=== PATIENT | female | born 1945 | race Caucasian/White ===

== ENCOUNTER 2016-08-14 19:23 | Inpatient (IN) | payer OTHER, MEDICAID ==
[2016-08-14 19:55] LABS: % IMMATURE GRANULYOCYTES 0.2 % (0.0-1.1); ABSOLUTE IMMATURE GRANULOCYTES 0.01 10^3/uL (0.00-0.10); ADD DIFF? NO; ADD MORPH? NO; ADD SCAN? NO; ATYPICAL LYMPHOCYTE FLAG 0 (0-99); FRAGMENT RBC FLAG 20 (0-99); HEMATOCRIT 27.8 % (38.0-47.0); HEMOGLOBIN 8.6 g/dL (12.6-16.3); LEFT SHIFT FLG 0 (0-99); LIPEMIA HEMOLYSIS FLAG 80 (0-99); MEAN CELL HEMOGLOBIN CONCENTR. 30.9 g/dL (32.4-36.7); MEAN PLATELET VOLUME 9.2 fL (8.7-11.7); PLATELET CLUMPS FLAG 10 (0-99); PLATELET COUNT 136 10^3/uL (150-400); RED BLOOD CELL COUNT 3.31 10^6/uL (4.18-5.33); RED CELL DISTRIBUTION WIDTH 15.6 % (11.5-15.2)
--- NOTE | 2016-08-14 20:03 | CPEKG ---
Heart Rate: 75 RR Interval: 800 P-R Interval: 188 QRSD Interval: 84 QT Interval: 444 QTC Interval: 496 QRS [place]: 43 T Wave [place]: 68 EKG Severity - ABNORMAL ECG - EKG Impression: ATRIAL-PACED RHYTHM EKG Impression: BORDERLINE PROLONGED QT INTERVAL Electronically Signed By: Cl Fagan 14-Aug-2016 20:41:46
[2016-08-14 20:25] LABS: ANION GAP 13 mEq/L (8-16); CARBON DIOXIDE 20 mEq/l (22-31); CHLORIDE 105 mEq/L (97-110); CREATININE 1.9 mg/dL (0.6-1.0); GLOMERULAR FILTRATION RATE 26; GLUCOSE 92 mg/dL (70-100); POTASSIUM 4.5 mEq/L (3.5-5.2); SODIUM 138 mEq/L (134-144)
--- NOTE | 2016-08-14 20:34 | EDPHY ---
H & P Stated Complaint: dyspnea, swollen foot; since yesterday Time Seen by Provider: 08/14/16 20:11 HPI/ROS: CHIEF COMPLAINT: Increasing dyspnea x2 days, right calf pain and swelling HISTORY OF PRESENT ILLNESS: The patient presents the ED with increasing dyspnea for the past 2 days. The patient denies fever or productive cough. The patient is also noted some swelling in her right calf. The patient has had a 1 month history of an intermittent pruritic rash. The patient also has a history of a liver transplant 20 years ago. She is currently maintained on Prograf. Patient denies any abdominal pain, nausea, vomiting or diarrhea. The patient has been using her 's oxygen at home today secondary to her dyspnea. The patient reports that she is having difficulty walking across the room which is atypical for the patient's respiratory baseline. The patient does have a history of chronic renal insufficiency. The patient reports she has had no issues with acute or chronic liver rejection. The patient typically receives her [facility]. The patient does have a history of COPD. The patient was last hospitalized in March of 2016. During that hospitalization she was admitted to the hospital and apparently intentionally overdosed on medications shortly after her admission to the hospital. REVIEW OF SYSTEMS: A comprehensive 10 point review of systems is otherwise negative aside from elements mentioned in the history of present illness. Source: Patient Exam Limitations: No limitations - Personal History Current Tetanus/Diphtheria Vaccine: Yes Tetanus Vaccine Date: 2006 - Medical/Surgical History Hx Asthma: No Hx Chronic Respiratory Disease: Yes Hx Diabetes: No Hx Cardiac Disease: Yes Hx Renal Disease: Yes Hx Cirrhosis: No Hx Alcoholism: No Hx HIV/AIDS: No Hx Splenectomy or Spleen Trauma: No Other PMH: PMH- Hep B&C,Pacer 09/21 syncope, HTN, CKD, UTIS, hypothyroid, depression, COPD, leukocytosis, anemia, thrombocytopenia, seizures, arthritis, bipolar, erosive esophagitis, diastolic heart failure, renal aretery stenosis, LIVER TRANSPLANT , PANCREATITIS. PSH- ankle R replacement, liver xplant 1996, knee and wrist, meche - Social History Smoking Status: Former smoker - Physical Exam Exam: General Appearance: Elderly female, mild tachypnea, no acute distress Eyes: Pupils equal and round no pallor or injection ENT, Mouth: Mucous membranes moist Respiratory: Lungs are clear to auscultation bilaterally Cardiovascular: Regular rate and rhythm Gastrointestinal: Abdomen is soft and nontender, no masses, bowel sounds normal Neurological: A&O, normal motor function, normal sensory exam, normal cranial nerves Skin: Chronic excoriated lesions noted to right leg and back Musculoskeletal: Neck is supple nontender Extremities: Slight asymmetric calf swelling noted in the right leg Constitutional: Initial Vital Signs Temperature (C) 36.7 C 08/14/16 19:25 Heart Rate 77 08/14/16 19:25 Respiratory Rate 17 08/14/16 19:25 Blood Pressure 156/95 H 08/14/16 19:25 O2 Sat (%) 96 08/14/16 19:25 O2 Delivery Mode Nasal Cannula O2 (L/minute) 2 Allergies/Adverse Reactions: dextroamphetamine [Dextroamphetamine] Allergy (Unknown, Verified 03/10/16 17:35) JITTERY gabapentin [Gabapentin] Allergy (Unknown, Verified 03/10/16 17:35) JITTERY temazepam [Temazepam] Allergy (Unknown, Verified 03/10/16 17:35) AMNESIA sumatriptan [From Imitrex] Allergy (Verified 03/10/16 17:35) sumatriptan succinate [From Imitrex] Allergy (Verified 03/10/16 17:35) Home Medications: Medication Instructions Recorded QUEtiapine FUMARATE [Seroquel 100 100 mg PO HS 03/08/13 mg (*)] Calcitriol [Calcitriol (*)] 0.25 mcg PO MWF 12/25/15 Tacrolimus Anhydrous [Prograf 0.5 1 mg PO BID 12/25/15 MG (*)] Tiotropium Inhaler [Spiriva 18 mcg IH DAILY 12/25/15 Handihaler] Acetaminophen/ASA/Caffeine 1 each PO PRN PRN #0 tab 02/12/16 [Excedrin Tablet (*)] Carvedilol [Coreg (*)] 25 mg PO BIDMEAL 08/14/16 FLUoxetine [Prozac 20 MG (*)] 20 mg PO DAILY 08/14/16 LORazepam [Ativan (*)] 1 mg PO BID 08/14/16 Pantoprazole Sodium [Protonix 40mg 40 mg PO BID 08/14/16 (*)] amLODIPine BESYLATE [Norvasc 10 mg 10 mg PO DAILY 08/14/16 (*)] hydrALAZINE [Apresoline 50 mg (*)] 25 mg PO TID 08/14/16 Medical Decision Making - Diagnostics EKG Interpretation: EKG: Complete interpretation has been separately recorded in the [employer] archive. Summary impression: Av paced rhythm Imaging: Chest x-ray AP: Negative for CHF or pneumonia. Study reviewed by myself and radiologist Dr. Bauer. Bilateral LE US: Right sided Cuellar's cyst, otherwise normal without evidence of DVT. ED Course/Re-evaluation: The patient presents to the ED with complaints of dyspnea. The patient was noted to have an oxygen saturation of 96% on room air. She currently is paced at a rate of 75. The patient reports that she is not anticoagulated. She has evidence of a possible DVT involving her right lower extremity. The patient is noted to have a creatinine of 1.9. The patient does not appear to be fluid overloaded. Bilateral lower extremity ultrasound have been ordered. The patient's EKG demonstrates no evidence of obvious ischemia in her paced rhythm. The patient is currently undergoing bilateral lower extremity ultrasounds. The patient will receive a DuoNeb. I believe she is likely having dyspnea secondary to COPD exacerbation. Chest x- ray currently pending. The patient is quite symptomatic and unsteady on her feet. The patient lives alone and cannot safely be discharged home this evening. Consultation is made with Dr. Armenta from the hospitalist service who will admit the patient. Differential Diagnosis: Differential diagnosis considered includes congestive heart failure, arrhythmia , pulmonary embolism, myocardial infarction, metabolic abnormality, hyperkalemia - Data Points Laboratory Results: Laboratory Results 08/14/16 19:45 08/14/16 19:45 08/14/16 08/14/16 08/14/16 20:40 20:37 19:45 WBC 5.24 10^3/uL (3.80-9.50) RBC 3.31 L 10^6/uL (4.18-5.33) Hgb 8.6 L g/dL (12.6-16.3) Hct 27.8 L % (38.0-47.0) MCV 84.0 fL (81.5-99.8) MCH 26.0 L pg (27.9-34.1) MCHC 30.9 L g/dL (32.4-36.7) RDW 15.6 H % (11.5-15.2) Plt Count 136 L 10^3/uL (150-400) MPV 9.2 fL (8.7-11.7) Neut % (Auto) 51.5 % (39.3-74.2) Lymph % (Auto) 31.1 % (15.0-45.0) [place] % (Auto) 5.5 % (4.5-13.0) Eos % (Auto) 11.5 H % (0.6-7.6) Baso % (Auto) 0.2 L % (0.3-1.7) Nucleat RBC Rel Count 0.0 % (0.0-0.2) Absolute Neuts (auto) 2.70 10^3/uL (1.70-6.50) Absolute Lymphs (auto) 1.63 10^3/uL (1.00-3.00) Absolute Monos (auto) 0.29 L 10^3/uL (0.30-0.80) Absolute Eos (auto) 0.60 H 10^3/uL (0.03-0.40) Absolute Basos (auto) 0.01 L 10^3/uL (0.02-0.10) Absolute Nucleated RBC 0.00 10^3/uL (0-0.01) Immature Gran % 0.2 % (0.0-1.1) Immature Gran # 0.01 10^3/uL (0.00-0.10) APTT 22.9 L SEC (23.0-38.0) D-Dimer 0.83 H ug/mLFEU (0.00-0.50) Sodium 138 mEq/L (134-144) Potassium 4.5 mEq/L (3.5-5.2) Chloride 105 mEq/L (97-110) Carbon Dioxide 20 L mEq/l (22-31) Anion Gap 13 mEq/L (8-16) BUN 33 H mg/dL (7-23) Creatinine 1.9 H mg/dL (0.6-1.0) Estimated GFR 26 Glucose 92 mg/dL (70-100) Calcium 9.0 mg/dL (8.5-10.4) Troponin I < 0.012 ng/mL (0-0.034) NT-Pro-B Natriuret Pep 1700 H pg/mL (0-125) Medications Given: Discontinued Medications Albuterol/Ipratropium (Duoneb) 3 ml IH EDNOW ONE Stop: 08/14/16 20:40 Last Admin: 08/14/16 20:40 Dose: 3 ml Methylprednisolone Sodium Succinate (Solu-Medrol) 125 mg IVP ONCE ONE Stop: 08/14/16 20:58 Last Admin: 08/14/16 21:13 Dose: 125 mg Departure - Departure Disposition: [facility] Acute Clinical Impression: Chronic obstructive pulmonary disease with acute exacerbation, Dehydration Condition: Fair
[2016-08-14] MEDS ORDERED: IPRATROPIUM/ALBUTEROL 3 ML DEYVIAL IH ONE (20:39)
[2016-08-14 20:44] LABS: APTT 22.9 SEC (23.0-38.0)
[2016-08-14] MEDS ORDERED: methylPREDNISolone SOD SUCC 125 MG/2 ML VIAL IVP ONE (20:57)
--- NOTE | 2016-08-14 21:16 | US ---
Ultrasound and Venous Duplex Doppler Study of Both the Right and Left Lower Extremities History: Shortness of breath, right foot swelling, possible DVT Comparison: February 09, 2016 Technique: High frequency transducer was used for imaging and Doppler study of the veins of the righ t and left lower extremities. Pulsed Doppler and color Doppler were utilized, along with various ma neuvers to assess flow in the veins. Findings: Right: A right Cuellar cyst is slightly larger currently measuring 6.2 x 2.3 x 1 cm compared to prior 5 .1 x 2.1 x 1.1 cm. The deep veins of the right lower extremity are normally compressible between the groin and the upper calf. They have normal Doppler waveforms within them. No venous thrombosis is id entified. Left: The deep veins of the left lower extremity are normally compressible between the groin and the upper calf. They have normal Doppler wave forms within them. No venous thrombus is identified. Impression: 1. No evidence of deep vein thrombosis in the right or left lower extremity. 2. Slight increase in size of a right Cuellar's cyst. Results called and discussed with Sarah Vu MD at 08/14/2016 9:14 pm
[2016-08-14 21:31] LABS: TROPONIN I < 0.012 ng/mL (0-0.034)
--- NOTE | 2016-08-14 21:38 | DX ---
Chest, AP and Lateral History: Dyspnea Comparison: March 12, 2016, February 08, 2016 Findings: Lung volumes are mildly prominent. Lungs are clear, without infiltrate or consolidation. He art size is normal. There is no adenopathy or mass lesion. There is no pleural effusion or pneumothor ax. Bones are unremarkable for age. A left chest wall pacer device and associated bipolar pacer leads remain in place. Impression: Normal. No pneumonia or congestive failure identified.
[2016-08-14] MEDS ORDERED: ALBUTEROL 3 ML DEYVIAL IH PRN (23:23)
[2016-08-14] MEDS ORDERED: ONDANSETRON DISINTEGRATING 4 MG TAB PO PRN (23:23)
[2016-08-14] MEDS ORDERED: ONDANSETRON 4 MG/2 ML VIAL IVP PRN (23:23)
[2016-08-14] MEDS ORDERED: ACETAMINOPHEN/ASA/CAFFEINE 1 EACH TAB PO PRN (23:27)
[2016-08-14] MEDS ORDERED: TACROLIMUS ANHYDROUS 0.5 MG CAP PO SCH (23:30)
[2016-08-14] MEDS ORDERED: ASPIRIN 325 MG TAB PO ONE (23:41)
--- NOTE | 2016-08-14 23:47 | PDGENHP ---
History and Physical - Chief Complaint SOB - History of Present Illness 71 yo female with h/o liver transplant, CKD and h/o heart block with pacemaker presents to ED with SOB. Symptoms present over past 2-3 days. She reports mild cough, minimal sputum. She is mostly having dyspnea on exertion. Denies chest pain. No associated nausea or diaphoresis. In 10/2015, she had a nuclear stress test with some reversible ischemia and it was noted that if she develops worse symptoms, she may need an angiogram. She uses Spiriva, but feels this hasn't helped her symptoms much. She does not have a steroid inhaler or albuterol. In the ED, she had a mildly elevated d dimer, LE duplex was negative for DVT. She is unable to have CTPA due to elevated creatinine. She is admitted for presumed COPD exacerbation. History Information - Allergies/Home Medication List Allergies/Adverse Reactions: dextroamphetamine [Dextroamphetamine] Allergy (Unknown, Verified 03/10/16 17:35) JITTERY gabapentin [Gabapentin] Allergy (Unknown, Verified 03/10/16 17:35) JITTERY temazepam [Temazepam] Allergy (Unknown, Verified 03/10/16 17:35) AMNESIA sumatriptan [From Imitrex] Allergy (Verified 03/10/16 17:35) sumatriptan succinate [From Imitrex] Allergy (Verified 03/10/16 17:35) Home Medications: QUEtiapine FUMARATE [Seroquel 100 mg (*)] 100 mg PO HS 03/08/13 [Last Taken 11/22] Calcitriol [Calcitriol (*)] 0.25 mcg PO MWF 12/25/15 [Last Taken 08/14/16] Tacrolimus Anhydrous [Prograf 0.5 MG (*)] 1 mg PO BID 12/25/15 [Last Taken 08/14 09:00] Tiotropium Inhaler [Spiriva Handihaler] 18 mcg IH DAILY 12/25/15 [Last Taken 12/23] Carvedilol [Coreg (*)] 25 mg PO BIDMEAL 08/14/16 [Last Taken 08/14/16 09:00] FLUoxetine [Prozac 20 MG (*)] 20 mg PO DAILY 08/14/16 [Last Taken 08/14/16] LORazepam [Ativan (*)] 1 mg PO BID 08/14/16 [Last Taken 08/14/16 09:00] Pantoprazole Sodium [Protonix 40mg (*)] 40 mg PO BID 08/14/16 [Last Taken 09:00] amLODIPine BESYLATE [Norvasc 10 mg (*)] 10 mg PO DAILY 08/14/16 [Last Taken 12/23] hydrALAZINE [Apresoline 50 mg (*)] 25 mg PO TID 08/14/16 [Last Taken 08/14/16 12 :00] I have personally reviewed and updated: family history, medical history, social history, surgical history - Past Medical History COPD, GERD, hypertension, migraines, psychiatric history Additional medical history: CKD, h/o liver transplant 1996, h/o heart block with pacemaker, chronic immunosuppression, depression/anxiety, 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 Her recently . Review of Systems ROS: 10pt was reviewed & negative except for what was stated in HPI & below Physical Exam Temp Pulse Resp BP Pulse Ox 36.7 C 74 18 182/100 H 92 08/14/16 19:25 08/14/16 21:13 08/14/16 21:13 08/14/16 21:13 08/14/16 21:13 Constitutional: no apparent distress Eyes: PERRL Ears, Nose, Mouth, Throat: moist mucous membranes Cardiovascular: regular rate and rhythym, no murmur, rub, or gallop Respiratory: no respiratory distress, clear to auscultation Gastrointestinal: normoactive bowel sounds, soft, non-tender abdomen Skin: warm Musculoskeletal: full muscle strength Neurologic: AAOx3 Psychiatric: interacting appropriately Lab Data & Imaging Review 08/14/16 19:45 08/14/16 19:45 WBC 5.24 10^3/uL (3.80-9.50) 08/14/16 19:45 RBC 3.31 10^6/uL (4.18-5.33) L 08/14/16 19:45 Hgb 8.6 g/dL (12.6-16.3) L 08/14/16 19:45 Hct 27.8 % (38.0-47.0) L 08/14/16 19:45 MCV 84.0 fL (81.5-99.8) 08/14/16 19:45 MCH 26.0 pg (27.9-34.1) L 08/14/16 19:45 MCHC 30.9 g/dL (32.4-36.7) L 08/14/16 19:45 RDW 15.6 % (11.5-15.2) H 08/14/16 19:45 Plt Count 136 10^3/uL (150-400) L 08/14/16 19:45 MPV 9.2 fL (8.7-11.7) 08/14/16 19:45 Neut % (Auto) 51.5 % (39.3-74.2) 08/14/16 19:45 Lymph % (Auto) 31.1 % (15.0-45.0) 08/14/16 19:45 [place] % (Auto) 5.5 % (4.5-13.0) 08/14/16 19:45 Eos % (Auto) 11.5 % (0.6-7.6) H 08/14/16 19:45 Baso % (Auto) 0.2 % (0.3-1.7) L 08/14/16 19:45 Nucleat RBC Rel Count 0.0 % (0.0-0.2) 08/14/16 19:45 Absolute Neuts (auto) 2.70 10^3/uL (1.70-6.50) 08/14/16 19:45 Absolute Lymphs (auto) 1.63 10^3/uL (1.00-3.00) 08/14/16 19:45 Absolute Monos (auto) 0.29 10^3/uL (0.30-0.80) L 08/14/16 19:45 Absolute Eos (auto) 0.60 10^3/uL (0.03-0.40) H 08/14/16 19:45 Absolute Basos (auto) 0.01 10^3/uL (0.02-0.10) L 08/14/16 19:45 Absolute Nucleated RBC 0.00 10^3/uL (0-0.01) 08/14/16 19:45 Immature Gran % 0.2 % (0.0-1.1) 08/14/16 19:45 Immature Gran # 0.01 10^3/uL (0.00-0.10) 08/14/16 19:45 APTT 22.9 SEC (23.0-38.0) L 08/14/16 20:37 D-Dimer 0.83 ug/mLFEU (0.00-0.50) H 08/14/16 20:37 Sodium 138 mEq/L (134-144) 08/14/16 19:45 Potassium 4.5 mEq/L (3.5-5.2) 08/14/16 19:45 Chloride 105 mEq/L (97-110) 08/14/16 19:45 Carbon Dioxide 20 mEq/l (22-31) L 08/14/16 19:45 Anion Gap 13 mEq/L (8-16) 08/14/16 19:45 BUN 33 mg/dL (7-23) H 08/14/16 19:45 Creatinine 1.9 mg/dL (0.6-1.0) H 08/14/16 19:45 Estimated GFR 26 08/14/16 19:45 Glucose 92 mg/dL (70-100) 08/14/16 19:45 Calcium 9.0 mg/dL (8.5-10.4) 08/14/16 19:45 Troponin I < 0.012 ng/mL (0-0.034) 08/14/16 20:40 NT-Pro-B Natriuret Pep 1700 pg/mL (0-125) H 08/14/16 20:40 Assessment & Plan Assessment: Dyspnea / Acute hypoxemic respiratory failure - symptoms worse with exertion. COPD possible factor, also considered cardiac ischemia though pt is CP free. She had an abnormal stress test in 10/2015 and may warrant an angiogram, though Cr 1.9. Initial troponin negative. EKG non-ischemic. Considered PE, D dimer mildly elevated, LE duplex neg for DVT, no tachycardia or CP. -Nebs, O2, oral prednisone for COPD component -full dose ASA now, cont beta alma -check lipid status (statin previously d/c'd due to elevated LFTs) -trend troponin -repeat EKG in am -Consider cards consult in am to determine if pt is a candidate for angiogram vs echo vs repeat stress test -Consider V/Q scan if hypoxemia worsens Hypertension - BP quite elevated now, but hasn't had evening meds. -Cont Coreg, Hydralazine, Norvasc H/O Liver transplant - cont prograf, check level. CKD - H/O nephrotic range proteinuria 2/2 FSGS. Cr near baseline. Anemia - chronic, not far from baseline. H/O GI bleed. No e/o active bleeding at this time. -hemoccult stool GERD / erosive esophagitis - cont PPI Full code Dispo - obs
[2016-08-15] MEDS: PANTOPRAZOLE SODIUM 40 MG TAB PO SCH ×3 (00:04→20:26)
[2016-08-15] MEDS: LORazepam 1 MG TAB PO SCH ×3 (00:05→20:26)
[2016-08-15] MEDS: CARVEDILOL 25 MG TAB PO SCH ×3 (00:05→16:31)
[2016-08-15] MEDS: TACROLIMUS 1 MG CAP PO SCH ×3 (00:06→20:26)
[2016-08-15] MEDS: QUEtiapine FUMARATE 100 MG TAB PO SCH ×2 (00:06→20:26)
[2016-08-15] MEDS: IPRATROPIUM/ALBUTEROL 3 ML DEYVIAL IH SCH ×6 (01:45→21:09)
[2016-08-15 03:17] LABS: ALBUMIN 3.1 g/dL (3.5-5.0); ANION GAP 15 mEq/L (8-16); CALCIUM 8.5 mg/dL (8.5-10.4); CARBON DIOXIDE 17 mEq/l (22-31); CHLORIDE 107 mEq/L (97-110); CHOLESTEROL 186 mg/dL (140-220); CHOLESTEROL/HDL RATIO 4.77 RATIO (1.00-4.44); CREATININE 1.8 mg/dL (0.6-1.0); GLOMERULAR FILTRATION RATE 28; GLUCOSE 178 mg/dL (70-100); HIGH DENSITY LIPOPROTEIN 39 mg/dL (40-85); LDL/HDL RATIO 3.18 RATIO (1.00-3.22); LOW DENSITY LIPOPROTEIN 124 mg/dL (80-100); POTASSIUM 4.3 mEq/L (3.5-5.2); SODIUM 139 mEq/L (134-144); TRIGLYCERIDE 118 mg/dL (35-135); VERY LOW DENSITY LIPOPROTEINS 23 mg/dL (8-25)
[2016-08-15 03:18] LABS: NON-HIGH DENSITY LIPOPROTEIN 147 mg/dL (90-129)
[2016-08-15 03:37] LABS: HEMATOCRIT 24.8 % (38.0-47.0); HEMOGLOBIN 7.5 g/dL (12.6-16.3); MEAN CELL HEMOGLOBIN 25.7 pg (27.9-34.1); MEAN CELL HEMOGLOBIN CONCENTR. 30.2 g/dL (32.4-36.7); MEAN CELL VOLUME 84.9 fL (81.5-99.8); RED BLOOD CELL COUNT 2.92 10^6/uL (4.18-5.33); RED CELL DISTRIBUTION WIDTH 15.5 % (11.5-15.2)
[2016-08-15] MEDS: ACETAMINOPHEN 325 MG TAB PO PRN ×3 (04:44→15:35)
--- NOTE | 2016-08-15 09:29 | CPEKG ---
Heart Rate: 77 RR Interval: 779 P-R Interval: 192 QRSD Interval: 80 QT Interval: 424 QTC Interval: 480 QRS [place]: 31 T Wave [place]: 39 EKG Severity - ABNORMAL ECG - EKG Impression: ATRIAL-PACED RHYTHM Electronically Signed By: Jason House 15-Aug-2016 13:14:20
[2016-08-15] MEDS: FLUoxetine 20 MG CAP PO SCH (09:45)
--- NOTE | 2016-08-15 10:35 | HOSPPROG ---
Hospitalist Progress Note Assessment/Plan: DIAGNOSIS: # ACUTE DYSPNEA WITH PLEURITIC CHEST PAIN, OF UNCERTAIN ETIOLOGY -high d-dimer and extreme inactivity, along with no other defined cause of her symptoms, leave her at fairly high risk for pe # HISTORY OF ABNORMAL MYOCARDIAL PERFUSION IMAGING WITH STRESS, SO MAY HAVE MYOCARDIUM AT RISK # CHRONIC KIDNEY DISEASE AT HER BEST RECENT CREATININE AT 1.8, SO STABLE WITH HISTORY OF FOCAL SEGMENTAL GLOMERULAR SCLEROSIS # ELEVATED D-DIMER, NEGATIVE DOPPLER ULTRASOUND OF LEGS # HYPERTENSION CURRENTLY UNCONTROLLED # PANCYTOPENIA, THIS MAY BE PARTLY RELATED TO HER IMMUNE SUPPRESSION MEDICATIONS BUT IS OF UNCERTAIN CAUSE. IT IS CHRONIC BUT WORSE NOW THAN IN THE PAST # SEVERE DECONDITIONING FROM CHRONIC IN ACTIVITY # CHRONIC LIVER TRANSPLANT ON IMMUNE SUPPRESSION # HISTORY OF PACEMAKER FOR HEART BLOCK At this time she has normal troponins, no heart failure, no arrhythmia, overall no likely cardiac explanation for her dyspnea. There is a mildly abnormal nuclear stress test in the past; if we have no other findings it may be worth repeating that stress test to see if myocardial profusion has worsened. However at this time fairly suspicious for possible PE. I do not think a V/Q scan would help given her likely COPD; she does have chronic renal disease but her kidneys are at her baseline actually better than recent baseline at 1.8. I think would actually be safe to do CT angio as long as we keep her hydrated. In terms of COPD she probably has this but lung exam is with good air movement and no wheezing at all and her chest x-ray does not show hyperexpansion of lungs. This would not explain her pleuritic pain or her high D-dimer. Ultrasound of the legs is negative but DVT is present only about 1/3 of patients with PE. Another possible cause of dyspnea for her could be her anemia which is worse than it has been in the past. If we have no other findings to explain her dyspnea on the above away stuart she may actually need transfusion for treatment of symptomatic anemia. PLANS: -continue bronchodilators -IV hydration -CT angio of the chest to rule out PE -if there is no PE would do spirometry to see what her lung function really is -If symptoms persist and there is no PE would consider repeating myocardial perfusion imaging with stress -review her pancytopenia with Hematology and see if there is further workup that needs to be done for this SUBJECTIVE: Some partial relief of her dyspnea with bronchodilators. However at this time she still has more dyspnea than usual and it is also admitting to me that she does have some anterior pleuritic chest pain. There is no pain in her legs. She has nothing that sounds like angina, no palpitations. OBJECTIVE Vitals reviewed: Some uncontrolled systolic hypertension otherwise normal Exam: alert oriented skin warm dry color ok No jugular venous distention at the neck resps not labored lungs clear BSs, there is good air movement in both lungs with no wheeze heart regular abd soft nondistended nontender, bowel sounds present limbs warm, no edema iv site ok Objective: Vital Signs Temp Pulse Resp BP Pulse Ox 36.6 C 76 18 166/96 H 97 08/15/16 08:44 08/15/16 08:44 08/15/16 08:32 08/15/16 09:44 08/15/16 08:44 Laboratory Results 08/15/16 02:45 08/15/16 02:45 08/14/16 08/15/16 08/16/16 06:59 06:59 06:59 Intake Total 150 Output Total 400 Balance -250 ICD10 Worksheet Patient Problems: Problems Problem Status Diagnosed Acute bronchitis with chronic obstructive pulmonary disease (COPD) Acute Acute on chronic renal insufficiency Acute Bronchitis Acute Chest pain Acute Chronic Disease Mgmt/Transitional Care Acute Chronic obstructive pulmonary disease with acute exacerbation Acute Chronic renal insufficiency Acute Dehydration Acute Hyponatremia Acute Knee effusion Acute Migraine Acute Pneumonia Acute Right knee pain Acute Adjustment disorder with depressed mood Active Chest pain in adult Acute Colitis Acute Cough Acute Elevated d-dimer Acute Leg cramping Acute Multiple falls Acute Renal failure (ARF), acute on chronic Acute Sedated Acute Shortness of breath Acute Urinary tract infection Acute Vomiting Acute Weakness Acute
[2016-08-15] MEDS: ASPIRIN PO PRN ×4 (12:25→20:24)
[2016-08-15] MEDS: [UNRECOGNIZED DRUG - OTHER] PO PRN ×4 (12:25→20:24)
[2016-08-15] MEDS: BUTALBITAL PO PRN ×4 (12:25→20:24)
[2016-08-15] MEDS: CAFFEINE PO PRN ×4 (12:25→20:24)
[2016-08-15] MEDS: predniSONE 20 MG TAB PO SCH (12:42)
[2016-08-15] MEDS ORDERED: IOPAMIDOL (ISOVUE 370) 100 ML BTL IV ONE ×2 (13:47→17:54)
[2016-08-15] MEDS ORDERED: ALTEPLASE 2 MG VIAL IVP PRN (15:17)
--- NOTE | 2016-08-15 17:44 | IR ---
Imaging-Guided Peripherally Inserted Central Catheter History: Central line access for acute respiratory failure.. Prophylactic Antibiotic: Cefazolin was not ordered and administered for antimicrobial prophylaxis be cause it was not medically necessary for this procedure. VTE Prophylaxis: There is not an order for VTE prophylaxis to be given within 24 hours after procedu re end time because it was not medically necessary for this procedure. Crosscutting Measure: Patient's current list of medications including all known prescriptions, over- the-counters, herbals, and vitamin/mineral/dietary supplements are reviewed. Medications' name, dosa ge, frequency, and route of administration are confirmed. Technique: Following informed consent, the right arm was prepped and draped in sterile fashion. 1% Xy locaine was used for local anesthetic. All elements of maximal sterile barrier technique including cap, mask, sterile gown, sterile gloves, large sterile sheet, hand hygiene, and 2% chlorhexidine for cutaneous antisepsis, followed. Ultrasound evaluation of potential access site was performed. After successfully identifying a patent vessel, ultrasound guidance was used to puncture the vein. A permanent recording was created for the patient's record. Ultrasound transducer was placed in sterile sleeve and used for real-time imaging guidance over steri le gel to enter the basilic vein. 0.018 measuring wire was passed centrally under fluoroscopic contro l. A skin angelina with scalpel blade was followed by removing the access needle. A 4 Yemeni peel-away sh eath was followed by a 4 [place]i single-lumen central catheter, trimmed to cm length. . The tip of the catheter was positioned centrally and the guidewire removed. A single fluoroscopic spot image was obtained in inspiration. The hub of the catheter was fixed to the skin using a sterile StatLock adhe sive device, and a sterile dressing was applied. The catheter was irrigated. Findings: The tip of the central catheter terminates at the junction of the superior vena cava and th e right atrium. Fluoroscopy: 1.5 minutes, 1 images Impression: 4 Yemeni single lumen peripherally inserted central catheter is ready to use.
[2016-08-15] MEDS ORDERED: IOPAMIDOL (ISOVUE-300) 100 ML BTL IV ONE (17:52)
--- NOTE | 2016-08-15 18:53 | CT ---
CT Chest Angiogram 18:12 p.m. Indication: Pleuritic chest pain and dyspnea. Technique: Thinly collimated multidetector helical CT imaging was performed through the chest while 90 mL of Isovue-370 were injected intravenously without complication. The images were then transferr ed to an independent workstation where multiplanar reconstructions were performed. Dose reduction bert hniques were utilized. Comparison: Two-view chest dated August 14, [address] chest without contrast dated July 02 15 Findings: CT Chest Angiogram: The pulmonary arterial system is well opacified. No intraluminal filling defect s to suggest acute or chronic thrombopulmonary embolic disease. The aneurysmal ascending aorta, measu ring 4.1 cm AP, is unchanged in caliber since June 2015. The descending thoracic aorta is normal caliber with mild calcified plaque. CT Chest: Trace simple right pleural effusion measures less than 1 cm in thickness. Lungs are clear e xcept for minimal linear dependent atelectasis in the right lower lobe. No edema or airspace consolid ation. No suspicious pulmonary nodule or mass has developed. The central airway is clear. The heart size is normal. A right PICC is present with the tip in the superior vena cava and a left a nterior chest wall dual-lead pacemaker has leads in the right atrium and right ventricle. No pericard ial effusion or left-sided pleural effusion. No enlarged lymph node or mass throughout the axilla, mediastinum, pulmonary brittney, or imaged portion of the upper abdomen. No compression fracture or bone lesion. Impression: 1. No evidence of thrombopulmonary embolic disease. 2. Aneurysmal ascending aorta, measuring 4.1 cm, is unchanged since 2014. Recommend continued surveil adolfo. 3. Simple trace right pleural effusion and minimal right basilar atelectasis.
[2016-08-15] MEDS: NS 1,000 ML IV SCH (20:23)
[2016-08-16] MEDS: IPRATROPIUM/ALBUTEROL 3 ML DEYVIAL IH SCH ×6 (00:10→20:34)
[2016-08-16 06:52] LABS: % IMMATURE GRANULYOCYTES 0.8 % (0.0-1.1); ABSOLUTE IMMATURE GRANULOCYTES 0.02 10^3/uL (0.00-0.10); ADD DIFF? NO; ADD MORPH? YES; ADD SCAN? NO; ATYPICAL LYMPHOCYTE FLAG 20 (0-99); FRAGMENT RBC FLAG 20 (0-99); HEMATOCRIT 22.4 % (38.0-47.0); LEFT SHIFT FLG 0 (0-99); LIPEMIA HEMOLYSIS FLAG 80 (0-99); MEAN CELL HEMOGLOBIN 25.9 pg (27.9-34.1); MEAN CELL HEMOGLOBIN CONCENTR. 30.8 g/dL (32.4-36.7); MEAN CELL VOLUME 84.2 fL (81.5-99.8); MEAN PLATELET VOLUME 8.9 fL (8.7-11.7); PLATELET CLUMPS FLAG 0 (0-99); PLATELET COUNT 84 10^3/uL (150-400); RED BLOOD CELL COUNT 2.66 10^6/uL (4.18-5.33); RED CELL DISTRIBUTION WIDTH 15.6 % (11.5-15.2)
[2016-08-16 07:01] LABS: HEMOGLOBIN 6.9 g/dL (12.6-16.3)
[2016-08-16 07:33] LABS: ANION GAP 7 mEq/L (8-16); CALCIUM 8.1 mg/dL (8.5-10.4); CARBON DIOXIDE 22 mEq/l (22-31); CHLORIDE 108 mEq/L (97-110); CREATININE 1.7 mg/dL (0.6-1.0); GLOMERULAR FILTRATION RATE 30; GLUCOSE 93 mg/dL (70-100); SODIUM 137 mEq/L (134-144)
[2016-08-16 07:37] LABS: HYPOCHROMIA 1+; PLATELET ESTIMATE DECREASED (ADEQ); POLYCHROMASIA 1+; SCHISTOCYTES 1+; TOXIC GRANULATION PRESENT
[2016-08-16] MEDS: NS 1,000 ML IV SCH (07:49)
[2016-08-16] MEDS ORDERED: CALCITRIOL 0.25 MCG CAP PO SCH (08:00)
[2016-08-16] MEDS: [UNRECOGNIZED DRUG - OTHER] PO PRN ×3 (08:08→18:17)
[2016-08-16] MEDS: ASPIRIN PO PRN ×3 (08:08→18:17)
[2016-08-16] MEDS: BUTALBITAL PO PRN ×3 (08:08→18:17)
[2016-08-16] MEDS: CAFFEINE PO PRN ×3 (08:08→18:17)
[2016-08-16] MEDS: predniSONE 20 MG TAB PO SCH (08:22)
[2016-08-16] MEDS: PANTOPRAZOLE SODIUM 40 MG TAB PO SCH ×2 (08:22→19:46)
[2016-08-16] MEDS: CARVEDILOL 25 MG TAB PO SCH ×2 (08:23→18:17)
[2016-08-16] MEDS: LORazepam 1 MG TAB PO SCH ×2 (08:23→19:47)
[2016-08-16] MEDS: FLUoxetine 20 MG CAP PO SCH (08:23)
[2016-08-16] MEDS: TACROLIMUS 1 MG CAP PO SCH ×2 (08:23→19:47)
[2016-08-16] MEDS ORDERED: IPRATROPIUM/ALBUTEROL 3 ML DEYVIAL IH PRN (10:26)
--- NOTE | 2016-08-16 11:24 | HOSPPROG ---
Hospitalist Progress Note Assessment/Plan: Dyspnea / Acute hypoxemic respiratory failure - worse with exertion, unchanged since admission. Query COPD / Bronchitis vs cardiac ischemia vs pulmonary htn vs symptomatic anemia. CTPA neg for PE. Requiring 2 LPM O2. Prior abnormal stress test 10/2015 with small area of reversible ischemia. Reviewed prior echo 08/2015, which showed moderate pulmonary hypertension, elevated RVSP, EF 65-70%. -Transfuse 2 units prbc's today and assess response -Discussed with cards re: repeat nuc stress test vs heart cath -Consider repeat echo to re-evaluate degree of pulmonary hypertension, may benefit from pulm consult -Cont COPD therapies, will need outpatient PFT's -may need home O2 Hypertension - BP's quite elevated. -Cont Coreg, Norvasc -Increase Hydralazine CKD with nephrotic range proteinuria - Cr at baseline Pancytopenia - chronic though worse than usual. -2 units prbc's today for hgb 6.9 H/O liver transplant on chronic immunosuppressive therapy - cont Prograf Erosive esophagitis - cont PPI DVT PPLX - Lovenox Full code Dispo - cont inpt for ongoing workup of MERLOS and hypoxemia Subjective: Pt doing ok. SOB persists, not worse, but not much better. Worse with exertion. No fevers/chills. Still some coughing. No fevers/chills. No wheezing. Objective: Vital Signs Temp Pulse Resp BP Pulse Ox 36.7 C 69 20 166/84 H 94 08/16/16 07:58 08/16/16 09:46 08/16/16 07:58 08/16/16 09:07 08/16/16 09:46 Laboratory Results 08/16/16 06:30 08/16/16 06:30 08/15/16 08/16/16 08/17/16 05:59 05:59 05:59 Intake Total 450 Output Total 1000 Balance -550 - Physical Exam Constitutional: no apparent distress Eyes: PERRL Ears, Nose, Mouth, Throat: moist mucous membranes Cardiovascular: regular rate and rhythym Respiratory: no respiratory distress, clear to auscultation Gastrointestinal: normoactive bowel sounds, soft, non-tender abdomen Skin: warm Neurologic: AAOx3 Psychiatric: interacting appropriately ICD10 Worksheet Patient Problems: Problems Problem Status Diagnosed Acute bronchitis with chronic obstructive pulmonary disease (COPD) Acute Acute on chronic renal insufficiency Acute Bronchitis Acute Chest pain Acute Chronic Disease Mgmt/Transitional Care Acute Chronic obstructive pulmonary disease with acute exacerbation Acute Chronic renal insufficiency Acute Dehydration Acute Hyponatremia Acute Knee effusion Acute Migraine Acute Pneumonia Acute Right knee pain Acute Adjustment disorder with depressed mood Active Chest pain in adult Acute Colitis Acute Cough Acute Elevated d-dimer Acute Leg cramping Acute Multiple falls Acute Renal failure (ARF), acute on chronic Acute Sedated Acute Shortness of breath Acute Urinary tract infection Acute Vomiting Acute Weakness Acute
[2016-08-16] MEDS: ENOXAPARIN 30 MG/0.3 ML SYR SC SCH (13:17)
[2016-08-16] MEDS: ACETAMINOPHEN 325 MG TAB PO PRN (19:36)
[2016-08-16] MEDS ORDERED: oxyCODONE IR 5 MG TAB PO ONE (19:40)
[2016-08-16] MEDS: QUEtiapine FUMARATE 100 MG TAB PO SCH (19:47)
--- NOTE | 2016-08-16 22:37 | GCON ---
[f rep st] CONSULTATION CONSULT NOTE DATE OF CONSULTATION: 08/16/2016 REASON FOR CONSULT: Evaluation of worsening shortness of breath, as it may relate to cardiac etiology. HISTORY OF ILLNESS: The patient is a 71-year-old female with a history of heart block, pacemaker insertion, pulmonary hypertension, hypertension, COPD, chronic renal insufficiency, migraines, and liver transplant in 1996. She was admitted on 08/14 with worsening shortness of breath, especially with exertion and acute respiratory failure. She has a history of chronic anemia. We were asked to evaluate for possible cardiac etiology of the shortness of breath. Additionally, she has hypertension, which has been elevated periodically during this hospitalization. She did have a CT of her chest that did rule out a pulmonary emboli. Her hematocrit was found to be 22.4. A PICC line was placed , and she is preparing to get 2 units of packed red blood cells. She uses oxygen continuously and is in no distress at the time of this visit. She has been seen at [facility] by most recently Dr. Carlos Milner. At that visit , she was complaining of worsening shortness of breath and dyspnea on exertion. She was to have had an echo and lab and follow up. She had not followed up since that visit. She is up in a chair resting comfortably in no distress. ALLERGIES: She has allergies to gabapentin, temazepam, sumatriptan, sumatriptan succinate. CURRENT MEDICATIONS: Albuterol inhaler every 2 hours as needed, amlodipine 10 mg twice daily, calcitriol 0.25 mcg Sunday, Sunday, Sunday, carvedilol 25 mg twice daily, Lovenox 30 mg SQ daily, Prozac 20 mg daily, prazoline 50 mg t.i.d. , Ativan 1 mg b.i.d., Protonix 40 mg b.i.d., Prednisone 40 mg daily, Seroquel 100 mg at bedtime. PAST MEDICAL HISTORY: COPD, hypertension, migraines, depression, chronic anemia , history of colitis, history of heart block with pacemaker placement. PAST SURGICAL HISTORY: Liver transplant in 1996, pacemaker placement. SOCIAL HISTORY: She has 3 children, 2 daughters and 1 son. One daughter lives nearby in [place]. She lives in her own apartment. Her recently . She is a former smoker. Does not use alcohol. REVIEW OF SYSTEM: A 10-point review was negative except stated in HPI. PHYSICAL EXAM: VITAL SIGNS: Blood pressure 166/84, pulse 69, respirations 20, oxygen saturation 94%. She is using oxygen at 2 L per nasal prongs. HEART: Rate regular. No murmurs, rubs, gallops. LUNGS: Sounds are distant. No wheezes, rales, or rhonchi noted. ABDOMEN: Soft, and nontender. EXTREMITIES: No edema of upper extremity noted. Peripheral pulses lower extremity bilateral 2+. Mild lower extremity edema. LABORATORY DATA: Testing done this hospitalization on August 14, 2016, chest x -ray showed no pneumonia or congestive heart failure. August 14, 2016, extremity venous study showed no DVT. She does have a right Cuellar cyst. August 15, 2016, EKG atrial paced rhythm, rate 77. August 15, 2016, chest CTA showed no PE. She does have an aneurysmal ascending aorta measuring 4.1 cm. This is unchanged from 2016. ASSESSMENT AND PLAN: 1. She did have an echocardiogram done in August 2015, which showed moderate pulmonary hypertension, an elevated RVSP, and an ejection fraction of 65% to 70% . In October 2015, she had a nuclear stress test, which showed a mild area of reversible ischemia. This was not felt to be significant. She was found to be anemic with a hemoglobin of 6.9, hematocrit 22.4. She is receiving 2 units of packed red blood cells. Her history of chronic anemia and finding of significant anemia during this hospitalization may be the etiology of her dyspnea. We will further evaluate for possible cardiac cause. Plan, she will have an echocardiogram to evaluate her pulmonary hypertension, and the cardiac valves and structure. 2. Hypertension is adequately managed at this time. She does have episodes where it does elevate. Recommendation to increase her Norvasc to 10 mg b.i.d. should her blood pressure continue to elevate. 3. We will not order a cardiac stress test at this time. We will review the echocardiogram results and re-evaluate her status after having 2 units of packed blood cells to make final determination. We will continue to follow along with you. Thank you very much for asking us to be a part of this patient's care. /[id number]/MODL MTDD
[2016-08-17] MEDS: ASPIRIN PO PRN (02:17)
[2016-08-17] MEDS: [UNRECOGNIZED DRUG - OTHER] PO PRN (02:17)
[2016-08-17] MEDS: CAFFEINE PO PRN (02:17)
[2016-08-17] MEDS: BUTALBITAL PO PRN (02:17)
[2016-08-17] MEDS: NS 1,000 ML IV SCH (04:27)
[2016-08-17] MEDS ORDERED: oxyCODONE IR 5 MG TAB PO ONE (04:36)
[2016-08-17 04:52] LABS: % IMMATURE GRANULYOCYTES 0.9 % (0.0-1.1); ABSOLUTE IMMATURE GRANULOCYTES 0.03 10^3/uL (0.00-0.10); ADD DIFF? NO; ADD MORPH? NO; ADD SCAN? NO; ATYPICAL LYMPHOCYTE FLAG 0 (0-99); FRAGMENT RBC FLAG 0 (0-99); HEMATOCRIT 31.6 % (38.0-47.0); HEMOGLOBIN 10.3 g/dL (12.6-16.3); LEFT SHIFT FLG 0 (0-99); LIPEMIA HEMOLYSIS FLAG 80 (0-99); MEAN CELL HEMOGLOBIN 27.5 pg (27.9-34.1); MEAN CELL HEMOGLOBIN CONCENTR. 32.6 g/dL (32.4-36.7); MEAN CELL VOLUME 84.3 fL (81.5-99.8); MEAN PLATELET VOLUME 9.9 fL (8.7-11.7); PLATELET CLUMPS FLAG 10 (0-99); PLATELET COUNT 96 10^3/uL (150-400); RED BLOOD CELL COUNT 3.75 10^6/uL (4.18-5.33); RED CELL DISTRIBUTION WIDTH 15.3 % (11.5-15.2)
[2016-08-17 04:59] LABS: ANION GAP 7 mEq/L (8-16); CALCIUM 7.6 mg/dL (8.5-10.4); CARBON DIOXIDE 21 mEq/l (22-31); CHLORIDE 107 mEq/L (97-110); CREATININE 1.6 mg/dL (0.6-1.0); GLOMERULAR FILTRATION RATE 32; GLUCOSE 97 mg/dL (70-100); POTASSIUM 4.7 mEq/L (3.5-5.2); SODIUM 135 mEq/L (134-144)
[2016-08-17] MEDS: IPRATROPIUM/ALBUTEROL 3 ML DEYVIAL IH SCH ×3 (06:00→16:51)
[2016-08-17] MEDS: BUTAL/ASP/CAFFEINE-FIORINAL 1 EACH CAP PO PRN ×2 (09:08→14:00)
[2016-08-17] MEDS: ENOXAPARIN 30 MG/0.3 ML SYR SC SCH (09:18)
[2016-08-17] MEDS: PANTOPRAZOLE SODIUM 40 MG TAB PO SCH (09:18)
[2016-08-17] MEDS ORDERED: FUROSEMIDE 20 MG/2 ML VIAL IVP ONE (09:20)
[2016-08-17] MEDS: CARVEDILOL 25 MG TAB PO SCH ×2 (09:24→18:17)
[2016-08-17] MEDS: LORazepam 1 MG TAB PO SCH (09:24)
[2016-08-17] MEDS: predniSONE 20 MG TAB PO SCH (09:25)
[2016-08-17] MEDS: TACROLIMUS 1 MG CAP PO SCH (09:25)
[2016-08-17] MEDS: FLUoxetine 20 MG CAP PO SCH (09:25)
--- NOTE | 2016-08-17 10:15 | PDCARPN ---
Cardiology Progress Note Assessment/Plan: Assessment: SOB improved since prbc's. Hg now 10. She feels much better. Denies SOB at rest this morning. PHT ECHO done today. ECHO overall improved with continued good EF. Anemia. Chronic. Feeling much better with bld count up. Has a cough, and mild LE edema. May be mildly fluid overloaded from PRBC infusion. Discussed with Dr Armenta, Hospitalist.. She plans to give her low dose of Lasix prior to discharge. HTN Improved with increase of Hydralazine to 50 TID, and Norvasc to 10 BID due to elevated BP last tram. Discussed with Nay Armenta MD, Hospitalist. She will decrease Norvasc to 10 QD prior to DC. Plan: Will sign off. To see Dr Milner next week. She assures me she will keep her appointment. 08/17/16 12:08 Objective: Vital Signs (8 Hrs) Temp Pulse Resp BP Pulse Ox 08/17/16 09:52 157/82 H 08/17/16 09:24 73 174/93 H 08/17/16 09:23 174/93 H 08/17/16 09:20 36.8 C 74 20 174/93 H 95 08/17/16 08:00 36.6 C 81 20 169/80 H 95 08/17/16 04:27 36.8 C 77 16 164/78 H 95 Intake/Output (24 Hrs) 08/16/16 08/17/16 08/18/16 05:59 05:59 05:59 Intake Total 450 4116 Output Total 1000 2550 800 Balance -550 1566 -800 Intake: Oral (ml) 450 1950 IV Intake (ml) 400 IV Infused (ml) 766 Ns 1,000 ml @ 75 mls/hr 766 IV CONT CHRIS Rx#: [id number] Packed Red Blood Cells ( 1000 ml) Output: Urine (ml) 1000 2550 800 Toilet 1000 950 800 Bedside Commode 1600 Other: Weight 73.6 kg Intake Quantity Yes Sufficient Number of Voids Toilet 2 2 Bedside Commode 1 Result Diagrams: 08/17/16 04:35 08/17/16 04:35 - Physical Exam Cardiovascular: regular rate and rhythm, no murmurs (Mitral Murmur), no rubs, no gallops Respiratory: clear to auscultate bilat (right lower lobe diminished.), no crackles, no wheezes, other (cough) Gastrointestinal: no tenderness Skin: no edema (mild LE) Neurologic: AAOx3 ICD10 Worksheet Patient Problems: Problems Problem Status Diagnosed Acute bronchitis with chronic obstructive pulmonary disease (COPD) Acute Acute on chronic renal insufficiency Acute Bronchitis Acute Chest pain Acute Chronic Disease Mgmt/Transitional Care Acute Chronic obstructive pulmonary disease with acute exacerbation Acute Chronic renal insufficiency Acute Dehydration Acute Hyponatremia Acute Knee effusion Acute Migraine Acute Pneumonia Acute Right knee pain Acute Adjustment disorder with depressed mood Active Chest pain in adult Acute Colitis Acute Cough Acute Elevated d-dimer Acute Leg cramping Acute Multiple falls Acute Renal failure (ARF), acute on chronic Acute Sedated Acute Shortness of breath Acute Urinary tract infection Acute Vomiting Acute Weakness Acute
--- NOTE | 2016-08-17 10:56 | ECHO ---
[id number] + + [address] : : [place] [address] : : [phone] + + Adult Echocardiographic Report + -----+ :Name: MISTY ENGEL CStudy Date: 08/17/2016 07:50 AM : : Hospital Admission Number: [id number] Location : 146: :: 1945 Gender: Female Height: 66 in : :Age: 71 yrs Race: WH Weight: 162 lb : :Reason For Study: SOB/Hx PHT/anemia : : BSA: 1.8 meters2 : :History: Liver transplant : + -----+ MMode/2D Measurements & Calculations IVSd: 0.72 cm LVIDd: 5.7 cm FS: 29.0 % LA dimension: LVPWd: 1.0 cm LVIDs: 4.1 cm EDV(Teich): 4.1 cm 162.0 ml ESV(Teich): 72.9 ml EF(Teich): 55.0 % LVOT diam: 2.1 cmLVLd ap4: 7.8 cm SV(MOD-sp4): LVOT area: EDV(MOD-sp4): 41.0 ml 3.5 cm2 62.0 ml LVLs ap4: 6.9 cm ESV(MOD-sp4): 21.0 ml EF(MOD-sp4): 66.1 % Normal Measurement Values: + + :LVIDd (3.5-5.7cm) IVSd (0.6-1.1cm) LVPWd (0.6-1.1cm) Aortic Root (2.0-3.7cm)Left Atrium (1.5-4.0cm): :LV Vol(d) (76-115ml) LV Vol(s) (29-48ml) Ejec Fraction (50-65%)PV Avelino (0.6- 1.2m/s) TV Avelino (0.4-1.0m/s) : :MV E Avelino (0.8-1.0m/s)MV A Avelino (0.3-1.0m/s)LVOT Avelino (0.7-1.2m/s) Asc Ao Avelino ( 0.9-1.8m/s) : + + Doppler Measurements & Calculations MV E max avelino: Ao V2 max: AI max avelino: LV V1 max: 117.0 cm/sec 226.5 cm/sec 450.5 cm/sec 142.0 cm/sec MV A max avelino: Ao max PG: AI max P.2 mmHgLV V1 max P.0 cm/sec 20.6 mmHg AI dec slope: 8.1 mmHg MV E/A: 0.81 Ao mean P.0 cm/sec2 LV V1 mean P.0 mmHg AI P1/2t: 471.2 msec5.0 mmHg Ao V2 mean: LV V1 mean: 167.0 cm/sec 100.0 cm/sec Ao V2 VTI: 59.2 cm LV V1 VTI: 37.0 cm ASHLIE(I,D): 2.2 cm2 ASHLIE(V,D): 2.2 cm2 MR max avelino: SV(LVOT): 128.2 ml TR max avelino: 554.0 cm/sec 223.0 cm/sec MR max PG: TR max P.9 mmHg 122.8 mmHg RAP systole: 5.0 mmHg RVSP(TR): 24.9 mmHg Left Ventricle The left ventricle is normal in size. There is normal left ventricular wall thickness. Left ventricular systolic function is normal. Ejection Fraction = 65-70%. There is Doppler evidence for diastolic dysfunction. No regional wall motion abnormalities noted. Right Ventricle The right ventricle is normal in size and function. Atria The left atrium is mildly dilated. Right atrial size is normal. The interatrial septum is intact with no evidence for an atrial septal defect. Mitral Valve The mitral valve is normal in structure and function. There is no evidence of mitral valve prolapse. There is no mitral valve stenosis. There is mild to moderate mitral regurgitation. Tricuspid Valve Normal tricuspid valve. Right ventricular systolic pressure is normal. There is mild tricuspid regurgitation. Aortic Valve The aortic valve opens well. Mid aortic calcification. AV max PG is 22mmHG. AV mean PG 13mmHG. Calcified aortic leaflets Mild. Mild to moderate aortic regurgitation. Pulmonic Valve The pulmonic valve is normal in structure and function. There is no pulmonic valvular regurgitation. Great Vessels The aortic root is normal size. Pericardium/Pleural There is no pericardial effusion. There is a fat pad seen. Conclusion A complete two-dimensional transthoracic echocardiogram was performed (2D, M-mode, Doppler and color flow Doppler). (Patient recently - maiden name was Misty Valencia on previous echos). Left ventricular systolic function is normal. Ejection Fraction = 65-70%. There is Doppler evidence for diastolic dysfunction. There are no wall motion abnormalities. A pacemaker is noted in the right heart. There is mild to moderate mitral regurgitation. There is mild tricuspid regurgitation. Right ventricular systolic pressure is normal. Mid aortic calcification. AV max PG is 22mmHG. AV mean PG 13mmHG. Mild to moderate aortic regurgitation. The left atrium is mildly dilated. Final Reading Physician: Demi Bautista signed on 08/17/2016 10:54 AM Ordering Physician: Brandy Sue Performed By: Leslie Velazquez RDCS
[2016-08-17 12:43] VITALS: PULSE 75; RESP 18; TEMP 98.1
--- NOTE | 2016-08-17 13:42 | PDIAF ---
- Diagnosis Diagnosis: hypoxemic respiratory failure Code Status: Full Code - Medication Management Discharge Medications: Medications to Continue on Transfer QUEtiapine FUMARATE [Seroquel 100 mg (*)] 100 mg PO HS 03/08/13 [Last Taken 11/22] Calcitriol [Calcitriol (*)] 0.25 mcg PO MWF 12/25/15 [Last Taken 08/14/16] Tacrolimus Anhydrous [Prograf 0.5 MG (*)] 1 mg PO BID 12/25/15 [Last Taken 08/14 09:00] Tiotropium Inhaler [Spiriva Handihaler] 18 mcg IH DAILY 12/25/15 [Last Taken 12/23] Acetaminophen/ASA/Caffeine [Excedrin Tablet (*)] 1 each PO PRN PRN #0 tab [Last Taken Unknown] Carvedilol [Coreg (*)] 25 mg PO BIDMEAL 08/14/16 [Last Taken 08/14/16 09:00] FLUoxetine [Prozac 20 MG (*)] 20 mg PO DAILY 08/14/16 [Last Taken 08/14/16] LORazepam [Ativan (*)] 1 mg PO BID 08/14/16 [Last Taken 08/14/16 09:00] Pantoprazole Sodium [Protonix 40mg (*)] 40 mg PO BID 08/14/16 [Last Taken 09:00] amLODIPine BESYLATE [Norvasc 10 mg (*)] 10 mg PO DAILY 08/14/16 [Last Taken 12/23] Butal/Asp/Caffeine-Fiorinal [Fiorinal 50-325-40 mg Cap] 1 each PO Q4HRS PRN 01/22 [Last Taken Unknown] Aspirin EC [Aspirin EC 81 mg (*)] 81 mg PO DAILY #30 tab 08/17/16 [Last Taken Unknown] hydrALAZINE [Apresoline 50 mg (*)] 50 mg PO TID #90 tab 08/17/16 [Last Taken Unknown] Discharge Medications: Refer to the Discharge Home Medication list for PRN reason. - Orders Services needed: Home Care, Registered Nurse, Physical Therapy, Occupational Therapy Home Care Face to Face: I certify that this patient was under my care and that I had the required [id number] encounter meeting the encounter requirements on the discharge day. My findings support the fact that the patient is homebound as defined in CMS Chapter 7 Medicare Benefits Manual 30.1.1, The condition of the patient is such that there exists a normal inability to leave home and consequently, leaving home would require a considerable and taxing effort. Diet Recommendation: cardiac -low fat low salt - Follow Up Care Current Providers and Referrals: Zachery Milner MD [Medical Doctor] - Marilee Hansen MD [Primary Care Provider] - As per Instructions
[2016-08-17 16:23] VITALS: O2SAT 89
[2016-08-17 17:05] VITALS: BP 154/77
[2016-08-17] MEDS ORDERED: FLU VACC TS 2016-17(65YR+)/PF 0.5 ML SYR (FLUZONE HIGH DOSE) IM ONE (17:18)
--- NOTE | 2016-08-17 21:12 | GDS ---
[f rep st] DISCHARGE SUMMARY DISCHARGE DIAGNOSES: 1. Acute hypoxemic respiratory failure, resolved. 2. Dyspnea on exertion. 3. Chronic obstructive pulmonary disease. 4. Symptomatic anemia, improved. 5. Hypertension. 6. Chronic kidney disease. 7. Pancytopenia, stable. 8. History of liver transplant. 9. Chronic immunosuppressive therapy. 10. History of erosive esophagitis. 11. History of GI bleed. CONSULTANTS: Brandy Sue, cardiology nurse practitioner. HISTORY: For details please see dictated history and physical dated August 14, 2016 by myself. In brief, the patient is a 71-year-old female with a complex medical history including a liver transplan t, chronic kidney disease, and a history of heart block with the presence of a pacemaker who presents to the emergency department with shortness of breath and dyspnea on exertion. [facility] HOSPITAL COURSE: The patient was admitted to the medical-surgical unit. She was requiring 2 L of ox ygen. In the emergency department, her D-dimer was elevated, although her creatinine was also elevat ed at 2.0. A lower extremity duplex was performed and was negative for DVT. The following day, her creatinine improved down to 1.8. She was deemed safe for CT pulmonary angiogram which was performed. It was negative for pulmonary embolism. Some consideration was given to COPD versus bronchitis as a contributory factor to her shortness of breath. I was also suspicious that her worsening anemia wa s playing a role as her hemoglobin trended down to 6.9. She was transfused 2 units packed red blood cells. Her symptoms did improve. She was also treated for COPD bronchitis symptoms with nebulizers and 4 days prednisone burst therapy. Her hemoglobin diego to 10 and her symptoms improved. She was a ble to wean off oxygen. Some consideration was given to a possible cardiac ischemia given that she has had a prior abnormal s tress test, October 2015. Therefore, a cardiology consult was requested. They ultimately did not justin mmend repeat stress testing. However, will add enteric-coated aspirin to her regimen for medical man agement. 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 This will need to be monito red closely to ensure her hemoglobin does not trend down or have any evidence of GI bleeding. DISCHARGE DISPOSITION: Patient was discharged home in stable condition with home health services. FOLLOWUP: 1. Dr. Marilee Hansen, primary care. 2. Dr. Zachery Milner, cardiology, for heart clinic. DISCHARGE MEDICATIONS: Please see [facility] for completed updated outpatient medication list. New me dications on discharge include: aspirin 81 mg p.o. daily #30, no refills. Changed medications inclu de: Hydralazine dose is increased to 50 mg p.o. t.i.d. for better blood pressure control. /[id number]/MODL
== END 2016-08-17 18:00 | disposition home health service (06) | DRG 189 ==
LOC: INTOOBSV 20:45 → F1N 22:19 → OBSVTOIN 08-15 17:31
PROVIDERS: ADMIT Hospitalist; ATTEND Hospitalist
PROC: 02HV33Z Insertion of Infusion Device into Superior Vena Cava, Percutaneous Approach (ICD-10-PCS; principal; 2016-08-15)
PROC: 30233N1 Transfusion of Nonautologous Red Blood Cells into Peripheral Vein, Percutaneous Approach (ICD-10-PCS; 2016-08-15)
DX: J96.01 Acute respiratory failure with hypoxia (principal); D53.9 Nutritional anemia, unspecified; J44.1 Chronic obstructive pulmonary disease with (acute) exacerbation; I12.9 Hypertensive chronic kidney disease with stage 1 through stage 4 chronic kidney disease, or unspecified chronic kidney disease; N18.9 Chronic kidney disease, unspecified; E03.9 Hypothyroidism, unspecified; Z94.4 Liver transplant status; Z87.440 Personal history of urinary (tract) infections; Z87.891 Personal history of nicotine dependence; Z96.661 Presence of right artificial ankle joint; Z95.0 Presence of cardiac pacemaker
CPT/HCPCS: 80197-90; 96374; 97116-GP; 97162-GP; 97166-GO; C1751; G0008; G0378; G8978-GP-CK; G8979-GP-CI; G8987-GO-CJ; G8988-GO-CI; J1650; J2405; J7507; P9016; Q9967

== ENCOUNTER 2016-08-24 08:24 | Emergency (ER) | payer OTHER, MEDICAID ==
[2016-08-24] MEDS ORDERED: predniSONE 20 MG TAB PO ONE (08:46)
[2016-08-24] MEDS ORDERED: IPRATROPIUM/ALBUTEROL 3 ML DEYVIAL IH ONE (08:46)
--- NOTE | 2016-08-24 08:52 | CPEKG ---
Heart Rate: 77 RR Interval: 779 P-R Interval: 440 QRSD Interval: 140 QT Interval: 496 QTC Interval: 562 P [place]: 0 QRS [place]: -78 T Wave [place]: 91 EKG Severity - ABNORMAL ECG - EKG Impression: VENTRICULAR-PACED RHYTHM EKG Impression: similar to March 2016 Electronically Signed By: Maximo Leahy 24-Aug-2016 08:58:26
--- NOTE | 2016-08-24 08:53 | EDPHY ---
H & P Stated Complaint: +SOB just dc'd 4 days ago Time Seen by Provider: 08/24/16 08:34 HPI/ROS: CHIEF COMPLAINT: Shortness of breath with exertion HISTORY OF PRESENT ILLNESS: The patient is a 71-year-old female with a history of liver transplant, renal insufficiency, heart block with pacemaker, COPD and symptomatic anemia who was admitted last week for dyspnea on exertion. At that time she was treated for bronchitis with oxygen and albuterol and a 4 day burst of prednisone. She had a negative duplex of her legs as well as negative CT angiogram. She was also transfused blood for anemia and seem to improve with this. Cardiology was consulted but did not recommend any further testing. She was discharged home 2 days ago. Today when walking out to the cab she felt short of breath and a cable splicer helper decided to bring her here instead of to the store. She has been afebrile. She denies chest pain. She denies any GI bleeding. Patient states that she was offered oxygen to wear at home but declined it. She wished she would have taken it now. REVIEW OF SYSTEMS: Constitutional: denies: chills, fever, recent illness, recent injury EENTM: denies: blurred vision, double vision, nose congestion Respiratory: See HPI Cardiac: denies: chest pain, irregular heart rate, lightheadedness, palpitations Gastrointestinal/Abdominal: denies: abdominal pain, diarrhea, nausea, vomiting, blood streaked stools Genitourinary: denies: dysuria, frequency, hematuria, pain Musculoskeletal: denies: joint pain, muscle pain Skin: denies: lesions, rash, jaundice, bruising Neurological: denies: headache, numbness, paresthesia, tingling, dizziness, weakness Hematologic/Lymphatic: denies: blood clots, easy bleeding, easy bruising Immunologic/allergic: denies: HIV/AIDS, transplant EXAM: GENERAL: Well-appearing, well-nourished and in no acute distress. HEAD: Atraumatic, normocephalic. EYES: Pupils equal round and reactive to light, extraocular movements intact, sclera anicteric, conjunctiva are normal. ENT: TMs normal, nares patent, oropharynx clear without exudates. Moist mucous membranes. NECK: Normal range of motion, supple without lymphadenopathy or JVD. LUNGS: Bilateral mild wheezes HEART: Regular rate and rhythm without murmurs, rubs or gallops. ABDOMEN: Soft, nontender, normoactive bowel sounds. No guarding, no rebound. No masses appreciated. BACK: No CVA tenderness, no spinal tenderness, step-offs or deformities EXTREMITIES: Normal range of motion, no pitting or edema. No clubbing or cyanosis. NEUROLOGICAL: Cranial nerves II through XII grossly intact. Normal speech, normal gait. 5/5 strength, normal movement in all extremities, normal sensation PSYCH: Normal mood, normal affect. SKIN: Warm, dry, normal turgor, no visible rashes or lesions. Source: Patient Exam Limitations: No limitations - Personal History Current Tetanus/Diphtheria Vaccine: Unsure Current Tetanus Diphtheria and Acellular Pertussis (TDAP): Unsure Tetanus Vaccine Date: 2006 - Medical/Surgical History Hx Asthma: No Hx Chronic Respiratory Disease: Yes Hx Diabetes: No Hx Cardiac Disease: Yes Hx Renal Disease: Yes Hx Cirrhosis: No Hx Alcoholism: No Hx HIV/AIDS: No Hx Splenectomy or Spleen Trauma: No Other PMH: PMH- Hep B&C,Pacer 09/21 syncope, HTN, CKD, UTIS, hypothyroid, depression, COPD, leukocytosis, anemia, thrombocytopenia, seizures, arthritis, bipolar, erosive esophagitis, diastolic heart failure, renal aretery stenosis, LIVER TRANSPLANT , PANCREATITIS. PSH- ankle R replacement, liver xplant 1996, knee and wrist, meche - Family History Significant Family History: No pertinent family hx - Social History Smoking Status: Former smoker Alcohol Use: Sober Drug Use: None Constitutional: Initial Vital Signs Temperature (C) 36.7 C 08/24/16 08:26 Heart Rate 80 08/24/16 08:26 Respiratory Rate 16 08/24/16 08:26 Blood Pressure 124/78 H 08/24/16 08:26 O2 Sat (%) 97 08/24/16 08:26 O2 Delivery Mode Room Air Allergies/Adverse Reactions: dextroamphetamine [Dextroamphetamine] Allergy (Unknown, Verified 03/10/16 17:35) JITTERY gabapentin [Gabapentin] Allergy (Unknown, Verified 03/10/16 17:35) JITTERY temazepam [Temazepam] Allergy (Unknown, Verified 03/10/16 17:35) AMNESIA sumatriptan [From Imitrex] Allergy (Verified 03/10/16 17:35) sumatriptan succinate [From Imitrex] Allergy (Verified 03/10/16 17:35) Home Medications: Medication Instructions Recorded QUEtiapine FUMARATE [Seroquel 100 100 mg PO HS 03/08/13 mg (*)] Calcitriol [Calcitriol (*)] 0.25 mcg PO MWF 12/25/15 Tacrolimus Anhydrous [Prograf 0.5 1 mg PO BID 12/25/15 MG (*)] Tiotropium Inhaler [Spiriva 18 mcg IH DAILY 12/25/15 Handihaler] Acetaminophen/ASA/Caffeine 1 each PO PRN PRN #0 tab 02/12/16 [Excedrin Tablet (*)] Carvedilol [Coreg (*)] 25 mg PO BIDMEAL 08/14/16 FLUoxetine [Prozac 20 MG (*)] 20 mg PO DAILY 08/14/16 LORazepam [Ativan (*)] 1 mg PO BID 08/14/16 Pantoprazole Sodium [Protonix 40mg 40 mg PO BID 08/14/16 (*)] amLODIPine BESYLATE [Norvasc 10 mg 10 mg PO DAILY 08/14/16 (*)] Butal/Asp/Caffeine-Fiorinal 1 each PO Q4HRS PRN 08/15/16 [Fiorinal 50-325-40 mg Cap] Aspirin EC [Aspirin EC 81 mg (*)] 81 mg PO DAILY #30 tab 08/17/16 hydrALAZINE [Apresoline 50 mg (*)] 50 mg PO TID #90 tab 08/17/16 methylPREDNISolone [Medrol Dose 1 each PO AD #1 ea 08/24/16 Rai] Medical Decision Making - Diagnostics EKG Interpretation: An EKG obtained and was read and documented in trace view. Please see trace view for full reading and report. Ventricular paced rhythm, similar to 2015 ED Course/Re-evaluation: 9:40 a.m. the patient is saturating 93% on room air. She is comfortable in no longer short of breath. Her CBC is improved compared to previous. 10:10 a.m. the patient is saturating 95% on room air. She states that she feels completely well. I will road test her to see for oxygen drops of she becomes tachypneic. She is eager to go home If she can. 10:20 a.m. the patient's saturations never dropped below 94% while ambulating although she did have some wheezing and dyspnea. I will treat her with another neb. I will restart her steroid burst. She is eager to go home and is happy with this plan. She is also asking for some narcotics for her headache. Differential Diagnosis: Partial list of the Differential diagnosis considered include but were not limited to; anemia, COPD, bronchitis, pneumonia and although unlikely based on the history and physical exam, I also considered acute coronary disease, arrhythmia, anxiety, sepsis, aortic stenosis. I discussed these differential diagnoses and the plan with the patient as well as the usual and expected course. The patient understands that the diagnosis is provisional and that in medicine we are not always correct and that further workup is often warranted. Usual and customary warnings were given. All of the patient's questions were answered. The patient was instructed to return to the emergency department should the symptoms at all worsen or return, otherwise to followup with the physician as we discussed. - Data Points Laboratory Results: Laboratory Results 08/24/16 09:20 08/24/16 09:29 08/24/16 08/24/16 09:29 09:20 WBC 2.94 10^3/uL L 10^3/uL (3.80-9.50) RBC 4.05 10^6/uL L 10^6/uL (4.18-5.33) Hgb 11.3 g/dL L g/dL (12.6-16.3) Hct 34.7 % L % (38.0-47.0) MCV 85.7 fL fL (81.5-99.8) MCH 27.9 pg pg (27.9-34.1) MCHC 32.6 g/dL g/dL (32.4-36.7) RDW 16.6 % H % (11.5-15.2) Plt Count 90 10^3/uL L 10^3/uL (150-400) MPV 10.8 fL fL (8.7-11.7) Neut % (Auto) 58.2 % % (39.3-74.2) Lymph % (Auto) 24.5 % % (15.0-45.0) Campbell % (Auto) 7.5 % % (4.5-13.0) Eos % (Auto) 9.2 % H % (0.6-7.6) Baso % (Auto) 0.3 % % (0.3-1.7) Nucleat RBC Rel Count 0.0 % % (0.0-0.2) Absolute Neuts (auto) 1.71 10^3/uL 10^3/uL (1.70-6.50) Absolute Lymphs (auto) 0.72 10^3/uL L 10^3/uL (1.00-3.00) Absolute Monos (auto) 0.22 10^3/uL L 10^3/uL (0.30-0.80) Absolute Eos (auto) 0.27 10^3/uL 10^3/uL (0.03-0.40) Absolute Basos (auto) 0.01 10^3/uL L 10^3/uL (0.02-0.10) Absolute Nucleated RBC 0.00 10^3/uL 10^3/uL (0-0.01) Immature Gran % 0.3 % % (0.0-1.1) Immature Gran # 0.01 10^3/uL 10^3/uL (0.00-0.10) Sodium 134 mEq/L mEq/L (134-144) Potassium 4.8 mEq/L mEq/L (3.5-5.2) Chloride 105 mEq/L mEq/L (97-110) Carbon Dioxide 22 mEq/l mEq/l (22-31) Anion Gap 7 mEq/L L mEq/L (8-16) BUN 34 mg/dL H mg/dL (7-23) Creatinine 1.5 mg/dL H mg/dL (0.6-1.0) Estimated GFR 34 Glucose 94 mg/dL mg/dL (70-100) Calcium 8.4 mg/dL L mg/dL (8.5-10.4) Medications Given: Discontinued Medications Albuterol (Proventil Neb) 3 ml IH EDNOW ONE Stop: 08/24/16 10:19 Last Admin: 08/24/16 10:36 Dose: 3 ml Albuterol Sulfate (Proventil Inh Prepack) 1 mdi TAKEHOME EDNOW ONE Stop: 08/24/16 10:23 Last Admin: 08/24/16 10:36 Dose: 1 mdi Albuterol/Ipratropium (Duoneb) 3 ml IH EDNOW ONE Stop: 08/24/16 08:47 Last Admin: 08/24/16 09:45 Dose: 3 ml Hydromorphone HCl (Dilaudid) 0.5 mg IVP EDNOW ONE Stop: 08/24/16 10:20 Last Admin: 08/24/16 10:36 Dose: 0.5 mg Prednisone (Prednisone) 60 mg PO EDNOW ONE Stop: 08/24/16 08:47 Last Admin: 08/24/16 09:40 Dose: 60 mg Departure - Departure Disposition: Home, Routine, Self-Care Clinical Impression: Dyspnea on exertion, Bronchitis Condition: Fair Instructions: Acute Bronchitis (ED), Dyspnea (ED) Referrals: Marilee Hansen MD [Primary Care Provider] - As per Instructions Prescriptions: methylPREDNISolone [Medrol Dose Rai] 1 each PO AD #1 ea
[2016-08-24 09:31] LABS: % IMMATURE GRANULYOCYTES 0.3 % (0.0-1.1); ABSOLUTE IMMATURE GRANULOCYTES 0.01 10^3/uL (0.00-0.10); ADD DIFF? NO; ADD MORPH? NO; ADD SCAN? NO; ATYPICAL LYMPHOCYTE FLAG 30 (0-99); FRAGMENT RBC FLAG 0 (0-99); HEMATOCRIT 34.7 % (38.0-47.0); HEMOGLOBIN 11.3 g/dL (12.6-16.3); LEFT SHIFT FLG 0 (0-99); LIPEMIA HEMOLYSIS FLAG 80 (0-99); MEAN CELL HEMOGLOBIN 27.9 pg (27.9-34.1); MEAN CELL HEMOGLOBIN CONCENTR. 32.6 g/dL (32.4-36.7); MEAN CELL VOLUME 85.7 fL (81.5-99.8); MEAN PLATELET VOLUME 10.8 fL (8.7-11.7); PLATELET CLUMPS FLAG 0 (0-99); PLATELET COUNT 90 10^3/uL (150-400); RED BLOOD CELL COUNT 4.05 10^6/uL (4.18-5.33); RED CELL DISTRIBUTION WIDTH 16.6 % (11.5-15.2)
[2016-08-24 09:57] LABS: ANION GAP 7 mEq/L (8-16); CALCIUM 8.4 mg/dL (8.5-10.4); CARBON DIOXIDE 22 mEq/l (22-31); CHLORIDE 105 mEq/L (97-110); CREATININE 1.5 mg/dL (0.6-1.0); GLOMERULAR FILTRATION RATE 34; GLUCOSE 94 mg/dL (70-100); POTASSIUM 4.8 mEq/L (3.5-5.2); SODIUM 134 mEq/L (134-144)
[2016-08-24] MEDS ORDERED: ALBUTEROL 3 ML DEYVIAL IH ONE (10:18)
[2016-08-24] MEDS ORDERED: HYDROmorphONE/DILAUDID 1 MG/ML SYR IVP ONE (10:19)
[2016-08-24] MEDS ORDERED: ALBUTEROL INH PREPACK MDI TAKEHOME ONE (10:22)
[2016-08-24 11:24] VITALS: BP 173/75; PULSE 72; RESP 14; TEMP 98.4; O2SAT 94
== END 2016-08-24 11:23 | disposition home or self-care (01) ==
DX: J40 Bronchitis, not specified as acute or chronic (principal); I10 Essential (primary) hypertension; J44.9 Chronic obstructive pulmonary disease, unspecified; Z79.82 Long term (current) use of aspirin; Z87.891 Personal history of nicotine dependence
CPT/HCPCS: 71020; 93005; 96374; 99285; J1170

== ENCOUNTER 2016-09-11 13:05 | Emergency (ER) | payer OTHER, MEDICAID ==
[2016-09-11 13:12] VITALS: BP 114/69; PULSE 85; RESP 18; TEMP 97.7; O2SAT 96
--- NOTE | 2016-09-11 13:25 | EDPHY ---
H & P Stated Complaint: Pt has chronic dyspnea w/extensive work up;still has concern of SOB;has h/a Time Seen by Provider: 09/11/16 13:24 HPI/ROS: CHIEF COMPLAINT: Acute on chronic dyspnea HISTORY OF PRESENT ILLNESS: The patient presents to the ED with complaints of acute on chronic dyspnea. The patient reportedly was seen her longwall machine operator helper today and referred to the outpatient lab for routine laboratory studies. While having her blood drawn, she developed acutely worsening dyspnea. The patient was recently admitted to the hospital in August with dyspnea which was felt to be secondary to COPD and anemia. She was transfusion apparently symptomatic we improved. During that hospitalization she was evaluated for thromboembolic disease. She was also seen by Cardiology who recommended ongoing medical management. The patient does have a history of liver transplant and chronic kidney disease. She has a history of heart block status post pacemaker placement. The patient also complains of a migraine headache. She denies fall or trauma. She denies additional complaints. REVIEW OF SYSTEMS: A comprehensive 10 point review of systems is otherwise negative aside from elements mentioned in the history of present illness. Source: Patient - Personal History Current Tetanus Diphtheria and Acellular Pertussis (TDAP): Yes Tetanus Vaccine Date: 2006 - Medical/Surgical History Hx Asthma: No Hx Chronic Respiratory Disease: Yes Hx Diabetes: No Hx Cardiac Disease: Yes Hx Renal Disease: Yes Hx Cirrhosis: No Hx Alcoholism: No Hx HIV/AIDS: No Hx Splenectomy or Spleen Trauma: No Other PMH: PMH- Hep B&C,Pacer 09/21 syncope, HTN, CKD, UTIS, hypothyroid, depression, COPD, leukocytosis, anemia, thrombocytopenia, seizures, arthritis, bipolar, erosive esophagitis, diastolic heart failure, renal aretery stenosis, LIVER TRANSPLANT , PANCREATITIS, migraines since age 16. PSH- ankle R replacement, liver xplant 1996, knee and wrist, meche - Social History Smoking Status: Former smoker - Physical Exam Exam: General Appearance: Alert, anxious, no acute distress Eyes: Pupils equal and round no pallor or injection ENT, Mouth: Mucous membranes moist Respiratory: There are no retractions, lungs are clear to auscultation Cardiovascular: Regular rate and rhythm, 2/6 systolic ejection murmur Gastrointestinal: Abdomen is soft and nontender, no masses, bowel sounds normal Neurological: A&O, normal motor function, normal sensory exam, normal cranial nerves Skin: Warm and dry, no rashes Musculoskeletal: Neck is supple nontender Extremities: symmetrical, full range of motion Constitutional: Initial Vital Signs Temperature (C) 36.5 C 09/11/16 13:08 Heart Rate 85 09/11/16 13:08 Respiratory Rate 18 09/11/16 13:08 Blood Pressure 114/69 09/11/16 13:08 O2 Sat (%) 96 09/11/16 13:08 O2 Delivery Mode Room Air Allergies/Adverse Reactions: sumatriptan [From Imitrex] Allergy (Intermediate, Verified 09/11/16 13:12) palpitations dextroamphetamine [Dextroamphetamine] Allergy (Unknown, Verified 09/11/16 13:07) JITTERY gabapentin [Gabapentin] Allergy (Unknown, Verified 09/11/16 13:07) JITTERY temazepam [Temazepam] Allergy (Unknown, Verified 09/11/16 13:07) AMNESIA sumatriptan succinate [From Imitrex] Allergy (Verified 09/11/16 13:07) Home Medications: Medication Instructions Recorded QUEtiapine FUMARATE [Seroquel 100 100 mg PO HS 03/08/13 mg (*)] Calcitriol [Calcitriol (*)] 0.25 mcg PO MWF 12/25/15 Tacrolimus Anhydrous [Prograf 0.5 1 mg PO BID 12/25/15 MG (*)] Tiotropium Inhaler [Spiriva 18 mcg IH DAILY 12/25/15 Handihaler] Acetaminophen/ASA/Caffeine 1 each PO PRN PRN #0 tab 02/12/16 [Excedrin Tablet (*)] Carvedilol [Coreg (*)] 25 mg PO BIDMEAL 08/14/16 FLUoxetine [Prozac 20 MG (*)] 20 mg PO DAILY 08/14/16 LORazepam [Ativan (*)] 1 mg PO BID 08/14/16 Pantoprazole Sodium [Protonix 40mg 40 mg PO BID 08/14/16 (*)] amLODIPine BESYLATE [Norvasc 10 mg 10 mg PO DAILY 08/14/16 (*)] Butal/Asp/Caffeine-Fiorinal 1 each PO Q4HRS PRN 08/15/16 [Fiorinal 50-325-40 mg Cap] Aspirin EC [Aspirin EC 81 mg (*)] 81 mg PO DAILY #30 tab 08/17/16 hydrALAZINE [Apresoline 50 mg (*)] 50 mg PO TID #90 tab 08/17/16 Acet/Caffeine/Buta Fioricet 1 each PO Q6 PRN #10 tab 09/11/16 [Fioricet (*)] Albuterol [Ventolin Hfa Inhaler] 2 puffs IH QID PRN #1 mdi 09/11/16 Medical Decision Making - Diagnostics EKG Interpretation: EKG: Complete interpretation has been separately recorded in the [facility] archive. Summary impression: Sinus rhythm Imaging: Chest, PA and Lateral History: Dyspnea x6 weeks, R06.2 Comparison: August 24, 2016, chest CT August 15, 2016 Findings: The patient is taken in a better inspiratory phase exam. Lungs are clear, without infiltrate or consolidation. A triangular density in the lateral right upper lung is consistent with intrafissural fat extension as seen on recent chest CT August 15. The right hemidiaphragm remains elevated compared to the left. Haziness of the posterior right costophrenic angle is stable and consistent with a tiny effusion remnant (seen on recent CT). Heart size and pulmonary vascularity are normal. A left chest wall pacer device and associated bipolar pacer leads remain in place. There is stable atherosclerotic calcification in the aortic arch. There is no adenopathy or mass lesion. There is no pneumothorax. Bones are unremarkable for age. Impression: No evidence for pneumonia or CHF. ED Course/Re-evaluation: I reviewed the patient's outpatient laboratory studies. Her BMP level appears to be at his baseline. She has no evidence of a critical anemia. She has chronic renal insufficiency. She has no evidence of significant leukocytosis or other acute finding. The patient has no evidence of hypoxemia. I find no clinical evidence of fluid overload. I reviewed her extensive past medical records including her multiple hospitalizations and ED visits. At this point time I do feel the patient can be discharged home. She has no evidence of ST segment elevation myocardial infarction or ACS based upon her troponin testing. Clinically she does not have heart failure. She recently has had a negative evaluation for pulmonary embolism. I have encouraged the patient to follow up with her regular primary care provider. She has been given a prescription for Fioricet for management of her migraines. Differential Diagnosis: Differential diagnosis considered includes heart failure, myocardial infarction , pneumonia, arrhythmia, critical anemia, worsening renal failure Departure - Departure Disposition: Home, Routine, Self-Care Clinical Impression: Acute dyspnea, Chronic renal insufficiency Condition: Good Instructions: Dyspnea (ED) Additional Instructions: 1. Please use albuterol as needed for shortness of breath. 2. Fioricet as needed for migraine. 3. Please follow up with your primary care provider and longwall machine operator helper as scheduled. Referrals: Marilee Hansen MD [Primary Care Provider] - As per Instructions
--- NOTE | 2016-09-11 13:50 | CPEKG ---
Heart Rate: 77 RR Interval: 779 P-R Interval: 168 QRSD Interval: 80 QT Interval: 436 QTC Interval: 494 P Hudson: 51 QRS Hudson: 39 T Wave Hudson: 72 EKG Severity - BORDERLINE ECG - EKG Impression: SINUS RHYTHM Electronically Signed By: Cl Fagan 11-Sep-2016 14:02:18
== END 2016-09-11 15:04 | disposition home or self-care (01) ==
DX: R06.00 Dyspnea, unspecified (principal); N18.9 Chronic kidney disease, unspecified; I12.9 Hypertensive chronic kidney disease with stage 1 through stage 4 chronic kidney disease, or unspecified chronic kidney disease; J44.9 Chronic obstructive pulmonary disease, unspecified; Z87.891 Personal history of nicotine dependence; Z79.82 Long term (current) use of aspirin

== ENCOUNTER → 2016-09-11 | Outpatient (CLI) | payer OTHER, MEDICAID | LOC: FIMAGING 11:49 | PROVIDERS: ATTEND Internal Medicine Cardiovascular Disease | DX: R06.02 Shortness of breath (principal) ==

== ENCOUNTER 2016-09-14 01:37 | Emergency (ER) | payer OTHER, MEDICAID ==
[2016-09-14] MEDS ORDERED: NS 500 ML IV ONE (01:44)
[2016-09-14] MEDS ORDERED: IPRATROPIUM/ALBUTEROL 3 ML DEYVIAL IH ONE (01:46)
--- NOTE | 2016-09-14 01:46 | EDPHY ---
H & P HPI/ROS: HPI CHIEF COMPLAINT: Shortness of breath, cough HISTORY OF PRESENT ILLNESS: The patient very pleasant 71-year-old female significant past medical history for hypoxic respiratory failure, COPD, hypertension, chronic kidney disease, neutropenia, liver transplant, GI bleed presents emergency room by EMS after she had worsening shortness of breath today. Patient tells me that the past 2 days she has had cough. Patient tells me that the cough got progressively worse around 2:00 p.m. in the afternoon with worsening shortness of breath. Denies chest pain or fever. Denies nausea , vomiting, diarrhea. She states she thinks she was seen by her primary care doctor recently. EMS reports to me that her oxygen saturation room air 88% on arrival. Past Medical History: COPD, does not wear oxygen,hypertension, chronic kidney disease, neutropenia, liver transplant hypoxic respiratory failure Past Surgical History: Liver transplant, pacemakerEKG interpretation by me on record in [employer] system. Social History: Denies tobacco drugs or alcohol Family History: Noncontributory ROS REVIEW OF SYSTEMS: A comprehensive 10 point review of systems is otherwise negative aside from elements mentioned in the history of present illness. Exam Constitutional nontoxic appearing, triage nursing summary reviewed, vital signs reviewed, awake/alert. Eyes normal conjunctivae and sclera, EOMI, PERRLA. HENT normal inspection, atraumatic, moist mucus membranes, no epistaxis, neck supple/ no meningismus, no raccoon eyes. Respiratory clear to auscultation bilaterally, normal breath sounds, no respiratory distress, no wheezing. Cardiovascular rate normal, regular rhythm, no murmur, no edema, distal pulses normal. Gastrointestinal soft, non-tender, no rebound, no guarding, normal bowel sounds, no distension, no pulsatile mass. Genitourinary no CVA tenderness. Musculoskeletal no midline vertebral tenderness, full range of motion, no calf swelling, no tenderness of extremities, no meningismus, good pulses, neurovascularly intact. Skin pink, warm, & dry, no rash, skin atraumatic. Neurologic awake, alert and oriented x 3, AAOx3, moves all 4 extremities equally, motor intact, sensory intact, CN II-XII intact, normal cerebellar, normal vision, normal speech. Psychiatric normal mood/affect. Heme/Lymph/Immune no lymphadenopathy. 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 Re-evaluation: EKG interpretation by me on record in [email or web address] system. Impression time of EKG 1:52 a.m., this is a ventricularly paced rhythm rate of 80. Otherwise unremarkable EKG. ED x-ray chest one view: Cardiomegaly present. Pacemaker present. There is pulmonary edema bilaterally however no evidence of acute overt failure. 0326: Re-evaluation this time this patient is resting comfortably [place] [address]. This may be causing her shortness of breath pulmonary edema volume overload. I have ordered her IV Lasix. I have admitted this patient to the hospitalist service Dr. King. At this time this patient is hemodynamically stable no acute distress. Heart rate 79, pulse ox 97% , blood pressure 128/72. No chest pain. Source: Patient, EMS - Personal History Tetanus Vaccine Date: 2006 - Medical/Surgical History Hx Asthma: No Hx Chronic Respiratory Disease: Yes Hx Diabetes: No Hx Cardiac Disease: Yes Hx Renal Disease: Yes Hx Cirrhosis: No Hx Alcoholism: No Hx HIV/AIDS: No Hx Splenectomy or Spleen Trauma: No Other PMH: PMH- Hep B&C,Pacer 09/21 syncope, HTN, CKD, UTIS, hypothyroid, depression, COPD, leukocytosis, anemia, thrombocytopenia, seizures, arthritis, bipolar, erosive esophagitis, diastolic heart failure, renal aretery stenosis, LIVER TRANSPLANT , PANCREATITIS, migraines since age 16. PSH- ankle R replacement, liver xplant 1996, knee and wrist, meche - Social History Smoking Status: Former smoker Constitutional: Initial Vital Signs O2 Sat (%) 94 09/14/16 01:44 O2 Delivery Mode Room Air O2 (L/minute) 3 Allergies/Adverse Reactions: sumatriptan [From Imitrex] Allergy (Intermediate, Verified 09/11/16 13:12) palpitations dextroamphetamine [Dextroamphetamine] Allergy (Unknown, Verified 09/11/16 13:07) JITTERY gabapentin [Gabapentin] Allergy (Unknown, Verified 09/11/16 13:07) JITTERY temazepam [Temazepam] Allergy (Unknown, Verified 09/11/16 13:07) AMNESIA sumatriptan succinate [From Imitrex] Allergy (Verified 09/11/16 13:07) Home Medications: Medication Instructions Recorded QUEtiapine FUMARATE [Seroquel 100 100 mg PO HS 03/08/13 mg (*)] Calcitriol [Calcitriol (*)] 0.25 mcg PO MWF 12/25/15 Tacrolimus Anhydrous [Prograf 0.5 1 mg PO BID 12/25/15 MG (*)] Tiotropium Inhaler [Spiriva 18 mcg IH DAILY 12/25/15 Handihaler] Acetaminophen/ASA/Caffeine 1 each PO PRN PRN #0 tab 02/12/16 [Excedrin Tablet (*)] Carvedilol [Coreg (*)] 25 mg PO BIDMEAL 08/14/16 FLUoxetine [Prozac 20 MG (*)] 20 mg PO DAILY 08/14/16 LORazepam [Ativan (*)] 1 mg PO BID 08/14/16 Pantoprazole Sodium [Protonix 40mg 40 mg PO BID 08/14/16 (*)] amLODIPine BESYLATE [Norvasc 10 mg 10 mg PO DAILY 08/14/16 (*)] Butal/Asp/Caffeine-Fiorinal 1 each PO Q4HRS PRN 08/15/16 [Fiorinal 50-325-40 mg Cap] Aspirin EC [Aspirin EC 81 mg (*)] 81 mg PO DAILY #30 tab 08/17/16 hydrALAZINE [Apresoline 50 mg (*)] 50 mg PO TID #90 tab 08/17/16 Acet/Caffeine/Buta Fioricet 1 each PO Q6 PRN #10 tab 09/11/16 [Fioricet (*)] Albuterol [Ventolin Hfa Inhaler] 2 puffs IH QID PRN #1 mdi 09/11/16 Medical Decision Making - Data Points Laboratory Results: Laboratory Results 09/14/16 02:00 09/14/16 02:00 09/14/16 09/14/16 09/14/16 02:00 02:00 02:00 WBC 5.52 10^3/uL 10^3/uL (3.80-9.50) RBC 3.60 10^6/uL L 10^6/uL (4.18-5.33) Hgb 10.4 g/dL L g/dL (12.6-16.3) Hct 31.9 % L % (38.0-47.0) MCV 88.6 fL fL (81.5-99.8) MCH 28.9 pg pg (27.9-34.1) MCHC 32.6 g/dL g/dL (32.4-36.7) RDW 19.1 % H % (11.5-15.2) Plt Count 54 10^3/uL L 10^3/uL (150-400) MPV 9.0 fL fL (8.7-11.7) Neut % (Auto) 62.1 % % (39.3-74.2) Lymph % (Auto) 27.0 % % (15.0-45.0) Granite % (Auto) 5.3 % % (4.5-13.0) Eos % (Auto) 4.7 % % (0.6-7.6) Baso % (Auto) 0.2 % L % (0.3-1.7) Nucleat RBC Rel Count 0.0 % % (0.0-0.2) Absolute Neuts (auto) 3.43 10^3/uL 10^3/uL (1.70-6.50) Absolute Lymphs (auto) 1.49 10^3/uL 10^3/uL (1.00-3.00) Absolute Monos (auto) 0.29 10^3/uL L 10^3/uL (0.30-0.80) Absolute Eos (auto) 0.26 10^3/uL 10^3/uL (0.03-0.40) Absolute Basos (auto) 0.01 10^3/uL L 10^3/uL (0.02-0.10) Absolute Nucleated RBC 0.00 10^3/uL 10^3/uL (0-0.01) Immature Gran % 0.7 % % (0.0-1.1) Immature Gran # 0.04 10^3/uL 10^3/uL (0.00-0.10) PT 15.4 SEC H SEC (12.0-15.0) INR 1.22 H (0.83-1.16) APTT 34.2 SEC SEC (23.0-38.0) Sodium 131 mEq/L L mEq/L (134-144) Potassium 4.7 mEq/L mEq/L (3.5-5.2) Chloride 104 mEq/L mEq/L (97-110) Carbon Dioxide 19 mEq/l L mEq/l (22-31) Anion Gap 8 mEq/L mEq/L (8-16) BUN 42 mg/dL H mg/dL (7-23) Creatinine 2.1 mg/dL H mg/dL (0.6-1.0) Estimated GFR 23 Glucose 123 mg/dL H mg/dL (70-100) Calcium 8.5 mg/dL mg/dL (8.5-10.4) Magnesium 1.2 mg/dL L mg/dL (1.6-2.3) Total Bilirubin 0.8 mg/dL mg/dL (0.1-1.4) Conjugated Bilirubin 0.5 mg/dL mg/dL (0.0-0.5) Unconjugated Bilirubin 0.3 mg/dL mg/dL (0.0-1.1) AST 58 IU/L H IU/L (14-46) ALT 46 IU/L IU/L (9-52) Alkaline Phosphatase 287 IU/L H IU/L (38-126) Creatine Kinase 31 IU/L IU/L (0-156) CK-MB (CK-2) Fraction 0.54 ng/mL ng/mL (0-3.19) Troponin I < 0.012 ng/mL ng/mL (0-0.034) NT-Pro-B Natriuret Pep 85487 pg/mL H pg/mL (0-125) Total Protein 6.3 g/dL g/dL (6.3-8.2) Albumin 3.3 g/dL L g/dL (3.5-5.0) Lipase 223.0 IU/L IU/L (23-300) Medications Given: Discontinued Medications Albuterol/Ipratropium (Duoneb) 3 ml IH EDNOW ONE Stop: 09/14/16 01:47 Last Admin: 09/14/16 01:55 Dose: 3 ml Sodium Chloride (Ns) 500 mls @ 0 mls/hr IV ONCE ONE PRN Reason: As Directed Stop: 09/14/16 01:45 Last Admin: 09/14/16 02:10 Dose: 500 mls Departure - Departure Disposition: [facility] Inpatient Acute Clinical Impression: Dyspnea Qualifiers: Dyspnea type: unspecified Qualified Code(s): R06.00 - Dyspnea, unspecified Condition: Fair Referrals: Patient,NotPresent [Unknown] - As per Instructions
--- NOTE | 2016-09-14 01:53 | CPEKG ---
Heart Rate: 80 RR Interval: 750 P-R Interval: 171 QRSD Interval: 140 QT Interval: 480 QTC Interval: 554 P Troy: 0 QRS [place]: -77 T Wave [place]: 86 EKG Severity - ABNORMAL ECG - EKG Impression: VENTRICULAR-PACED RHYTHM Electronically Signed By: Deny Morales 14-Sep-2016 07:29:26
[2016-09-14 02:11] LABS: % IMMATURE GRANULYOCYTES 0.7 % (0.0-1.1); ABSOLUTE IMMATURE GRANULOCYTES 0.04 10^3/uL (0.00-0.10); ADD DIFF? NO; ADD MORPH? NO; ADD SCAN? NO; ATYPICAL LYMPHOCYTE FLAG 0 (0-99); FRAGMENT RBC FLAG 0 (0-99); HEMATOCRIT 31.9 % (38.0-47.0); HEMOGLOBIN 10.4 g/dL (12.6-16.3); LEFT SHIFT FLG 0 (0-99); LIPEMIA HEMOLYSIS FLAG 80 (0-99); MEAN CELL HEMOGLOBIN 28.9 pg (27.9-34.1); MEAN CELL HEMOGLOBIN CONCENTR. 32.6 g/dL (32.4-36.7); MEAN CELL VOLUME 88.6 fL (81.5-99.8); PLATELET CLUMPS FLAG 10 (0-99); PLATELET COUNT 54 10^3/uL (150-400); RED CELL DISTRIBUTION WIDTH 19.1 % (11.5-15.2)
[2016-09-14 02:22] LABS: ALANINE AMINOTRANSFERASE 46 IU/L (9-52); ALBUMIN 3.3 g/dL (3.5-5.0); ALKALINE PHOSPHATASE 287 IU/L (38-126); ANION GAP 8 mEq/L (8-16); ASPARTATE AMINOTRANSFERASE 58 IU/L (14-46); BILIRUBIN,TOTAL 0.8 mg/dL (0.1-1.4); BILIRUBIN-CONJUGATED 0.5 mg/dL (0.0-0.5); BILIRUBIN-UNCONJUGATED 0.3 mg/dL (0.0-1.1); CALCIUM 8.5 mg/dL (8.5-10.4); CARBON DIOXIDE 19 mEq/l (22-31); CHLORIDE 104 mEq/L (97-110); CREATININE 2.1 mg/dL (0.6-1.0); GLOMERULAR FILTRATION RATE 23; GLUCOSE 123 mg/dL (70-100); MAGNESIUM 1.2 mg/dL (1.6-2.3); POTASSIUM 4.7 mEq/L (3.5-5.2); SODIUM 131 mEq/L (134-144); TOTAL PROTEIN 6.3 g/dL (6.3-8.2)
[2016-09-14 02:26] LABS: INR 1.22 (0.83-1.16); PROTIME(PATIENT) 15.4 SEC (12.0-15.0)
[2016-09-14 02:27] LABS: APTT 34.2 SEC (23.0-38.0)
[2016-09-14 02:33] LABS: CREATINE KINASE-MB FRACTION 0.54 ng/mL (0-3.19); TROPONIN I < 0.012 ng/mL (0-0.034)
[2016-09-14] MEDS ORDERED: FUROSEMIDE 40 MG/4 ML VIAL IVP ONE (03:17)
[2016-09-14] MEDS ORDERED: ALBUTEROL 3 ML DEYVIAL IH PRN (04:55)
[2016-09-14] MEDS ORDERED: ONDANSETRON 4 MG/2 ML VIAL IVP PRN (04:55)
[2016-09-14] MEDS ORDERED: HYDROmorphONE/DILAUDID 1 MG/ML SYR IVP PRN (04:55)
[2016-09-14] MEDS ORDERED: ONDANSETRON DISINTEGRATING 4 MG TAB PO PRN (04:55)
[2016-09-14] MEDS ORDERED: PROMETHAZINE HCL 25 MG/ML INJ IVP PRN (04:55)
[2016-09-14] MEDS ORDERED: ACETAMINOPHEN 325 MG TAB PO PRN (04:55)
[2016-09-14] MEDS ORDERED: IPRATROPIUM/ALBUTEROL 3 ML DEYVIAL IH SCH (06:00)
[2016-09-14] MEDS: oxyCODONE IR 5 MG TAB PO PRN ×2 (06:15→09:21)
[2016-09-14] MEDS ORDERED: oxyCODONE IR 5 MG TAB ONE ×2 (06:19→09:19)
[2016-09-14] MEDS ORDERED: IPRATROPIUM/ALBUTEROL 3 ML DEYVIAL ONE (06:19)
[2016-09-14 06:50] VITALS: O2SAT 93
--- NOTE | 2016-09-14 08:54 | PDGENHP ---
History and Physical - Chief Complaint shortness of breath - History of Present Illness 71 yo F with MMI including hx of liver tx 2/s hep c cirrhosis and chronic immune suppression as well as ckd, copd and diastolic heart failure presenting with shortness of breath that has been worsening over the past several days. Of note, patient is a very poor historian and this history is therefore limited by that. She is able to tell me that she does not usually wear oxygen at home. She has had cough and sob without subjective fevers or chills. Her cough has been intermittently productive of yellow sputum She has not had chest pain or palpitations. She denies swelling or pain in her legs. She has been living independently and has not been around anyone sick recently. She denies other complaints including n/v/urinary complaints. History Information - Allergies/Home Medication List Allergies/Adverse Reactions: sumatriptan [From Imitrex] Allergy (Intermediate, Verified 09/11/16 13:12) palpitations dextroamphetamine [Dextroamphetamine] Allergy (Unknown, Verified 09/11/16 13:07) JITTERY gabapentin [Gabapentin] Allergy (Unknown, Verified 09/11/16 13:07) JITTERY temazepam [Temazepam] Allergy (Unknown, Verified 09/11/16 13:07) AMNESIA sumatriptan succinate [From Imitrex] Allergy (Verified 09/11/16 13:07) Home Medications: QUEtiapine FUMARATE [Seroquel 100 mg (*)] 100 mg PO HS 03/08/13 [Last Taken 11/22] Calcitriol [Calcitriol (*)] 0.25 mcg PO MWF 12/25/15 [Last Taken 08/14/16] Tacrolimus Anhydrous [Prograf 0.5 MG (*)] 1 mg PO BID 12/25/15 [Last Taken 08/14 09:00] Tiotropium Inhaler [Spiriva Handihaler] 18 mcg IH DAILY 12/25/15 [Last Taken 12/23] Carvedilol [Coreg (*)] 25 mg PO BIDMEAL 08/14/16 [Last Taken 08/14/16 09:00] FLUoxetine [Prozac 20 MG (*)] 20 mg PO DAILY 08/14/16 [Last Taken 08/14/16] LORazepam [Ativan (*)] 1 mg PO BID 08/14/16 [Last Taken 08/14/16 09:00] Pantoprazole Sodium [Protonix 40mg (*)] 40 mg PO BID 08/14/16 [Last Taken 09:00] amLODIPine BESYLATE [Norvasc 10 mg (*)] 10 mg PO DAILY 08/14/16 [Last Taken 12/23] Butal/Asp/Caffeine-Fiorinal [Fiorinal 50-325-40 mg Cap] 1 each PO Q4HRS PRN 01/22 [Last Taken Unknown] I have personally reviewed and updated: family history, medical history, social history, surgical history - Past Medical History CHF (diastolic heart failure), COPD, GERD, hypertension, liver disease (hep c s/ p liver tx), migraines, psychiatric history Additional medical history: CKD, h/o liver transplant 1996, h/o heart block with pacemaker, chronic immunosuppression, depression/anxiety, 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 Her recently . Review of Systems ROS: 10pt was reviewed & negative except for what was stated in HPI & below Physical Exam Temp Pulse Resp BP Pulse Ox 36.4 C 84 18 132/67 H 93 09/14/16 08:41 09/14/16 08:41 09/14/16 08:41 09/14/16 08:41 09/14/16 08:41 Constitutional: not in pain, chronically ill appearing, unkempt Eyes: PERRL, anicteric sclera Ears, Nose, Mouth, Throat: moist mucous membranes, hearing normal, poor dentition Cardiovascular: regular rate and rhythym, no murmur, rub, or gallop, edema Respiratory: no respiratory distress, reduced air movement, bronchial breath sounds Gastrointestinal: normoactive bowel sounds, soft, non-tender abdomen Genitourinary: no bladder tenderness Skin: warm, normal color Musculoskeletal: no muscle tenderness, generalized weakness, No asymmetric calves Neurologic: AAOx3 Psychiatric: not anxious, encephalopathic, No thought process linear Lab Data & Imaging Review 09/14/16 02:00 09/14/16 02:00 WBC 5.52 10^3/uL (3.80-9.50) 09/14/16 02:00 RBC 3.60 10^6/uL (4.18-5.33) L 09/14/16 02:00 Hgb 10.4 g/dL (12.6-16.3) L 09/14/16 02:00 Hct 31.9 % (38.0-47.0) L 09/14/16 02:00 MCV 88.6 fL (81.5-99.8) 09/14/16 02:00 MCH 28.9 pg (27.9-34.1) 09/14/16 02:00 MCHC 32.6 g/dL (32.4-36.7) 09/14/16 02:00 RDW 19.1 % (11.5-15.2) H 09/14/16 02:00 Plt Count 54 10^3/uL (150-400) L 09/14/16 02:00 MPV 9.0 fL (8.7-11.7) 09/14/16 02:00 Neut % (Auto) 62.1 % (39.3-74.2) 09/14/16 02:00 Lymph % (Auto) 27.0 % (15.0-45.0) 09/14/16 02:00 [place] % (Auto) 5.3 % (4.5-13.0) 09/14/16 02:00 Eos % (Auto) 4.7 % (0.6-7.6) 09/14/16 02:00 Baso % (Auto) 0.2 % (0.3-1.7) L 09/14/16 02:00 Nucleat RBC Rel Count 0.0 % (0.0-0.2) 09/14/16 02:00 Absolute Neuts (auto) 3.43 10^3/uL (1.70-6.50) 09/14/16 02:00 Absolute Lymphs (auto) 1.49 10^3/uL (1.00-3.00) 09/14/16 02:00 Absolute Monos (auto) 0.29 10^3/uL (0.30-0.80) L 09/14/16 02:00 Absolute Eos (auto) 0.26 10^3/uL (0.03-0.40) 09/14/16 02:00 Absolute Basos (auto) 0.01 10^3/uL (0.02-0.10) L 09/14/16 02:00 Absolute Nucleated RBC 0.00 10^3/uL (0-0.01) 09/14/16 02:00 Immature Gran % 0.7 % (0.0-1.1) 09/14/16 02:00 Immature Gran # 0.04 10^3/uL (0.00-0.10) 09/14/16 02:00 PT 15.4 SEC (12.0-15.0) H 09/14/16 02:00 INR 1.22 (0.83-1.16) H 09/14/16 02:00 APTT 34.2 SEC (23.0-38.0) 09/14/16 02:00 Sodium 131 mEq/L (134-144) L 09/14/16 02:00 Potassium 4.7 mEq/L (3.5-5.2) 09/14/16 02:00 Chloride 104 mEq/L (97-110) 09/14/16 02:00 Carbon Dioxide 19 mEq/l (22-31) L 09/14/16 02:00 Anion Gap 8 mEq/L (8-16) 09/14/16 02:00 BUN 42 mg/dL (7-23) H 09/14/16 02:00 Creatinine 2.1 mg/dL (0.6-1.0) H 09/14/16 02:00 Estimated GFR 23 09/14/16 02:00 Glucose 123 mg/dL (70-100) H 09/14/16 02:00 Calcium 8.5 mg/dL (8.5-10.4) 09/14/16 02:00 Magnesium 1.2 mg/dL (1.6-2.3) L 09/14/16 02:00 Total Bilirubin 0.8 mg/dL (0.1-1.4) 09/14/16 02:00 Conjugated Bilirubin 0.5 mg/dL (0.0-0.5) 09/14/16 02:00 Unconjugated Bilirubin 0.3 mg/dL (0.0-1.1) 09/14/16 02:00 AST 58 IU/L (14-46) H 09/14/16 02:00 ALT 46 IU/L (9-52) 09/14/16 02:00 Alkaline Phosphatase 287 IU/L (38-126) H 09/14/16 02:00 Creatine Kinase 31 IU/L (0-156) 09/14/16 02:00 CK-MB (CK-2) Fraction 0.54 ng/mL (0-3.19) 09/14/16 02:00 Troponin I < 0.012 ng/mL (0-0.034) 09/14/16 02:00 NT-Pro-B Natriuret Pep 86399 pg/mL (0-125) H 09/14/16 02:00 Total Protein 6.3 g/dL (6.3-8.2) 09/14/16 02:00 Albumin 3.3 g/dL (3.5-5.0) L 09/14/16 02:00 Lipase 223.0 IU/L (23-300) 09/14/16 02:00 Visualized and Interpreted Chest x-ray results: Yes Chest X-Ray results: infiltrate (? of left basilar infiltrate, pacer in place) Visualized and Interpreted EKG results: Yes EKG Interpretation: Positive for: other (V paced rhythm) Assessment & Plan Assessment: Dyspnea (Acute) 71 yo F with MMI including chronic immune suppression s/p liver tx, ckd, copd, d CHF presenting with sob # sob: without true hypoxia and sats in mid 90s on RA. She is a poor historian and had to be prompted to even relate that she has had some shortness of breath which is why she came in. CXR with ? LLL infiltrate, no clear volume overload on cxr. # LLL PNA: evidence of early infiltrate on CXR possibly leading to her sxs as above. Started on levofloxacin. No e/o sepsis or HD instability. # chronic diastolic heart failure: does have elevated bnp compared to usual level but no real e/o CHF exacerbation on exam, echo performed 1 month ago # chronic immune suppression: s/p liver transplant, will continue her immune suppressants once meds are confirmed # ckd: appears to be at baseline essentially, creat ranging from 1.7-2.1 generally, monitoring while in house # chronic anemia: at last hospitalization required transfusion, currently appears to be stable # hyponatremia: mild and has been present in the past and possibly medication related, monitoring # hx of heart block: with PPM in place, V paced rhythm # observation status, appears to be stable and may be able to go home later today Patient new to my care. Old records reviewed and summarized as above. Care plan reviewed with ER doctor including plans for monitoring resp status.
[2016-09-14] MEDS ORDERED: MAGNESIUM SULF 1 GM/DEXTROSE 100 ML IV ONE (08:55)
[2016-09-14] MEDS ORDERED: ENOXAPARIN 40 MG/0.4 ML SYR SC SCH (09:00)
[2016-09-14 09:52] VITALS: BP 140/67; PULSE 81; RESP 16; TEMP 98.2
== END 2016-09-14 09:50 | disposition home or self-care (01) ==
LOC: EDUNIT# → UNDOADMIN 03:28
DX: R06.00 Dyspnea, unspecified (principal); I50.9 Heart failure, unspecified
CPT/HCPCS: 96374

== ENCOUNTER 2016-10-28 15:12 | Inpatient (IN) | payer OTHER, MEDICAID ==
--- NOTE | 2016-10-28 15:33 | EDPHY ---
H & P HPI/ROS: CHIEF COMPLAINT: Overdose HISTORY OF PRESENT ILLNESS: Patient is a 69-year-old female with a complex medical history including liver transplant, chronic kidney disease and heart block who presents to the emergency department after an overdose of Ativan. Per report, the patient's recently . She has been depressed. She took 30 tablets of Ativan in front of her brother approximately 1 hour prior to arrival. EMS found the patient somnolent. They state that her mental status decreased in route. They report that she had decrease palpable pulses. All the patient is slightly somnolent she is able to answer questions. On arrival to the emergency department the patient states she took her Ativan. She denies using alcohol. She denies other ingestion. She states "I want to ." REVIEW OF SYSTEMS: My complete review of systems is negative except as mentioned in the HPI. Past Medical/Surgical History: Includes hypoxic respiratory failure, chronic obstructive pulmonary disease, anemia, hypertension, kidney disease, pancytopenia, liver disease, immunosuppressant therapy, erosive esophagitis, GI bleed, heart block Past surgical history: Includes liver transplant, pacer placement Social History: Patient lives at home. She denies alcohol use. Her recently . Smoking Status: Former smoker Physical Exam: Vitals noted. GENERAL: mildly somnolent. Arouses to voice. Answers questions. HEENT: Eyes normal to inspection, normal pharynx, no signs of dehydration. NECK: No thyromegaly, no lymphadenopathy, supple. Right EJ in place. This appears infiltrated. IV fluid was discontinued. RESPIRATORY: Clear to auscultation bilaterally, no rales, rhonchi or wheezing. CVS: Regular rate and rhythm, no rubs, murmurs, or gallops. ABDOMEN: Soft, nontender, nondistended, no organomegaly. Large abdominal surgical scar. BACK: Normal to inspection, no CVA tenderness. SKIN: Normal color, no rash, warm, dry. No pallor. EXTREMITIES: Mild bilateral pedal edema, no calf tenderness, no Homans sign or cords, no joint swelling. NEURO/PSYCH: Alert and oriented to name and place, somnolent. Moves all extremities with purpose. Constitutional: Initial Vital Signs Temperature (C) 36.1 C 10/28/16 15:12 Heart Rate 69 10/28/16 15:12 Respiratory Rate 16 10/28/16 15:12 Blood Pressure 165/73 H 10/28/16 15:12 O2 Sat (%) 99 10/28/16 15:12 O2 Delivery Mode Nasal Cannula O2 (L/minute) 5 Allergies/Adverse Reactions: sumatriptan [From Imitrex] Allergy (Intermediate, Verified 09/11/16 13:12) palpitations dextroamphetamine [Dextroamphetamine] Allergy (Unknown, Verified 09/11/16 13:07) JITTERY gabapentin [Gabapentin] Allergy (Unknown, Verified 09/11/16 13:07) JITTERY temazepam [Temazepam] Allergy (Unknown, Verified 09/11/16 13:07) AMNESIA sumatriptan succinate [From Imitrex] Allergy (Verified 09/11/16 13:07) Home Medications: Medication Instructions Recorded QUEtiapine FUMARATE [Seroquel 100 100 mg PO HS 03/08/13 mg (*)] Calcitriol [Calcitriol (*)] 0.25 mcg PO MWF 12/25/15 Tacrolimus Anhydrous [Prograf 0.5 1 mg PO BID 12/25/15 MG (*)] Carvedilol [Coreg (*)] 25 mg PO BIDMEAL 08/14/16 FLUoxetine [Prozac 20 MG (*)] 20 mg PO DAILY 08/14/16 LORazepam [Ativan (*)] 1 mg PO HS 08/14/16 Pantoprazole Sodium [Protonix 40mg 40 mg PO HS 08/14/16 (*)] amLODIPine BESYLATE [Norvasc 10 mg 10 mg PO DAILY 08/14/16 (*)] Butal/Asp/Caffeine-Fiorinal 1 each PO Q4HRS PRN 08/15/16 [Fiorinal 50-325-40 mg Cap] Aspirin EC [Aspirin EC 81 mg (*)] 81 mg PO DAILY #30 tab 08/17/16 hydrALAZINE [Apresoline 50 mg (*)] 50 mg PO TID #90 tab 08/17/16 Albuterol [Ventolin Hfa Inhaler] 2 puffs IH QID PRN #1 mdi 09/11/16 Acetaminophen/ASA/Caffeine 1 each PO Q4H PRN 09/14/16 [Excedrin Tablet (*)] Torsemide [Demadex] 20 mg PO DAILY #30 tab 09/14/16 Medical Decision Making - Diagnostics EKG Interpretation: EKG shows normal sinus rhythm, normal rate, normal axis, borderline prolonged QT interval. There are no ST or T-wave abnormalities. ED Course/Re-evaluation: I met EMS on arrival. I took report from the television station manager. PD was also present placed the patient on a hold. Patient was mildly hypertensive on arrival. A new IV was placed. Patient had laboratory studies and EKG ordered. Her initial I-STAT showed a sodium 138, potassium 3.8, chloride 104, glucose 96, BUN 45, creatinine 3.0 hematocrit 31. It is noted the patient has an elevated creatinine and a low hematocrit. I considered the need for charcoal. Patient had a recent ingestion and I considered gastric emptying. However, at this time I do not feel the patient needs intubation. She will be watched closely. I feel be unsafe to give her charcoal gastric tube. Spent considerable time at the patient's bedside. This was to evaluate her mental status. EMS had reported that her mental status was decreasing. At this time I do not feel the patient needs to be intubated but she will be re- evaluated frequently. 16 20: The patient is stable. She is maintaining her airway. Her O2 saturation is normal. Her end-tidal CO2 is consistent. I do not feel she needs inpatient at this time. Differential Diagnosis: My differential includes but is not limited to benzodiazepine overdose, multi day drug ingestion, alcohol intoxication, CVA, ACS, acute AK, dehydration, electrolyte abnormality, sugar abnormality, anemia, renal failure, encephalopathy Critical Care Time: Patient required 35 minutes of critical care time. This was exclusive of any on unbundled procedure. This was due to the patient's altered mental status, somnolence, extensive time spent at the patient's bedside, frequent rechecks and need for admission to the ICU. - Data Points Laboratory Results: Laboratory Results 10/28/16 15:35 10/28/16 15:35 10/28/16 10/28/16 15:35 15:35 WBC 3.21 10^3/uL L 10^3/uL (3.80-9.50) RBC 3.33 10^6/uL L 10^6/uL (4.18-5.33) Hgb 10.1 g/dL L g/dL (12.6-16.3) Hct 31.1 % L % (38.0-47.0) MCV 93.4 fL fL (81.5-99.8) MCH 30.3 pg pg (27.9-34.1) MCHC 32.5 g/dL g/dL (32.4-36.7) RDW 17.8 % H % (11.5-15.2) Plt Count 86 10^3/uL L 10^3/uL (150-400) MPV 10.0 fL fL (8.7-11.7) Neut % (Auto) 44.2 % % (39.3-74.2) Lymph % (Auto) 39.3 % % (15.0-45.0) [place] % (Auto) 7.2 % % (4.5-13.0) Eos % (Auto) 8.7 % H % (0.6-7.6) Baso % (Auto) 0.3 % % (0.3-1.7) Nucleat RBC Rel Count 0.0 % % (0.0-0.2) Absolute Neuts (auto) 1.42 10^3/uL L 10^3/uL (1.70-6.50) Absolute Lymphs (auto) 1.26 10^3/uL 10^3/uL (1.00-3.00) Absolute Monos (auto) 0.23 10^3/uL L 10^3/uL (0.30-0.80) Absolute Eos (auto) 0.28 10^3/uL 10^3/uL (0.03-0.40) Absolute Basos (auto) 0.01 10^3/uL L 10^3/uL (0.02-0.10) Absolute Nucleated RBC 0.00 10^3/uL 10^3/uL (0-0.01) Immature Gran % 0.3 % % (0.0-1.1) Immature Gran # 0.01 10^3/uL 10^3/uL (0.00-0.10) Sodium 133 mEq/L L mEq/L (134-144) Potassium 3.9 mEq/L mEq/L (3.5-5.2) Chloride 102 mEq/L mEq/L (97-110) Carbon Dioxide 20 mEq/l L mEq/l (22-31) Anion Gap 11 mEq/L mEq/L (8-16) BUN 54 mg/dL H mg/dL (7-23) Creatinine 2.5 mg/dL H mg/dL (0.6-1.0) Estimated GFR 19 Glucose 89 mg/dL mg/dL (70-100) Calcium 8.4 mg/dL L mg/dL (8.5-10.4) Salicylates 6.5 mg/dL mg/dL (2.0-20.0) Acetaminophen < 10 mcg/mL L mcg/mL (10.0-30.0) Ethyl Alcohol < 10 mg/dL mg/dL (0-10) Departure - Departure Referrals: Patient,NotPresent [Primary Care Provider] - As per Instructions
[2016-10-28 15:41] LABS: % IMMATURE GRANULYOCYTES 0.3 % (0.0-1.1); ABSOLUTE IMMATURE GRANULOCYTES 0.01 10^3/uL (0.00-0.10); ADD DIFF? NO; ADD MORPH? NO; ADD SCAN? NO; ATYPICAL LYMPHOCYTE FLAG 0 (0-99); FRAGMENT RBC FLAG 0 (0-99); HEMATOCRIT 31.1 % (38.0-47.0); HEMOGLOBIN 10.1 g/dL (12.6-16.3); LEFT SHIFT FLG 0 (0-99); LIPEMIA HEMOLYSIS FLAG 80 (0-99); MEAN CELL HEMOGLOBIN 30.3 pg (27.9-34.1); MEAN CELL HEMOGLOBIN CONCENTR. 32.5 g/dL (32.4-36.7); MEAN CELL VOLUME 93.4 fL (81.5-99.8); PLATELET CLUMPS FLAG 0 (0-99); PLATELET COUNT 86 10^3/uL (150-400); RED BLOOD CELL COUNT 3.33 10^6/uL (4.18-5.33); RED CELL DISTRIBUTION WIDTH 17.8 % (11.5-15.2)
--- NOTE | 2016-10-28 15:44 | CPEKG ---
Heart Rate: 66 RR Interval: 909 P-R Interval: 184 QRSD Interval: 86 QT Interval: 468 QTC Interval: 491 QRS Farber: 22 T Wave Farber: 60 EKG Severity - ABNORMAL ECG - EKG Impression: ATRIAL-PACED RHYTHM EKG Impression: BORDERLINE INFERIOR Q WAVES EKG Impression: BORDERLINE PROLONGED QT INTERVAL Electronically Signed By: Cyndi Strickland 28-Oct-2016 20:05:46
[2016-10-28 15:59] LABS: ANION GAP 11 mEq/L (8-16); CALCIUM 8.4 mg/dL (8.5-10.4); CARBON DIOXIDE 20 mEq/l (22-31); CHLORIDE 102 mEq/L (97-110); CREATININE 2.5 mg/dL (0.6-1.0); ETHANOL SERUM < 10 mg/dL (0-10); GLOMERULAR FILTRATION RATE 19; GLUCOSE 89 mg/dL (70-100); POTASSIUM 3.9 mEq/L (3.5-5.2); SALICYLATE 6.5 mg/dL (2.0-20.0); SODIUM 133 mEq/L (134-144)
[2016-10-28] MEDS ORDERED: ONDANSETRON 4 MG/2 ML VIAL IVP PRN (16:42)
--- NOTE | 2016-10-28 18:23 | GHP ---
[f rep st] HISTORY AND PHYSICAL DATE OF ADMISSION: 10/28/2016 HISTORY OF PRESENT ILLNESS: The patient is a 71-year-old female with a history of liver transplant secondary to hepatitis C, as well as chronic kidney disease and coronary artery disease, who present s to the hospital with a witnessed ingestion of approximately 30 tablets of Ativan that was filled a bout a week ago that had 60 tablets and there are now none in it. I spoke with the ER doctor, Dr. Hilario Strickland, who notes that she was lethargic but alert. When I see her, she is similar. She is moaning and groaning. I have taken care of the patient on number of times, and she does acknowledg e previously having met. However, she does continue to be confused and lethargic, not her normal se lf. She denies pain. She denies shortness of breath. She does not visibly look short of breath. Further history is precluded by her mental status. It sounds like the patient's has recently , and she took the tablets and stated t hat she "wanted to ." In my previous experiences with the patient, she has not expressed suicida l ideation or been suicidal, but she does carry a diagnosis of depression. In the emergency department, there was some discussion over intubating her, but she is currently pro tecting her airway and doing well on supplemental oxygen, so elective intubation was deferred. She denies alcohol use at this point in time. REVIEW OF SYSTEMS: Complete 10-point review of systems conducted, negative except as noted in the H PI with the caveat that it is only so effective. PAST MEDICAL HISTORY: 1. Chronic kidney disease. 2. 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 3. History of heart block with a pacer. 4. CAD. 5. COPD. 6. GERD. 7. Hypertension. 8. Migraines. 9. Depression and anxiety. 10. Focal segmental glomerulosclerosis. 11. Anemia. 12. History of ischemic colitis. 13. History of hyperkalemia. 14. History upper GI bleed. ALLERGIES: Sumatriptan, dextroamphetamine, gabapentin, temazepam. HOME MEDICATIONS: Hydralazine, amlodipine, torsemide, tacrolimus, quetiapine, pantoprazole, fluoxet ine, lorazepam, carvedilol, calcitriol, Fiorinal, aspirin. SOCIAL HISTORY: No alcohol. recently . No tobacco. FAMILY HISTORY: Parents are . PHYSICAL EXAMINATION: VITAL SIGNS: Presenting vitals, temp 36.1, blood pressure 165/70, pulse 69, breathing 16 times a minute, 98% on 5 L. GENERAL: Intoxicated but no acute distress. HEENT: Scle kinza anicteric. Pupils reactive. Oropharynx is clear. Mucous membranes are dry. NECK: Supple wit hout lymphadenopathy or JVD. LUNGS: Clear to auscultation bilaterally. HEART: S1, S2. ABDOMEN: Soft, nontender, nondistended. LOWER EXTREMITIES: Without edema. Calves are nontender. SKIN: W ithout rash. NEUROLOGIC: Notable for encephalopathy. LABORATORY DATA: White count 3.2. She does have other values that are low. Hematocrit 31.1, plate lets are 86. Thrombocytopenia is not new. Sodium 133, potassium 3.9, chloride 102, bicarb 20, BUN 54, creatinine 2.5. Values greater than her baseline but not significantly. Her baseline appears t o be about 1.8. Tox screen is non-negative for barbiturates and benzodiazepines. She has a negativ e Tylenol and aspirin level. Negative alcohol level. EKG, interpreted by me, shows a paced rhythm at 66 with normal axis, normal QRS, no ST or T-wave changes. I have discussed the case Dr. Cyndi Strickland. ASSESSMENT AND PLAN: This is a 71-year-old female with liver transplant, suicide attempt. 1. Suicide attempt. Patient took a large dose of Ativan with intent for suicide. She is currently on an M1 hold. 2. Ativan overdose. Typically this is supportive care. Will follow on telemetry, although her QRS is normal at this time. Patient may require intubation, although I support the ER's decision to at tempt to avoid this. She is not a candidate for flumazenil at this point in time. 3. Liver transplant. Will continue her medications when she is able to take p.o. For now she will be n.p.o., including no pills. She is high risk for aspiration. 4. Chronic kidney disease. Creatinine at baseline suggests she is mildly prerenal. I will start s ome IV fluids on her. 5. Prophylaxis. Provide SCDs. Given her thrombocytopenia, will hold off on pharmacologic prophyla xis. 6. Anemia. Will repeat a hematocrit in the morning. I do not suspect bleeding. 7. Liver disease. Will follow her INR for the first couple of days. 8. Psychiatric illness. The patient warrants evaluation from the psychiatry MD when she is more al ert, and she could be medically cleared. She is a candidate for inpatient hospitalization. DISPOSITION: ICU inpatient. Risk high. /[id number]/MODL
[2016-10-28] MEDS: NS 1,000 ML IV SCH (18:30)
[2016-10-28] MEDS ORDERED: ACYCLOVIR 400 MG TAB PO SCH (23:30)
[2016-10-29] MEDS: LIDOCAINE 4% 15 GM CREAM TP PRN ×3 (01:19→20:25)
[2016-10-29] MEDS: NS 1,000 ML IV SCH ×2 (01:23→08:36)
[2016-10-29 05:20] LABS: ADD DIFF? NO; ADD MORPH? NO; ADD SCAN? NO; ATYPICAL LYMPHOCYTE FLAG 0 (0-99); FRAGMENT RBC FLAG 0 (0-99); HEMATOCRIT 30.2 % (38.0-47.0); HEMOGLOBIN 9.9 g/dL (12.6-16.3); LEFT SHIFT FLG 0 (0-99); LIPEMIA HEMOLYSIS FLAG 80 (0-99); MEAN CELL HEMOGLOBIN 29.9 pg (27.9-34.1); MEAN CELL HEMOGLOBIN CONCENTR. 32.8 g/dL (32.4-36.7); MEAN CELL VOLUME 91.2 fL (81.5-99.8); MEAN PLATELET VOLUME 8.9 fL (8.7-11.7); PLATELET CLUMPS FLAG 10 (0-99); PLATELET COUNT 76 10^3/uL (150-400); RED BLOOD CELL COUNT 3.31 10^6/uL (4.18-5.33); RED CELL DISTRIBUTION WIDTH 17.4 % (11.5-15.2)
[2016-10-29 05:30] LABS: INR 1.13 (0.83-1.16); PROTIME(PATIENT) 14.4 SEC (12.0-15.0)
[2016-10-29] MEDS ORDERED: ACETAMINOPHEN 650 MG SUPP PR PRN (05:49)
[2016-10-29 05:51] LABS: ANION GAP 9 mEq/L (8-16); CALCIUM 8.4 mg/dL (8.5-10.4); CARBON DIOXIDE 21 mEq/l (22-31); CHLORIDE 108 mEq/L (97-110); CREATININE 2.2 mg/dL (0.6-1.0); GLOMERULAR FILTRATION RATE 22; GLUCOSE 85 mg/dL (70-100); POTASSIUM 3.7 mEq/L (3.5-5.2); SODIUM 138 mEq/L (134-144)
[2016-10-29 07:28] LABS: ALBUMIN 3.4 g/dL (3.5-5.0); BILIRUBIN,TOTAL 0.5 mg/dL (0.1-1.4); BILIRUBIN-CONJUGATED 0.5 mg/dL (0.0-0.5); TOTAL PROTEIN 6.1 g/dL (6.3-8.2)
--- NOTE | 2016-10-29 09:19 | HOSPPROG ---
Hospitalist Progress Note Assessment/Plan: 71 yo F w liver transplant, ckd admitted to ICU on m1 hold following intentional 30mg ativan ingestion suicide attempt: m1 hold medically cleared for TLC eval needs inpatient psych stay genital herpes: will start dose adjusted valacyclovir given ckd liver transplant: continue tacrolimus lft's at baseline no ascites or edema hold lasix ckd: cr at baseline lasix on hold proph: start sc heparin ativan ingestion: still a bit confused and lethargic but more clear than yesterdya and improving medically cleared dispo: ICU, M1 hold Subjective: tele: no events (interp by me). case d/w dr russo and TLC provider Objective: Vital Signs Temp Pulse Resp BP Pulse Ox 36.8 C 80 18 152/75 H 97 10/29/16 08:00 10/29/16 08:00 10/29/16 08:00 10/29/16 08:00 10/29/16 08:00 Laboratory Results 10/29/16 05:15 10/29/16 05:15 10/28/16 10/29/16 10/30/16 05:59 05:59 05:59 Intake Total 1473 Output Total 0 Balance -577 PT 14.4 SEC (12.0-15.0) 10/29/16 05:15 INR 1.13 (0.83-1.16) 10/29/16 05:15 - Physical Exam Constitutional: other (alert, ), No no apparent distress Eyes: PERRL, anicteric sclera Ears, Nose, Mouth, Throat: moist mucous membranes, hearing normal Cardiovascular: regular rate and rhythym, no murmur, rub, or gallop Respiratory: no respiratory distress, no rales or rhonchi Gastrointestinal: normoactive bowel sounds, soft, non-tender abdomen Genitourinary: other (per nursing, genital herpes outbreak), No buchanan in urethra Skin: warm, normal color Musculoskeletal: full muscle strength Neurologic: AAOx3, other (alert, some lethargy) ICD10 Worksheet Patient Problems: Problems Problem Status Onset Adjustment disorder with depressed mood Active Acute bronchitis with chronic obstructive pulmonary disease (COPD) Acute Acute on chronic renal insufficiency Acute Bronchitis Acute Chest pain Acute Chest pain in adult Acute Chronic Disease Mgmt/Transitional Care Acute Chronic obstructive pulmonary disease with acute exacerbation Acute Chronic renal insufficiency Acute Colitis Acute Cough Acute Dehydration Acute Elevated d-dimer Acute Hyponatremia Acute Knee effusion Acute Leg cramping Acute Migraine Acute Multiple falls Acute Pneumonia Acute Renal failure (ARF), acute on chronic Acute Right knee pain Acute Sedated Acute Shortness of breath Acute Urinary tract infection Acute Vomiting Acute Weakness Acute
[2016-10-29] MEDS: LEVOTHYROXINE 50 MCG TAB PO SCH (09:56)
[2016-10-29] MEDS: TACROLIMUS ANHYDROUS 0.5 MG CAP PO SCH ×2 (09:57→20:24)
[2016-10-29] MEDS: BUTAL/ASP/CAFFEINE-FIORINAL 1 EACH CAP PO PRN ×2 (10:11→16:18)
[2016-10-29] MEDS: valACYclovir 500 MG TAB PO SCH (10:19)
[2016-10-29] MEDS: CARVEDILOL 25 MG TAB PO SCH (17:11)
--- NOTE | 2016-10-29 17:29 | CPEKG ---
Heart Rate: 74 RR Interval: 811 P-R Interval: 172 QRSD Interval: 84 QT Interval: 440 QTC Interval: 489 P Conconully: 70 QRS Conconully: 62 T Wave Conconully: 73 EKG Severity - BORDERLINE ECG - EKG Impression: SINUS RHYTHM EKG Impression: BORDERLINE T ABNORMALITIES, ANT-LAT LEADS Electronically Signed By: Zachery Milner 30-Oct-2016 08:41:09
[2016-10-29] MEDS: TOPIRAMATE 25 MG PO SCH (20:24)
[2016-10-29] MEDS ORDERED: PANTOPRAZOLE SODIUM 40 MG TAB PO SCH (21:00)
[2016-10-29] MEDS ORDERED: QUEtiapine FUMARATE 100 MG TAB PO SCH (21:00)
[2016-10-30 04:02] VITALS: TEMP 98.2
[2016-10-30] MEDS: LEVOTHYROXINE 50 MCG TAB PO SCH (04:07)
[2016-10-30] MEDS: BUTAL/ASP/CAFFEINE-FIORINAL 1 EACH CAP PO PRN ×2 (04:07→10:10)
[2016-10-30] MEDS: valACYclovir 500 MG TAB PO SCH (08:00)
[2016-10-30] MEDS ORDERED: CALCITRIOL 0.25 MCG CAP PO SCH (08:00)
[2016-10-30] MEDS: TOPIRAMATE 25 MG PO SCH (08:01)
[2016-10-30] MEDS: TACROLIMUS ANHYDROUS 0.5 MG CAP PO SCH (08:01)
[2016-10-30] MEDS: CARVEDILOL 25 MG TAB PO SCH (08:01)
[2016-10-30 08:03] VITALS: PULSE 73
[2016-10-30 08:24] VITALS: RESP 16; O2SAT 95
[2016-10-30] MEDS: LIDOCAINE 4% 15 GM CREAM TP PRN (08:47)
[2016-10-30] MEDS ORDERED: FLUoxetine 20 MG CAP PO SCH (09:00)
[2016-10-30] MEDS ORDERED: ASPIRIN EC 81 MG TAB PO SCH (09:00)
--- NOTE | 2016-10-30 10:02 | HOSPPROG ---
Hospitalist Progress Note Assessment/Plan: 71 yo F w liver transplant, ckd admitted to ICU on m1 hold following intentional 30mg ativan ingestion suicide attempt: m1 hold medically cleared for TLC eval needs inpatient psych stay genital herpes: will start dose adjusted valacyclovir given ckd 5 days of therapy liver transplant: continue tacrolimus lft's at baseline no ascites or edema hold lasix ckd: cr at baseline lasix on hold proph: start sc heparin ativan ingestion: still a bit confused and lethargic but more clear than yesterdya and improving medically cleared dispo: to [facility] > 30 minutes on dc Subjective: more alert. [facility] Objective: Vital Signs Temp Pulse Resp BP Pulse Ox 36.8 C 73 16 174/79 H 95 10/30/16 07:20 10/30/16 08:01 10/30/16 07:20 10/30/16 07:20 10/30/16 07:20 Laboratory Results 10/29/16 05:15 10/29/16 05:15 10/29/16 10/30/16 10/31/16 05:59 05:59 05:59 Intake Total 1473 1690 Output Total 2050 600 Balance -577 1090 PT 14.4 SEC (12.0-15.0) 10/29/16 05:15 INR 1.13 (0.83-1.16) 10/29/16 05:15 - Physical Exam Constitutional: no apparent distress, appears nourished Eyes: PERRL, anicteric sclera Ears, Nose, Mouth, Throat: moist mucous membranes, hearing normal Cardiovascular: regular rate and rhythym, no murmur, rub, or gallop Respiratory: no respiratory distress, no rales or rhonchi Gastrointestinal: normoactive bowel sounds, soft, non-tender abdomen, No ascites Genitourinary: no bladder fullness, No buchanan in urethra Skin: warm, normal color Musculoskeletal: full muscle strength Neurologic: AAOx3 ICD10 Worksheet Patient Problems: Problems Problem Status Onset Adjustment disorder with depressed mood Active Acute bronchitis with chronic obstructive pulmonary disease (COPD) Acute Acute on chronic renal insufficiency Acute Bronchitis Acute Chest pain Acute Chest pain in adult Acute Chronic Disease Mgmt/Transitional Care Acute Chronic obstructive pulmonary disease with acute exacerbation Acute Chronic renal insufficiency Acute Colitis Acute Cough Acute Dehydration Acute Elevated d-dimer Acute Hyponatremia Acute Knee effusion Acute Leg cramping Acute Migraine Acute Multiple falls Acute Pneumonia Acute Renal failure (ARF), acute on chronic Acute Right knee pain Acute Sedated Acute Shortness of breath Acute Urinary tract infection Acute Vomiting Acute Weakness Acute
--- NOTE | 2016-10-30 10:16 | PDIAF ---
- Diagnosis Diagnosis: ativan overdose Code Status: Full Code - Medication Management Discharge Medications: Medications to Continue on Transfer QUEtiapine FUMARATE [Seroquel 100 mg (*)] 100 mg PO HS 03/08/13 [Last Taken 02/22] Calcitriol [Calcitriol (*)] 0.25 mcg PO MWF 12/25/15 [Last Taken 09/13/16] Tacrolimus Anhydrous [Prograf 0.5 MG (*)] 1 mg PO BID 12/25/15 [Last Taken 09/13] Carvedilol [Coreg (*)] 25 mg PO BIDMEAL 08/14/16 [Last Taken 09/13/16] FLUoxetine [Prozac 20 MG (*)] 20 mg PO DAILY 08/14/16 [Last Taken 09/13/16] LORazepam [Ativan (*)] 1 mg PO BID PRN 08/14/16 [Last Taken 09/13/16] Pantoprazole Sodium [Protonix 40mg (*)] 40 mg PO HS 08/14/16 [Last Taken ] amLODIPine BESYLATE [Norvasc 10 mg (*)] 10 mg PO DAILY 08/14/16 [Last Taken ] Butal/Asp/Caffeine-Fiorinal [Fiorinal 50-325-40 mg Cap] 1 each PO Q6 PRN [Last Taken 09/13/16] Aspirin EC [Aspirin EC 81 mg (*)] 81 mg PO DAILY #30 tab 08/17/16 [Last Taken ] Furosemide [Lasix 20 MG (*)] 20 mg PO DAILY 10/29/16 [Last Taken Unknown] Levothyroxine [Synthroid 50 mcg (*)] 25 mcg PO DAILY06 10/29/16 [Last Taken Unknown] Topiramate [Topamax 25MG Sprinkles (*)] 25 mg PO BID 10/29/16 [Last Taken Unknown] hydrALAZINE [Apresoline 50 mg (*)] 50 mg PO TIDMEAL 10/29/16 [Last Taken Unknown ] valACYclovir [Valtrex (*)] 1,000 mg PO DAILY #0 tab 10/30/16 [Last Taken Unknown ] Discharge Medications: Refer to the Discharge Home Medication list for PRN reason. - Orders Services needed: Registered Nurse, Physical Therapy, Occupational Therapy Diet Texture: Regular Texture Diet, Thin Liquids, Meds Whole w/Liquids - Follow Up Care Current Providers and Referrals: Patient,NotPresent [Unknown] - As per Instructions
--- NOTE | 2016-10-30 10:33 | GDS ---
[f rep st] DISCHARGE SUMMARY DISCHARGE DIAGNOSES: 1. Intentional lorazepam overdose and suicide attempt. 2. History of hepatitis C cirrhosis status post liver transplant. 3. Chronic kidney disease with baseline creatinine of about 1.7. 4. Acute kidney injury, now resolved. 5. Encephalopathy, now resolved. 6. History of heart block with pacemaker. 7. Coronary artery disease. 8. Chronic obstructive pulmonary disease. 9. Gastroesophageal reflux disease. 10. History of focal segmental glomerulosclerosis. Please see admission history and physical by Dr. Randolph Olivas. The patient presented with a witne ssed intentional Ativan overdose. She was encephalopathic and confused but never required pressors or intubation. She was fully cleared over time. She was placed on an M1 hold. Today, she is alert . She has a bed at [facility], and she is discharged. /[id number]/MODL
[2016-10-30 10:49] VITALS: BP 134/85
== END 2016-10-30 11:33 | DRG 917 ==
LOC: EDUNIT# → F2N 16:49
PROVIDERS: ADMIT Internal Medicine; ATTEND Internal Medicine
DX: T42.4X2A Poisoning by benzodiazepines, intentional self-harm, initial encounter (principal); G93.40 Encephalopathy, unspecified; N17.9 Acute kidney failure, unspecified; Z94.4 Liver transplant status; I12.9 Hypertensive chronic kidney disease with stage 1 through stage 4 chronic kidney disease, or unspecified chronic kidney disease; N18.9 Chronic kidney disease, unspecified; I25.10 Atherosclerotic heart disease of native coronary artery without angina pectoris; J44.9 Chronic obstructive pulmonary disease, unspecified; K21.9 Gastro-esophageal reflux disease without esophagitis; Z95.0 Presence of cardiac pacemaker; F41.8 Other specified anxiety disorders; D64.9 Anemia, unspecified; A60.09 Herpesviral infection of other urogenital tract
CPT/HCPCS: 80305; 82947-QW; 92523-GN; 92610-GN; 97165-GO; G0480; G8987-GO-CI; G8988-GO-CI; G8989-GO-CI; G8996-GN-CI; G8997-GN-CI; G9165-GN-CJ; G9166-GN-CJ; G9167-GN-CJ; J2405

== ENCOUNTER 2016-12-25 02:01 | Observation (INO) | payer OTHER, MEDICAID ==
[2016-12-25] MEDS ORDERED: NITROGLYCERIN 0.4 MG BTL SL PRN (02:07)
[2016-12-25] MEDS ORDERED: NS 1,000 ML IV ONE (02:07)
--- NOTE | 2016-12-25 02:12 | EDPHY ---
H & P Source: Patient, EMS - Personal History Tetanus Vaccine Date: 2006 - Medical/Surgical History Hx Asthma: No Hx Chronic Respiratory Disease: Yes Hx Diabetes: No Hx Cardiac Disease: Yes Hx Renal Disease: Yes Hx Cirrhosis: No Hx Alcoholism: No Hx HIV/AIDS: No Hx Splenectomy or Spleen Trauma: No Other PMH: PMH- Hep B&C,Pacer 09/21 syncope, HTN, CKD, UTIS, hypothyroid, depression, COPD, leukocytosis, anemia, thrombocytopenia, seizures, arthritis, bipolar, erosive esophagitis, diastolic heart failure, renal aretery stenosis, LIVER TRANSPLANT , PANCREATITIS, migraines since age 16. PSH- ankle R replacement, liver xplant 1996, knee and wrist, meche - Social History Smoking Status: Former smoker HPI/ROS: HPI CHIEF COMPLAINT: Chest pain HISTORY OF PRESENT ILLNESS: This patient very pleasant 71-year-old female, she presents emergency room by EMS for chest pain. Patient states approximately an hour and half ago she developed substernal chest pain she describes a dull ache it radiates to her jaw bilaterally. She does tell me he feels somewhat GERD. She was given Tums by her nursing facility with no improvement. Due to the chest pain and jaw pain they decided to call 911 EMS evaluated her and brought her here. They did give her full-dose aspirin prior to arrival. She tells me that her chest pain is a dull ache center of her chest radiates to her jaw all his current present but improved since starting an hour and a half ago. She did have an episode of vomiting. She tells me she felt short of breath all day. Also has associated dizziness. No headache. No focal weakness, no numbness or tingling. Current she tells me her pain is 3/10 Past Medical History: Ativan overdose, hep C, liver transplant, chronic kidney disease with creatinine 1.7, COPD, FSGS, pacemaker due to heart block Past Surgical History: Liver transplant, left-sided chest pacemaker Social History: Denies daily use of drugs alcohol tobacco products lives at [facility]. Family History: Noncontributory ROS REVIEW OF SYSTEMS: A comprehensive 10 point review of systems is otherwise negative aside from elements mentioned in the history of present illness. Exam Constitutional appears well nontoxic no triage nursing summary reviewed, vital signs reviewed, awake/alert. Eyes normal conjunctivae and sclera, EOMI, PERRLA. HENT normal inspection, atraumatic, moist mucus membranes, no epistaxis, neck supple/ no meningismus, no raccoon eyes. Respiratory clear to auscultation bilaterally, normal breath sounds, no respiratory distress, no wheezing. Cardiovascular rate normal, regular rhythm, no murmur, no edema, distal pulses normal. Gastrointestinal soft, non-tender, no rebound, no guarding, normal bowel sounds, no distension, no pulsatile mass. Genitourinary no CVA tenderness. Musculoskeletal no midline vertebral tenderness, full range of motion, no calf swelling, no tenderness of extremities, no meningismus, good pulses, neurovascularly intact. Skin pink, warm, & dry, no rash, skin atraumatic. Neurologic awake, alert and oriented x 3, AAOx3, moves all 4 extremities equally, motor intact, sensory intact, CN II-XII intact, normal cerebellar, normal vision, normal speech. Psychiatric normal mood/affect. Heme/Lymph/Immune no lymphadenopathy. Differential diagnosis includes but is not limited to: ACS, atypical chest pain , pneumothorax, pneumonia, pulmonary embolism, aortic dissection, congestive heart failure, tumor, musculoskeletal pain, esophageal pain, GERD, peptic ulcer disease, pancreatitis Medical Decision Making: Plan for this patient IV establishment, full blood work, chest x-ray, EKG, check troponin, given dose of nitroglycerin to see if this improves her chest discomfort. Re-evaluation: EKG interpretation by me on record in [employer] system. Impression time of EKG 2:12 a.m., this is sinus rhythm rate of 71 does appear to be atrially paced rhythm. I do not appreciate acute ischemia specifically no ST elevation, ST depression. ED x-ray chest one view: Lung watkins are clear. Cardio him silhouette normal size. Pacemaker in place. [id number]: Re-evaluation at this time. Patient resting comfortably she is chest pain-free. This is after aspirin and nitroglycerin. It is noted that her BNP is elevated. Troponin negative. EKG atrially paced rhythm. I do not appreciate acute ischemic changes. Due the patient's description of chest pain relieved by nitroglycerin radiating to her jaw she will need to be admitted office sooner enzyme serial EKGs make sure this is not a cardiac event. Will speak with the hospitalist service for admission. (MacDade,Deny) Constitutional: Initial Vital Signs Temperature (C) 36.1 C 12/25/16 02:05 Heart Rate 74 12/25/16 02:05 Respiratory Rate 18 12/25/16 02:05 Blood Pressure 170/72 H 12/25/16 02:05 O2 Sat (%) 93 12/25/16 02:05 O2 Delivery Mode Room Air Allergies/Adverse Reactions: sumatriptan [From Imitrex] Allergy (Intermediate, Verified 09/11/16 13:12) palpitations dextroamphetamine [Dextroamphetamine] Allergy (Unknown, Verified 09/11/16 13:07) JITTERY gabapentin [Gabapentin] Allergy (Unknown, Verified 09/11/16 13:07) JITTERY temazepam [Temazepam] Allergy (Unknown, Verified 09/11/16 13:07) AMNESIA sumatriptan succinate [From Imitrex] Allergy (Verified 09/11/16 13:07) Home Medications: Medication Instructions Recorded QUEtiapine FUMARATE [Seroquel 100 150 mg PO HS 03/08/13 mg (*)] Tacrolimus Anhydrous [Prograf 0.5 0.5 mg PO BID@08,16 12/25/15 MG (*)] Carvedilol [Coreg (*)] 12.5 mg PO BIDMEAL 08/14/16 FLUoxetine [Prozac 20 MG (*)] 20 mg PO DAILY 08/14/16 Acetaminophen/ASA/Caffeine 2 each PO Q6HRS PRN 12/25/16 [Excedrin Tablet (*)] Albuterol [Proventil Neb] 3 ml IH QID 12/25/16 Cholecalciferol Vit D3 [Vitamin D3 2,000 units PO DAILY 12/25/16 2000 units tab (OTC)] Folic Acid [Folic Acid 1 MG (*)] 1 mg PO DAILY 12/25/16 Gabapentin [Neurontin 100 MG (*)] 100 mg PO TID 12/25/16 Hydroxyzine Pamoate [Vistaril] 50 mg PO Q8HRS PRN 12/25/16 Levothyroxine [Synthroid 75 mcg 75 mcg PO DAILY06 12/25/16 (*)] Multivitamins [Multivitamin (*)] 1 each PO DAILY 12/25/16 Ondansetron Odt [Zofran Odt 4 mg 4 mg PO Q6HRS PRN 12/25/16 (*)] Sennosides/Docusate Sodium 1 each PO BID 12/25/16 [Senna-S Tablet] Thiamine HCl 100 mg PO DAILY 12/25/16 Tiotropium Inhaler [Spiriva 18 mcg IH DAILY 12/25/16 Handihaler] amLODIPine BESYLATE [Norvasc 5 mg 5 mg PO DAILY 12/25/16 (*)] hydrALAZINE [Apresoline 25 mg (RX)] 25 mg PO TID 12/25/16 traZODone [traZODONE 50MG (*)] 50 mg PO HS PRN 12/25/16 Medical Decision Making ED Course/Re-evaluation: 4pm: I received a phone call from Dr. Bauer about this patient's chest x- ray. Chest x-ray reveals a new right lower lobe difficulty. The patient was admitted. I contacted the hospitalist service, Dr. Neri Cheema, to inform him of the RLL density and need for follow-up. I was not otherwise involved in the care of this patient. (Sarah Vu) - Data Points Laboratory Results: Laboratory Results 12/25/16 02:50 12/25/16 02:50 Medications Given: Discontinued Medications Sodium Chloride (Ns) 1,000 mls @ 0 mls/hr IV ONCE ONE; Wide Open PRN Reason: Protocol Stop: 12/25/16 02:08 Last Admin: 12/25/16 03:11 Dose: 1,000 mls Promethazine HCl (Phenergan) 6.25 mg IVP ONCE ONE Stop: 12/25/16 03:12 Last Admin: 12/25/16 03:11 Dose: 6.25 mg Departure - Departure Disposition: [facility] Inpatient Acute Clinical Impression: Chest pain Qualifiers: Chest pain type: unspecified Qualified Code(s): R07.9 - Chest pain, unspecified Condition: Good
--- NOTE | 2016-12-25 02:16 | CPEKG ---
Heart Rate: 71 RR Interval: 845 P-R Interval: 180 QRSD Interval: 94 QT Interval: 464 QTC Interval: 505 QRS Renault: 40 T Wave Renault: 29 EKG Severity - ABNORMAL ECG - EKG Impression: ATRIAL-PACED RHYTHM EKG Impression: BORDERLINE T ABNORMALITIES, ANTERIOR LEADS EKG Impression: BORDERLINE PROLONGED QT INTERVAL Electronically Signed By: Deny Morales 25-Dec-2016 05:48:58
[2016-12-25 02:59] LABS: % IMMATURE GRANULYOCYTES 0.7 % (0.0-1.1); ABSOLUTE IMMATURE GRANULOCYTES 0.02 10^3/uL (0.00-0.10); ADD DIFF? NO; ADD MORPH? NO; ADD SCAN? NO; ATYPICAL LYMPHOCYTE FLAG 60 (0-99); FRAGMENT RBC FLAG 0 (0-99); HEMATOCRIT 28.5 % (38.0-47.0); HEMOGLOBIN 9.4 g/dL (12.6-16.3); LEFT SHIFT FLG 0 (0-99); LIPEMIA HEMOLYSIS FLAG 80 (0-99); MEAN CELL HEMOGLOBIN 30.9 pg (27.9-34.1); MEAN CELL VOLUME 93.8 fL (81.5-99.8); MEAN PLATELET VOLUME 9.9 fL (8.7-11.7); PLATELET CLUMPS FLAG 10 (0-99); PLATELET COUNT 116 10^3/uL (150-400); RED BLOOD CELL COUNT 3.04 10^6/uL (4.18-5.33); RED CELL DISTRIBUTION WIDTH 14.6 % (11.5-15.2)
[2016-12-25] MEDS ORDERED: PROMETHAZINE HCL 25 MG/ML INJ ONE (03:03)
[2016-12-25 03:10] LABS: INR 1.1 (0.83-1.16); PROTIME(PATIENT) 14.1 SEC (12.0-15.0)
[2016-12-25] MEDS ORDERED: PROMETHAZINE HCL 25 MG/ML INJ IVP ONE (03:11)
[2016-12-25 03:16] LABS: ALANINE AMINOTRANSFERASE 38 IU/L (9-52); ALBUMIN 3.1 g/dL (3.5-5.0); ALKALINE PHOSPHATASE 292 IU/L (38-126); ANION GAP 9 mEq/L (8-16); ASPARTATE AMINOTRANSFERASE 43 IU/L (14-46); BILIRUBIN,TOTAL 0.5 mg/dL (0.1-1.4); BILIRUBIN-CONJUGATED 0.5 mg/dL (0.0-0.5); CALCIUM 9.2 mg/dL (8.5-10.4); CARBON DIOXIDE 26 mEq/l (22-31); CHLORIDE 95 mEq/L (97-110); CREATININE 2.2 mg/dL (0.6-1.0); GLOMERULAR FILTRATION RATE 22; GLUCOSE 91 mg/dL (70-100); MAGNESIUM 1.7 mg/dL (1.6-2.3); SODIUM 130 mEq/L (134-144); TOTAL PROTEIN 5.9 g/dL (6.3-8.2)
[2016-12-25 03:28] LABS: TROPONIN I < 0.012 ng/mL (0-0.034)
[2016-12-25 03:32] LABS: CREATINE KINASE-MB FRACTION < 0.22 ng/mL (0-3.19)
[2016-12-25] MEDS ORDERED: ONDANSETRON 4 MG/2 ML VIAL IVP PRN (04:34)
[2016-12-25] MEDS ORDERED: ACETAMINOPHEN 325 MG TAB PO PRN (04:34)
[2016-12-25] MEDS ORDERED: ONDANSETRON DISINTEGRATING 4 MG TAB PO PRN ×2 (04:34→10:22)
--- NOTE | 2016-12-25 04:43 | PDGENHP ---
History and Physical - Chief Complaint chest pain - History of Present Illness Patient is a 71 year old female with an extensive pmh, including COPD, CAD, dHF , liver transplant on chronic immunosuppression, chronic HCV and depression/ anxiety with multiple previous suicide attempts (most recent 10/2016, benzo OD) who presents to the ED from [facility] with complaint of epigastric/chest pain. Patient states symptoms began in the AM of 12/24, with intermittent sensation of epigastric burning. This became significantly worse this evening when she was lying flat in bed. She describes the pain as burning/tightness in her lower left chest/epigastrum that radiated into her back, was associated with nausea, diaphoresis and dizziness. She was given Tums at with little relief in symptoms, so she was brought to the ED for further evaluation. On arrival to the ED, patient was afebrile and hemodynamically stable. Labs revealed CBC at her previous baseline, negative initial troponin; EKG was nonischemic and CXR was unremarkable. She was give SL nitro with improvement of symptoms. She was then admitted for further evaluation. History Information - Allergies/Home Medication List Allergies/Adverse Reactions: sumatriptan [From Imitrex] Allergy (Intermediate, Verified 09/11/16 13:12) palpitations dextroamphetamine [Dextroamphetamine] Allergy (Unknown, Verified 09/11/16 13:07) JITTERY gabapentin [Gabapentin] Allergy (Unknown, Verified 09/11/16 13:07) JITTERY temazepam [Temazepam] Allergy (Unknown, Verified 09/11/16 13:07) AMNESIA sumatriptan succinate [From Imitrex] Allergy (Verified 09/11/16 13:07) Home Medications: QUEtiapine FUMARATE [Seroquel 100 mg (*)] 100 mg PO HS 03/08/13 [Last Taken 02/22] Calcitriol [Calcitriol (*)] 0.25 mcg PO MWF 12/25/15 [Last Taken 09/13/16] Tacrolimus Anhydrous [Prograf 0.5 MG (*)] 1 mg PO BID 12/25/15 [Last Taken 09/13] Carvedilol [Coreg (*)] 25 mg PO BIDMEAL 08/14/16 [Last Taken 09/13/16] FLUoxetine [Prozac 20 MG (*)] 20 mg PO DAILY 08/14/16 [Last Taken 09/13/16] LORazepam [Ativan (*)] 1 mg PO BID PRN 08/14/16 [Last Taken 09/13/16] Pantoprazole Sodium [Protonix 40mg (*)] 40 mg PO HS 08/14/16 [Last Taken ] amLODIPine BESYLATE [Norvasc 10 mg (*)] 10 mg PO DAILY 08/14/16 [Last Taken ] Butal/Asp/Caffeine-Fiorinal [Fiorinal 50-325-40 mg Cap] 1 each PO Q6 PRN [Last Taken 09/13/16] Furosemide [Lasix 20 MG (*)] 20 mg PO DAILY 10/29/16 [Last Taken Unknown] Levothyroxine [Synthroid 50 mcg (*)] 25 mcg PO DAILY06 10/29/16 [Last Taken Unknown] Topiramate [Topamax 25MG Sprinkles (*)] 25 mg PO BID 10/29/16 [Last Taken Unknown] hydrALAZINE [Apresoline 50 mg (*)] 50 mg PO TIDMEAL 10/29/16 [Last Taken Unknown ] I have personally reviewed and updated: family history, medical history, social history, surgical history - Past Medical History CHF (diastolic heart failure), COPD, GERD, hypertension, liver disease (hep c s/ p liver tx), migraines, psychiatric history Additional medical history: CKD, h/o liver transplant 1996, h/o heart block with pacemaker, chronic immunosuppression, depression/anxiety, 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, anemia, chronic migraine headaches, h/o ischemic colitis, h/o UGIB - Surgical History Reports: cholecystectomy, pacemaker/AICD, transplant surgery (liver) Additional surgical history: pacemaker - Family History Positive for: non-pertinent - Social History Smoking Status: Former smoker (quit 22 years ago) Alcohol Use: None Drug Use: None Additional social history: Patient currently resides at [facility] Review of Systems ROS: 10pt was reviewed & negative except for what was stated in HPI & below Physical Exam Temp Pulse Resp BP Pulse Ox 36.1 C 64 16 139/68 H 96 12/25/16 02:05 12/25/16 03:26 12/25/16 03:26 12/25/16 03:26 12/25/16 03:26 Constitutional: no apparent distress, appears nourished, not in pain Eyes: PERRL, anicteric sclera, EOMI Ears, Nose, Mouth, Throat: hearing normal, ears appear normal, no oral mucosal ulcers, dry mucous membranes Cardiovascular: regular rate and rhythym, systolic murmur, pulses symmetric bilaterally, No JVD, No edema Peripheral Pulses: 2+: dorsalis-pedis (R), dorsalis-pedis (L) Respiratory: no respiratory distress, no rales or rhonchi, clear to auscultation Gastrointestinal: normoactive bowel sounds, soft, non-tender abdomen, no palpable masses, No tenderness, No guarding, No rebound Genitourinary: no bladder fullness, no bladder tenderness Skin: warm, normal color, no rashes or abrasions, no fluctuance, no induration, No mottled Musculoskeletal: full muscle strength, no muscle tenderness, normal joint ROM, no joint effusions Neurologic: AAOx3, sensation intact bilaterally, CN II-XII Intact, No weakness, No numbness Psychiatric: interacting appropriately, not anxious, not encephalopathic, thought process linear Lab Data & Imaging Review 12/25/16 02:50 12/25/16 02:50 WBC 3.03 10^3/uL (3.80-9.50) L 12/25/16 02:50 RBC 3.04 10^6/uL (4.18-5.33) L 12/25/16 02:50 Hgb 9.4 g/dL (12.6-16.3) L 12/25/16 02:50 Hct 28.5 % (38.0-47.0) L 12/25/16 02:50 MCV 93.8 fL (81.5-99.8) 12/25/16 02:50 MCH 30.9 pg (27.9-34.1) 12/25/16 02:50 MCHC 33.0 g/dL (32.4-36.7) 12/25/16 02:50 RDW 14.6 % (11.5-15.2) 12/25/16 02:50 Plt Count 116 10^3/uL (150-400) L 12/25/16 02:50 MPV 9.9 fL (8.7-11.7) 12/25/16 02:50 Neut % (Auto) 54.1 % (39.3-74.2) 12/25/16 02:50 Lymph % (Auto) 26.4 % (15.0-45.0) 12/25/16 02:50 Morrison % (Auto) 5.6 % (4.5-13.0) 12/25/16 02:50 Eos % (Auto) 13.2 % (0.6-7.6) H 12/25/16 02:50 Baso % (Auto) 0.0 % (0.3-1.7) L 12/25/16 02:50 Nucleat RBC Rel Count 0.0 % (0.0-0.2) 12/25/16 02:50 Absolute Neuts (auto) 1.64 10^3/uL (1.70-6.50) L 12/25/16 02:50 Absolute Lymphs (auto) 0.80 10^3/uL (1.00-3.00) L 12/25/16 02:50 Absolute Monos (auto) 0.17 10^3/uL (0.30-0.80) L 12/25/16 02:50 Absolute Eos (auto) 0.40 10^3/uL (0.03-0.40) 12/25/16 02:50 Absolute Basos (auto) 0.00 10^3/uL (0.02-0.10) L 12/25/16 02:50 Absolute Nucleated RBC 0.00 10^3/uL (0-0.01) 12/25/16 02:50 Immature Gran % 0.7 % (0.0-1.1) 12/25/16 02:50 Immature Gran # 0.02 10^3/uL (0.00-0.10) 12/25/16 02:50 PT 14.1 SEC (12.0-15.0) 12/25/16 02:50 INR 1.10 (0.83-1.16) 12/25/16 02:50 APTT 28.0 SEC (23.0-38.0) 12/25/16 02:50 Sodium 130 mEq/L (134-144) L 12/25/16 02:50 Potassium 4.0 mEq/L (3.5-5.2) 12/25/16 02:50 Chloride 95 mEq/L (97-110) L 12/25/16 02:50 Carbon Dioxide 26 mEq/l (22-31) 12/25/16 02:50 Anion Gap 9 mEq/L (8-16) 12/25/16 02:50 BUN 40 mg/dL (7-23) H 12/25/16 02:50 Creatinine 2.2 mg/dL (0.6-1.0) H 12/25/16 02:50 Estimated GFR 22 12/25/16 02:50 Glucose 91 mg/dL (70-100) 12/25/16 02:50 Calcium 9.2 mg/dL (8.5-10.4) 12/25/16 02:50 Magnesium 1.7 mg/dL (1.6-2.3) 12/25/16 02:50 Total Bilirubin 0.5 mg/dL (0.1-1.4) 12/25/16 02:50 Conjugated Bilirubin 0.5 mg/dL (0.0-0.5) 12/25/16 02:50 Unconjugated Bilirubin 0.0 mg/dL (0.0-1.1) 12/25/16 02:50 AST 43 IU/L (14-46) 12/25/16 02:50 ALT 38 IU/L (9-52) 12/25/16 02:50 Alkaline Phosphatase 292 IU/L (38-126) H 12/25/16 02:50 Creatine Kinase < 20 IU/L (0-156) 12/25/16 02:50 CK-MB (CK-2) Fraction < 0.22 ng/mL (0-3.19) 12/25/16 02:50 Troponin I < 0.012 ng/mL (0-0.034) 12/25/16 02:50 NT-Pro-B Natriuret Pep 2000 pg/mL (0-125) H 12/25/16 02:50 Total Protein 5.9 g/dL (6.3-8.2) L 12/25/16 02:50 Albumin 3.1 g/dL (3.5-5.0) L 12/25/16 02:50 Lipase 106.0 IU/L (23-300) 12/25/16 02:50 Visualized and Interpreted Chest x-ray results: Yes Chest X-Ray results: no infiltrate, normal Visualized and Interpreted EKG results: Yes EKG additional interpertation: a-paced rhythm, no obvious st/t wave abnormalities Assessment & Plan Assessment: Patient is a 71 year old female with COPD, dCHF, liver transplant on chronic immunosuppression, chronic HCV and depression/anxiety who presents to the ED with complaint of epigastric and chest pain. Initial ED evaluation is unrevealing for acute cardiac ischemia, patient admitted for further evaluation. Plan: # chest pain Atypical description, appears more consistent with GI etiology. Initial EKG and troponin also nonischemic. However, will rule out ACS with serial troponin and EKG check. Last TTE was 4 months ago, no indication for repeat today. Can consider further risk stratification with stress test (none documented in [email or web address] recently). Aspirin and Nitro given in ED with resolution of symptoms. WIll also give trial of PPI and maalox to treat for GI etiology. # CKD BUN/Cr appear to be at/near previous baseline levels. She does appear dry on exam, will give gentle IV hydration and then reassess BMP. # pancytopenia Patient with chronic leukopenia, thrombocytopenia, mild anemia; all appear to be at baseline levels on presentation today. Will continue to monitor. # COPD Resp status stable, no wheezing. Cont O2 prn, nebs prn. # chronic depression/anxiety Patient currently denies any SI/HI, states mood is stable. Will resume home med regimen. # hepatitis c, liver transplant Currently no active issues. Resume home prograf. # dispo: admit to observation # gen: NPO for possible stress test DVtppx: lovenox Full code
[2016-12-25] MEDS: HYDROCODONE/APAP 5/325 TAB PO PRN ×4 (05:49→20:22)
[2016-12-25] MEDS: NS 1,000 ML IV SCH ×2 (05:54→20:22)
[2016-12-25] MEDS: MAG HYDROX/AL HYDROX/SIMETH 30 ML UDCUP PO PRN ×2 (07:32→15:51)
[2016-12-25 08:05] LABS: % IMMATURE GRANULYOCYTES 0.7 % (0.0-1.1); ABSOLUTE IMMATURE GRANULOCYTES 0.02 10^3/uL (0.00-0.10); ADD DIFF? NO; ADD MORPH? NO; ADD SCAN? NO; ATYPICAL LYMPHOCYTE FLAG 30 (0-99); FRAGMENT RBC FLAG 0 (0-99); HEMATOCRIT 26.3 % (38.0-47.0); HEMOGLOBIN 8.6 g/dL (12.6-16.3); LEFT SHIFT FLG 0 (0-99); LIPEMIA HEMOLYSIS FLAG 80 (0-99); MEAN CELL HEMOGLOBIN 30.8 pg (27.9-34.1); MEAN CELL HEMOGLOBIN CONCENTR. 32.7 g/dL (32.4-36.7); MEAN CELL VOLUME 94.3 fL (81.5-99.8); MEAN PLATELET VOLUME 10.1 fL (8.7-11.7); PLATELET CLUMPS FLAG 0 (0-99); PLATELET COUNT 105 10^3/uL (150-400); RED BLOOD CELL COUNT 2.79 10^6/uL (4.18-5.33); RED CELL DISTRIBUTION WIDTH 14.6 % (11.5-15.2)
[2016-12-25 08:20] LABS: ANION GAP 9 mEq/L (8-16); CALCIUM 8.5 mg/dL (8.5-10.4); CARBON DIOXIDE 23 mEq/l (22-31); CHLORIDE 99 mEq/L (97-110); GLOMERULAR FILTRATION RATE 24; GLUCOSE 84 mg/dL (70-100); MAGNESIUM 1.6 mg/dL (1.6-2.3); POTASSIUM 4.1 mEq/L (3.5-5.2); SODIUM 131 mEq/L (134-144)
[2016-12-25 08:31] LABS: CREATINE KINASE-MB FRACTION 0.24 ng/mL (0-3.19); TROPONIN I < 0.012 ng/mL (0-0.034)
--- NOTE | 2016-12-25 08:50 | CPEKG ---
Heart Rate: 67 RR Interval: 896 P-R Interval: 216 QRSD Interval: 82 QT Interval: 448 QTC Interval: 473 QRS [place]: 42 T Wave [place]: 41 EKG Severity - ABNORMAL ECG - EKG Impression: ATRIAL-PACED RHYTHM EKG Impression: BORDERLINE T ABNORMALITIES, ANTERIOR LEADS Electronically Signed By: Rusty Forrest 25-Dec-2016 09:07:23
[2016-12-25] MEDS ORDERED: NON-FORMULARY NEW DRUG (Hydroxyzine Pamoate [Vistaril] 50 MG) PO PRN (10:22)
[2016-12-25] MEDS ORDERED: traZODone 50 MG TAB PO PRN (10:22)
[2016-12-25] MEDS ORDERED: ACETAMINOPHEN/ASA/CAFFEINE 1 EACH TAB PO PRN (10:22)
--- NOTE | 2016-12-25 10:45 | HOSPPROG ---
Hospitalist Progress Note Assessment/Plan: non ischemic ekg trop neg has been off ppi 1. restart home meds 2. lexiscan given exertional lightheadedness 3. restart ppi 4. chec cdiff if ongoing diarrhea Objective: Vital Signs Temp Pulse Resp BP Pulse Ox 36.5 C 79 8 L 132/79 H 97 12/25/16 07:10 12/25/16 07:10 12/25/16 07:10 12/25/16 07:10 12/25/16 07:10 Laboratory Results 12/25/16 07:50 12/25/16 07:50 12/24/16 12/25/16 12/26/16 05:59 05:59 05:59 Intake Total 1000 Balance 1000 PT 14.1 SEC (12.0-15.0) 12/25/16 02:50 INR 1.10 (0.83-1.16) 12/25/16 02:50 ICD10 Worksheet Patient Problems: Problems Problem Status Onset Chest pain Acute Adjustment disorder with depressed mood Active Acute bronchitis with chronic obstructive pulmonary disease (COPD) Acute Acute on chronic renal insufficiency Acute Bronchitis Acute Chest pain Acute Chest pain in adult Acute Chronic Disease Mgmt/Transitional Care Acute Chronic obstructive pulmonary disease with acute exacerbation Acute Chronic renal insufficiency Acute Colitis Acute Cough Acute Dehydration Acute Elevated d-dimer Acute Hyponatremia Acute Knee effusion Acute Leg cramping Acute Migraine Acute Multiple falls Acute Pneumonia Acute Renal failure (ARF), acute on chronic Acute Right knee pain Acute Sedated Acute Shortness of breath Acute Urinary tract infection Acute Vomiting Acute Weakness Acute
[2016-12-25] MEDS ORDERED: hydrOXYzine HCL 50 MG TAB PO PRN (10:46)
[2016-12-25] MEDS: PANTOPRAZOLE SODIUM 40 MG TAB PO SCH ×2 (11:06→20:10)
[2016-12-25] MEDS: TACROLIMUS ANHYDROUS 0.5 MG CAP PO SCH ×2 (11:07→18:39)
[2016-12-25] MEDS: ALBUTEROL 3 ML DEYVIAL IH SCH ×3 (13:43→20:49)
[2016-12-25] MEDS ORDERED: REGADENOSON 0.4 MG/5 ML SYR IVP ONE (14:21)
[2016-12-25] MEDS: hydrALAZINE 25 MG TAB PO SCH ×2 (15:52→22:04)
[2016-12-25] MEDS: GABAPENTIN 100 MG CAP PO SCH ×2 (15:52→22:04)
[2016-12-25] MEDS ORDERED: TACROLIMUS ANHYDROUS 0.5 MG CAP PO SCH (16:00)
[2016-12-25] MEDS: CARVEDILOL 25 MG TAB PO SCH (18:40)
[2016-12-25] MEDS: SENNOSIDES/DOCUSATE SODIUM TAB PO SCH (20:25)
[2016-12-25] MEDS ORDERED: QUEtiapine FUMARATE 100 MG TAB PO SCH (21:00)
--- NOTE | 2016-12-26 01:15 | CPR ---
[f rep st] NONINVASIVE CARDIAC PROCEDURE REPORT DATE OF PROCEDURE: 12/25/2016 PROCEDURE: Nuclear Lexiscan stress test. REASON FOR TEST: Chest pain. DESCRIPTION OF PROCEDURE: Resting EKG showed a paced rhythm, atrial paced at a rate of 69. Resting blood pressure 156/80, resting heart rate 70, oxygen saturation 98% on 2.5 L of oxygen. There are no ischemic changes on this EKG. LEXISCAN PORTION: Lexiscan was injected rapidly followed by saline flush. Cardiolite was then inje cted followed by saline flush per protocol. Lexiscan was injected at14:14:50. She did experience a n increase in her headache and felt short of breath with the injection. There were no EKG changes. Her blood pressure peaked at 144/80. Peak heart rate 70. Oxygen saturation 98%. There were no EK G changes. Her symptoms started subsiding before the conclusion of the stress portion. RECOVERY: She spontaneously recovered with mild headache that she reports she had prior to the test . She was no longer short of breath. Recovery blood pressure 152/76, heart rate 70, oxygen saturat ion 98%. There were no EKG changes. At this time, she currently is stable to proceed with imaging. /[id number]/MODL
[2016-12-26] MEDS: HYDROCODONE/APAP 5/325 TAB PO PRN ×2 (05:41→13:54)
[2016-12-26] MEDS: ALBUTEROL 3 ML DEYVIAL IH SCH ×3 (05:48→15:02)
[2016-12-26] MEDS ORDERED: LEVOTHYROXINE 75 MCG TAB PO SCH (06:00)
[2016-12-26] MEDS: hydrALAZINE 25 MG TAB PO SCH ×2 (08:51→14:57)
[2016-12-26] MEDS: TACROLIMUS ANHYDROUS 0.5 MG CAP PO SCH ×2 (08:51→14:57)
[2016-12-26] MEDS: CARVEDILOL 25 MG TAB PO SCH (08:51)
[2016-12-26] MEDS: GABAPENTIN 100 MG CAP PO SCH ×2 (08:52→14:57)
[2016-12-26] MEDS: PANTOPRAZOLE SODIUM 40 MG TAB PO SCH (08:52)
[2016-12-26] MEDS ORDERED: amLODIPine BESYLATE 5 MG TAB PO SCH (09:00)
[2016-12-26] MEDS ORDERED: FLUoxetine 20 MG CAP PO SCH (09:00)
[2016-12-26] MEDS ORDERED: FOLIC ACID 1 MG TAB PO SCH (09:00)
[2016-12-26] MEDS ORDERED: TIOTROPIUM INHALER 18 MCG/DOSE 5 DOSE/MDI IH SCH (09:00)
[2016-12-26] MEDS ORDERED: CHOLECALCIFEROL VIT D3 2,000 UNITS TAB/CAP PO SCH (09:00)
[2016-12-26] MEDS ORDERED: MULTIVITAMINS 1 EACH TAB PO SCH (09:00)
[2016-12-26] MEDS ORDERED: THIAMINE HCL 100 MG TAB PO SCH (09:00)
[2016-12-26] MEDS: SENNOSIDES/DOCUSATE SODIUM TAB PO SCH (09:25)
[2016-12-26 11:19] VITALS: RESP 15
[2016-12-26] MEDS: NS 1,000 ML IV SCH (11:26)
--- NOTE | 2016-12-26 14:19 | HOSPPROG ---
Hospitalist Progress Note Assessment/Plan: 71 yo F w liver transplant here w non specific sx neg workup labs at baseline home today (SNF) > 30 minutes see dc summary Subjective: neg stress. chest CT w no infiltrate Objective: Vital Signs Temp Pulse Resp BP Pulse Ox 36.6 C 71 15 150/82 H 97 12/26/16 11:15 12/26/16 11:15 12/26/16 11:15 12/26/16 11:15 12/26/16 11:15 Laboratory Results 12/25/16 07:50 12/25/16 07:50 12/25/16 12/26/16 12/27/16 05:59 05:59 05:59 Intake Total 1000 2140 Output Total 950 300 Balance 1000 1190 -300 PT 14.1 SEC (12.0-15.0) 12/25/16 02:50 INR 1.10 (0.83-1.16) 12/25/16 02:50 - Physical Exam Constitutional: no apparent distress, appears nourished Eyes: PERRL, anicteric sclera Ears, Nose, Mouth, Throat: moist mucous membranes, hearing normal Cardiovascular: regular rate and rhythym, no murmur, rub, or gallop Respiratory: no respiratory distress, no rales or rhonchi Gastrointestinal: normoactive bowel sounds, soft, non-tender abdomen Genitourinary: No buchanan in urethra Skin: warm, normal color Musculoskeletal: full muscle strength, no muscle tenderness Neurologic: AAOx3 Psychiatric: interacting appropriately Lymph, Heme, Immunologic: no cervical LAD ICD10 Worksheet Patient Problems: Problems Problem Status Onset Chest pain Acute Adjustment disorder with depressed mood Active Acute bronchitis with chronic obstructive pulmonary disease (COPD) Acute Acute on chronic renal insufficiency Acute Bronchitis Acute Chest pain Acute Chest pain in adult Acute Chronic Disease Mgmt/Transitional Care Acute Chronic obstructive pulmonary disease with acute exacerbation Acute Chronic renal insufficiency Acute Colitis Acute Cough Acute Dehydration Acute Elevated d-dimer Acute Hyponatremia Acute Knee effusion Acute Leg cramping Acute Migraine Acute Multiple falls Acute Pneumonia Acute Renal failure (ARF), acute on chronic Acute Right knee pain Acute Sedated Acute Shortness of breath Acute Urinary tract infection Acute Vomiting Acute Weakness Acute
--- NOTE | 2016-12-26 14:20 | PDIAF ---
- Diagnosis Diagnosis: chest pain; negative workup Code Status: Full Code - Medication Management Discharge Medications: Medications to Continue on Transfer QUEtiapine FUMARATE [Seroquel 100 mg (*)] 150 mg PO HS 03/08/13 [Last Taken ] Tacrolimus Anhydrous [Prograf 0.5 MG (*)] 0.5 mg PO BID@08,16 12/25/15 [Last Taken 12/24/16 16:00] Carvedilol [Coreg (*)] 12.5 mg PO BIDMEAL 08/14/16 [Last Taken 12/24/16 16:00] FLUoxetine [Prozac 20 MG (*)] 20 mg PO DAILY 08/14/16 [Last Taken 12/24/16] Acetaminophen/ASA/Caffeine [Excedrin Tablet (*)] 2 each PO Q6HRS PRN 12/25/16 [ Last Taken 12/24/16 14:50] Albuterol [Proventil Neb] 3 ml IH QID 12/25/16 [Last Taken 12/24/16 20:00] Cholecalciferol Vit D3 [Vitamin D3 2000 units tab (OTC)] 2,000 units PO DAILY [Last Taken 12/24/16] Folic Acid [Folic Acid 1 MG (*)] 1 mg PO DAILY 12/25/16 [Last Taken 12/24/16] Gabapentin [Neurontin 100 MG (*)] 100 mg PO TID 12/25/16 [Last Taken 12/24/16 20 :00] Hydroxyzine Pamoate [Vistaril] 50 mg PO Q8HRS PRN 12/25/16 [Last Taken 12/24/16 16:34] Levothyroxine [Synthroid 75 mcg (*)] 75 mcg PO DAILY06 12/25/16 [Last Taken ] Multivitamins [Multivitamin (*)] 1 each PO DAILY 12/25/16 [Last Taken 12/24/16] Ondansetron Odt [Zofran Odt 4 mg (*)] 4 mg PO Q6HRS PRN 12/25/16 [Last Taken 14:51] Sennosides/Docusate Sodium [Senna-S Tablet] 1 each PO BID 12/25/16 [Last Taken 12/24/16 20:00] Thiamine HCl 100 mg PO DAILY 12/25/16 [Last Taken 12/24/16] Tiotropium Inhaler [Spiriva Handihaler] 18 mcg IH DAILY 12/25/16 [Last Taken ] amLODIPine BESYLATE [Norvasc 5 mg (*)] 5 mg PO DAILY 12/25/16 [Last Taken ] hydrALAZINE [Apresoline] 25 mg PO TID 12/25/16 [Last Taken 12/24/16 20:00] traZODone [traZODONE 50MG (*)] 50 mg PO HS PRN 12/25/16 [Last Taken 12/23/16] Pantoprazole Sodium [Protonix 40mg (*)] 40 mg PO BID tab 12/26/16 [Last Taken Unknown] Discharge Medications: Refer to the Discharge Home Medication list for PRN reason. - Orders Services needed: Registered Nurse, Physical Therapy, Occupational Therapy - Follow Up Care Current Providers and Referrals: Marilee Hansen MD [Primary Care Provider] - As per Instructions
[2016-12-26 14:57] VITALS: BP 144/106; TEMP 98.4
[2016-12-26 15:09] VITALS: PULSE 77; O2SAT 100
--- NOTE | 2016-12-26 21:12 | GHP ---
[f rep st] HISTORY AND PHYSICAL DATE OF ADMISSION: 12/25/2016 DISCHARGE DIAGNOSES: 1. Chest pain with negative workup. 2. History of chronic hepatitis C with liver transplant in 1996. 3. Recent suicide attempts; now living in [facility]. 4. Epigastric pain. 5. Diarrhea, now resolved. 6. Diastolic heart failure. 7. Chronic obstructive pulmonary disease. HOSPITAL COURSE: Please see admission history and physical by Dr. Yudith Kevin. The patient p resented with some epigastric pain. Notably, the patient had her PPI stopped at [facility]. She had been there for a few weeks or a month. She had serial negative troponins, nonischemic EKG, and negative Lexiscan. She also had a chest CT performed as there was some question of pneumonia on he r chest x-ray. She had no infiltrate on chest CT. She had no fever and no leukocytosis. Her liver tests were essentially at baseline, a little bit more anemic than usual, with a hemoglobin of 8.6, for which was also given volume. It was 9.4 on presentation. She has a chronically elevat ed creatinine at about 2, and this is at its baseline. Given the negative workup, the patient is discharged back to [facility] for ongoing care. Discha rge medicines are unchanged other than the addition of a PPI. /[id number]/MODL
== END 2016-12-26 16:34 ==
LOC: EDUNIT# → F2W 05:30
PROVIDERS: ADMIT Internal Medicine; ATTEND Internal Medicine
DX: R07.9 Chest pain, unspecified (principal); R10.13 Epigastric pain; I13.0 Hypertensive heart and chronic kidney disease with heart failure and stage 1 through stage 4 chronic kidney disease, or unspecified chronic kidney disease; I50.30 Unspecified diastolic (congestive) heart failure; J44.9 Chronic obstructive pulmonary disease, unspecified; Z95.0 Presence of cardiac pacemaker; Z94.4 Liver transplant status
CPT/HCPCS: 71010; 71250; 78452; 93005; 93017; 96361; 96374; 97165; 99285; A9500; G0378; G8987; G8988; J2405; J2550; J2785

== ENCOUNTER 2017-02-13 07:29 | Inpatient (IN) | payer OTHER, MEDICAID ==
[~2017-02-13 07:29] MED LIST: POVIDONE-IODINE 20 ML in SODIUM CL IRRIG SOLUTION 500 ML IRR ONE; ROPIVACAINE 0.2% 80 MG, EPINEPHrine 0.2 MG, KETOROLAC TROMETHAMINE 30 MG in BAG 0 ML IU ONE; TRANEXAMIC ACID 650 MG in NS 100 ML IV ONE; VANCOMYCIN 1 GM VIAL ONE; ceFAZolin 1 GM/5 ML SYR ONE
[2017-02-13] MEDS ORDERED: ACETAMINOPHEN 325 MG TAB PO ONE (08:28)
[2017-02-13] MEDS ORDERED: ceFAZolin 2 GM/DEXTROSE 100 ML IV ONE (08:28)
[2017-02-13] MEDS ORDERED: FAMOTIDINE 20 MG TAB PO ONE (08:28)
[2017-02-13] MEDS ORDERED: DEXAMETHASONE 4 MG/ML VIAL IVP ONE (08:28)
--- NOTE | 2017-02-13 08:42 | PDHPUP ---
History & Physical Update H&P update statement: This history and physical update is based on an assessment of the patient which was completed after admission or registration (within 24 hours), but prior to the surgery/procedure. H&P update: H&P reviewed & patient examined, no change in patient's condition since H&P completed
[2017-02-13 08:50] LABS: % IMMATURE GRANULYOCYTES 0.5 % (0.0-1.1); ABSOLUTE IMMATURE GRANULOCYTES 0.01 10^3/uL (0.00-0.10); ADD DIFF? NO; ADD MORPH? NO; ADD SCAN? NO; ATYPICAL LYMPHOCYTE FLAG 40 (0-99); FRAGMENT RBC FLAG 0 (0-99); HEMATOCRIT 33.4 % (38.0-47.0); HEMOGLOBIN 10.8 g/dL (12.6-16.3); LEFT SHIFT FLG 0 (0-99); LIPEMIA HEMOLYSIS FLAG 80 (0-99); MEAN CELL HEMOGLOBIN 30.3 pg (27.9-34.1); MEAN CELL HEMOGLOBIN CONCENTR. 32.3 g/dL (32.4-36.7); MEAN CELL VOLUME 93.6 fL (81.5-99.8); MEAN PLATELET VOLUME 9.6 fL (8.7-11.7); PLATELET CLUMPS FLAG 30 (0-99); PLATELET COUNT 70 10^3/uL (150-400); RED BLOOD CELL COUNT 3.57 10^6/uL (4.18-5.33); RED CELL DISTRIBUTION WIDTH 15.4 % (11.5-15.2)
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
[2017-02-13] MEDS ORDERED: HYDROmorphONE/DILAUDID 2 MG/ML INJ ONE (09:22)
[2017-02-13] MEDS ORDERED: PROPOFOL 200 MG/20 ML VIAL ONE (09:22)
[2017-02-13] MEDS ORDERED: LR 1,000 ML IV ONE (09:22)
[2017-02-13] MEDS ORDERED: fentaNYL 100 MCG/2 ML INJ ONE ×3 (09:22→11:57)
[2017-02-13] MEDS ORDERED: ROCURONIUM 50 MG/5 ML VIAL ONE (09:22)
[2017-02-13 09:30] LABS: INR 1.08 (0.83-1.16); PROTIME(PATIENT) 13.9 SEC (12.0-15.0)
[2017-02-13] MEDS ORDERED: BUPIVACAINE 0.5% 30 ML SDV ONE (09:46)
[2017-02-13] MEDS ORDERED: NALOXONE HCL 0.4 MG/ML INJ IVP PRN (10:23)
[2017-02-13] MEDS ORDERED: ALBUTEROL 3 ML DEYVIAL IH PRN (10:23)
[2017-02-13] MEDS ORDERED: PROMETHAZINE HCL 25 MG/ML INJ IVP PRN ×2 (10:23→11:39)
[2017-02-13] MEDS ORDERED: HYDROmorphONE/DILAUDID 1 MG/ML SYR IVP PRN (10:23)
[2017-02-13] MEDS ORDERED: ONDANSETRON 4 MG/2 ML VIAL ONE (10:25)
[2017-02-13] MEDS ORDERED: ROPIVACAINE HCL 150 MG/30 ML INJ ONE (10:25)
[2017-02-13] MEDS ORDERED: PHENYLEPHRINE HCL 100 MCG/ML SYR ONE (10:25)
[2017-02-13] MEDS ORDERED: DEXAMETHASONE 4 MG/ML VIAL ONE (10:25)
--- NOTE | 2017-02-13 11:15 | POSTOPPROG ---
Post Op Note Date of Operation: 02/13/17 Surgeon: Mario Portillo Primary Counselor: Lj Mcdonough/Rocael Mata Anesthesiologist: Juan Luis Bro Anesthesia: GET(General Endotracheal) Post-op Diagnosis: Right knee severe degenerative arthritis. Procedure: Right total knee arthroplasty. Inf/Abcess present in the surg proc area at time of surgery?: No EBL: 50-100 (Adductor canal block)
[2017-02-13] MEDS ORDERED: NON-FORMULARY NEW DRUG (Hydroxyzine Pamoate [Vistaril] 50 MG) PO PRN (11:35)
[2017-02-13] MEDS ORDERED: traZODone 50 MG TAB PO PRN (11:35)
[2017-02-13] MEDS ORDERED: CALCIUM CARBONATE 500 MG CHEWABLE TAB PO PRN (11:35)
[2017-02-13] MEDS ORDERED: BISACODYL 10 MG SUPP PR PRN (11:39)
[2017-02-13] MEDS ORDERED: ONDANSETRON DISINTEGRATING 4 MG TAB PO PRN (11:39)
[2017-02-13] MEDS ORDERED: POLYETHYLENE GLYCOL 3350 17 GM PKT PO PRN (11:39)
[2017-02-13] MEDS ORDERED: traMADol 50 MG TAB PO PRN (11:39)
[2017-02-13] MEDS ORDERED: DIPHENOXYLATE/ATROPINE LOMOTIL 1 TAB PO PRN (11:39)
[2017-02-13] MEDS ORDERED: NS 500 ML IV PRN (11:39)
[2017-02-13] MEDS ORDERED: MAGNESIUM HYDROXIDE 30 ML UDCUP PO PRN (11:39)
[2017-02-13] MEDS ORDERED: PROMETHAZINE HCL 25 MG SUPPR PR PRN (11:39)
[2017-02-13] MEDS ORDERED: diphenhydrAMINE 25 MG CAP PO PRN (11:39)
[2017-02-13] MEDS ORDERED: ONDANSETRON 4 MG/2 ML VIAL IVP PRN (11:39)
[2017-02-13] MEDS ORDERED: LACTULOSE 20 GM/30 ML UDCUP PO PRN (11:39)
[2017-02-13] MEDS ORDERED: PHARMACY PAIN CONSULT 1 EA MISC PRN (11:39)
[2017-02-13] MEDS ORDERED: hydrOXYzine HCL 25 MG TAB PO PRN (11:45)
[2017-02-13] MEDS ORDERED: LR 1,000 ML IV SCH (12:00)
[2017-02-13] MEDS: fentaNYL 100 MCG/2 ML INJ IVP PRN ×2 (12:05→12:51)
--- NOTE | 2017-02-13 12:25 | GOP ---
[f rep st] OPERATIVE REPORT DATE OF OPERATION: 02/13/2017 SURGEON: Mario Portillo MD COMPANY MARKER: Lj Mcdonough and Rocael Mata. ANESTHESIA: General. ANESTHESIOLOGIST: Dr. Juan Luis Bro. PREOPERATIVE DIAGNOSIS: Right knee severe degenerative arthritis status post proximal tibial fractu re with malunion. POSTOPERATIVE DIAGNOSIS: Right knee severe degenerative arthritis status post proximal tibial fract ure with malunion. PROCEDURE PERFORMED: Right total knee arthroplasty, cemented, Kamara and Nephew Journey II, posterio r stabilized. FINDINGS: ESTIMATED BLOOD LOSS: Following inflation of the tourniquet was about 150 mL. The sponge and needle count were correct on 2 occasions. She was awakened from anesthesia, transferred to her hospital [facility] and taken to the PACU in satisf actory condition. There were no recognized intraoperative complications. In the PACU, for additional postoperative pain control, Dr. Bro performed an adductor canal block . Lj Mcdonough and Rocael Mata acted as surgical assistants. Their assistance was a medical neces sity for safe completion of the procedure. DESCRIPTION OF PROCEDURE: The patient was given 2 g of preoperative IV Ancef within 60 minutes of s urgery. She also received IV tranexamic acid at a dose of 10 mg/kg. [facility] table and given general anesthesia by Dr. Bro. She had a low platelet count and Dr. Shaila teixeira did not want to give her spinal anesthesia. A Jacobs catheter was not used. She wore a ELIS stocki ng and SCD on the nonoperative leg. Her right lower extremity was prepped with ChloraPrep from the upper thigh tourniquet to the tips of the toes. It was draped free using sterile sheets, stockinett e, and Ioban plastic adhesive drapes. The lower leg was wrapped with compressive Coban. The leg wa s exsanguinated with elevation and a 6-inch compressive wrap, and the pneumatic tourniquet was infla elis to 250 mmHg. The World Health Organization time-out was performed to verify the correct patient identity and the correct surgical side. The [place] time-out was also performed. The [employer] Coo leg h olding device was sterilely attached to the operating room table and used throughout the procedure t o help position the knee. A straight midline incision was made centered on the patella. Subcutaneous tissues were sharply div ided, and hemostasis was obtained using electrocautery. A medial subcutaneous flap was developed an d the capsule and synovium were opened in a medial parapatellar fashion. She had some wounds on the medial aspect of her leg from her previous trauma. I was careful to keep the skin incision and the surgical dissection away from those scarred areas. Very extensive degenerative changes were presen t in her lateral compartment and in the patellofemoral joint. The medial capsule and periosteum were elevated off the rim and medial tibial plateau all the way ar ound to the posteromedial corner. Her medial collateral ligament was lightly released on the medial side. In order to improve exposure, her patella was prepared first. The original thickness of the patella was measured. Peripheral osteophytes were removed. I cut a flat surface on the back of th e patella. She was sized for a 38 mm resurfacing component. I removed enough bone from the patella such that the remaining bone plus the thickness of the patellar component recreated the original th ickness of the patella. The composite thickness was 23 mm. The intramedullary alignment guide system was used to set up the distal femoral cut. The distal fem ur was cut in 5 degrees of valgus. Because of a small preoperative flexion contracture, I made a +2 mm cut on the distal femur. A sizing jig was used to determine proper femoral sizing. I shifted t he cutting block anteriorly 1 mm in order to accommodate a size 5 femoral component without notching the anterior cortex. The 5 in 1 cutting block was applied, and the anterior and posterior condylar cuts and chamfer cuts were made. The final jig was used to remove the central portion of the dista l femur to accommodate the posterior stabilized femoral component. I was careful to determine prope r rotation by referencing off Whitesides line. Each cut was checked for accuracy before and after i t was made. The femur was sized for a size 5 posterior stabilized component. The trial component w as tapped securely into place and was a good fit. Significant osteoporosis was present in all 3 com partments of her knee. Next, the tibia was prepared. The proximal tibial cut was made using the extramedullary alignment g uide. She had residual varus deformity of the proximal tibia from her previous fracture. I had to make a slightly asymmetrical cut in order to recreate correct alignment on the tibial component. Th e cut was made in a few degrees of posterior slope. I was careful to achieve proper varus and valgu s alignment and proper rotation. The posterior compartment was cleared of meniscal remnants. Osteo phytes were removed from the back of the femoral condyles. I checked the flexion extension gaps, an d they were equal, balanced and rectangular. The tibia was sized for a size 4 component. Because of some sclerotic bone from her healed fracture in the proximal tibia, I was a mildly limited in how I could position the tibial component. With t he trial components in place, I selected a 10 mm polyethylene posterior stabilized tibial insert. T he knee came to full extension and flexed to 125 degrees. There was no overstuffing in flexion. Th e collateral ligaments were stable and balanced in 90 degrees of flexion and full extension. The tr ial patellar button was applied, and patellar tracking was checked. It was excellent without any di gital pressure. 40 mL of a joint anesthetic cocktail was injected into the posterior capsule, the periarticular stru ctures, the quadriceps muscle and tendon areas, and the subcutaneous tissues along the skin edges. A second dose of IV tranexamic acid was given at a dose of 10 mg/kg. The surfaces were prepared for cementing. They were carefully cleaned with the pulsating lavage irr igation and thoroughly dried. The CarboJet device was used to blow dry the cancellous surfaces. A double batch of methylmethacrylate cement with 2 g of powdered vancomycin added was mixed. While it was still in a semi liquid state, all 3 components were cemented in place. Excess cement was remov ed before it hardened. Because of the extensive osteoporosis in her proximal tibia, I also cemented the stem of the tibial component. The 10 mm trial tibial insert was retried and was the proper thickness. The actual component was in serted and locked into place. The knee was thoroughly irrigated one final time with a dilute Betadi ne solution. The tourniquet was deflated and the total tourniquet time was 51 minutes. The vastus medialis portion of the extensor mechanism was repaired with several interrupted figure-o [id number] #2 FiberWire sutures. The capsule and synovium were closed first with multiple [id number] ght 0 PDS sutures, followed by a running #2 barbed Ethicon Stratafix PDO suture. The subcutaneous t issues were closed with a running 0 barbed Ethicon Stratafix Monoderm suture. The skin was closed w ith a running 3-0 barbed Ethicon Stratafix Monoderm subcuticular suture. The skin was sealed with h rebeca-inch Steri-Strips. The wound was covered with Xeroform gauze and flat 4x4s. The knee was wrapp ed with Kerlix and a 6-inch compressive wrap. A long-leg ELIS stocking and SCD were applied followed by the cooling device. She wore a stocking and SCD on the opposite leg during the procedure. I used a size 5 cemented Kamara and Nephew Oxinium posterior stabilized femoral component, size 4 david ented tibial base plate, a 10 mm posterior stabilized insert and a 38 mm cemented round all-polyethy true resurfacing patellar component. /[id number]/MODL
[2017-02-13] MEDS ORDERED: HYDROmorphONE/DILAUDID 1 MG/ML SYR ONE (12:34)
--- NOTE | 2017-02-13 12:53 | POSTANESTH ---
Post Anesthetic Evaluation Cardiovascular Status: Normal, Stable Respiratory Status: Normal, Stable Level of Consciousness/Mental Status: Can Participate in Eval Pain Control: Adequate, Prn Tx Ordered Nausea/Vomiting Control: Adequate, Prn Tx Ordered Complications Possibly Related to Anesthesia: None Noted
[2017-02-13] MEDS: CYCLOBENZAPRINE 10 MG TAB PO PRN (13:31)
[2017-02-13] MEDS: oxyCODONE IR 5 MG TAB PO PRN ×3 (13:31→21:55)
[2017-02-13] MEDS: ALBUTEROL 3 ML DEYVIAL IH SCH ×3 (13:38→21:01)
[2017-02-13] MEDS: ceFAZolin 2 GM/DEXTROSE 100 ML IV SCH ×2 (15:43→21:52)
[2017-02-13] MEDS: TACROLIMUS ANHYDROUS 0.5 MG CAP PO SCH (15:44)
[2017-02-13] MEDS: GABAPENTIN 100 MG CAP PO SCH ×2 (15:44→21:52)
[2017-02-13] MEDS: hydrALAZINE 25 MG TAB PO SCH ×2 (16:43→21:52)
[2017-02-13] MEDS: ACETAMINOPHEN 325 MG TAB PO SCH ×3 (18:43→23:19)
[2017-02-13] MEDS: LORazepam 0.5 MG TAB PO PRN (18:44)
[2017-02-13] MEDS: CARVEDILOL 25 MG TAB PO SCH (18:46)
[2017-02-13] MEDS ORDERED: QUEtiapine FUMARATE 100 MG TAB PO SCH (21:00)
[2017-02-13] MEDS: SENNOSIDES/DOCUSATE SODIUM TAB PO SCH (21:54)
[2017-02-13] MEDS: FAMOTIDINE 20 MG TAB PO SCH (22:06)
[2017-02-13] MEDS: ASPIRIN 325 MG TAB PO SCH (22:17)
[2017-02-14] MEDS: ALBUTEROL 3 ML DEYVIAL IH SCH ×2 (05:07→11:34)
[2017-02-14] MEDS ORDERED: LEVOTHYROXINE 75 MCG TAB PO SCH (06:00)
[2017-02-14 06:01] LABS: % IMMATURE GRANULYOCYTES 0.5 % (0.0-1.1); ABSOLUTE IMMATURE GRANULOCYTES 0.02 10^3/uL (0.00-0.10); ADD DIFF? NO; ADD MORPH? NO; ADD SCAN? NO; ATYPICAL LYMPHOCYTE FLAG 30 (0-99); FRAGMENT RBC FLAG 0 (0-99); HEMATOCRIT 26.8 % (38.0-47.0); HEMOGLOBIN 8.4 g/dL (12.6-16.3); LEFT SHIFT FLG 0 (0-99); LIPEMIA HEMOLYSIS FLAG 80 (0-99); MEAN CELL HEMOGLOBIN 30.2 pg (27.9-34.1); MEAN CELL HEMOGLOBIN CONCENTR. 31.3 g/dL (32.4-36.7); MEAN CELL VOLUME 96.4 fL (81.5-99.8); MEAN PLATELET VOLUME 9.7 fL (8.7-11.7); PLATELET CLUMPS FLAG 10 (0-99); PLATELET COUNT 70 10^3/uL (150-400); RED BLOOD CELL COUNT 2.78 10^6/uL (4.18-5.33); RED CELL DISTRIBUTION WIDTH 15.4 % (11.5-15.2)
[2017-02-14] MEDS: ACETAMINOPHEN 325 MG TAB PO SCH ×2 (06:25→13:18)
[2017-02-14] MEDS: oxyCODONE IR 5 MG TAB PO PRN ×2 (06:25→09:22)
[2017-02-14 06:26] LABS: GLOMERULAR FILTRATION RATE 24
[2017-02-14] MEDS: CYCLOBENZAPRINE 10 MG TAB PO PRN (06:29)
[2017-02-14 07:58] VITALS: BP 119/70; TEMP 97.6
[2017-02-14] MEDS ORDERED: PANTOPRAZOLE SODIUM 40 MG TAB PO SCH (09:00)
[2017-02-14] MEDS ORDERED: NON-FORMULARY NEW DRUG (Omeprazole [Prilosec 20 Mg] 20 MG) PO SCH (09:00)
[2017-02-14] MEDS ORDERED: TOPIRAMATE 25 MG TAB PO SCH (09:00)
[2017-02-14] MEDS ORDERED: THIAMINE HCL 100 MG TAB PO SCH (09:00)
[2017-02-14] MEDS ORDERED: TIOTROPIUM INHALER 18 MCG/DOSE 5 DOSE/MDI IH SCH (09:00)
[2017-02-14] MEDS ORDERED: FERROUS SULFATE 140 MG TAB.ER PO SCH (09:00)
[2017-02-14] MEDS ORDERED: FLUoxetine 20 MG CAP PO SCH (09:00)
[2017-02-14] MEDS: GABAPENTIN 100 MG CAP PO SCH (09:05)
[2017-02-14] MEDS: SENNOSIDES/DOCUSATE SODIUM TAB PO SCH (09:06)
[2017-02-14] MEDS: TACROLIMUS ANHYDROUS 0.5 MG CAP PO SCH (09:06)
[2017-02-14] MEDS: FAMOTIDINE 20 MG TAB PO SCH (09:07)
[2017-02-14] MEDS: ASPIRIN 325 MG TAB PO SCH (09:07)
[2017-02-14] MEDS: CARVEDILOL 25 MG TAB PO SCH (09:07)
[2017-02-14] MEDS: hydrALAZINE 25 MG TAB PO SCH (09:09)
[2017-02-14 09:10] VITALS: PULSE 78
--- NOTE | 2017-02-14 10:51 | SOAPPROG ---
SOAP Progress Note Assessment/Plan: Assessment: Awake and alert. She has quite a bit of pain today. She was up and walking in the doll yesterday. Her dressing is dry. Her labs are acceptable. They are about the same as they were preoperatively. Her hemoglobin and hematocrit are low. They were low preoperatively. I do not think she needs transfusion. Postop films look good. Plan: Continue physical therapy today. Transfer back to [facility] this afternoon. 02/14/17 10:49 Objective: Vital Signs Temp Pulse Resp BP Pulse Ox 36.4 C 78 14 119/70 96 02/14/17 07:56 02/14/17 09:07 02/14/17 07:56 02/14/17 09:09 02/14/17 07:56 Laboratory Results 02/14/17 05:50 02/14/17 05:50 02/13/17 02/14/17 02/15/17 05:59 05:59 05:59 Intake Total 1930 1659 Output Total 550 Balance 1380 1659 PT 13.9 SEC (12.0-15.0) 02/13/17 08:40 INR 1.08 (0.83-1.16) 02/13/17 08:40 ICD10 Worksheet Patient Problems: Problems Problem Status Onset Osteoarthritis of right knee Acute Adjustment disorder with depressed mood Active Acute bronchitis with chronic obstructive pulmonary disease (COPD) Acute Acute on chronic renal insufficiency Acute Bronchitis Acute Chest pain Acute Chest pain Acute Chest pain in adult Acute Chronic Disease Mgmt/Transitional Care Acute Chronic obstructive pulmonary disease with acute exacerbation Acute Chronic renal insufficiency Acute Colitis Acute Cough Acute Dehydration Acute Elevated d-dimer Acute Hyponatremia Acute Knee effusion Acute Leg cramping Acute Migraine Acute Multiple falls Acute Pneumonia Acute Renal failure (ARF), acute on chronic Acute Right knee pain Acute Sedated Acute Shortness of breath Acute Urinary tract infection Acute Vomiting Acute Weakness Acute
--- NOTE | 2017-02-14 11:01 | PDIAF ---
- Diagnosis Diagnosis: right knee OA Code Status: Full Code - Medication Management Discharge Medications: Medications to Continue on Transfer QUEtiapine FUMARATE [Seroquel 100 mg (*)] 150 mg PO HS 03/08/13 [Last Taken 01/22 21:00] Tacrolimus Anhydrous [Prograf 0.5 MG (*)] 0.5 mg PO BID@08,16 12/25/15 [Last Taken 02/12/17 08:00] Carvedilol [Coreg (*)] 12.5 mg PO BIDMEAL 08/14/16 [Last Taken 12/24/16 16:00] FLUoxetine [Prozac 20 MG (*)] 20 mg PO DAILY 08/14/16 [Last Taken 12/24/16] Acetaminophen/ASA/Caffeine [Excedrin Tablet (*)] 2 each PO Q6HRS PRN 12/25/16 [ Last Taken 02/11/17] Albuterol [Proventil Neb] 3 ml IH QID 12/25/16 [Last Taken 12/24/16 20:00] Cholecalciferol Vit D3 [Vitamin D3 2000 units tab (OTC)] 2,000 units PO DAILY [Last Taken 02/12/17] Folic Acid [Folic Acid 1 MG (*)] 1 mg PO DAILY 12/25/16 [Last Taken 12/24/16] Gabapentin [Neurontin 100 MG (*)] 100 mg PO TID 12/25/16 [Last Taken 12/24/16 20 :00] Hydroxyzine Pamoate [Vistaril] 50 mg PO Q8HRS PRN 12/25/16 [Last Taken 02/12/17] Levothyroxine [Synthroid 75 mcg (*)] 75 mcg PO DAILY06 12/25/16 [Last Taken ] Ondansetron Odt [Zofran Odt 4 mg (*)] 4 mg PO Q6HRS PRN 12/25/16 [Last Taken 07/25] Sennosides/Docusate Sodium [Senna-S Tablet] 1 each PO BID PRN 12/25/16 [Last Taken 02/08/17] Thiamine HCl 100 mg PO DAILY 12/25/16 [Last Taken 02/12/17] Tiotropium Inhaler [Spiriva Handihaler] 18 mcg IH DAILY 12/25/16 [Last Taken 01/22] hydrALAZINE [Apresoline] 25 mg PO TID 12/25/16 [Last Taken 02/12/17 09:00] traZODone [traZODONE 50MG (*)] 50 mg PO HS PRN 12/25/16 [Last Taken 02/12/17 21: 00] Calcium Carbonate [Tums 500MG (*)] 1,000 mg PO BID PRN 02/06/17 [Last Taken ] Multivitamin with Minerals [Multiple Vitamin] 1 each PO DAILY 02/06/17 [Last Taken 02/12/17 09:00] Omeprazole [Prilosec 20 mg] 20 mg PO DAILY 02/06/17 [Last Taken 02/12/17] Topiramate [Topamax 25MG (*)] 50 mg PO DAILY 02/06/17 [Last Taken 02/12/17 21:00 ] amLODIPine BESYLATE [Norvasc 10 mg (*)] 10 mg PO DAILY 02/06/17 [Last Taken Unknown] Acetaminophen [Tylenol 325mg (*)] 650 mg PO Q6HRS #0 tab 02/14/17 [Last Taken Unknown] Aspirin [Aspirin 325 mg (*)] 325 mg PO DAILY #21 tab 02/14/17 [Last Taken Unknown] Ferrous Sulfate [Slow Fe 140 MG (*)] 140 mg PO DAILY #30 tab.er 02/14/17 [Last Taken Unknown] oxyCODONE IR [Oxycodone Ir (*)] 5 - 10 mg PO Q3HRS PRN #0 tab 02/14/17 [Last Taken Unknown] traMADol [Ultram 50 mg (*)] 50 mg PO Q6HRS PRN #0 tab 02/14/17 [Last Taken Unknown] Discharge Medications: Refer to the Discharge Home Medication list for PRN reason. PICC Care - Routine: N/A - Orders Services needed: Physical Therapy Diet Recommendation: no restrictions on diet Diet Texture: Regular Texture Diet Jacobs: Not applicable Lee Stockings Discontinue Date: 1 week Wound Care Instructions: keep clean and dry. You may shower. Activity/Weight Bearing Restrictions: as tolerated - Follow Up Care Current Providers and Referrals: Marilee Hansen MD [Primary Care Provider] - Mario Portillo MD [Medical Doctor] - follow up in 2 weeks
[2017-02-14] MEDS: LORazepam 0.5 MG TAB PO PRN (11:02)
[2017-02-14 11:43] VITALS: RESP 18; O2SAT 94
--- NOTE | 2017-02-14 11:50 | GDS ---
[f rep st] DISCHARGE SUMMARY ADMISSION DIAGNOSIS: Right knee severe degenerative arthritis. DISCHARGE DIAGNOSIS: Right knee severe degenerative arthritis. OPERATION PERFORMED: 02/13/2017: Right total knee arthroplasty. POSTOPERATIVE COMPLICATIONS: None. CONDITION ON DISCHARGE: Improved. DESCRIPTION OF HOSPITAL COURSE: The patient was admitted to the hospital on the morning of surgery. Her admission white blood cell count was 1850. Hemoglobin and hematocrit were 10.8 and 33.4, plat elet count 70,000. BUN 37, creatinine 2.0. The same day, under general anesthesia, she underwent a right total knee arthroplasty. Postoperatively, she was treated with multimodal DVT prophylaxis in cluding aspirin and early mobilization. On the first postoperative day, her hemoglobin and hematocr it were 8.4 and 26.8. Her BUN and creatinine were 35 and 2.0. She was seen by Physical Therapy and made satisfactory progress with ambulation and knee range of motion exercises. By the time of disc harge, she was independent, walking with a walker. DISPOSITION: The patient is discharged back to [facility], where she had been prior to surgery. She may progress to full weightbearing on the left as tolerated. Continue aspirin 325 mg p.o. goldie y for 21 days. She has prescriptions for oxycodone and tramadol for pain control. I will see her b eddiek in the office in 10 days. If there are any problems, she is to call me at the office. /[id number]/MODL
== END 2017-02-14 13:43 | DRG 470 ==
LOC: F3N 07:29
PROVIDERS: ADMIT Orthopaedic Surgery; ATTEND Orthopaedic Surgery
PROC: 0SRC0J9 Replacement of Right Knee Joint with Synthetic Substitute, Cemented, Open Approach (ICD-10-PCS; principal; 2017-02-13 15:00)
DX: M17.11 Unilateral primary osteoarthritis, right knee (principal); Z94.4 Liver transplant status; Z95.0 Presence of cardiac pacemaker; E03.9 Hypothyroidism, unspecified; M81.0 Age-related osteoporosis without current pathological fracture
CPT/HCPCS: 97110-GP; 97116-GP; 97161-GP; 97166-GO; C1713; G8978-GP-CJ; G8979-GP-CI; G8987-GO-CL; G8988-GO-CL; G8989-GO-CL; J0171; J0690; J1100; J1170; J1885; J2370; J2405; J2704; J2795; J3010; J3370

== ENCOUNTER 2017-08-02 20:23 | Inpatient (IN) | payer OTHER, MEDICAID ==
--- NOTE | 2017-08-02 20:30 | EDPHY ---
H & P Time Seen by Provider: 08/02/17 20:30 HPI/ROS: CHIEF COMPLAINT: Vomiting coffee-grounds HISTORY OF PRESENT ILLNESS: Patient started feeling sick yesterday with some nausea and lightheadedness. Today had multiple episodes of vomiting of what she terms as black like coffee-grounds well as 2 dark stools. She has some abdominal discomfort and still has severe nausea in the emergency department. Not associated with red blood in the vomit or red blood per rectum. No headache or fever. Does not take aspirin or nonsteroidals. Worse with any oral intake. REVIEW OF SYSTEMS: Eye: no change in vision ENT: no sore throat Cardiac: no chest pain or syncope Pulmonary: no cough or SOB Abdomen: HPI Musculoskeletal: no back pain Skin: no rash Neuro: no headache Constitutional: no fever : no urinary symptoms A comprehensive 10 point review of systems is otherwise negative aside from elements mentioned in the history of present illness. PAST MEDICAL HISTORY: Includes CHF, COPD, hypertension, schizoaffective, liver transplant. Social history: Lives in [facility] General Appearance: Alert and conversant, cooperative. Eyes: No scleral icterus. ENT, Mouth: Slightly dry mucous membranes Respiratory: Normal respiratory effort, breath sounds equal, lungs are clear to auscultation. Cardiovascular: Regular rate and rhythm. Gastrointestinal: Abdomen is soft and non tender. Rectal exam shows brown stool sent for Hemoccult. Neurological: Alert, face symmetric, normal motor and sensory in extremities. Skin: Warm and dry, no rashes. Musculoskeletal: No peripheral edema. Psychiatric: Not agitated. Emergency Department course/MDM: Medications reviewed she is not currently on steroids. Does not need stress dose hydrocortisone. IV to include CBC and chemistry panel, fecal occult blood. Phenergan 12.5 mg IV and normal saline hydration. 2225: Re-examined says she still has severe nausea. At this point doubt GI bleed with stable hematocrit and negative fecal occult blood. Phenergan repeated. 2300: Still has severe nausea, will admit for IV fluids and supportive care. Constitutional: Initial Vital Signs Temperature (C) 37.0 C 08/02/17 20:29 Heart Rate 76 08/02/17 20:29 Respiratory Rate 18 08/02/17 20:29 Blood Pressure 118/74 08/02/17 20:29 O2 Sat (%) 98 08/02/17 20:29 O2 Delivery Mode Room Air Allergies/Adverse Reactions: sumatriptan [From Imitrex] Allergy (Intermediate, Verified 02/09/17 12:31) palpitations dextroamphetamine [Dextroamphetamine] Allergy (Unknown, Verified 02/09/17 12:31) JITTERY gabapentin [Gabapentin] Allergy (Unknown, Verified 02/09/17 12:31) JITTERY temazepam [Temazepam] Allergy (Unknown, Verified 02/09/17 12:31) AMNESIA sumatriptan succinate [From Imitrex] Allergy (Verified 02/09/17 12:31) Home Medications: Medication Instructions Recorded QUEtiapine FUMARATE [Seroquel 100 150 mg PO HS 03/08/13 mg (*)] Tacrolimus Anhydrous [Prograf 0.5 0.5 mg PO BID@,16 12/25/15 MG (*)] Carvedilol [Coreg (*)] 12.5 mg PO BIDMEAL 08/14/16 FLUoxetine [Prozac 20 MG (*)] 20 mg PO DAILY 08/14/16 Acetaminophen/ASA/Caffeine 2 each PO Q6HRS PRN 12/25/16 [Excedrin Tablet (*)] Albuterol [Proventil Neb] 3 ml IH QID 12/25/16 Cholecalciferol Vit D3 [Vitamin D3 2,000 units PO DAILY 12/25/16 2000 units tab (OTC)] Folic Acid [Folic Acid 1 MG (*)] 1 mg PO DAILY 12/25/16 Gabapentin [Neurontin 100 MG (*)] 100 mg PO TID 12/25/16 Hydroxyzine Pamoate [Vistaril] 50 mg PO Q8HRS PRN 12/25/16 Levothyroxine [Synthroid 75 mcg 75 mcg PO DAILY06 12/25/16 (*)] Ondansetron Odt [Zofran Odt 4 mg 4 mg PO Q6HRS PRN 12/25/16 (*)] Sennosides/Docusate Sodium 1 each PO BID PRN 12/25/16 [Senna-S Tablet] Thiamine HCl 100 mg PO DAILY 12/25/16 Tiotropium Inhaler [Spiriva 18 mcg IH DAILY 12/25/16 Handihaler] hydrALAZINE [Apresoline] 25 mg PO TID 12/25/16 traZODone [traZODONE 50MG (*)] 50 mg PO HS PRN 12/25/16 Calcium Carbonate [Tums 500MG (*)] 1,000 mg PO BID PRN 02/06/17 Multivitamin with Minerals 1 each PO DAILY 02/06/17 [Multiple Vitamin] Omeprazole [Prilosec 20 mg] 20 mg PO DAILY 02/06/17 Topiramate [Topamax 25MG (*)] 50 mg PO DAILY 02/06/17 amLODIPine BESYLATE [Norvasc 10 mg 10 mg PO DAILY 02/06/17 (*)] Acetaminophen [Tylenol 325mg (*)] 650 mg PO Q6HRS #0 tab 02/14/17 Aspirin [Aspirin 325 mg (*)] 325 mg PO DAILY #21 tab 02/14/17 Ferrous Sulfate [Slow Fe 140 MG 140 mg PO DAILY #30 tab.er 02/14/17 (*)] oxyCODONE IR [Oxycodone Ir (*)] 5 - 10 mg PO Q3HRS PRN #0 tab 02/14/17 traMADol [Ultram 50 mg (*)] 50 mg PO Q6HRS PRN #0 tab 02/14/17 Medical Decision Making - Diagnostics EKG Interpretation: 12-lead EKG interpreted by me; official reading is in trace master. My interpretation is ventricular paced at 78. Differential Diagnosis: Differential diagnosis considered for nausea and vomiting including but not limited to gastroenteritis, gastritis, appendicitis, and medication side effect. Consult/Admit Bed Type: [place] [id number] - Data Points Laboratory Results: Laboratory Results 08/02/17 20:48 08/02/17 20:48 08/02/17 08/02/17 08/02/17 20:48 20:48 20:48 WBC 5.63 10^3/uL 10^3/uL (3.80-9.50) RBC 2.82 10^6/uL L 10^6/uL (4.18-5.33) Hgb 9.3 g/dL L g/dL (12.6-16.3) Hct 26.3 % L % (38.0-47.0) MCV 93.3 fL fL (81.5-99.8) MCH 33.0 pg pg (27.9-34.1) MCHC 35.4 g/dL g/dL (32.4-36.7) RDW 13.0 % % (11.5-15.2) Plt Count 98 10^3/uL L 10^3/uL (150-400) MPV 9.3 fL fL (8.7-11.7) Neut % (Auto) 73.5 % % (39.3-74.2) Lymph % (Auto) 18.1 % % (15.0-45.0) [place] % (Auto) 3.6 % L % (4.5-13.0) Eos % (Auto) 3.9 % % (0.6-7.6) Baso % (Auto) 0.2 % L % (0.3-1.7) Nucleat RBC Rel Count 0.0 % % (0.0-0.2) Absolute Neuts (auto) 4.14 10^3/uL 10^3/uL (1.70-6.50) Absolute Lymphs (auto) 1.02 10^3/uL 10^3/uL (1.00-3.00) Absolute Monos (auto) 0.20 10^3/uL L 10^3/uL (0.30-0.80) Absolute Eos (auto) 0.22 10^3/uL 10^3/uL (0.03-0.40) Absolute Basos (auto) 0.01 10^3/uL L 10^3/uL (0.02-0.10) Absolute Nucleated RBC 0.00 10^3/uL 10^3/uL (0-0.01) Immature Gran % 0.7 % % (0.0-1.1) Immature Gran # 0.04 10^3/uL 10^3/uL (0.00-0.10) PT 14.9 SEC SEC (12.0-15.0) INR 1.15 (0.83-1.16) Sodium 126 mEq/L L mEq/L (135-145) Potassium 4.8 mEq/L mEq/L (3.5-5.2) Chloride 97 mEq/L mEq/L (97-110) Carbon Dioxide 18 mEq/l L mEq/l (22-31) Anion Gap 11 mEq/L mEq/L (8-16) BUN 56 mg/dL H mg/dL (7-23) Creatinine 1.6 mg/dL H mg/dL (0.6-1.0) Estimated GFR 32 Glucose 95 mg/dL mg/dL (70-100) Calcium 8.6 mg/dL mg/dL (8.5-10.4) Total Bilirubin 0.3 mg/dL mg/dL (0.1-1.4) Conjugated Bilirubin 0.3 mg/dL mg/dL (0.0-0.5) Unconjugated Bilirubin 0.0 mg/dL mg/dL (0.0-1.1) AST 60 IU/L H IU/L (14-46) ALT 57 IU/L H IU/L (9-52) Alkaline Phosphatase 308 IU/L H IU/L (38-126) Total Protein 6.2 g/dL L g/dL (6.3-8.2) Albumin 3.3 g/dL L g/dL (3.5-5.0) Stool Occult Bld Scrn 08/02/17 20:30 WBC RBC Hgb Hct MCV MCH MCHC RDW Plt Count MPV Neut % (Auto) Lymph % (Auto) [place] % (Auto) Eos % (Auto) Baso % (Auto) Nucleat RBC Rel Count Absolute Neuts (auto) Absolute Lymphs (auto) Absolute Monos (auto) Absolute Eos (auto) Absolute Basos (auto) Absolute Nucleated RBC Immature Gran % Immature Gran # PT INR Sodium Potassium Chloride Carbon Dioxide Anion Gap BUN Creatinine Estimated GFR Glucose Calcium Total Bilirubin Conjugated Bilirubin Unconjugated Bilirubin AST ALT Alkaline Phosphatase Total Protein Albumin Stool Occult Bld Scrn NEGATIVE (NEGATIVE) Medications Given: Discontinued Medications Sodium Chloride (Ns) 1,000 mls @ 0 mls/hr IV EDNOW ONE; Wide Open PRN Reason: Protocol Stop: 08/02/17 20:40 Last Admin: 08/02/17 20:52 Dose: 1,000 mls Promethazine HCl (Phenergan) 12.5 mg IVP EDNOW ONE Stop: 08/02/17 20:40 Last Admin: 08/02/17 20:52 Dose: 12.5 mg Promethazine HCl (Phenergan) 12.5 mg IVP EDNOW ONE Stop: 08/02/17 22:28 Last Admin: 08/02/17 22:36 Dose: 12.5 mg Departure - Departure Disposition: [facility] Acute Clinical Impression: Nausea & vomiting Qualifiers: Vomiting type: unspecified Vomiting Intractability: intractable Qualified Code( s): R11.2 - Nausea with vomiting, unspecified Condition: Good
[2017-08-02] MEDS ORDERED: PROMETHAZINE HCL 25 MG/ML INJ IVP ONE ×2 (20:39→22:27)
[2017-08-02] MEDS ORDERED: NS 1,000 ML IV ONE (20:39)
--- NOTE | 2017-08-02 21:00 | CPEKG ---
Heart Rate: 78 RR Interval: 769 P-R Interval: 204 QRSD Interval: 152 QT Interval: 492 QTC Interval: 561 P Mon[place]: 0 QRS Monona: -80 T Wave [place]: 92 EKG Severity - ABNORMAL ECG - EKG Impression: VENTRICULAR-PACED COMPLEXES Electronically Signed By: Joni Pedro 02-Aug-2017 21:06:52
[2017-08-02 21:11] LABS: PLATELET COUNT 98 10^3/uL (150-400)
[2017-08-02 21:20] LABS: INR 1.15 (0.83-1.16); PROTIME(PATIENT) 14.9 SEC (12.0-15.0)
[2017-08-02] MEDS ORDERED: ACETAMINOPHEN 325 MG TAB PO PRN (23:53)
[2017-08-02] MEDS ORDERED: diphenhydrAMINE 25 MG CAP PO PRN (23:53)
[2017-08-02] MEDS ORDERED: oxyCODONE IR 5 MG TAB PO PRN (23:53)
[2017-08-03] MEDS: ONDANSETRON 4 MG/2 ML VIAL IVP PRN ×2 (01:50→14:43)
[2017-08-03] MEDS ORDERED: PANTOPRAZOLE SODIUM 40 MG VIAL IVP ONE (01:54)
[2017-08-03] MEDS ORDERED: NS 1,000 ML IV SCH (02:00)
--- NOTE | 2017-08-03 05:53 | GHP ---
[f rep st] HISTORY AND PHYSICAL DATE OF ADMISSION: 08/03/2017 SOURCE: Patient provides history, appears reliable. Her EMR was reviewed, and case discussed with ED provider. CHIEF COMPLAINT: Nausea, vomiting, epigastric pain. 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 Patient also reports 3-4 days of dark stools. She has also been experiencing sharp epigastric abdominal pain that is constant in nature, worse with movement or palpation. The patient does report a little bit of abdominal distention. She is also reporting history of chronic constipation with last BM the day prior to arrival, she reports that stools have been dark in color, but no keena blood. The patient denies any fevers or chills. She does have a history of esophageal varices prior to her liver transplant. She is unsure if she has had any followup EGDs since that time. REVIEW OF SYSTEMS: GENERAL: No fevers, chills. SKIN: Patient with complaints of rashes to her right foot and left flank. ENT: Patient does report some intermittent nasal congestion. No sore throat. CV: Patient denies any chest pain or palpitations. RESPIRATORY: Patient without any shortness of breath, but has been having a nonproductive cough. GI: As per HPI. : No dysuria or hematuria. MUSCULOSKELETAL: The patient only currently with complaints of abdominal pain. No myalgias. NEURO: Patient without any focal complaints. Positive history of migraine headaches. HEME: Patient does report easy bruising. No active bleeding with exception of reports of coffee-grounds emesis. Remainder of review of systems negative except as above. ALLERGIES: Sumatriptan, amphetamine, gabapentin, temazepam. HOME MEDICATIONS: Trazodone 50 p.o. q.h.s. p.r.n., tramadol 50 mg p.o. q.6 hours p.r.n., Oxy IR 50-100 p.o. q.3 hours p.r.n., hydralazine 25 mg p.o. t.i.d. , amlodipine 10 mg p.o. daily, Topamax 50 mg p.o. daily, Spiriva 18 mcg inhaled daily, thiamine 100 mg p.o. daily, tacrolimus 0.5 mg p.o. b.i.d., Seroquel 150 mg p.o. q.h.s., Zofran ODT 4 mg p.o. q.6 hours p.r.n., omeprazole 20 mg p.o. daily, multivitamin p.o. daily, levothyroxine 75 mcg p.o. daily, hydroxyzine 50 mg p.o. q.8 hours p.r.n., gabapentin 100 mg p.o. t.i.d., folic acid 1 mg p.o. daily, ferrous sulfate 140 mg p.o. daily, fluoxetine 20 mg p.o. daily, vitamin D3 2,000 units p.o. daily, Coreg 12.5 mg p.o. b.i.d. with meals, Tums 1000 mg p.o. b.i.d. p.r.n., aspirin 325 mg p.o. daily, albuterol 3 mL inhaled 4 times a day, Excedrin migraine 2 tabs p.o. q.6 hours p.r.n., and Tylenol 650 mg p.o. q.6 hours p.r.n. PAST MEDICAL HISTORY: Significant for diastolic CHF, history of heart block status post pacer, COPD, hypertension, schizoaffective, anxiety, depression, hypothyroidism, anemia, liver transplant with chronic immunosuppression on Prograf, chronic hepatitis C, migraine headache, hypothyroidism, GERD, CKD, due to history of focal segmental glomerulosclerosis, history of esophageal varices with history of GI bleeding prior to her transplant approximately 20 years ago, history of ischemic colitis. PAST SURGICAL HISTORY: Significant for liver transplant, right total knee arthroplasty, cholecystectomy, pacer and ICD, right ankle and wrist surgery, nasal surgery x3. FAMILY HISTORY: Daughter is healthy. Mother with history of liver problems. Sister with melanoma, at 84. Father with history of IA at age 72. SOCIAL HISTORY: Patient resides at [facility] currently. She quit smoking 22 years ago. She does not use any illicit drugs or alcohol. CODE STATUS: Full. PHYSICAL EXAMINATION: VITAL SIGNS: Upon arrival to the emergency department, blood pressure 118/74, heart rate 76, respiratory rate 18, O2 saturation 98% on room air with a temperature of 37.0. Vitals at time of interview, blood pressure is 133/95, heart rate 76, respiratory rate 18, O2 saturation 98% on room air. GENERAL: No acute distress, pleasant, elderly, frail-appearing female, is sitting in [facility]. She does appear acutely ill, but nontoxic, and fatigued with slight pallor. HEAD: Normocephalic, atraumatic. EYES: Extraocular muscles intact. Pupils equal, round, react to light bilaterally and symmetric. No scleral icterus or conjunctival injection. ENT: Mucous membranes appear dry. No oropharyngeal erythema or exudates. NECK: Supple. Trachea midline. CV: Regular rate and rhythm. 3/6 systolic murmur. RESPIRATORY: Lungs are clear to auscultation bilaterally. No wheezes, rales, or rhonchi. ABDOMEN: Positive bowel sounds. Soft. Patient with tenderness to palpation in the epigastrium without any rebound or guarding. MUSCULOSKELETAL: Generalized weakness, but moves all extremities. Sits up independently. NEURO: Grossly nonfocal. Moves all extremities. No focal deficits. PSYCH: Patient does appear a little bit anxious, but she is very pleasant, cooperative, and in fairly good spirits. LABORATORY STUDIES: WBC 5.65, H and H 9.3 and 26.3, MCV 93.3, platelet count is 98. No neutrophilia. No bandemia. PT is 14.9, INR is 1.15. Sodium 126, potassium 4.8, chloride 97, CO2 is 18, BUN 56, creatinine is 1.6, GFR of 32, glucose 95, calcium 8.6. Total bilirubin 0.3, ALT 57, AST 60, alkaline phosphatase is 38, albumin 3.3, total protein 6.2, lipase is 208, stool occult blood negative x1. EKG reviewed myself shows V paced rhythm in the 70s. KUB: Nonspecific bowel gas pattern. Mild dilation of small bowel. ASSESSMENT AND PLAN: A very pleasant 71-year-old female with history of chronic hepatitis C status post liver transplant on chronic immunosuppressive therapy, who presents to the emergency department today with complaints of intractable nausea, vomiting for 2 days and abdominal epigastric pain. 1. Hematemesis. The patient reports 2 episodes of coffee-grounds emesis with 3 -4 day history of dark stools. Her initial occult blood is negative. She has not had any further episodes of emesis or bowel movement. If patient has any further episodes of emesis, we will plan to check for Gastroccult. She does have a history of esophageal varices remotedly, but has not had any issues since her transplantation multiple years ago. The patient will be given a dose of Protonix as no evidence of active bleeding currently so will hold off on octreotide. We will further discuss with GI in the a.m. I have given her history and current coagulopathy concerning for cirrhosis related to her hepatitis C. 2. Intractable nausea and vomiting. Patient without any further episodes in the emergency department. We will plan to continue Phenergan and Zofran p.r.n. for nausea and vomiting. 3. Epigastric pain. Lipase is within normal limits. She has tenderness to palpation in the abdomen. There are no complaints of chest pain, dyspnea, or diaphoresis. EKG shows a paced rhythm p.r.n. pain medications. The patient will be made n.p.o. pending further discussion with GI in the morning. kub with nonspecific bowel gas pattern and constipation. 4. History of esophageal varices. Patient without any evidence of active bleeding at this time. We will hold off on initiation of octreotide. Continue Protonix as noted above. 5. Hepatitis C cirrhosis, status post transplantation. 6. Coagulopathy related to patient's chronic hepatitis C, and possible cirrhosis of transplanted liver. Monitor platelet count. Hold off on anticoagulation in setting of reported gastrointestinal bleeding and thrombocytopenia. 7. Hyponatremia likely related to hypovolemia in setting of intractable nausea and vomiting for the last 2 days. Continue with some intravenous fluid hydration. Patient does not appear to be fluid overloaded. 8. Rash to right foot and left torso. Benadryl will be given p.r.n. Patient denies any use of new medications or detergents. 9. Diastolic congestive heart failure. Patient appeared dry without evidence of fluid overload. We will continue with intravenous fluids and monitor closely. 10. Hypothyroidism. Resume patient's replacement. 11. Anemia of likely chronic disease in setting of hepatitis C with underlying cirrhosis, chronic kidney disease versus acute with reported history of hematemesis and dark stools. 12. Gastroesophageal reflux disease. Continue PPI alma pending further GI evaluation. 13. Chronic kidney disease, stage 3. Continue with intravenous fluids and monitor. 14. Chronic obstructive pulmonary disease. Patient without any evidence of exacerbation. Continue with DuoNeb p.r.n. 15. Benign essential hypertension. Blood pressures with steady incline during her hospital stay likely related to pain. We will plan to continue to monitor. No need to treat at this time. Resume home medications in the a.m after diet advanced. 16. History of heart block status post pacer. Continue to monitor on tele. 17. Migraine headaches. Currently without symptoms. Continue to monitor. 18. Fluid, electrolyte, nutrition. Continue with intravenous fluids. Electrolyte replacement p.r.n. Diet as tolerated. 19. Prophylaxis. Sequential compression devices. Holding anticoagulation in setting of thrombocytopenia and report of hematemesis. 20. Cor status is full. 21. Disposition. Patient will be admitted to observation pending further evaluation by GI. /[id number]/MODL FAYE
[2017-08-03 06:08] LABS: PLATELET COUNT 69 10^3/uL (150-400)
[2017-08-03] MEDS: PROMETHAZINE HCL 25 MG/ML INJ IVP PRN ×3 (08:57→18:24)
[2017-08-03] MEDS ORDERED: PANTOPRAZOLE SODIUM 40 MG VIAL IVP SCH ×2 (09:00)
[2017-08-03] MEDS ORDERED: ALBUTEROL 3 ML DEYVIAL IH PRN ×2 (09:30→13:25)
[2017-08-03] MEDS ORDERED: ACETAMINOPHEN/ASA/CAFFEINE 1 EACH TAB PO PRN (09:30)
[2017-08-03] MEDS ORDERED: SENNOSIDES/DOCUSATE SODIUM TAB PO PRN (09:30)
[2017-08-03] MEDS ORDERED: BISACODYL 10 MG SUPP PR PRN (09:30)
[2017-08-03] MEDS ORDERED: HYDROXYZINE PAMOATE 50 MG PO PRN (09:30)
[2017-08-03] MEDS: TACROLIMUS ANHYDROUS 0.5 MG CAP PO SCH ×2 (10:07→17:22)
[2017-08-03] MEDS: FLUoxetine 20 MG CAP PO SCH (10:08)
[2017-08-03] MEDS ORDERED: LR 1,000 ML IV ONE (12:11)
[2017-08-03] MEDS ORDERED: NS 1,000 ML IV ONE (12:51)
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
[2017-08-03] MEDS ORDERED: PROPOFOL 200 MG/20 ML VIAL ONE ×2 (12:55)
[2017-08-03] MEDS ORDERED: fentaNYL 100 MCG/2 ML INJ IVP PRN (13:25)
[2017-08-03] MEDS ORDERED: OXYCODONE/APAP 5/325 TAB PO PRN (13:25)
[2017-08-03] MEDS ORDERED: NALOXONE HCL 0.4 MG/ML INJ IVP PRN (13:25)
[2017-08-03] MEDS ORDERED: NS 500 ML IV PRN (13:25)
[2017-08-03] MEDS ORDERED: ONDANSETRON 4 MG/2 ML VIAL IVP PRN (13:25)
[2017-08-03] MEDS ORDERED: ACETAMINOPHEN 500 MG TAB PO PRN (13:25)
[2017-08-03] MEDS ORDERED: HYDROCODONE/APAP 5/325 TAB PO PRN (13:25)
[2017-08-03] MEDS ORDERED: PROMETHAZINE HCL 25 MG/ML INJ IVP PRN (13:25)
--- NOTE | 2017-08-03 13:26 | GIREPORT ---
[facility] - Endoscopy Department Patient Name: Misty Saldana Procedure Date: 08/03/2017 12:44 PM Patient Type: Inpatient Attending MD/ ER Physician: Chinmay Kee MD Procedure: Upper GI endoscopy Indications: Epigastric abdominal pain, Functional Dyspepsia, Coffee-ground emesis Providers: Chinmay Kee MD Medicines: Sedation Administered by an Anesthesia Professional Complications: No immediate complications. Description of Procedure: After obtaining informed consent, the endoscope was passed under direct vision. Throughout the procedure, the patient's blood pressure, pulse, and oxygen saturations were monitored continuously. The Endoscope was intro duced through the mouth, and advanced to the third part of duodenum. The uppe r GI endoscopy was accomplished without difficulty. The patient tolerated th e procedure well. Findings: The examined esophagus was normal. Mild portal hypertensive gastropathy was found in the gastric body. Bio psies were taken with a cold forceps for histology. The examined duodenum was normal. Estimated Blood Loss: Estimated blood loss: none. Post Op Diagnosis: - Normal esophagus. - Portal hypertensive gastropathy. Biopsied. - Normal examined duodenum. Recommendation: - Return patient to hospital [facility] for ongoing care. - Advance diet as tolerated. - Observe patient's clinical course. - Await pathology results. - No source of acute blood loss noted. - Suspect coffee grounds from gastritis/emesis. - Fall in H/H may have been dilutional. Attending Participation: I personally performed the entire procedure. Chinmay Kee MD Chinmay Kee MD 08/03/2017 1:26:09 PM This report has been signed electronicallyDaus Vidhya MD Number of Addenda: 0 Note Initiated On: 08/03/2017 12:44 PM [email or web address]
[2017-08-03] MEDS: FERROUS SULFATE 325 MG TAB PO SCH ×2 (17:21→17:22)
[2017-08-03] MEDS: CARVEDILOL 25 MG TAB PO SCH (17:23)
[2017-08-03] MEDS: hydrALAZINE 25 MG TAB PO SCH ×2 (17:24→21:16)
--- NOTE | 2017-08-03 17:33 | HOSPPROG ---
Hospitalist Progress Note Assessment/Plan: # mild gastritis - biopsies pending; - protonix 40 PO bid # coffee ground emesis - suspect d/t above # hx liver transplant - cont prograf # hypoNa - improved; recheck tomorrow # heart block s/p ppm # schizoaffective d/o - controlled; cont seroquel, topamax # chronic dCHF - euvolemic # COPD - stable, cont inhalers # CKD - stable # htn - home norvasc, hydralazine, coreg # hypothyroid - synthroid # Subjective: still nauseaus Objective: Vital Signs Temp Pulse Resp BP Pulse Ox 36.7 C 67 18 121/68 H 94 08/03/17 16:00 08/03/17 16:00 08/03/17 16:00 08/03/17 16:00 08/03/17 16:00 Laboratory Results 08/03/17 06:01 08/03/17 06:01 08/02/17 08/03/17 08/04/17 05:59 05:59 05:59 Intake Total 150 Output Total 0 Balance 150 PT 14.9 SEC (12.0-15.0) 08/02/17 20:48 INR 1.15 (0.83-1.16) 08/02/17 20:48 35 minutes of direct face to face patient care time on multiple visits throughout the day - Physical Exam Constitutional: no apparent distress, not in pain Gastrointestinal: soft, non-tender abdomen ICD10 Worksheet Patient Problems: Problems Problem Status Onset Nausea & vomiting Acute Osteoarthritis of right knee Acute Adjustment disorder with depressed mood Active Chronic Disease Mgmt/Transitional Care Acute Pneumonia Acute Knee effusion Acute Acute on chronic renal insufficiency Acute Acute bronchitis with chronic obstructive pulmonary disease (COPD) Acute Chest pain Acute Dehydration Acute Bronchitis Acute Cough Acute Leg cramping Acute Weakness Acute Vomiting Acute Sedated Acute Multiple falls Acute Hyponatremia Acute Chronic renal insufficiency Acute Colitis Acute Urinary tract infection Acute Renal failure (ARF), acute on chronic Acute Shortness of breath Acute Chest pain in adult Acute Elevated d-dimer Acute Right knee pain Acute Migraine Acute Chronic obstructive pulmonary disease with acute exacerbation Acute Chest pain Acute
--- NOTE | 2017-08-03 18:17 | PDMN ---
Medical Necessity Medical necessity: C/M review: Patient meets INPT criteria under MCG M-370 Vomiting: Acute and persistent nausea/vomiting, poor oral intake, coffee ground emesis,. hyponatremia Hgb 9.3, 9.0, Hct 26.3, 22.1, Na 126, 131, AST 60 , 55, ALT 57, 57, Alk phos 308, 271,. requiring 08/03/2017 EGD with biopsies which showed mild gastritis, ongoing IV Phenergan, IV Zofran, comorbid history of liver transplant, chronic Prograf, heart block S/P permanent pacemaker placement, schizoaffective disorder, chronic diastolic CHF, COPD, chronic kidney disease, hypertension, hypothyroidism. MD anticipates > 2 MN LOS for ongoing med nec for eval and TX of above. Patient is Medicare Advantage which follows guidelines [facility] puts forth.
--- NOTE | 2017-08-03 18:57 | GCON ---
[f rep st] CONSULTATION INPATIENT CONSULTATION REFERRING PHYSICIAN: Juan Ramírez MD REASON FOR CONSULTATION: Nausea, vomiting, and hematemesis. CHIEF COMPLAINT: Nausea and vomiting. HISTORY: Ms. Saldana is a pleasant 71-year-old female with a complicated past medical history, includ ing history of cirrhotic liver disease from hepatitis C for which she underwent liver transplantation greater than 20 years ago. She has been followed at the [facility]. She reports that they interpret her laboratory tests and help her manage her immunosuppressive t herapies. She has had longstanding abnormal liver function tests. She believes this is from ongoing active hepatitis C. She does not believe that her original hepatitis C was ever treated successfull y. She reports she was in her usual state of health until 1-2 days ago. She began having nausea and vom iting associated with coffee-ground emesis. She reports some dark stools, although no keena melena. She denies diarrhea. She reports no hematemesis. With her ongoing symptoms of difficulty eating, s he presented to the emergency room for evaluation. She has had previous similar complaints. Her las t endoscopy was approximately 2 years ago. At that time, she is noted to have some gas. Prior to he r liver transplant, she reports she was sick with variceal bleeding. Her posttransplant course has b een uneventful. She denies jaundice, encephalopathy, or other features of portal hypertension. She has been consistent with her immunosuppressive therapies. She takes tacrolimus. ALLERGIES: Sumatriptan, amphetamine, gabapentin, and temazepam. Her home medicines are trazodone, t ramadol, Oxy IR, hydralazine, amlodipine, Topamax, Spiriva, thiamin, tacrolimus, Seroquel, Zofran, om eprazole, multivitamins, thyroid replacement, hydroxyzine, gabapentin, folic acid, iron, fluoxetine, vitamin D, Coreg, Tums, aspirin, albuterol, Excedrin Migraine, and Tylenol. PAST MEDICAL HISTORY: Includes diastolic heart failure status post pacer, COPD, hypertension, schizo affective disorder, anxiety, depression, hypothyroidism, anemia, liver transplantation, chronic immun osuppression, chronic hepatitis C, migraine headache, hypothyroidism, heartburn, chronic kidney disea se, history of esophageal varices prior to transplant, and history of ischemic colitis. PAST SURGICAL HISTORY: Includes liver transplant, knee arthroscopy, cholecystectomy, pacer and ICD. FAMILY HISTORY: She reports her mother had liver disease. She reports no prior family history of st omach cancer, stomach ulcer, or colon cancer or colon disease. SOCIAL HISTORY: She resides at [facility]. She was once a smoker. She does not use any alcohol or drugs. PHYSICAL EXAM: GENERAL: This is an elderly female, in no apparent distress. HEENT: Her pupils are equal, round, and reactive to light and accommodation. Her sclerae are nonicteric. Oropharynx is c lear. NECK: Supple without lymphadenopathy. HEART: Regular. ABDOMEN: Soft and nontender, with normoact kayy bowel sounds. EXTREMITIES: Free of cyanosis, clubbing, and edema. NEURO: Grossly nonfocal. P SYCH: Reveals normal mood and affect. TEST DATA: Laboratory testing reveals white count of 4.2, hemoglobin of 8.0, hematocrit of 22.1. Of note, her baseline hematocrit and hemoglobin seem to be between 8 and 10 for hemoglobin, and 22-35 f or hematocrit. INR is 1.15. Sodium of 131, potassium 4.5, bicarb 17, BUN 65, creatinine of 1.6, AST of 55, ALT of 57, and albumin of 2.8. Bilirubin and alkaline phosphatase were normal. Of note, Hem occult testing of her stool was negative this admission. IMPRESSION AND RECOMMENDATIONS: Ms. Saldana has had a 3-day illness of nausea and vomiting. She myke eves there is some associated coffee-grounds emesis. She may or may not have had some dark stool (al though she takes iron). Given her persistent symptoms, the concern for hematemesis, and her underlyi ng liver disease, I recommend she undergo upper endoscopy to evaluate for sources of upper gastrointe stinal bleeding. It is also possible that she is having a self-limited gastro virus complicated by g astritis and emesis. Luckily, she is hemodynamically stable. She should remain n.p.o., on an IV pro ton pump inhibitor, until such time as we have done her endoscopy. /[id number]/MODL
[2017-08-03] MEDS ORDERED: GABAPENTIN 300 MG CAP PO SCH (21:00)
[2017-08-03] MEDS ORDERED: traZODone 50 MG TAB PO SCH (21:00)
[2017-08-03] MEDS ORDERED: QUEtiapine FUMARATE 50 MG TAB PO SCH (21:00)
[2017-08-03] MEDS: TOPIRAMATE 25 MG TAB PO SCH (21:16)
[2017-08-03] MEDS: PANTOPRAZOLE SODIUM 40 MG TAB PO SCH (21:16)
[2017-08-04 04:42] LABS: PLATELET COUNT 61 10^3/uL (150-400)
[2017-08-04] MEDS ORDERED: LEVOTHYROXINE 75 MCG TAB PO SCH (06:00)
[2017-08-04 08:17] VITALS: TEMP 97.7
[2017-08-04] MEDS ORDERED: PANTOPRAZOLE SODIUM 40 MG TAB PO SCH (09:00)
[2017-08-04] MEDS ORDERED: ASCORBIC ACID 500 MG TAB PO SCH (09:00)
[2017-08-04] MEDS ORDERED: TIOTROPIUM INHALER 18 MCG/DOSE 5 DOSE/MDI IH SCH (09:00)
[2017-08-04] MEDS ORDERED: THIAMINE HCL 100 MG TAB PO SCH (09:00)
[2017-08-04 09:02] VITALS: RESP 18
[2017-08-04] MEDS: hydrALAZINE 25 MG TAB PO SCH (09:24)
[2017-08-04] MEDS: FLUoxetine 20 MG CAP PO SCH (09:24)
[2017-08-04] MEDS: TOPIRAMATE 25 MG TAB PO SCH (09:25)
[2017-08-04] MEDS: CARVEDILOL 25 MG TAB PO SCH (09:28)
[2017-08-04] MEDS: PANTOPRAZOLE SODIUM 40 MG TAB PO SCH (09:28)
[2017-08-04] MEDS: FERROUS SULFATE 325 MG TAB PO SCH ×2 (09:29→13:28)
[2017-08-04] MEDS: TACROLIMUS ANHYDROUS 0.5 MG CAP PO SCH (09:29)
[2017-08-04] MEDS: PROMETHAZINE HCL 25 MG/ML INJ IVP PRN (10:15)
[2017-08-04] MEDS ORDERED: PROMETHAZINE HCL 25 MG TAB PO PRN (10:51)
[2017-08-04 12:16] VITALS: BP 129/63; PULSE 66; O2SAT 94
--- NOTE | 2017-08-04 13:01 | PDIAF ---
- Diagnosis Diagnosis: gastritis Code Status: Full Code - Medication Management Discharge Medications: Medications to Continue on Transfer Tacrolimus Anhydrous [Prograf 0.5 MG (*)] 0.5 mg PO BID@,16 12/25/15 [Last Taken 02/12/17 08:00] Carvedilol [Coreg (*)] 12.5 mg PO BIDMEAL 08/14/16 [Last Taken 12/24/16 16:00] FLUoxetine [Prozac 20 MG (*)] 20 mg PO DAILY 08/14/16 [Last Taken 12/24/16] Acetaminophen/ASA/Caffeine [Excedrin Tablet (*)] 2 each PO Q6HRS PRN 12/25/16 [ Last Taken 02/11/17] Albuterol [Proventil Neb] 3 ml IH Q4HRS PRN 12/25/16 [Last Taken 12/24/16 20:00] Cholecalciferol Vit D3 [Vitamin D3 2000 units tab (OTC)] 2,000 units PO DAILY [Last Taken 02/12/17] Folic Acid [Folic Acid 1 MG (*)] 0.5 mg PO DAILY 12/25/16 [Last Taken 12/24/16] Hydroxyzine Pamoate [Vistaril] 50 mg PO Q8HRS PRN 12/25/16 [Last Taken 02/12/17] Levothyroxine [Synthroid 75 mcg (*)] 75 mcg PO DAILY06 12/25/16 [Last Taken ] Ondansetron Odt [Zofran Odt 4 mg (*)] 4 mg PO Q6HRS PRN 12/25/16 [Last Taken 07/25] Sennosides/Docusate Sodium [Senna-S Tablet] 1 each PO BID PRN 12/25/16 [Last Taken 02/08/17] Thiamine HCl 100 mg PO DAILY 12/25/16 [Last Taken 02/12/17] Tiotropium Inhaler [Spiriva Handihaler] 18 mcg IH DAILY 12/25/16 [Last Taken 01/22] hydrALAZINE [Apresoline] 25 mg PO TID 12/25/16 [Last Taken 02/12/17 09:00] traZODone [traZODONE 50MG (*)] 50 mg PO HS 12/25/16 [Last Taken 02/12/17 21:00] Calcium Carbonate [Tums 500MG (*)] 1,000 mg PO BID PRN 02/06/17 [Last Taken ] Multivitamin with Minerals [Multiple Vitamin] 1 each PO DAILY 02/06/17 [Last Taken 02/12/17 09:00] Topiramate [Topamax 25MG (*)] 50 mg PO BID 02/06/17 [Last Taken 02/12/17 21:00] amLODIPine BESYLATE [Norvasc 10 mg (*)] 10 mg PO DAILY 02/06/17 [Last Taken Unknown] Ascorbic Acid [Vitamin C 500 mg (*)] 500 mg PO DAILY 08/03/17 [Last Taken Unknown] Bisacodyl [Dulcolax] 10 mg RC DAILY PRN 08/03/17 [Last Taken Unknown] Cyanocobalamin [Vitamin B12 (*)] 500 mcg PO DAILY 08/03/17 [Last Taken Unknown] Ferrous Sulfate [Ferrous Sulf 325 MG (*)] 325 mg PO TIDMEAL 08/03/17 [Last Taken Unknown] Gabapentin [Neurontin 300 MG (*)] 300 mg PO HS 08/03/17 [Last Taken Unknown] Magnesium Citrate [Magnesium Citrate 300 ml (*)] 300 ml PO DAILY PRN 08/03/17 [ Last Taken Unknown] QUEtiapine FUMARATE [Seroquel 50 mg (*)] 50 mg PO HS 08/03/17 [Last Taken Unknown] Omeprazole 20 mg PO BID #60 capsule. 08/04/17 [Last Taken Unknown] Promethazine HCl [Phenergan 25mg (*)] 25 mg PO Q6HRS PRN #30 tab 08/04/17 [Last Taken Unknown] Discharge Medications: Refer to the Discharge Home Medication list for PRN reason. - Orders Services needed: Registered Nurse, Certified Diabetologist, Master Top Ironer , Physical Therapy, Occupational Therapy Isolation Type: None Diet Recommendation: no restrictions on diet Additional: restart aspirin 81mg PO daily in 1 week - Follow Up Care Current Providers and Referrals: Chinmay Kee MD [Medical Doctor] - Patient,NotPresent [Unknown] - As per Instructions
--- NOTE | 2017-08-04 13:20 | GDS ---
[f rep st] DISCHARGE SUMMARY ALL DIAGNOSES: 1. Gastritis with mild upper gastrointestinal bleed. 2. Nausea, vomiting. 3. History of a liver transplant. 4. Hyponatremia. 5. Chronic kidney disease. 6. Schizoaffective disorder. 7. Heart block, status post pacemaker. 8. Chronic diastolic congestive heart failure. 9. Chronic obstructive pulmonary disease. 10. Hypertension. 11. Hypothyroid. PROCEDURES: Upper endoscopy performed on 08/03/[address] Kee showing portal hypertensive gastro juan, normal esophagus and duodenum. This was biopsied. There is question of gastritis as well. HOSPITAL COURSE: A 71-year-old female with a liver transplant admitted with nausea, vomiting, and co ffee-grounds emesis. She underwent upper endoscopy as above. Hemoglobin dropped from 9.3 to 8, but it was stable on subsequent rechecks. In reviewing her history, hemoglobin of 8 is slightly lower th an previous, although she has had some hemoglobins close to that. Her omeprazole will be increased f rom once daily to twice daily. Recommend she follow up with Dr. Kee in 1 month for the results of the biopsy, if he does not call her before. She has a history of a liver transplant. No varices were seen on upper endoscopy. Continue her Prog nayla. Followup per her outpatient providers. PENDING RESULTS: At time of discharge: Pathology from stomach biopsy FOLLOWUP: Dr. Kee 1 month to follow up on her mild gastritis, gastropexy, and biopsy. BILLING: I spent more than 30 minutes on the day of discharge coordinating care. /[id number]/MODL
--- NOTE | 2017-08-04 14:20 | ASMTCMCOM ---
CM Note CM Note Notes: Pt admitted from [facility] yesterday and will DC there today. Faxed final orders to [facility] because not all [facility] mgrs can access [employer]. [phone]. set up transport. Date Signed: 08/04/2017 02:20 PM Electronically Signed By:Sol Ken LCSW
--- NOTE | 2017-08-04 15:16 | ASDISCHSUM ---
Discharge Information Plan Status:SNF Medically Cleared to Leave: Discharge Date:08/04/2017 03:10 PM CM D/C Disposition:[facility] Facility ADT D/C Disposition:[facility] Facility Projected Discharge Date:08/04/2017 11:00 AM Transportation at D/C: Discharge Delay Reason: Follow-Up Date:08/04/2017 11:00 AM Discharge Slot: Final Diagnosis: Placement Information Referral Type:*Skilled Nursing/SNF Referral ID:[id number] Provider Name:Ruth Fung/[facility] Address 1:[address] Phone Number: Address 2: Fax Number: [facility]:Ruth Selection Factors: State:[place] Patient Contact Information Contact Name:GUTIERREZ Relationship:Daughter Address: Work Phone: City: [facility] Phone: [facility] Code: Email: Financial Information Financial Class:Medicare Advantage Plans Primary Plan Desc:[facility] Primary Plan Number:[id number] Secondary Plan Desc:[employer] [place] Secondary Plan Number:[id number] Assessment Information [facility] CM Progress Note CM Note CM Note Notes: Pt admitted from [facility] yesterday and will DC there today. Faxed final orders to [facility] because not all [facility] mgrs can access [employer]. [phone]. set up transport. Date Signed: 08/04/2017 02:20 PM Electronically Signed By:Sol Ken LCSW Intervention Information Intervention Type:*FLORES-Signed Date of Service:08/03/2017 10:06 AM Patient Type:Observation Staff Member:Caterina Uribe Hours: Discipline: Severity: Comment:
== END 2017-08-04 15:10 | DRG 378 ==
LOC: EDUNIT# → F2W 08-03 08:33 → OBSVTOIN 08-03 18:00
PROVIDERS: ADMIT Family Medicine; ATTEND Student in an Organized Health Care Education/Training Program
PROC: 0DBA8ZX Excision of Jejunum, Via Natural or Artificial Opening Endoscopic, Diagnostic (ICD-10-PCS; principal; 2017-08-03 12:30)
PROC: 0DB68ZX Excision of Stomach, Via Natural or Artificial Opening Endoscopic, Diagnostic (ICD-10-PCS; principal; 2017-08-03 12:30)
DX: K29.71 Gastritis, unspecified, with bleeding (principal); K31.89 Other diseases of stomach and duodenum; D63.8 Anemia in other chronic diseases classified elsewhere; I50.32 Chronic diastolic (congestive) heart failure; I12.9 Hypertensive chronic kidney disease with stage 1 through stage 4 chronic kidney disease, or unspecified chronic kidney disease; N18.3 Chronic kidney disease, stage 3 (moderate); B19.20 Unspecified viral hepatitis C without hepatic coma; K21.9 Gastro-esophageal reflux disease without esophagitis; E03.9 Hypothyroidism, unspecified; E87.1 Hypo-osmolality and hyponatremia; J44.9 Chronic obstructive pulmonary disease, unspecified; Z94.4 Liver transplant status; Z95.810 Presence of automatic (implantable) cardiac defibrillator
CPT/HCPCS: 96374; 97116-GP; 97161-GP; 97165-GO; G8978-GP-CI; G8979-GP-CI; G8980-GP-CI; G8987-GO-CI; G8988-GO-CI; G8989-GO-CI; J1200; J2405; J2550; J2704

== ENCOUNTER 2017-11-05 13:56 | Emergency (ER) | payer OTHER, MEDICAID ==
--- NOTE | 2017-11-05 14:04 | EDPHY ---
H & P Time Seen by Provider: 11/05/17 14:03 HPI/ROS: CHIEF COMPLAINT: Multiple complaints including chest pain, nausea and dizziness HISTORY OF PRESENT ILLNESS: The patient presents to the ED with EMS with multiple complaints including chest pain for the past day, nausea, dizziness and dyspnea. The patient has a history of heart failure and a permanent pacemaker. She denies history of coronary artery disease. She denies any anticoagulation. The patient denies any fever, abdominal pain or dysuria. The patient reports she did developed a cough today. The patient denies any headache, numbness, weakness or other acute complaints. She denies asymmetric calf pain or swelling. She denies history of exertional chest pain or shortness of breath. Her chest pain is not pleuritic in nature. REVIEW OF SYSTEMS: A comprehensive 10 point review of systems is otherwise negative aside from elements mentioned in the history of present illness. Source: Patient - Personal History Tetanus Vaccine Date: 2006 - Medical/Surgical History Hx Asthma: No Hx Chronic Respiratory Disease: Yes Hx Diabetes: No Hx Cardiac Disease: Yes Hx Renal Disease: Yes Hx Cirrhosis: No Hx Alcoholism: No Hx HIV/AIDS: No Hx Splenectomy or Spleen Trauma: No Other PMH: Hep C, Liver transplant 20 years ago, CHF, acute kidney failure, HTN , schizoaffctive bipolar, hypothyroid, L kidney biopsy/infarction - Social History Smoking Status: Former smoker - Physical Exam Exam: General Appearance: Alert, no distress Eyes: Pupils equal and round no pallor or injection ENT, Mouth: Mucous membranes moist Respiratory: There are no retractions, lungs are clear to auscultation Cardiovascular: Regular rate and rhythm Gastrointestinal: Abdomen is soft and nontender, no masses, bowel sounds normal Neurological: 5/5 strength all 4 extremities Skin: Warm and dry, no rashes Musculoskeletal: Neck is supple nontender Extremities: symmetrical, full range of motion Constitutional: Initial Vital Signs Temperature (C) 36.7 C 11/05/17 13:56 Heart Rate 74 11/05/17 13:56 Respiratory Rate 16 11/05/17 13:56 Blood Pressure 117/79 11/05/17 13:56 O2 Sat (%) 100 11/05/17 13:56 O2 Delivery Mode Room Air Allergies/Adverse Reactions: sumatriptan [From Imitrex] Allergy (Intermediate, Verified 02/09/17 12:31) palpitations dextroamphetamine [Dextroamphetamine] Allergy (Unknown, Verified 02/09/17 12:31) JITTERY gabapentin [Gabapentin] Allergy (Unknown, Verified 02/09/17 12:31) JITTERY temazepam [Temazepam] Allergy (Unknown, Verified 02/09/17 12:31) AMNESIA sumatriptan succinate [From Imitrex] Allergy (Verified 02/09/17 12:31) Home Medications: Medication Instructions Recorded Tacrolimus Anhydrous [Prograf 0.5 0.5 mg PO BID@08,16 12/25/15 MG (*)] Carvedilol [Coreg (*)] 12.5 mg PO BIDMEAL 08/14/16 FLUoxetine [Prozac 20 MG (*)] 20 mg PO DAILY 08/14/16 Acetaminophen/ASA/Caffeine 2 each PO Q6HRS PRN 12/25/16 [Excedrin Tablet (*)] Albuterol [Proventil Neb] 3 ml IH Q4HRS PRN 12/25/16 Cholecalciferol Vit D3 [Vitamin D3 2,000 units PO DAILY 12/25/16 2000 units tab (OTC)] Folic Acid [Folic Acid 1 MG (*)] 0.5 mg PO DAILY 12/25/16 Hydroxyzine Pamoate [Vistaril] 50 mg PO Q8HRS PRN 12/25/16 Levothyroxine [Synthroid 75 mcg 75 mcg PO DAILY06 12/25/16 (*)] Ondansetron Odt [Zofran Odt 4 mg 4 mg PO Q6HRS PRN 12/25/16 (*)] Sennosides/Docusate Sodium 1 each PO BID PRN 12/25/16 [Senna-S Tablet] Thiamine HCl 100 mg PO DAILY 12/25/16 Tiotropium Inhaler [Spiriva 18 mcg IH DAILY 12/25/16 Handihaler] traZODone [traZODONE 50MG (*)] 50 mg PO HS 12/25/16 Calcium Carbonate [Tums 500MG (*)] 1,000 mg PO BID PRN 02/06/17 Multivitamin with Minerals 1 each PO DAILY 02/06/17 [Multiple Vitamin] Topiramate [Topamax 25MG (*)] 50 mg PO BID 02/06/17 amLODIPine BESYLATE [Norvasc 10 mg 10 mg PO DAILY 02/06/17 (*)] Ascorbic Acid [Vitamin C 500 mg 500 mg PO DAILY 08/03/17 (*)] Bisacodyl [Dulcolax] 10 mg RC DAILY PRN 08/03/17 Cyanocobalamin [Vitamin B12 (*)] 500 mcg PO DAILY 08/03/17 Ferrous Sulfate [Ferrous Sulf 325 325 mg PO TIDMEAL 08/03/17 MG (*)] Gabapentin [Neurontin 300 MG (*)] 300 mg PO HS 08/03/17 Magnesium Citrate [Magnesium 300 ml PO DAILY PRN 08/03/17 Citrate 300 ml (*)] Omeprazole 20 mg PO BID #60 capsule. 08/04/17 Promethazine HCl [Phenergan 25mg 25 mg PO Q6HRS PRN #30 tab 08/04/17 (*)] Clonidine 11/05/17 Magnesium Citrate 11/05/17 Medical Decision Making - Diagnostics EKG Interpretation: EKG: Complete interpretation has been separately recorded in the [facility] archive. Summary impression: A paced, rate 70 Imaging Results: Imaging Impressions Chest X-Ray 11/05/17 14:22 Impression: Nothing acute identified. Extremity Venous Study 11/05/17 16:02 Impression: No deep venous thrombosis bilateral legs. Findings and recommendations discussed with Emergency Department physician, Cl Fagan at 16:42 hour, 11/05/2017. Final report concurs with initial preliminary interpretation. ED Course/Re-evaluation: The patient presents the ED with multiple complaints. She has had several days nausea and remote vomiting. She has had chest pain. The patient's EKG demonstrates no evidence of ischemic changes. The patient's troponin is normal. She has a slightly elevated D-dimer however has no complaints of pleuritic chest pain. She has no evidence of a DVT noted bilaterally. The patient's chest x-ray demonstrates no evidence of acute disease. The patient does have a history of a liver transplant. She has no abdominal tenderness. Her liver function test are within normal limits. Patient was re-evaluated at 5:15 p.m.. She is hemodynamically stable. Blood pressure is 150/75. Heart rate is 72. Patient is chest pain-free in asymptomatic at this point time. She is having no nausea or vomiting. The patient has no known history of coronary artery disease. At this point time I do feel the patient can safely be discharged back to her senior living. She should return to the ED should she developed recurrent chest pain, difficulty breathing, vomiting or other concerns. Patient does have a history of leukopenia. She has had this condition intermittently for some time. She currently is being evaluated by oncology and is scheduled to get an outpatient bone marrow transplant. The patient is comfortable being discharged home. She will return to the ED for any recurrent or worsening symptoms. Differential Diagnosis: Differential diagnosis considered includes arrhythmia, heart failure, cardiac ischemia, dehydration, metabolic abnormality, pulmonary embolism, DVT - Data Points Laboratory Results: Laboratory Results 11/05/17 14:15 11/05/17 14:15 11/05/17 11/05/17 11/05/17 15:15 14:15 14:15 WBC RBC Hgb Hct MCV MCH MCHC RDW Plt Count MPV Neut % (Auto) Lymph % (Auto) [place] % (Auto) Eos % (Auto) Baso % (Auto) Nucleat RBC Rel Count Absolute Neuts (auto) Absolute Lymphs (auto) Absolute Monos (auto) Absolute Eos (auto) Absolute Basos (auto) Absolute Nucleated RBC Immature Gran % Immature Gran # D-Dimer 0.75 ug/mLFEU H ug/mLFEU (0.00-0.50) Sodium 132 mEq/L L mEq/L (135-145) Potassium 4.4 mEq/L mEq/L (3.5-5.2) Chloride 103 mEq/L mEq/L (97-110) Carbon Dioxide 18 mEq/l L mEq/l (22-31) Anion Gap 11 mEq/L mEq/L (8-16) BUN 33 mg/dL H mg/dL (7-23) Creatinine 1.9 mg/dL H mg/dL (0.6-1.0) Estimated GFR 26 Glucose 92 mg/dL mg/dL (70-100) Calcium 8.9 mg/dL mg/dL (8.5-10.4) Total Bilirubin 0.5 mg/dL mg/dL (0.1-1.4) Conjugated Bilirubin 0.5 mg/dL mg/dL (0.0-0.5) Unconjugated Bilirubin 0.0 mg/dL mg/dL (0.0-1.1) AST 46 IU/L IU/L (14-46) ALT 50 IU/L IU/L (9-52) Alkaline Phosphatase 249 IU/L H IU/L (38-126) Troponin I < 0.012 ng/mL ng/mL (0.000-0.034) NT-Pro-B Natriuret Pep 890 pg/mL H pg/mL (0-125) Total Protein 7.1 g/dL g/dL (6.3-8.2) Albumin 3.7 g/dL g/dL (3.5-5.0) 11/05/17 14:15 WBC 1.73 10^3/uL L 10^3/uL (3.80-9.50) RBC 3.81 10^6/uL L 10^6/uL (4.18-5.33) Hgb 11.7 g/dL L g/dL (12.6-16.3) Hct 34.2 % L % (38.0-47.0) MCV 89.8 fL fL (81.5-99.8) MCH 30.7 pg pg (27.9-34.1) MCHC 34.2 g/dL g/dL (32.4-36.7) RDW 13.5 % % (11.5-15.2) Plt Count 66 10^3/uL L 10^3/uL (150-400) MPV 10.5 fL fL (8.7-11.7) Neut % (Auto) 52.7 % % (39.3-74.2) Lymph % (Auto) 38.7 % % (15.0-45.0) [place] % (Auto) 4.6 % % (4.5-13.0) Eos % (Auto) 4.0 % % (0.6-7.6) Baso % (Auto) 0.0 % L % (0.3-1.7) Nucleat RBC Rel Count 0.0 % % (0.0-0.2) Absolute Neuts (auto) 0.91 10^3/uL L 10^3/uL (1.70-6.50) Absolute Lymphs (auto) 0.67 10^3/uL L 10^3/uL (1.00-3.00) Absolute Monos (auto) 0.08 10^3/uL L 10^3/uL (0.30-0.80) Absolute Eos (auto) 0.07 10^3/uL 10^3/uL (0.03-0.40) Absolute Basos (auto) 0.00 10^3/uL L 10^3/uL (0.02-0.10) Absolute Nucleated RBC 0.00 10^3/uL 10^3/uL (0-0.01) Immature Gran % 0.0 % % (0.0-1.1) Immature Gran # 0.00 10^3/uL 10^3/uL (0.00-0.10) D-Dimer Sodium Potassium Chloride Carbon Dioxide Anion Gap BUN Creatinine Estimated GFR Glucose Calcium Total Bilirubin Conjugated Bilirubin Unconjugated Bilirubin AST ALT Alkaline Phosphatase Troponin I NT-Pro-B Natriuret Pep Total Protein Albumin Departure - Departure Disposition: Home, Routine, Self-Care Clinical Impression: Chest pain, Vomiting, Weakness, Elevated d-dimer Condition: Good Instructions: Chest Pain (ED) Additional Instructions: 1. The testing in the emergency department today is within normal limits. 2. Please return to the ED for recurrent chest pain, difficulty breathing, uncontrolled vomiting or other concerns. 3. Please follow up with your primary care provider as scheduled. Referrals: BETI MORAN [Other] - As per Instructions
--- NOTE | 2017-11-05 14:13 | CPEKG ---
Heart Rate: 70 RR Interval: 857 P-R Interval: 234 QRSD Interval: 82 QT Interval: 444 QTC Interval: 480 P [place]: 0 QRS [place]: 47 T Wave [place]: 70 EKG Severity - ABNORMAL ECG - EKG Impression: ATRIAL-PACED COMPLEXES Electronically Signed By: Cl Fagan 05-Nov-2017 14:27:38
[2017-11-05 14:35] LABS: PLATELET COUNT 66 10^3/uL (150-400)
[2017-11-05 16:51] VITALS: BP 139/78
[2017-11-05] MEDS ORDERED: ACETAMINOPHEN 325 MG TAB ONE (17:27)
[2017-11-05] MEDS: ACETAMINOPHEN 500 MG TAB PO ONE ×2 (17:29→17:33)
--- NOTE | 2017-11-05 18:05 | ASDISCHSUM ---
Discharge Information Plan Status:SNF Medically Cleared to Leave: Discharge Date: D/C Disposition:Fdc Facility ADT D/C Disposition:Home, Routine, Self-Care Projected Discharge Date: Transportation at D/C:Wheelchair Van Discharge Delay Reason: Follow-Up Date: Discharge Slot: Final Diagnosis: Placement Information Patient Contact Information Contact Name:GUTIERREZ Relationship:Daughter Address: Work Phone: City: [facility] Phone: State/Zip Code: Email: Financial Information Financial Class:Medicare Advantage Plans Primary Plan Desc:[place] Primary Plan Number:[id number] Secondary Plan Desc:[employer] [place] Secondary Plan Number:[id number] Assessment Information Intervention Information Intervention Type:Transportation Date of Service:11/05/2017 06:02 PM Patient Type:Emergency Room Staff Member:[place] Aponte, Katelyn Hours:0.25 Discipline:Platen Press Operator Severity: Comment:This CM attempted to reach RN at [facility] several times but unsuccessful. Spoke w/ Beryl at and she said it was oka y to arrange WC transport via [facility]; spoke w/Yovani ha/FIONA and he will arrive ~1810.
== END 2017-11-05 18:22 | disposition home or self-care (01) ==
LOC: EDUNIT#
DX: R79.1 Abnormal coagulation profile (principal); R53.1 Weakness; R11.10 Vomiting, unspecified; I11.0 Hypertensive heart disease with heart failure; I50.9 Heart failure, unspecified; Z87.891 Personal history of nicotine dependence

== ENCOUNTER 2017-12-08 14:31 | Inpatient (IN) | payer OTHER, MEDICAID ==
--- NOTE | 2017-12-08 14:40 | EDPHY ---
H & P Time Seen by Provider: 12/08/17 14:39 HPI/ROS: HPI: This is a 72-year-old female who presents with Chief Complaint: Right kidney pain Location: Right kidney Quality: Pain Duration: 1 week Signs and Symptoms: no fever, no nausea, no vomiting, no hematemesis, no blood in stool, no abdominal bloating, no diarrhea, + back pain, no urinary symptoms , no vaginal bleeding/discharge, no indigestion, no chest pain, no shortness of breath Timing: Acute, worsening Severity: Moderate Context: Patient arrives via EMS from [facility] with complaints of right kidney pain that has been gradually worsening over the last week. Patient denies any blood or in her urine or burning with urination. In fact she reports that, "I know what a urinary tract infection feels like and it does not feel like this." Patient denies any fever/nausea/vomiting/blood in her urine. She does have a history of kidney stones along with acute respiratory failure with hypoxia, chronic diastolic failure, generalized muscle weakness, chronic hepatitis, schizoaffective disorder, generalized anxiety disorder. Patient reports that she has been eating and drinking normally. Patient is being followed by [facility] for a low white count, hemoglobin, platelet count. Last night by oncology suggested that these were separate events. White count has been low for months. Patient has no history of infections. She is however, liver transplant patient. Modifying Factors: Comment: ROS: see HPI Constitutional: No fever, no chills, no weight loss Eyes: No blurred vision Respiratory: No shortness of breath, no cough Cardiovascular: No chest pain, no palpitations Gastrointestinal: No nausea, no vomiting, no diarrhea, no hematemesis, no blood in stool Genitourinary: No dysuria, no blood in urine Extremities: No myalgias, no edema Neurologic: No weakness, no numbness Skin: No rashes, no petechiae Hematologic: No bruising, no bleeding MEDICAL/SURGICAL/SOCIAL HISTORY: Medical history: Hep C, Liver transplant 20 years ago, CHF, acute kidney failure, HTN, schizoaffective bipolar, hypothyroid, L kidney biopsy/infarction Surgical history: Liver transplant, cardiac pacer Social history: Had been homeless until last year when she was discharged to a long-term assisted living facility after hospitalization. Her last suicide attempt was in October 2016 after getting kicked out of her brother's house because of drug use. Her family is in [place] and she does have a daughter in [place]. Her of cancer in July of 2016. Family history noncontributory. CONSTITUTIONAL: Chronically ill-appearing anxious elderly white female, awake and alert, nontoxic in appearance HEENT: Atraumatic and normocephalic, PERRL, EOMI. Wears glasses. Nares patent ; no rhinorrhea; no nasal mucosal edema. Tympanic membranes clear. Oropharynx clear, no exudate and moist pink mucosa. Airway patent. No lymphadenopathy. No meningismus. Cardiovascular: Normal S1/S2, regular rate, regular rhythm, without murmur rub or gallop. PULMONARY/CHEST: Symmetrical and nontender. Clear to auscultation bilaterally. Good air movement. No accessory muscle usage. ABDOMEN: Soft, nondistended, nontender, no rebound, no guarding, no peritoneal signs, no masses or organomegaly. + right flank reproducible midthoracic tenderness. EXTREMITIES: 2/2 pulses, strength 5/5, no deformities, no clubbing, no cyanosis or edema. NEUROLOGICAL: no focal neuro deficits. GCS 15. SKIN: Warm and dry, pallor, no erythema. no rash. Good capillary refill. Source: Patient, RN/MD, Old records Exam Limitations: No limitations - Personal History Tetanus Vaccine Date: 2006 - Medical/Surgical History Hx Asthma: No Hx Chronic Respiratory Disease: Yes Hx Diabetes: No Hx Cardiac Disease: Yes Hx Renal Disease: Yes Hx Cirrhosis: No Hx Alcoholism: No Hx HIV/AIDS: No Hx Splenectomy or Spleen Trauma: No Other PMH: Hep C, Liver transplant 20 years ago, CHF, acute kidney failure, HTN , schizoaffctive bipolar, hypothyroid, L kidney biopsy/infarction - Social History Smoking Status: Former smoker Constitutional: Initial Vital Signs Temperature (C) 37 C 12/08/17 14:35 Heart Rate 69 12/08/17 14:35 Respiratory Rate 18 12/08/17 14:35 Blood Pressure 156/78 H 12/08/17 14:35 O2 Sat (%) 94 12/08/17 14:35 O2 Delivery Mode Room Air Allergies/Adverse Reactions: sumatriptan [From Imitrex] Allergy (Intermediate, Verified 02/09/17 12:31) palpitations dextroamphetamine [Dextroamphetamine] Allergy (Unknown, Verified 02/09/17 12:31) JITTERY gabapentin [Gabapentin] Allergy (Unknown, Verified 02/09/17 12:31) JITTERY temazepam [Temazepam] Allergy (Unknown, Verified 02/09/17 12:31) AMNESIA sumatriptan succinate [From Imitrex] Allergy (Verified 02/09/17 12:31) Home Medications: Medication Instructions Recorded Tacrolimus Anhydrous [Prograf 0.5 0.5 mg PO BID@08,16 061816 MG (*)] Carvedilol [Coreg (*)] 12.5 mg PO BIDMEAL 08/14/16 FLUoxetine [Prozac 20 MG (*)] 20 mg PO DAILY 08/14/16 Acetaminophen/ASA/Caffeine 2 each PO Q6HRS PRN 12/25/16 [Excedrin Tablet (*)] Albuterol [Proventil Neb] 3 ml IH Q4HRS PRN 12/25/16 Cholecalciferol Vit D3 [Vitamin D3 2,000 units PO DAILY 12/25/16 2000 units tab (OTC)] Folic Acid [Folic Acid 1 MG (*)] 0.5 mg PO DAILY 12/25/16 Hydroxyzine Pamoate [Vistaril] 50 mg PO Q8HRS PRN 12/25/16 Levothyroxine [Synthroid 75 mcg 75 mcg PO DAILY06 12/25/16 (*)] Ondansetron Odt [Zofran Odt 4 mg 4 mg PO Q6HRS PRN 12/25/16 (*)] Sennosides/Docusate Sodium 1 each PO BID PRN 12/25/16 [Senna-S Tablet] Thiamine HCl 100 mg PO DAILY 12/25/16 Tiotropium Inhaler [Spiriva 18 mcg IH DAILY 12/25/16 Handihaler] traZODone [traZODONE 50MG (*)] 50 mg PO HS 12/25/16 Calcium Carbonate [Tums 500MG (*)] 1,000 mg PO BID PRN 02/06/17 Multivitamin with Minerals 1 each PO DAILY 02/06/17 [Multiple Vitamin] Topiramate [Topamax 25MG (*)] 50 mg PO BID 02/06/17 amLODIPine BESYLATE [Norvasc 10 mg 10 mg PO DAILY 02/06/17 (*)] Ascorbic Acid [Vitamin C 500 mg 500 mg PO DAILY 08/03/17 (*)] Bisacodyl [Dulcolax] 10 mg RC DAILY PRN 08/03/17 Cyanocobalamin [Vitamin B12 (*)] 500 mcg PO DAILY 08/03/17 Ferrous Sulfate [Ferrous Sulf 325 325 mg PO TIDMEAL 08/03/17 MG (*)] Gabapentin [Neurontin 300 MG (*)] 300 mg PO HS 08/03/17 Magnesium Citrate [Magnesium 300 ml PO DAILY PRN 08/03/17 Citrate 300 ml (*)] Omeprazole 20 mg PO BID #60 capsule. 08/04/17 Promethazine HCl [Phenergan 25mg 25 mg PO Q6HRS PRN #30 tab 08/04/17 (*)] Clonidine 11/05/17 Magnesium Citrate 11/05/17 Medical Decision Making - Diagnostics Imaging Results: Imaging Impressions Abdomen/Pelvis CT 12/08/17 14:54 Impression: 1. Free abdominal fluid of undetermined etiology. 2. Suspect abnormal dimas hepatis region. Splenomegaly. Ultrasound to evaluate for portal vein thrombosis of the patient could not receive IV contrast for contrasted CT. 3. Large right pleural effusion of undetermined etiology. Results called and discussed with Kristin Mcpherson, at 12/08/2017 16:08 Attention: This CT examination is specifically designed to evaluate patients who are clinically suspected of having acute obstructive uropathy. This examination does not use radiographic contrast, and as such, provides only a limited evaluation of the abdomen, pelvis and retroperitoneum. If there is further clinical suspicion for pathological conditions other than obstructive uropathy, a complete CT evaluation of the abdomen and pelvis utilizing intravenous, oral, and rectal contrast should be considered. General information for patients regarding this examination can be found at [email or web address]. If you have questions or comments about this report, please contact me at (hospital) or [phone] (cell). ED Course/Re-evaluation: Labs, IM morphine, CT abdomen and pelvis scan without contrast, urinalysis ordered Vital signs reviewed and stable upon arrival. Given IM morphine 4 mg as notified by nurse that patient is very difficult peripheral IV access. Urinalysis shows keena infection; sent for urine culture; given IV Rocephin 1 g Labs reviewed and show leukopenia, anemia, thrombocytopenia, sodium [address] abdomen and pelvis scan show new right-sided pleural effusion, splenomegaly. No signs of nephrolithiasis, no obstruction. Radiology report abnormal dimas hepatis region. Recommends Ultrasound to evaluate for portal vein thrombosis of the patient could not receive IV contrast for contrasted CT. O2 sats 90-94% on room air at rest. History of diastolic heart failure. ED decision to consult for admission for urinary tract infection, hyponatremia, right pleural effusion and need for strict I and O Patient is a very difficult peripheral IV access and PICC line team consulted. 1620: Spoke with Dr. Beltran who kindly agrees to admit patient to provide further care This patient was seen under the supervision of my secondary supervising physician. I evaluated care for this patient independently. Discussed this patient with Dr. Leahy who did not see the patient. Differential Diagnosis: Flank pain including but not limited to musculoskeletal causes, kidney stone, pyelonephritis, shingles, and intra-abdominal causes such as diverticulitis and appendicitis. - Data Points Laboratory Results: Laboratory Results 12/08/17 15:00 12/08/17 15:00 12/08/17 12/08/17 12/08/17 15:45 15:00 15:00 WBC 2.20 10^3/uL L 10^3/uL (3.80-9.50) RBC 3.56 10^6/uL L 10^6/uL (4.18-5.33) Hgb 11.1 g/dL L g/dL (12.6-16.3) Hct 32.4 % L % (38.0-47.0) MCV 91.0 fL fL (81.5-99.8) MCH 31.2 pg pg (27.9-34.1) MCHC 34.3 g/dL g/dL (32.4-36.7) RDW 14.3 % % (11.5-15.2) Plt Count 71 10^3/uL L 10^3/uL (150-400) MPV 9.0 fL fL (8.7-11.7) Neut % (Auto) 55.8 % % (39.3-74.2) Lymph % (Auto) 31.8 % % (15.0-45.0) [place] % (Auto) 6.4 % % (4.5-13.0) Eos % (Auto) 5.5 % % (0.6-7.6) Baso % (Auto) 0.0 % L % (0.3-1.7) Nucleat RBC Rel Count 0.0 % % (0.0-0.2) Absolute Neuts (auto) 1.23 10^3/uL L 10^3/uL (1.70-6.50) Absolute Lymphs (auto) 0.70 10^3/uL L 10^3/uL (1.00-3.00) Absolute Monos (auto) 0.14 10^3/uL L 10^3/uL (0.30-0.80) Absolute Eos (auto) 0.12 10^3/uL 10^3/uL (0.03-0.40) Absolute Basos (auto) 0.00 10^3/uL L 10^3/uL (0.02-0.10) Absolute Nucleated RBC 0.00 10^3/uL 10^3/uL (0-0.01) Immature Gran % 0.5 % % (0.0-1.1) Immature Gran # 0.01 10^3/uL 10^3/uL (0.00-0.10) Sodium 128 mEq/L L mEq/L (135-145) Potassium 5.1 mEq/L H mEq/L (3.3-5.0) Chloride 99 mEq/L mEq/L (97-110) Carbon Dioxide 18 mEq/l L mEq/l (22-31) Anion Gap 11 mEq/L mEq/L (8-16) BUN 28 mg/dL H mg/dL (7-23) Creatinine 1.6 mg/dL H mg/dL (0.6-1.0) Estimated GFR 32 Glucose 88 mg/dL mg/dL (70-100) Calcium 8.8 mg/dL mg/dL (8.5-10.4) Total Bilirubin 0.6 mg/dL mg/dL (0.1-1.4) AST 54 IU/L H IU/L (14-46) ALT 49 IU/L IU/L (9-52) Alkaline Phosphatase 240 IU/L H IU/L (38-126) Total Protein 6.7 g/dL g/dL (6.3-8.2) Albumin 3.6 g/dL g/dL (3.5-5.0) Urine Color YELLOW Urine Appearance MODERATELY TURBID Urine pH 7.0 (5.0-7.5) Ur Specific [place] 1.008 (1.002-1.030) Urine Protein 1+ H (NEGATIVE) Urine Ketones NEGATIVE (NEGATIVE) Urine Blood NEGATIVE (NEGATIVE) Urine Nitrate NEGATIVE (NEGATIVE) Urine Bilirubin NEGATIVE (NEGATIVE) Urine Urobilinogen NEGATIVE EU EU (0.2-1.0) Ur Leukocyte Esterase 3+ H (NEGATIVE) Urine RBC 25-50 /hpf H /hpf (0-3) Urine WBC 50-182 /hpf H /hpf (0-3) Ur Epithelial Cells TRACE /lpf /lpf (NONE-1+) Urine Bacteria 4+ /hpf H /hpf (NONE SEEN) Urine Glucose NEGATIVE (NEGATIVE) Medications Given: Discontinued Medications Morphine Sulfate (Morphine) 4 mg IVP EDNOW ONE Stop: 12/08/17 14:56 Last Admin: 12/08/17 15:06 Dose: 4 mg Departure - Departure Disposition: [facility] Inpatient Acute Clinical Impression: Hyponatremia, Pleural effusion, right Urinary tract infection Qualifiers: Urinary tract infection type: acute cystitis Hematuria presence: without hematuria Qualified Code(s): N30.00 - Acute cystitis without hematuria Leukopenia Qualifiers: Leukopenia type: unspecified Qualified Code(s): D72.819 - Decreased white blood cell count, unspecified Condition: Fair
[2017-12-08 15:16] LABS: PLATELET COUNT 71 10^3/uL (150-400)
[2017-12-08] MEDS ORDERED: ACETAMINOPHEN 325 MG TAB PO PRN (16:35)
[2017-12-08] MEDS ORDERED: PROMETHAZINE HCL 25 MG/ML INJ IVP PRN (16:35)
[2017-12-08] MEDS ORDERED: ALBUTEROL 3 ML DEYVIAL IH PRN (16:35)
[2017-12-08] MEDS ORDERED: ONDANSETRON 4 MG/2 ML VIAL IVP PRN (16:35)
[2017-12-08] MEDS ORDERED: ONDANSETRON DISINTEGRATING 4 MG TAB PO PRN (16:35)
[2017-12-08] MEDS ORDERED: ALTEPLASE 2 MG VIAL IVP PRN (17:06)
--- NOTE | 2017-12-08 18:20 | PDRADPN ---
Radiology Procedure Note Date of Procedure: 12/08/17 Radiologist: Asa Bellamy Anesthesia: Local (Specify) Pre-op Diagnosis: infection Post-op Diagnosis: same Indication: unable to obtain iv access Procedure: RUE picc Finding(s): 37cm picc at cavoatrial junction. ok to use. Inf/Abcess present in the surg proc area at time of surgery?: No EBL: Minimal Complications: none
--- NOTE | 2017-12-08 19:54 | GHP ---
[f rep st] HISTORY AND PHYSICAL DATE OF ADMISSION: 12/08/2017 CHIEF COMPLAINT: "Kidney pain." HISTORY: This is a 72-year-old female with a past medical history that includes liver transplant sec ondary to hep C-related cirrhosis as well as chronic kidney disease and multiple other medical issues , who presents with a complaint of kidney pain. The patient states she has had this pain for at leas t the last week and that it comes in waves and feels like contractions. She notes it is predominantl y on the right side, but is bilateral. She has not had associated fevers or chills. She denies any urinary symptoms per se. She notes she also 2 weeks ago thought she was having an UT and came to the ER for evaluation. States the reason she thought she was having an UT was because she had significa nt upper abdominal and chest pain associated with shortness of breath. She notes that this has impro bob, but still is present intermittently. She does also note an occasional cough that is nonproducti ve and hacking. PAST MEDICAL HISTORY: 1. Liver transplant. 2. Hepatitis-C/cirrhosis. 3. 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 4. Diastolic heart failure with preserved ejection fraction. 5. Heart block status post permanent pacemaker. 6. COPD. 7. Hypertension. 8. Psychiatric issues including anxiety, depression, reported schizoaffective disorder, and prior villalobos icide attempts. 9. Chronic immune suppression. 10. Hypothyroidism. 11. Migraines. 12. GERD. 13. GI bleed. 14. History of esophageal varices prior to her liver transplant. 15. Ischemic colitis. 16. Coronary artery disease. PAST SURGICAL HISTORY: 1. Liver transplant. 2. Permanent pacemaker placement. 3. Right TKA. 4. Cholecystectomy. 5. Right ankle surgery. 6. Wrist surgery. 7. Nasal surgery x3. FAMILY HISTORY: Mother with liver disease of some sort. Father with an UT. SOCIAL HISTORY: The patient currently residing at [facility]. She has a remote tobacco use histo ry. She does not drink or use illicit drugs. REVIEW OF SYSTEMS: 10-point review of systems obtained, negative except as per HPI. MEDICATIONS: 1. Trazodone. 2. Amlodipine. 3. Topamax. 4. Spiriva. 5. Tacrolimus. 6. Senna. 7. Phenergan. 8. Zofran. 9. Omeprazole. 10. Multivitamin. 11. Mag citrate. 12. Levothyroxine. 13. Vistaril. 14. Gabapentin. 15. Folic acid. 16. Ferrous sulfate. 17. Fluoxetine. 18. Cyanocobalamin. 19. Cholecalciferol. 20. Coreg. 21. Tums. 22. Bisacodyl. 23. Vitamin C. 24. Albuterol. 25. Excedrin. ALLERGIES: Multiple. Please see EHR. PHYSICAL EXAM: VITAL SIGNS: BP 164/78, heart rate 71, respiratory rate 16, O2 sats 98% on room air. Temperature is 36.4. GENERAL APPEARANCE: This is a chronically ill-appearing female. She is awak e and alert. She is in no acute distress. EYES: Anicteric. HEENT: Oropharynx clear. Moist mucou s membranes. CARDIOVASCULAR: Regular rate and rhythm, no MRG. PULMONARY: CTA bilaterally to anter ior exam. ABDOMEN: Obese, soft, nontender. EXTREMITIES: No clubbing, cyanosis, or edema. SKIN: Warm, dry, well perfused. NEURO/PSYCH: Oriented and appropriate. CLINICAL DATA: Labs reviewed and notable for a white blood cell count of 2.2, hematocrit of 32.4, pl atelets of 71. Chemistry is notable for a sodium of 128, potassium of 5.1, creatinine of 1.6. Liver function tests are relatively unremarkable other than an alkaline phosphatase of 240. Urinalysis is notable for 3+ leukocyte esterase, 50-180 white blood cells, 25-50 red blood cells, and 4+ bacteria. Abdomen and pelvis CT personally reviewed and interpreted, shows a large right pleural effusion as we ll as free abdominal fluid, splenomegaly. ASSESSMENT/PLAN: 72-year-old female status post liver transplant with chronic immune suppression, ch ronic kidney disease, presenting with flank pain, found to be secondary to urinary tract infection an d large pleural effusion of uncertain etiology. 1. Urinary tract infection. Urine does appear consistent with acute infection. She does not have s pecific urinary complaints, though she does note flank pain which has been her marker of urinary trac t infection in the past. She is afebrile, nonseptic appearing. She had been started on ceftriaxone pending culture data, which will be continued. 2. Pleural effusion. The patient with a large right-sided pleural effusion of uncertain etiology. She is relatively asymptomatic from this. She does not have significant ascites, though given her hi story, I would have some concern for hepatic hydrothorax. At this point, will ask for a diagnostic a nd therapeutic thoracentesis to be performed in the morning. Will also obtain an echocardiogram in t he morning, though this is a 1-sided effusion, however. 3. Hyponatremia. This is chronic, but somewhat lower than her usual baseline. She does feel as if she perhaps would be dehydrated though her creatinine would not be consistent with that. Will trend overnight. 4. Chronic kidney disease. Patient's creatinine currently slightly better than her usual baseline, which runs around 2.0. 5. Pancytopenia. This has been stable for quite some time. Will continue to trend. 6. History of liver transplant with chronic immune suppression. Will continue her usual outpatient regimen. 7. Chronic obstructive pulmonary disease without evidence of acute exacerbation. Will continue her outpatient medications. 8. Psychiatric issues. She currently appears euthymic and no evidence of decompensation. DISPOSITION: Observation status. Suspect patient will require less than 48 hour stay for evaluation and management of above. Patient is new to my care. Old records reviewed, summarized as per HPI and past medical history. Ca re plan reviewed with the ER doctor including plans for admission overnight. /[id number]/MODL
[2017-12-09] MEDS: oxyCODONE IR 5 MG TAB PO PRN ×4 (01:15→21:19)
[2017-12-09 05:09] LABS: PLATELET COUNT 65 10^3/uL (150-400)
[2017-12-09] MEDS ORDERED: CALCIUM CARBONATE 500 MG CHEWABLE TAB PO PRN (08:14)
[2017-12-09] MEDS ORDERED: BISACODYL 10 MG SUPP PR PRN (08:14)
[2017-12-09] MEDS ORDERED: MAGNESIUM CITRATE 300 ML BOTTLE PO PRN (08:14)
[2017-12-09] MEDS ORDERED: SENNOSIDES/DOCUSATE SODIUM TAB PO PRN (08:14)
[2017-12-09] MEDS ORDERED: SIMETHICONE 80 MG TAB CHEW PO PRN (08:14)
[2017-12-09] MEDS ORDERED: NON-FORMULARY NEW DRUG (Hydroxyzine Pamoate [Vistaril] 50 MG) PO PRN (08:14)
[2017-12-09] MEDS ORDERED: PROMETHAZINE HCL 25 MG TAB PO PRN (08:14)
[2017-12-09] MEDS ORDERED: ONDANSETRON DISINTEGRATING 4 MG TAB PO PRN (08:14)
[2017-12-09] MEDS ORDERED: HYDROXYZINE PAMOATE 50 MG PO PRN ×2 (08:47→12:30)
[2017-12-09] MEDS ORDERED: NON-FORMULARY NEW DRUG (Multivitamin With Minerals [Multiple Vitamin] 1 EACH) PO SCH (09:00)
[2017-12-09] MEDS ORDERED: NON-FORMULARY NEW DRUG (Folic Acid [Folic Acid] 0.8 MG) PO SCH (09:00)
[2017-12-09] MEDS ORDERED: NON-FORMULARY NEW DRUG (Omeprazole [Omeprazole] 20 MG) PO SCH (09:00)
[2017-12-09 10:06] LABS: INR 1.14 (0.83-1.16); PROTIME(PATIENT) 14.8 SEC (12.0-15.0)
--- NOTE | 2017-12-09 10:33 | ECHO ---
[email or web address] [address] [address] Main: [phone] Fax: Transthoracic Echocardiogram Name: LIYA ENGEL MR#: [id number] Study Date: 12/09/2017 Study Time: 09:07 AM Date of : 1945 Age: 72 year(s) Height: 165.1 cm (65 in.) Weight: 56.25 kg (124 lb.) BSA: 1.61 m2 Gender: Female Examination: Echo Indication: Pleural Effusion Image Quality: Adequate Contrast: Requested by: Vivienne Beltran BP: 132 mmHg/80 mmHg Heart Rate: Rhythm: Indication: Pleural Effusion Procedure Staff Overlay Plastician: Janeen Sanchez [facility] Reading Physician: Sarahy Amaya MD Requesting Provider: Conclusions: Normal size left ventricle. No LV hypertrophy. Normal global systolic LV function. EF is 69 %. No regional wall motion abnormality. Normal size right ventricle. Normal RV function. There is a pacemaker lead noted in the right ventricle. Moderate aortic valve regurgitation is present. Pulmonary artery pressure is not obtained due to inadequate TR jet. Trivial anterior pericardial effusion. There is a pleural effusion present. Compared with 08/17/2016 pleural effusion now present Measurements: Chambers Valvular Assessment AV/MV Valvular Assessment TV/PV Normal Normal Normal Name Value Range Name Value Range Name Value Range Ao Rosi (MM): 3.2 cm (2.2 cm-3.7 AV Vmax: 1.40 m/s (1 m/s-1.7 PV Vmax: 1.09 m/s (0.6 m/s-0.9 cm) m/s) m/s) IVSd (2D): 0.8 cm (0.6 cm-1.1 AV maxP mmHg ( - ) PV PGmax: 5 mmHg ( - ) cm) LVOT Vmax: 1.26 m/s (0.7 m/s-1.1 LVDd (2D): 4.3 cm (3.9 cm-5.3 m/s) cm) AR (PHT): 501 ms ( - ) LVDs (2D): 3.0 cm (2.1 cm-4 cm) LVPWd (2D): 0.9 cm ( - ) LVEF (BP): 69 % (>=55 %) RVDd(2D): 2.1 cm (1.9 cm-3.8 cmmm) Patient: LIYA ENGEL Study Date: 12/09/2017 Page 1 of 2 09:07 AM Continued Measurements: Chambers Valvular Assessment AV/MV Name Value Name Value LADs Lon.6 cm MV E' Septal: 0.04 m/s LA Area: 16.6 cm2 AR Vmax: 3.98 cm/s LA Volume: 51 ml LA Volume Index: 31.7 ml/m2 RA Area: 14.0 cm2 Additional Vessels Name Value Ao Ascendin.3 cm Findings: Left Ventricle: Normal size left ventricle. No LV hypertrophy. Normal global systolic LV function. EF is 69 %. No regional wall motion abnormality. Unable to assess diastolic dysfunction. Right Ventricle: Normal size right ventricle. Normal RV function. There is a pacemaker lead noted in the right ventricle. Left Atrium: The left atrium is normal in size. Right Atrium: The right atrium is normal in size. There is a pacemaker lead noted in the right atrium. Mitral Valve: The mitral valve is normal in appearance and function. There is no significant mitral valve regurgitation. No mitral stenosis is present. Aortic Valve: The aortic valve is tri-leaflet. Mild aortic cusp calcification is noted. Moderate aortic valve regurgitation is present. No aortic valve stenosis is present. Tricuspid Valve: The tricuspid valve is normal in appearance and function. There is no tricuspid valve regurgitation. Pulmonary artery pressure is not obtained due to inadequate TR jet. Pulmonic Valve: The pulmonic valve is normal in appearance and function. There is no pulmonic regurgitation seen. Aorta: The aorta is normal. Normal size aortic root measuring 3.2 cm. Normal size ascending aorta measuring 3.3 cm. IVC: The IVC is small. Pericardium: Trivial anterior pericardial effusion. There is a pleural effusion present. (No Signature Object) Patient: LIYA ENGEL Study Date: 12/09/2017 Page 2 of 2 09:07 AM [id number]
[2017-12-09] MEDS: FOLIC ACID 1 MG TAB PO SCH (10:41)
[2017-12-09] MEDS: FLUoxetine 20 MG CAP PO SCH (10:41)
[2017-12-09] MEDS: THIAMINE HCL 100 MG TAB PO SCH (10:41)
[2017-12-09] MEDS: CHOLECALCIFEROL VIT D3 2,000 UNITS TAB/CAP PO SCH (10:41)
[2017-12-09] MEDS: ASCORBIC ACID 500 MG TAB PO SCH (10:41)
[2017-12-09] MEDS: PANTOPRAZOLE SODIUM 40 MG TAB PO SCH ×2 (10:42→21:18)
[2017-12-09] MEDS: MULTIVITAMINS W-MINERALS 1 EACH TAB PO SCH (10:42)
[2017-12-09] MEDS: FERROUS SULFATE 325 MG TAB PO SCH ×2 (10:42→16:57)
[2017-12-09] MEDS: TOPIRAMATE 25 MG TAB PO SCH ×2 (10:43→21:18)
[2017-12-09] MEDS: CYANO/VITAMIN B12 1000 MCG TAB PO SCH (10:43)
[2017-12-09] MEDS: HYDROmorphone HCL/NS 0.5 MG/ML SYR IVP PRN ×2 (10:50→17:07)
--- NOTE | 2017-12-09 10:54 | HOSPPROG ---
Hospitalist Progress Note Assessment/Plan: 72y female with c/o flank pain. First encounter, chart reviewed. D/W RN and oracle technical architect. #UTI -UA with infection -cont CTX - await urine cx #Pleural effusion -etiol unclear -US shows moderate not large size -will recheck tomorrow -will get thoracentsis tomorrow likely #Hyponatremia -better -mild dehydration #Hx liver tx -cont home meds -stable #Immune compro - stable #pancytopenia -multifactorial -stable #COPD -supplemental o2 #Psych -stable #SHELBI on CRI -stable #Dispo -unclear -will need to eval effusion -treat uti -await cx Change to inpt status Will need to stay in the hospital for further evaluation. Subjective: Up in bed. Feeling ok. Still having flank spasm. Objective: Vital Signs Temp Pulse Resp BP Pulse Ox 36.3 C 70 20 129/80 H 94 12/09/17 07:35 12/09/17 07:35 12/09/17 07:35 12/09/17 10:43 12/09/17 07:35 Laboratory Results 12/09/17 04:55 12/09/17 04:55 12/08/17 12/09/17 12/10/17 05:59 05:59 05:59 Intake Total 500 Balance 500 PT 14.8 SEC (12.0-15.0) 12/09/17 09:45 INR 1.14 (0.83-1.16) 12/09/17 09:45 - Physical Exam Constitutional: appears nourished, not in pain, chronically ill appearing Eyes: PERRL, anicteric sclera, EOMI Ears, Nose, Mouth, Throat: moist mucous membranes, hearing normal, ears appear normal Cardiovascular: No JVD, No tachycardia, No edema Respiratory: no respiratory distress, no rales or rhonchi, reduced air movement Gastrointestinal: normoactive bowel sounds, No tenderness, No ascites Skin: warm, normal color, No mottled Musculoskeletal: normal joint ROM, no joint effusions, generalized weakness Neurologic: AAOx3 Psychiatric: not anxious, not encephalopathic, thought process linear ICD10 Worksheet Patient Problems: Problems Problem Status Onset Nausea & vomiting Acute Pleural effusion, right Acute Leukopenia Acute Osteoarthritis of right knee Acute Adjustment disorder with depressed mood Active Chronic Disease Mgmt/Transitional Care Acute Pneumonia Acute Knee effusion Acute Acute on chronic renal insufficiency Acute Acute bronchitis with chronic obstructive pulmonary disease (COPD) Acute Chest pain Acute Dehydration Acute Bronchitis Acute Cough Acute Leg cramping Acute Weakness Acute Vomiting Acute Sedated Acute Multiple falls Acute Hyponatremia Acute Chronic renal insufficiency Acute Colitis Acute Urinary tract infection Acute Renal failure (ARF), acute on chronic Acute Shortness of breath Acute Chest pain in adult Acute Elevated d-dimer Acute Right knee pain Acute Migraine Acute Chronic obstructive pulmonary disease with acute exacerbation Acute Chest pain Acute
--- NOTE | 2017-12-09 11:04 | ASMTCMCOM ---
CM Note CM Note Notes: Patient admitted w complaints of "kidney pain;" found to have a UTI and moderate pleural effusion. Thoracentesis tomorrow. She lives at [facility]. She'll discharge back there when medically stable. Date Signed: 12/09/2017 11:04 AM Electronically Signed By:Heaven Bettencourt RN
[2017-12-09] MEDS: TIOTROPIUM INHALER 18 MCG/DOSE 5 DOSE/MDI IH SCH ×2 (11:11→11:18)
--- NOTE | 2017-12-09 12:34 | PDMN ---
Medical Necessity Medical necessity: C/M review: Patient meets INPT criteria under MCG M-300 Urinary tract infection, M-540 Pleural effusion: Acute and persistent urinary tract infection, moderate right pleural effusion seen on US, (of unclear etiology), hyponatremia, acute kidney injury, ongoing flank spasms, pantocytopenia, urine culture pending, WBC 2.20, 2.57, Hgb 11.1, 9.4, Hct 32.4, 28.0, platelet count 71, 65, Na 128, 132, BUN 28, 27, Cr 1.6, 1.5, requiring PICC placement 12/09/2017, planned US guided Thoracentesis, ongoing IV Ceftriaxone , IV Dilaudid, cardiac monitoring, pulse oximetry, supplemental O2, acute inpt PT/OT, comorbid history of liver transplant, immunocompromised, patient on chronic Prograf, COPD, chronic renal insufficiency. 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 Patient is Medicare Advantage which follows guidelines CMS puts forth.
[2017-12-09] MEDS ORDERED: LIDOCAINE 1% 300 MG/30 ML SDV ONE (13:03)
--- NOTE | 2017-12-09 14:47 | PDRADPN ---
Radiology Procedure Note Date of Procedure: 12/09/17 Radiologist: Asa Bellamy Anesthesia: Local (Specify) Pre-op Diagnosis: right effusion, unk etiology Post-op Diagnosis: same Indication: dx/tx thoracentesis Procedure: right thora. Finding(s): simple yellow fluid 400cc removed. Inf/Abcess present in the surg proc area at time of surgery?: No Complications: none Specimen(s): yes
[2017-12-09] MEDS: CARVEDILOL 25 MG TAB PO SCH (16:56)
[2017-12-09] MEDS: TACROLIMUS ANHYDROUS 0.5 MG CAP PO SCH (16:57)
[2017-12-09] MEDS: GABAPENTIN 300 MG CAP PO SCH (21:17)
[2017-12-10] MEDS: LEVOTHYROXINE 75 MCG TAB PO SCH (05:15)
[2017-12-10] MEDS: FOLIC ACID 1 MG TAB PO SCH (08:08)
[2017-12-10] MEDS: FERROUS SULFATE 325 MG TAB PO SCH ×3 (08:08→17:46)
[2017-12-10] MEDS: CARVEDILOL 25 MG TAB PO SCH ×2 (08:08→17:46)
[2017-12-10] MEDS: THIAMINE HCL 100 MG TAB PO SCH (08:08)
[2017-12-10] MEDS: CHOLECALCIFEROL VIT D3 2,000 UNITS TAB/CAP PO SCH (08:09)
[2017-12-10] MEDS: CYANO/VITAMIN B12 1000 MCG TAB PO SCH (08:10)
[2017-12-10] MEDS: PANTOPRAZOLE SODIUM 40 MG TAB PO SCH ×2 (08:10→20:15)
[2017-12-10] MEDS: TACROLIMUS ANHYDROUS 0.5 MG CAP PO SCH ×2 (08:10→16:27)
[2017-12-10] MEDS: TOPIRAMATE 25 MG TAB PO SCH ×2 (08:11→20:16)
[2017-12-10] MEDS: ASCORBIC ACID 500 MG TAB PO SCH (08:11)
[2017-12-10] MEDS: FLUoxetine 20 MG CAP PO SCH (08:12)
[2017-12-10] MEDS: MULTIVITAMINS W-MINERALS 1 EACH TAB PO SCH (08:12)
[2017-12-10] MEDS: oxyCODONE IR 5 MG TAB PO PRN ×3 (08:22→20:15)
[2017-12-10] MEDS: TIOTROPIUM INHALER 18 MCG/DOSE 5 DOSE/MDI IH SCH (11:09)
--- NOTE | 2017-12-10 12:29 | HOSPPROG ---
Hospitalist Progress Note Assessment/Plan: 72y female with c/o flank pain. #UTI -UA with infection -cont CTX -cx shows Levaquin resistant E.coli #Pleural effusion -etiol unclear -US shows moderate not large size -thora done -etiol unclear, wait cx and gram stain #Hyponatremia -better -mild dehydration #Hx liver tx -cont home meds -stable #Immune compro - stable #pancytopenia -multifactorial -stable #COPD -supplemental o2 #Psych -stable #SHELBI on CRI -stable #Dispo -unclear -will need to eval effusion -treat uti -await cx Will need to stay in the hospital for further evaluation. Subjective: Feeling tired. Pain better. No further complaints fo flank pain since thora. Objective: Vital Signs Temp Pulse Resp BP Pulse Ox 36.7 C 75 14 91/55 L 96 12/10/17 11:16 12/10/17 11:16 12/10/17 11:16 12/10/17 11:16 12/10/17 11:16 Microbiology 12/09/17 15:07 Gram Stain - Final Thoracic Fluid - Aspirate Laboratory Results 12/09/17 04:55 12/09/17 04:55 12/09/17 12/10/17 12/11/17 05:59 05:59 05:59 Intake Total 500 550 Output Total 400 Balance 500 150 PT 14.8 SEC (12.0-15.0) 12/09/17 09:45 INR 1.14 (0.83-1.16) 12/09/17 09:45 - Physical Exam Constitutional: not in pain, chronically ill appearing, cachectic Eyes: PERRL, anicteric sclera, EOMI Ears, Nose, Mouth, Throat: moist mucous membranes, hearing normal, ears appear normal Cardiovascular: No JVD, No edema Respiratory: no respiratory distress, reduced air movement Gastrointestinal: No tenderness, No ascites Skin: warm, normal color Musculoskeletal: normal joint ROM, no joint effusions, generalized weakness Neurologic: AAOx3 Psychiatric: interacting appropriately, not anxious, not encephalopathic, poor memory ICD10 Worksheet Patient Problems: Problems Problem Status Onset Nausea & vomiting Acute Pleural effusion, right Acute Leukopenia Acute Osteoarthritis of right knee Acute Adjustment disorder with depressed mood Active Chronic Disease Mgmt/Transitional Care Acute Pneumonia Acute Knee effusion Acute Acute on chronic renal insufficiency Acute Acute bronchitis with chronic obstructive pulmonary disease (COPD) Acute Chest pain Acute Dehydration Acute Bronchitis Acute Cough Acute Leg cramping Acute Weakness Acute Vomiting Acute Sedated Acute Multiple falls Acute Hyponatremia Acute Chronic renal insufficiency Acute Colitis Acute Urinary tract infection Acute Renal failure (ARF), acute on chronic Acute Shortness of breath Acute Chest pain in adult Acute Elevated d-dimer Acute Right knee pain Acute Migraine Acute Chronic obstructive pulmonary disease with acute exacerbation Acute Chest pain Acute
[2017-12-10] MEDS: GABAPENTIN 300 MG CAP PO SCH (20:15)
[2017-12-11] MEDS: oxyCODONE IR 5 MG TAB PO PRN ×5 (04:51→23:58)
[2017-12-11] MEDS: LEVOTHYROXINE 75 MCG TAB PO SCH (04:51)
[2017-12-11 05:19] LABS: PLATELET COUNT 47 10^3/uL (150-400)
[2017-12-11] MEDS: FLUoxetine 20 MG CAP PO SCH (09:42)
[2017-12-11] MEDS: FERROUS SULFATE 325 MG TAB PO SCH ×3 (09:43→17:37)
[2017-12-11] MEDS: TACROLIMUS ANHYDROUS 0.5 MG CAP PO SCH ×2 (09:43→15:03)
[2017-12-11] MEDS: CARVEDILOL 25 MG TAB PO SCH ×2 (09:43→17:37)
[2017-12-11] MEDS: MULTIVITAMINS W-MINERALS 1 EACH TAB PO SCH (09:43)
[2017-12-11] MEDS: FOLIC ACID 1 MG TAB PO SCH ×2 (09:44→09:51)
[2017-12-11] MEDS: THIAMINE HCL 100 MG TAB PO SCH (09:44)
[2017-12-11] MEDS: CYANO/VITAMIN B12 1000 MCG TAB PO SCH (09:45)
[2017-12-11] MEDS: CHOLECALCIFEROL VIT D3 2,000 UNITS TAB/CAP PO SCH (09:45)
[2017-12-11] MEDS: TOPIRAMATE 25 MG TAB PO SCH ×2 (09:45→20:41)
[2017-12-11] MEDS: PANTOPRAZOLE SODIUM 40 MG TAB PO SCH ×2 (09:46→20:40)
[2017-12-11] MEDS: ASCORBIC ACID 500 MG TAB PO SCH (09:49)
[2017-12-11] MEDS: TIOTROPIUM INHALER 18 MCG/DOSE 5 DOSE/MDI IH SCH (10:30)
--- NOTE | 2017-12-11 12:21 | HOSPPROG ---
Hospitalist Progress Note Assessment/Plan: 72y female with c/o flank pain. She is status post liver transplant with chronic immune suppression, chronic kidney disease . Today is my 1st encounter with the patient. Chart reviewed. Unclear of the etiology of the patient's pleural effusion. Reviewed her care with Dr. Beltran. #UTI, e coli -cont CTX #abdominal pain w associated back (flank) pain -CT shows free abdominal fluid -she has an abnormal hepatis region as well as splenomegaly -will get an ultrasound to evaluate for portal vein and splenic vein thrombosis #Pleural effusion/exudative (based on LDH and protein levels) -etiology unclear -s/p thoracentesis (400 ml removed) -gram stain shows no growth as of yet -will ask Dr Lee to weigh in #Hyponatremia -resolved #anemia -cont monitoring #Hx liver tx with chronic immune suppression -cont home meds -stable -check LFT's #pancytopenia -multifactorial -stable #COPD -no s/sx of acute exacerbation #Psychiatric issues -stable #Chronic kidney disease -her creat ranges from 1.5-2 -stable #Dispo -pending Subjective: Misty said her pain in back area is ongoing, but better sicebeing admitted. It comes and goes Objective: Vital Signs Temp Pulse Resp BP Pulse Ox 36.5 C 71 18 110/61 97 12/11/17 10:51 12/11/17 10:51 12/11/17 10:51 12/11/17 10:51 12/11/17 10:51 Microbiology 12/09/17 15:07 Gram Stain - Final Thoracic Fluid - Aspirate Laboratory Results 12/11/17 04:55 12/11/17 04:55 12/10/17 12/11/17 12/12/17 05:59 05:59 05:59 Intake Total 550 2220 Output Total 400 Balance 150 2220 PT 14.8 SEC (12.0-15.0) 12/09/17 09:45 INR 1.14 (0.83-1.16) 12/09/17 09:45 - Physical Exam Constitutional: chronically ill appearing, uncomfortable Eyes: PERRL Ears, Nose, Mouth, Throat: hearing normal Cardiovascular: regular rate and rhythym Respiratory: no respiratory distress, reduced air movement Gastrointestinal: normoactive bowel sounds, tenderness (epigastric, bloated) Skin: warm Musculoskeletal: generalized weakness Neurologic: AAOx3 Psychiatric: interacting appropriately ICD10 Worksheet Patient Problems: Problems Problem Status Onset Hyponatremia Acute Leukopenia Acute Pleural effusion, right Acute Urinary tract infection Acute Adjustment disorder with depressed mood Active Acute bronchitis with chronic obstructive pulmonary disease (COPD) Acute Acute on chronic renal insufficiency Acute Bronchitis Acute Chest pain Acute Chest pain Acute Chest pain in adult Acute Chronic Disease Mgmt/Transitional Care Acute Chronic obstructive pulmonary disease with acute exacerbation Acute Chronic renal insufficiency Acute Colitis Acute Cough Acute Dehydration Acute Elevated d-dimer Acute Knee effusion Acute Leg cramping Acute Migraine Acute Multiple falls Acute Nausea & vomiting Acute Osteoarthritis of right knee Acute Pneumonia Acute Renal failure (ARF), acute on chronic Acute Right knee pain Acute Sedated Acute Shortness of breath Acute Vomiting Acute Weakness Acute
[2017-12-11] MEDS: CEPACOL LOZENGE PO PRN ×2 (16:54→20:40)
--- NOTE | 2017-12-11 17:35 | GCON ---
[f rep st] CONSULTATION CHEST CONSULTATION REASON FOR CONSULTATION: Pleural effusion. 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 Aron villanueva also has chronic renal insufficiency, chronic obstructive pulmonary disease, diastolic heart failur e, hypertension, hypothyroidism, gastroesophageal reflux disease, esophageal varices, coronary artery disease. She was admitted on 12/08/2017 with complaints of right-sided low back pain. This was subsequently d iagnosed to be a pleural effusion which was subsequently tapped. This revealed a transudative infilt rate. Echocardiogram was also performed. In discussion with the patient, she states that overall she feels markedly improved. She still compl ains of some mild back pain, but this again feels better. She denies any chest pain. There is no br eathlessness, except with exertion. There is no fever or night sweats. Prior to admission, she was not complaining of fever or night sweats, was not coughing up anything purulent. PAST MEDICAL HISTORY: As above. PAST SURGICAL HISTORY: 1. Liver transplantation. 2. Pacemaker placement. 3. Knee replacement. 4. Ankle surgery. 5. Nasal surgery. 6. Cholecystectomy. FAMILY HISTORY: Noncontributory. SOCIAL HISTORY: Distant history of tobacco use. None for 25 years. She denies any alcohol use. Wo rk history: She is retired. She is . She resides at [facility]. She has lived in [facility] for many years, but is originally from [facility]. ALLERGIES: Include sumatriptan, dextroamphetamine, gabapentin, temazepam. REVIEW OF SYSTEMS: A 10-point review of systems was performed, and is negative, except for what is l isted in the HPI. PHYSICAL EXAM: VITAL SIGNS: Blood pressure 110/51, pulse 71, respirations 18, temperature 36.5, oxy gen saturation 97% on room air. GENERAL: She is a thin, but well-developed, elderly white female wh o is resting comfortably in no acute distress. HEENT: Eyes: PERRLA, EOMI. Throat shows no erythem a or tonsillar hypertrophy. NECK: Supple. There is no cervical adenopathy. HEART: Regular rate a nd rhythm without murmurs, rubs, gallops. LUNGS: Diminished breath sounds, but no wheeze. ABDOMEN: Soft, nontender. Bowel sounds are present in all 4 quadrants. EXTREMITIES: No clubbing, cyanosis , or edema. LABORATORIES: White count 2.2, hemoglobin 9.5, hematocrit 28, platelet count is 47. Sodium 135, pot assium 4.5, chloride 105, CO2 22, BUN is 29, creatinine 1.7, glucose is 89. Pleural fluid analysis: pH 6.8. There were 443 WBCs, 197 RBCs, 24% lymphocytes, LDH 196, glucose 96, protein is 4.1. Echocardiogram shows ejection fraction of 69%. Pulmonary artery pressure is not obtained. Chest x-ray dated December [address] No evidence of pleural effusion. Lungs appear clear. IMPRESSION: 1. Pleural effusion. This is exudative lymphocytic predominant with a low pH. Etiology of this is unclear. 2. Status post liver transplant from hepatitis C. 3. Chronic renal insufficiency. 4. Diastolic heart failure. 5. Chronic obstructive pulmonary disease. 6. Hypertension. 7. Chronic immune suppression. 8. Hypothyroidism. 9. Gastroesophageal reflux disease. 10. History of coronary artery disease. 11. Schizoaffective disorder. RECOMMENDATIONS: 1. Await cytology. 2. Would await cultures from pleural effusion. 3. Would follow closely. 4. We will send off a rheumatologic panel. 5. Continue majority of her home medications. 6. PT and OT. 7. Begin early ambulation. /[id number]/MODL
[2017-12-11] MEDS: GABAPENTIN 300 MG CAP PO SCH (20:40)
[2017-12-12] MEDS: LEVOTHYROXINE 75 MCG TAB PO SCH (04:53)
[2017-12-12] MEDS: oxyCODONE IR 5 MG TAB PO PRN ×4 (05:03→21:17)
[2017-12-12] MEDS: THIAMINE HCL 100 MG TAB PO SCH (08:39)
[2017-12-12] MEDS: FLUoxetine 20 MG CAP PO SCH (08:39)
[2017-12-12] MEDS: CHOLECALCIFEROL VIT D3 2,000 UNITS TAB/CAP PO SCH (08:41)
[2017-12-12] MEDS: PANTOPRAZOLE SODIUM 40 MG TAB PO SCH ×2 (08:41→20:19)
[2017-12-12] MEDS: CYANO/VITAMIN B12 1000 MCG TAB PO SCH (08:53)
[2017-12-12] MEDS: CARVEDILOL 25 MG TAB PO SCH ×2 (08:55→18:07)
[2017-12-12] MEDS: MULTIVITAMINS W-MINERALS 1 EACH TAB PO SCH (08:55)
[2017-12-12] MEDS: FERROUS SULFATE 325 MG TAB PO SCH ×3 (08:55→18:07)
[2017-12-12] MEDS: ASCORBIC ACID 500 MG TAB PO SCH (08:55)
[2017-12-12] MEDS: TACROLIMUS ANHYDROUS 0.5 MG CAP PO SCH ×2 (08:56→16:49)
[2017-12-12] MEDS: TOPIRAMATE 25 MG TAB PO SCH ×2 (08:56→20:19)
[2017-12-12] MEDS: FOLIC ACID 1 MG TAB PO SCH (08:57)
[2017-12-12] MEDS: TIOTROPIUM INHALER 18 MCG/DOSE 5 DOSE/MDI IH SCH (09:03)
--- NOTE | 2017-12-12 12:25 | ASMTCMCOM ---
CM Note CM Note Notes: Pt had a consult yesterday by Dr. Lee from pulmonology for a pleural effusion. Pt will d/c back to [facility] when medically stable. Updates sent to [facility]. CM to follow. Plan: [facility] Date Signed: 12/12/2017 12:24 PM Electronically Signed By:RADHA Torres
--- NOTE | 2017-12-12 13:01 | SOAPPROG ---
SOAP Progress Note Assessment/Plan: Assessment/plan: * Pleural effusion-exudative lymphocytic predominant with low pH. Etiology which is unclear at this time, though possible this is a pleural effusion of long-standing. Chest x-ray clear. Abdominal ultrasound shows no apparent ascitic fluid -await cytology. * History of liver transplantation for hepatitis-C * Chronic renal insufficiency * Diastolic heart failure * Chronic obstructive pulmonary disease * Chronic immune suppression * Coronary artery disease Subjective: Resting comfortably. Feels markedly better. Objective: Vital Signs Temp Pulse Resp BP Pulse Ox 36.7 C 78 16 114/64 97 12/12/17 08:45 12/12/17 09:13 12/12/17 09:13 12/12/17 08:45 12/12/17 09:13 Microbiology 12/09/17 15:07 Gram Stain - Final Thoracic Fluid - Aspirate Body Fluid Culture - Final Laboratory Results 12/11/17 04:55 12/11/17 04:55 12/11/17 12/12/17 12/13/17 05:59 05:59 05:59 Intake Total 2220 1500 Balance 2220 1500 PT 14.8 SEC (12.0-15.0) 12/09/17 09:45 INR 1.14 (0.83-1.16) 12/09/17 09:45 - Time Spent With Patient Time Spent With Patient: 25 min of time spent with patient, over 1/2 involved with coordination of care or counseling Physical Exam - Physical Exam General Appearance: alert, no apparent distress EENT: PERRL/EOMI Neck: non-tender, full range of motion, supple, normal inspection Respiratory: lungs clear, prolonged expiration, No wheezing Cardiac/Chest: normal peripheral pulses, regular rate, rhythm Peripheral Pulses: 2+: carotid (R), carotid (L), femoral (R), femoral (L), dorsalis-pedis (R), dorsalis-pedis (L) Abdomen: normal bowel sounds, non-tender, soft Pelvic Exam: deferred Rectal: deferred Skin: normal color, warm/dry Extremities: normal range of motion, non-tender, normal inspection, normal capillary refill ICD10 Worksheet Patient Problems: Problems Problem Status Onset Hyponatremia Acute Leukopenia Acute Pleural effusion, right Acute Urinary tract infection Acute Adjustment disorder with depressed mood Active Acute bronchitis with chronic obstructive pulmonary disease (COPD) Acute Acute on chronic renal insufficiency Acute Bronchitis Acute Chest pain Acute Chest pain Acute Chest pain in adult Acute Chronic Disease Mgmt/Transitional Care Acute Chronic obstructive pulmonary disease with acute exacerbation Acute Chronic renal insufficiency Acute Colitis Acute Cough Acute Dehydration Acute Elevated d-dimer Acute Knee effusion Acute Leg cramping Acute Migraine Acute Multiple falls Acute Nausea & vomiting Acute Osteoarthritis of right knee Acute Pneumonia Acute Renal failure (ARF), acute on chronic Acute Right knee pain Acute Sedated Acute Shortness of breath Acute Vomiting Acute Weakness Acute
--- NOTE | 2017-12-12 15:21 | HOSPPROG ---
Hospitalist Progress Note Assessment/Plan: 72y female with c/o flank pain. She is status post liver transplant with chronic immune suppression, chronic kidney disease . Unclear of the etiology of the patient's pleural effusion. #UTI, e coli -received full treatment #abdominal pain w associated back (flank) pain -CT shows free abdominal fluid -she has an abnormal hepatis region as well as splenomegaly - ultrasound shows no portal vein and splenic vein thrombosis, nothing acute -patient had a w/u for abdominal pain in July, is requesting another EGD, at that time it was noted she had gastritis, portal hypertensive gastropathy ( on coreg) -Dr Marino to see tomorrow -check for H pylori -cont to have c/o back pain, can reproduce w palp, get xrays, trial of Lidoderm patch #Pleural effusion/exudative (based on LDH and protein levels) -etiology unclear -s/p thoracentesis (400 ml removed) -gram stain shows no growth as of yet -reviewed w Dr Lee her care, his recommendation is if pleural fluid returns, he will see her and biopsy #Hyponatremia -resolved #anemia -cont monitoring #Hx liver tx with chronic immune suppression -lft's overall stable x for alk phos #pancytopenia -multifactorial -recheck tomorrow #COPD -no s/sx of acute exacerbation #Psychiatric issues -stable #Chronic kidney disease -her creat ranges from 1.5-2 -stable #Dispo -pending #Plan: reviewed her care w Dr Lee who will sign off and f/u if needed, stop antibiotics for UTI, received full treatment. Spoke w Dr Marino who will see her tomorrow. I am not sure if she needs an EGD or not. Will rechecks labs in a.m. Misty has multiple complaints and difficult to tell if these problems are ongoing or new. Will get back xrays in addition. Subjective: Misty is c/o abdominal pain in epigastric area, right sided back pain. Objective: Vital Signs Temp Pulse Resp BP Pulse Ox 36.7 C 78 16 114/64 97 12/12/17 08:45 12/12/17 09:13 12/12/17 09:13 12/12/17 08:45 12/12/17 09:13 Microbiology 12/09/17 15:07 Gram Stain - Final Thoracic Fluid - Aspirate Body Fluid Culture - Final Laboratory Results 12/11/17 04:55 12/11/17 04:55 12/11/17 12/12/17 12/13/17 05:59 05:59 05:59 Intake Total 2220 1500 Balance 2220 1500 PT 14.8 SEC (12.0-15.0) 12/09/17 09:45 INR 1.14 (0.83-1.16) 12/09/17 09:45 - Physical Exam Constitutional: chronically ill appearing, uncomfortable Eyes: PERRL Ears, Nose, Mouth, Throat: hearing normal Cardiovascular: regular rate and rhythym Respiratory: no respiratory distress Skin: warm Neurologic: AAOx3 Psychiatric: interacting appropriately ICD10 Worksheet Patient Problems: Problems Problem Status Onset Hyponatremia Acute Leukopenia Acute Pleural effusion, right Acute Urinary tract infection Acute Adjustment disorder with depressed mood Active Acute bronchitis with chronic obstructive pulmonary disease (COPD) Acute Acute on chronic renal insufficiency Acute Bronchitis Acute Chest pain Acute Chest pain Acute Chest pain in adult Acute Chronic Disease Mgmt/Transitional Care Acute Chronic obstructive pulmonary disease with acute exacerbation Acute Chronic renal insufficiency Acute Colitis Acute Cough Acute Dehydration Acute Elevated d-dimer Acute Knee effusion Acute Leg cramping Acute Migraine Acute Multiple falls Acute Nausea & vomiting Acute Osteoarthritis of right knee Acute Pneumonia Acute Renal failure (ARF), acute on chronic Acute Right knee pain Acute Sedated Acute Shortness of breath Acute Vomiting Acute Weakness Acute
[2017-12-12] MEDS: LIDOCAINE 4%/MENTHOL 1% PATCH TD SCH (16:46)
[2017-12-12] MEDS: CEPACOL LOZENGE PO PRN (16:50)
[2017-12-12] MEDS: GABAPENTIN 300 MG CAP PO SCH (20:19)
[2017-12-12] MEDS: PATCH REMOVAL 1 EA PATCH TD SCH (20:19)
[2017-12-13] MEDS: LEVOTHYROXINE 75 MCG TAB PO SCH (05:15)
[2017-12-13] MEDS: oxyCODONE IR 5 MG TAB PO PRN ×4 (05:16→19:43)
[2017-12-13 06:13] LABS: PLATELET COUNT 53 10^3/uL (150-400)
[2017-12-13] MEDS: TIOTROPIUM INHALER 18 MCG/DOSE 5 DOSE/MDI IH SCH (09:15)
[2017-12-13] MEDS: FOLIC ACID 1 MG TAB PO SCH (09:16)
[2017-12-13] MEDS: CHOLECALCIFEROL VIT D3 2,000 UNITS TAB/CAP PO SCH (09:16)
[2017-12-13] MEDS: CARVEDILOL 25 MG TAB PO SCH ×2 (09:16→17:47)
[2017-12-13] MEDS: CYANO/VITAMIN B12 1000 MCG TAB PO SCH (09:18)
[2017-12-13] MEDS: PANTOPRAZOLE SODIUM 40 MG TAB PO SCH ×2 (09:18→21:12)
[2017-12-13] MEDS: MULTIVITAMINS W-MINERALS 1 EACH TAB PO SCH (09:19)
[2017-12-13] MEDS: TOPIRAMATE 25 MG TAB PO SCH ×2 (09:20→21:12)
[2017-12-13] MEDS: FERROUS SULFATE 325 MG TAB PO SCH ×3 (09:20→17:47)
[2017-12-13] MEDS: ASCORBIC ACID 500 MG TAB PO SCH (09:20)
[2017-12-13] MEDS: TACROLIMUS ANHYDROUS 0.5 MG CAP PO SCH ×2 (09:20→15:28)
[2017-12-13] MEDS: FLUoxetine 20 MG CAP PO SCH (09:21)
[2017-12-13] MEDS: THIAMINE HCL 100 MG TAB PO SCH (09:21)
[2017-12-13] MEDS: LIDOCAINE 4%/MENTHOL 1% PATCH TD SCH (10:03)
--- NOTE | 2017-12-13 10:18 | HOSPPROG ---
Hospitalist Progress Note Assessment/Plan: 72y female with c/o flank pain. She is status post liver transplant with chronic immune suppression, chronic kidney disease . Unclear of the etiology of the patient's pleural effusion. #UTI, e coli -received full treatment #abdominal pain w associated back (flank) pain -CT shows free abdominal fluid -she has an abnormal hepatis region as well as splenomegaly - ultrasound shows no portal vein and splenic vein thrombosis, nothing acute -patient had a w/u for abdominal pain in July, is requesting another EGD, at that time it was noted she had gastritis, portal hypertensive gastropathy ( on coreg) -Dr Marino to see tomorrow -check for H pylori -cont to have c/o back pain, can reproduce w palp, get xrays, trial of Lidoderm patch #Pleural effusion/exudative (based on LDH and protein levels) -etiology unclear -s/p thoracentesis (400 ml removed) -gram stain shows no growth as of yet -reviewed w Dr Lee her care, his recommendation is if pleural fluid returns, he will see her and biopsy -Misty is requesting to see Dr Lee today. I spoke w him and he will see her today -thus far she has no growth in this fluid (AFB is pending and this will take some time) #Hyponatremia -resolved #anemia -cont monitoring #Hx liver tx with chronic immune suppression -lft's overall stable x for alk phos #pancytopenia -will have this monitored in the OP setting #COPD -no s/sx of acute exacerbation #Psychiatric issues -concerned this is affecting her, she is wanting multiple w/u #dizziness -asked nursing staff to do orthostatics #constipation -bowel protocol #Chronic kidney disease -her creat ranges from 1.5-2 -stable #Dispo -hopefully, later today, she will need to f/u with Dr Lee, reviewed Dr Marino's consult and appreciate him seeing her Subjective: Misty is upset and wants her dizziness, back pain, abdominal pain, constipation all taken care of. Objective: Vital Signs Temp Pulse Resp BP Pulse Ox 37.7 C 71 16 111/77 96 12/13/17 08:27 12/13/17 08:27 12/13/17 08:27 12/13/17 09:24 12/13/17 08:27 Microbiology 12/09/17 15:07 Gram Stain - Final Thoracic Fluid - Aspirate Body Fluid Culture - Final Laboratory Results 12/13/17 05:55 12/13/17 05:55 12/12/17 12/13/17 12/14/17 05:59 05:59 05:59 Intake Total 1500 1210 Balance 1500 1210 PT 14.8 SEC (12.0-15.0) 12/09/17 09:45 INR 1.14 (0.83-1.16) 12/09/17 09:45 - Physical Exam Constitutional: chronically ill appearing Eyes: PERRL Ears, Nose, Mouth, Throat: hearing normal Cardiovascular: regular rate and rhythym Respiratory: no respiratory distress Skin: warm Musculoskeletal: generalized weakness Neurologic: AAOx3 Psychiatric: anxious ICD10 Worksheet Patient Problems: Problems Problem Status Onset Hyponatremia Acute Leukopenia Acute Pleural effusion, right Acute Urinary tract infection Acute Adjustment disorder with depressed mood Active Acute bronchitis with chronic obstructive pulmonary disease (COPD) Acute Acute on chronic renal insufficiency Acute Bronchitis Acute Chest pain Acute Chest pain Acute Chest pain in adult Acute Chronic Disease Mgmt/Transitional Care Acute Chronic obstructive pulmonary disease with acute exacerbation Acute Chronic renal insufficiency Acute Colitis Acute Cough Acute Dehydration Acute Elevated d-dimer Acute Knee effusion Acute Leg cramping Acute Migraine Acute Multiple falls Acute Nausea & vomiting Acute Osteoarthritis of right knee Acute Pneumonia Acute Renal failure (ARF), acute on chronic Acute Right knee pain Acute Sedated Acute Shortness of breath Acute Vomiting Acute Weakness Acute
--- NOTE | 2017-12-13 11:05 | GCON ---
[f rep st] CONSULTATION REFERRING PHYSICIAN: Alissa Holt NP CHIEF COMPLAINT: Abdominal pain and history of liver transplant. HISTORY OF PRESENT ILLNESS: I have been asked to see this very pleasant woman in consultation by Alissa Holt NP, for evaluation of abdominal pain, history of hepatitis C status post liver transplant. This patient has a past medical history that includes liver transplant secondary to hepatitis C and cirrhosis. She also has a history of chronic kidney disease and multiple other medical issues. She presented to the hospital with complaint of "kidney pain, right-sided back pain." The pain had started about a week prior to admission, predominantly right-sided. She had no associated fevers or chills. She had no urinary symptoms. Feeling somewhat fatigued and maybe some shortness of breath. The patient was found to have a right pleural effusion. She does have a history of COPD, diastolic heart failure, hypertension, hypothyroidism, gastroesophageal reflux disease, as well as prior history of esophageal varices prior to liver transplantation, and coronary artery disease. She did undergo a thoracentesis and was found to have a transudative infiltrate. She was seen by Pulmonary. Etiology of exudative infiltrate was unclear. The infiltrate was mostly lymphocytic. Cultures were negative. It was felt as though the pleural effusion was probably longstanding. Abdominal ultrasound was essentially unremarkable. She had a normal-appearing transplanted liver. She does have mild liver function tests with known hepatitis C. She has not undergone previous treatment. She has had recent PCR that does show continued infection with hepatitis C. The patient has had some constipation, had a bowel movement this morning, feeling somewhat better. She has no nausea, vomiting. She does report anorexia, but no difficulty eating. She was evaluated by Gastroenterology on a previous admission. She had an upper endoscopy at that time. This was about 6 months ago. Upper endoscopy was essentially unremarkable other than some portal hypertensive gastropathy. PAST MEDICAL HISTORY: 1. Remarkable for liver transplant about 20 years ago at [facility], history of hepatitis and cirrhosis secondary to hepatitis C (status post liver transplant) . 2. Chronic hepatitis C. 3. Chronic kidney disease. 4. Diastolic heart failure. 5. History of heart block with pacemaker, COPD, hypertension, history of psychiatric issues including anxiety, depression, and schizoaffective disorder, prior suicide attempts. 6. Chronically immunosuppressed for liver transplant. 7. Hypothyroidism. 8. Migraines. 9. GERD. 10. Prior history of GI bleed. 11. History of varices prior to liver transplant. 12. Prior history of ischemic colitis. 13. Coronary artery disease. PAST SURGICAL HISTORY: Remarkable for liver transplant, permanent pacemaker, right total knee replacement, arthroscopy, cholecystectomy, right ankle surgery , right wrist surgery, and nasal surgery. FAMILY HISTORY: Mother had some kind of liver disease. Father had DC. Otherwise noncontributory as per Chief Complaint. SOCIAL HISTORY: Resides at [facility]. Does have a history of cigarette smoking, tobacco use. No history of illicit drugs. ALLERGIES: To sumatriptan, dextroamphetamine, gabapentin, temazepam. REVIEW OF SYSTEMS: Negative for 10 systems other than mentioned in HPI. MEDICATION LIST: Tylenol, Proventil, Ventolin, Norvasc, vitamin C, dulcolax, Fiorinal, calcium, Coreg, vitamin D, Catapres, Colace, ferrous sulfate, Prozac, folic acid, Neurontin, Levsin, Synthroid, Zestril, Ativan p.r.n., metoprolol, oxycodone, pantoprazole, Phenergan, Seroquel, Prograf, vitamin D, Topamax, trazodone, and Ambien. PHYSICAL EXAM: GENERAL APPEARANCE: Very pleasant, elderly woman lying in bed in no acute distress. VITAL SIGNS: 160/78, heart rate 71, respiratory rate 16 , 98% sat on room air, 36.4, afebrile. HEENT: Normocephalic, atraumatic. EOMI. NECK: Supple. No cervical adenopathy. Mucous membranes moist. No thyromegaly. LUNGS: Clear. Some decreased breath sounds at the right base. ABDOMEN: Large chevron scar, soft, nontender. EXTREMITIES: Without clubbing, cyanosis, edema. NEURO: Nonfocal. SKIN: Warm, dry, intact. PSYCH: Alert and oriented, somewhat anxious, but normal affect. LABORATORY/IMAGING DATA: Hemoglobin of 9.4, hematocrit 28.4. Serum chemistries : Serum sodium 133, potassium 4.9, chloride 101, CO2 21, BUN 25, creatinine 1.6 , PT of 14.8, INR 1.14, PTT of 29.2. Previous HCV RNA is positive 978,000 International Units per mL. Abdominal ultrasound with Dopplers, hepatic veins, and artery widely patent. Main portal vein is patent. The liver is unremarkable. Mild heterogenicity. CT scan of the abdomen: Large right pleural effusion, small amount of fluid in the abdomen undetermined etiology, otherwise unremarkable. IMPRESSION: 72-year-old woman with multiple medical problems, history of liver transplant on immunosuppressive drugs, history of hepatitis C with persistent infection. Admitted to the hospital with right-sided chest pain, back pain with finding of a right pleural effusion of unclear significance. She does report some intermittent abdominal pain with some constipation. She has had a recent upper endoscopy that was essentially unremarkable with the finding of portal hypertensive gastropathy. This changes from previous history of portal hypertension. No acute new changes. Suspect patient's symptoms are related to underlying functional bowel, irritable bowel, constipation, anxiety. RECOMMENDATIONS: 1. High-fiber diet. 2. MiraLAX 17 g daily. 3. Patient needs to follow up with hemmer automatic regarding a history of persistent hepatitis C infection and liver transplant. Thank you for allowing me to participate in the care of this patient. /[id number]/MODL MTDD
--- NOTE | 2017-12-13 12:51 | SOAPPROG ---
SOAP Progress Note Assessment/Plan: Assessment/plan: * Pleural effusion-exudative lymphocytic predominant with low pH. Etiology which is unclear at this time, though possible this is a pleural effusion of long-standing. Chest x-ray clear. Abdominal ultrasound shows no apparent ascitic fluid * History of liver transplantation for hepatitis-C * Chronic renal insufficiency * Diastolic heart failure * Chronic obstructive pulmonary disease * Chronic immune suppression * Coronary artery disease * Disposition-home soon Subjective: Comfortable. Denies any dyspnea. Objective: Vital Signs Temp Pulse Resp BP Pulse Ox 37.0 C 83 14 129/73 H 91 L 12/13/17 12:00 12/13/17 12:36 12/13/17 12:00 12/13/17 12:36 12/13/17 12:00 Microbiology 12/09/17 15:07 Gram Stain - Final Thoracic Fluid - Aspirate Body Fluid Culture - Final Laboratory Results 12/13/17 05:55 12/13/17 05:55 12/12/17 12/13/17 12/14/17 05:59 05:59 05:59 Intake Total 1500 1210 Balance 1500 1210 PT 14.8 SEC (12.0-15.0) 12/09/17 09:45 INR 1.14 (0.83-1.16) 12/09/17 09:45 - Time Spent With Patient Time Spent With Patient: 25 min of time spent with patient, over 1/2 involved with coordination of care or counseling Physical Exam - Physical Exam General Appearance: alert, no apparent distress EENT: PERRL/EOMI Neck: non-tender, full range of motion, supple, normal inspection Respiratory: chest non-tender, lungs clear, normal breath sounds Cardiac/Chest: normal peripheral pulses, regular rate, rhythm Abdomen: normal bowel sounds, non-tender, soft Pelvic Exam: deferred Rectal: deferred Skin: normal color, warm/dry Extremities: normal range of motion, non-tender, normal inspection, normal capillary refill Neuro/Psych: alert ICD10 Worksheet Patient Problems: Problems Problem Status Onset Hyponatremia Acute Leukopenia Acute Pleural effusion, right Acute Urinary tract infection Acute Adjustment disorder with depressed mood Active Acute bronchitis with chronic obstructive pulmonary disease (COPD) Acute Acute on chronic renal insufficiency Acute Bronchitis Acute Chest pain Acute Chest pain Acute Chest pain in adult Acute Chronic Disease Mgmt/Transitional Care Acute Chronic obstructive pulmonary disease with acute exacerbation Acute Chronic renal insufficiency Acute Colitis Acute Cough Acute Dehydration Acute Elevated d-dimer Acute Knee effusion Acute Leg cramping Acute Migraine Acute Multiple falls Acute Nausea & vomiting Acute Osteoarthritis of right knee Acute Pneumonia Acute Renal failure (ARF), acute on chronic Acute Right knee pain Acute Sedated Acute Shortness of breath Acute Vomiting Acute Weakness Acute
[2017-12-13] MEDS: GABAPENTIN 300 MG CAP PO SCH (21:10)
[2017-12-13] MEDS: PATCH REMOVAL 1 EA PATCH TD SCH (21:15)
[2017-12-14] MEDS: oxyCODONE IR 5 MG TAB PO PRN ×2 (05:32→09:46)
[2017-12-14] MEDS: LEVOTHYROXINE 75 MCG TAB PO SCH (05:32)
[2017-12-14] MEDS ORDERED: COSYNTROPIN 0.25 MG/2 ML SYRINGE IVP ONE (06:00)
[2017-12-14] MEDS: FLUoxetine 20 MG CAP PO SCH (07:54)
[2017-12-14] MEDS: CARVEDILOL 25 MG TAB PO SCH (07:54)
[2017-12-14] MEDS: MULTIVITAMINS W-MINERALS 1 EACH TAB PO SCH (07:54)
[2017-12-14] MEDS: PANTOPRAZOLE SODIUM 40 MG TAB PO SCH (07:54)
[2017-12-14] MEDS: CHOLECALCIFEROL VIT D3 2,000 UNITS TAB/CAP PO SCH (07:55)
[2017-12-14] MEDS: FOLIC ACID 1 MG TAB PO SCH (07:55)
[2017-12-14] MEDS: ASCORBIC ACID 500 MG TAB PO SCH (07:55)
[2017-12-14] MEDS: TOPIRAMATE 25 MG TAB PO SCH (07:55)
[2017-12-14] MEDS: CYANO/VITAMIN B12 1000 MCG TAB PO SCH (07:55)
[2017-12-14] MEDS: LIDOCAINE 4%/MENTHOL 1% PATCH TD SCH (07:55)
[2017-12-14] MEDS: FERROUS SULFATE 325 MG TAB PO SCH (07:55)
[2017-12-14] MEDS: TACROLIMUS ANHYDROUS 0.5 MG CAP PO SCH (07:55)
[2017-12-14] MEDS: THIAMINE HCL 100 MG TAB PO SCH (07:55)
[2017-12-14 08:11] VITALS: BP 81/67
--- NOTE | 2017-12-14 09:12 | HOSPPROG ---
Hospitalist Progress Note Assessment/Plan: 72y female with c/o flank pain. She is status post liver transplant with chronic immune suppression, chronic kidney disease . Unclear of the etiology of the patient's pleural effusion. #UTI, e coli -received full treatment #abdominal pain w associated back (flank) pain -CT shows free abdominal fluid -she has an abnormal hepatis region as well as splenomegaly - ultrasound shows no portal vein and splenic vein thrombosis, nothing acute -patient had a w/u for abdominal pain in July, is requesting another EGD, at that time it was noted she had gastritis, portal hypertensive gastropathy ( on coreg) -H pylori is negative #Pleural effusion/exudative (based on LDH and protein levels) -etiology unclear -s/p thoracentesis (400 ml removed) -gram stain shows no growth as of yet -reviewed w Dr Lee her care, his recommendation is if pleural fluid returns, he will see her and biopsy -Misty is requesting to see Dr Lee today. I spoke w him and he will see her today -thus far she has no growth in this fluid (AFB is pending and this will take some time) #Hyponatremia -Na 133 #anemia -overall stable #Hx liver tx with chronic immune suppression -lft's overall stable x for alk phos #pancytopenia -will have this monitored in the OP setting #COPD -no s/sx of acute exacerbation #Psychiatric issues -concerned this is affecting her, she is wanting multiple w/u #dizziness due to orthostasis -hesitant to start on Florinef due to hx of transplant -cortisol stim test does not indicate adrenal insufficiency #constipation -bowel protocol #Chronic kidney disease -her creat ranges from 1.5-2 -stable #Dispo -hopefully, later today, she will need to f/u with Dr Lee, reviewed Dr Marino's consult and appreciate him seeing her Subjective: Misty has a good appetite, dizziness is ongoing. Objective: Vital Signs Temp Pulse Resp BP Pulse Ox 35.6 C L 80 16 81/67 L 97 12/14/17 08:00 12/14/17 08:00 12/14/17 08:00 12/14/17 08:00 12/14/17 08:00 Laboratory Results 12/13/17 05:55 12/13/17 05:55 12/13/17 12/14/17 12/15/17 05:59 05:59 05:59 Intake Total 1210 400 Balance 1210 400 PT 14.8 SEC (12.0-15.0) 12/09/17 09:45 INR 1.14 (0.83-1.16) 12/09/17 09:45 - Physical Exam Constitutional: appears nourished, not in pain Eyes: PERRL Ears, Nose, Mouth, Throat: hearing normal Respiratory: no respiratory distress Gastrointestinal: normoactive bowel sounds Skin: warm Musculoskeletal: generalized weakness Neurologic: AAOx3 Psychiatric: interacting appropriately ICD10 Worksheet Patient Problems: Problems Problem Status Onset Hyponatremia Acute Leukopenia Acute Pleural effusion, right Acute Urinary tract infection Acute Adjustment disorder with depressed mood Active Acute bronchitis with chronic obstructive pulmonary disease (COPD) Acute Acute on chronic renal insufficiency Acute Bronchitis Acute Chest pain Acute Chest pain Acute Chest pain in adult Acute Chronic Disease Mgmt/Transitional Care Acute Chronic obstructive pulmonary disease with acute exacerbation Acute Chronic renal insufficiency Acute Colitis Acute Cough Acute Dehydration Acute Elevated d-dimer Acute Knee effusion Acute Leg cramping Acute Migraine Acute Multiple falls Acute Nausea & vomiting Acute Osteoarthritis of right knee Acute Pneumonia Acute Renal failure (ARF), acute on chronic Acute Right knee pain Acute Sedated Acute Shortness of breath Acute Vomiting Acute Weakness Acute
--- NOTE | 2017-12-14 09:30 | PDIAF ---
- Diagnosis Diagnosis: exudative pleural effusion, uti, orthostasis Code Status: Full Code - Medication Management Discharge Medications: Medications to Continue on Transfer Tacrolimus Anhydrous [Prograf 0.5 MG (*)] 0.5 mg PO BID@16 12/25/15 [Last Taken 02/12/17 08:00] Carvedilol [Coreg (*)] 12.5 mg PO BIDMEAL 08/14/16 [Last Taken 12/24/16 16:00] FLUoxetine [Prozac 20 MG (*)] 40 mg PO DAILY 08/14/16 [Last Taken 12/24/16] Cholecalciferol Vit D3 [Vitamin D3 2000 units tab (OTC)] 2,000 units PO DAILY [Last Taken 02/12/17] Hydroxyzine Pamoate [Vistaril] 50 mg PO Q8HRS PRN 12/25/16 [Last Taken 02/12/17] Levothyroxine [Synthroid 75 mcg (*)] 75 mcg PO DAILY06 12/25/16 [Last Taken ] Ondansetron Odt [Zofran Odt 4 mg (*)] 4 mg PO Q6HRS PRN 12/25/16 [Last Taken 07/25] Sennosides/Docusate Sodium [Senna-S Tablet] 1 each PO BID PRN 12/25/16 [Last Taken 02/08/17] Thiamine HCl 100 mg PO DAILY 12/25/16 [Last Taken 02/12/17] Tiotropium Inhaler [Spiriva Handihaler] 18 mcg IH DAILY 12/25/16 [Last Taken 01/22] Calcium Carbonate [Tums 500MG (*)] 1,000 mg PO BID PRN 02/06/17 [Last Taken ] Multivitamin with Minerals [Multiple Vitamin] 1 each PO DAILY 02/06/17 [Last Taken 02/12/17 09:00] Topiramate [Topamax 25MG (*)] 25 mg PO BID 02/06/17 [Last Taken 02/12/17 21:00] Ascorbic Acid [Vitamin C 500 mg (*)] 500 mg PO DAILY 08/03/17 [Last Taken Unknown] Bisacodyl [Dulcolax] 10 mg RC DAILY PRN 08/03/17 [Last Taken Unknown] Cyanocobalamin [Vitamin B12 (*)] 500 mcg PO DAILY 08/03/17 [Last Taken Unknown] Ferrous Sulfate [Ferrous Sulf 325 MG (*)] 325 mg PO TIDMEAL 08/03/17 [Last Taken Unknown] Gabapentin [Neurontin 300 MG (*)] 300 mg PO HS 08/03/17 [Last Taken Unknown] Omeprazole 20 mg PO BID #60 capsule. 08/04/17 [Last Taken Unknown] clonIDINE [Catapres (*)] 0.1 mg PO BID 11/05/17 [Last Taken Unknown] Aspirin EC [Aspirin EC 81 mg (*)] 81 mg PO DAILY 12/08/17 [Last Taken Unknown] Folic Acid 0.8 mg PO DAILY 12/08/17 [Last Taken Unknown] Promethazine HCl [Phenergan 25mg (*)] 25 mg PO Q6H PRN 12/08/17 [Last Taken Unknown] Simethicone [Gas Relief] 80 mg PO Q8H PRN 12/08/17 [Last Taken Unknown] amLODIPine BESYLATE [Norvasc 2.5 mg (*)] 2.5 mg PO DAILY 12/08/17 [Last Taken Unknown] traZODone [traZODone 150MG (*)] 75 mg PO HS 12/08/17 [Last Taken Unknown] Acetaminophen [Tylenol 325mg (*)] 650 mg PO Q4HRS PRN tab 12/14/17 [Last Taken Unknown] Lidocaine 4%/Menthol 1% [Icy Hot Lidocaine/Menthol 4%/1% Patch (*)] 1 patch TD DAILY patch 12/14/17 [Last Taken Unknown] Additional Medication Instructions: Hold norvasc, clonidine, and coreg if systolic is <110 Discharge Medications: Refer to the Discharge Home Medication list for PRN reason. - Orders Services needed: Physical Therapy, Occupational Therapy Isolation Type: None Diet Recommendation: no restrictions on diet Diet Texture: Regular Texture Diet Additional Instructions: Misty has ongoing low blood pressure in the morning but resolves quickly. At the senior living facility her primary care doctor consider stopping Vistaril , stopping Phenergan, and could consider decreasing her clonidine dose. If the patient becomes dizzy would recommend slowly to get out of bed. Her blood pressure drops when she goes to standing. Further follow up with Dr. Lee in regards to her pending labs from her pleural effusion. Call his office She will need a close follow-up appointment with her client renewal specialist who was involved with her liver transplant. If unable to see him, needs to see coating mixer for closer monitoring. Mag citrate was stopped due to kidney function - Labs/Radiology BMP Date: 12/27/17 CBC w/diff Date: 12/27/17 LFT Date: 12/27/17 - Follow Up Care Current Providers and Referrals: NONE *PRIMARY CARE P,. [Primary Care Provider] - Graeme Lee MD [Medical Doctor] -
[2017-12-14] MEDS: TIOTROPIUM INHALER 18 MCG/DOSE 5 DOSE/MDI IH SCH (09:34)
--- NOTE | 2017-12-14 09:49 | ASMTCMCOM ---
CM Note CM Note Notes: Patient discussed with Alissa Holt NP. She has been medically cleared for discharge back To [facility], call to Beryl's number which has been forwarded to director of assisted living. Awaiting return call to arrange transportation. Final orders via allscripts. RN has number to call report. Anticipate stretcher transport. Will do PCS form. CM available should other needs arise. Plan: return to [facility] Date Signed: 12/14/2017 09:48 AM Electronically Signed By:Annelise Gu RN
--- NOTE | 2017-12-14 09:50 | ASMTLACE ---
LACE Length of stay for Answers: 4-6 days current admission Acuity / Level of Answers: Yes Care: Did the patient have an inpatient admission? Comorbidities - select Answers: Congestive heart failure all that apply Other Notes: HTN # of Emergency department Answers: 3-4 visits in the last 6 months Social determinants Answers: History of substance abuse (ETOH, street drugs, prescription drugs, etc.) Mental health diagnosis (anxiety, depression, pers onality disorders, etc.) Score: 19 Date Signed: 12/14/2017 09:49 AM Electronically Signed By:Annelise Gu RN
--- NOTE | 2017-12-14 10:25 | GDS ---
[f rep st] DISCHARGE SUMMARY DISCHARGE DIAGNOSES: 1. Urinary tract infection. 2. Abdominal pain with associated back pain. 3. Pleural effusion, exudative. 4. Hyponatremia. 5. Anemia. 6. History of liver transplant with chronic immunosuppression. 7. Pancytopenia. 8. Chronic obstructive pulmonary disease. 9. Psychiatric issues. 10. Dizziness due to orthostasis. 11. Constipation. 12. Chronic kidney disease. CONSULTATIONS: 1. Dr. Nickolas Lee. 2. Dr. Cem Marino. HISTORY: Briefly, the patient is a 72-year-old female, who was admitted on December 08 with complaints of right-sided low back pain. On admission, she was complaining of radiating pain and was treated for a urinary tract infection. She was subsequently diagnosed with a large pleural effusion, which was tapped. She also had vague complaints of abdominal pain, was seen and evaluated by Dr. Marino. The recommendation is for her to follow up with her human resource internship. Throughout her stay she has slowly improved. She will be discharged back to [facility] today. HOSPITAL COURSE: 1. UTI. She was treated with ceftriaxone, resolved. 2. Abdominal pain with associated back pain. She had an ultrasound performed which showed no portal vein or splenic vein thrombosis, nothing acute. She had an EGD back in July. This was noted that she had gastritis. She also was noted to have portal hypertensive gastropathy and is on Coreg. H pylori was checked; this is negative. She is eating and drinking well today. 3. Pleural effusion. This is exudative based on her LDH and protein levels. Is still unclear the etiology. So far, her Gram stain shows no growth. She has a pending AFB. Have recommended that she follow up with Dr. Lee. 4. Hyponatremia. Sodium is 133. 5. Anemia, overall stable. 6. History of liver transplant with chronic immunosuppression. Her liver enzymes are overall stable except for alkaline phosphate which is elevated. This could be secondary from the antibiotics. Recommending that she follow up with human resource internship. 7. Pancytopenia, ongoing. 8. COPD. No signs or symptoms of acute exacerbation. 9. Psychiatric issues. I get concerned this is affecting her physically. 10. Dizziness. This is due to orthostasis. 11. Constipation, on bowel protocol. 12. Chronic kidney disease at her baseline. DISCHARGE CONDITION: Stable. VITAL SIGNS: Blood pressure is 142/85, heart rate of 81, respiratory rate 14, O2 sats on room air 96%, temperature 35.6 Celsius. MEDICATIONS AT DISCHARGE: Please see the EMR. DISCHARGE INSTRUCTIONS: 1. Recommendation is to hold multiple blood pressure medications if her blood pressure is low in the morning. 2. She is to follow up with Dr. Lee regarding pending labs from her pleural effusion. 3. She needs a followup appointment with human resource internship. 4. Mag citrate was stopped due to kidney function. Greater than 30 minutes discharge and coordinating her care. /[id number]/MODL MTDD
== END 2017-12-14 11:48 | DRG 690 ==
LOC: EDUNIT# → OBSVTOIN 16:23 → F3E 17:19
PROVIDERS: ADMIT Internal Medicine; ATTEND Internal Medicine
PROC: 02HV33Z Insertion of Infusion Device into Superior Vena Cava, Percutaneous Approach (ICD-10-PCS; principal; 2017-12-08)
PROC: 0W993ZZ Drainage of Right Pleural Cavity, Percutaneous Approach (ICD-10-PCS; 2017-12-09)
PROC: 0W993ZX Drainage of Right Pleural Cavity, Percutaneous Approach, Diagnostic (ICD-10-PCS; 2017-12-09)
DX: N39.0 Urinary tract infection, site not specified (principal); B96.20 Unspecified Escherichia coli [E. coli] as the cause of diseases classified elsewhere; J90 Pleural effusion, not elsewhere classified; E87.1 Hypo-osmolality and hyponatremia; I11.0 Hypertensive heart disease with heart failure; I50.30 Unspecified diastolic (congestive) heart failure; R42 Dizziness and giddiness; E03.9 Hypothyroidism, unspecified; N18.9 Chronic kidney disease, unspecified; K21.9 Gastro-esophageal reflux disease without esophagitis; J44.9 Chronic obstructive pulmonary disease, unspecified; K59.00 Constipation, unspecified; K31.89 Other diseases of stomach and duodenum; D64.9 Anemia, unspecified; F25.0 Schizoaffective disorder, bipolar type; Z95.0 Presence of cardiac pacemaker; Z86.19 Personal history of other infectious and parasitic diseases; Z94.4 Liver transplant status; Z96.659 Presence of unspecified artificial knee joint
CPT/HCPCS: 96374; 97116-GP; 97161-GP; 97165-GO; 97535-GO; C1751; G0378; G8978-GP-CJ; G8979-GP-CI; G8987-GO-CI; G8988-GO-CI; J0696; J0834; J1170; J2270; J2405

== ENCOUNTER → 2018-01-04 | Outpatient (CLI) | payer OTHER, MEDICAID | LOC: FIMAGING 14:38 | PROVIDERS: ATTEND Internal Medicine Hematology & Oncology | DX: R06.09 Other forms of dyspnea (principal) ==

== ENCOUNTER 2018-05-01 21:07 | Inpatient (IN) | payer OTHER, MEDICAID ==
[2018-05-01] MEDS ORDERED: NS 500 ML IV ONE (21:29)
--- NOTE | 2018-05-01 21:29 | EDPHY ---
H & P Time Seen by Provider: 05/01/18 21:12 HPI/ROS: Chief complaint. Near syncope, fall, left shoulder pain HPI. Patient is 72-year-old female here by EMS after a near syncopal episode and fall. She took a new medication today which was Abilify. She was standing and felt lightheaded and dizzy. She says she did not pass out completely but was lightheaded and dizzy enough that she fell. She hurt her left shoulder. Did not strike her head or lose conscious. Does not have neck or back pain. No chest pain or shortness of breath. She does have some nausea. No fever or cough. Pain to the left shoulder area ROS 10 systems were reviewed and negative with the exception of the elements mentioned in the history of present illness Past Medical/Surgical History: Past medical history hep C, liver transplant, CHF, kidney failure, hypertension , schizoaffective disorder, hypothyroid, pacemaker, previous thoracentesis Social History: Single, nonsmoker, no alcohol Smoking Status: Former smoker Physical Exam: General Appearance: Alert pleasant well-developed female moderate distress. Vital signs wounds are stable Eyes: Pupils equal and round no pallor or injection. ENT, Mouth: Mucous membranes are moist. Respiratory: There are no retractions, lungs are clear to auscultation. Cardiovascular: Regular rate and rhythm. Gastrointestinal: Abdomen is soft and nontender, no masses, bowel sounds normal. Neurological: Awake and alert, sensory and motor exams grossly normal. Skin: Warm and dry, no rashes. Musculoskeletal: Neck is supple and nontender. No T, L, S spine tenderness Extremities ecchymosis to the anterior left shoulder. Tenderness just below the the shoulder joint. Nerve testing shows intact radial and ulnar and median nerve Psychiatric: Patient is oriented X 3, there is no agitation. Constitutional: Initial Vital Signs Temperature (C) 36.5 C 05/01/18 21:10 Heart Rate 76 05/01/18 21:10 Respiratory Rate 16 05/01/18 21:10 Blood Pressure 148/84 H 05/01/18 21:10 O2 Sat (%) 96 05/01/18 21:10 O2 Delivery Mode Room Air Allergies/Adverse Reactions: sumatriptan [From Imitrex] Allergy (Intermediate, Verified 02/09/17 12:31) palpitations dextroamphetamine [Dextroamphetamine] Allergy (Unknown, Verified 02/09/17 12:31) JITTERY gabapentin [Gabapentin] Allergy (Unknown, Verified 02/09/17 12:31) JITTERY temazepam [Temazepam] Allergy (Unknown, Verified 02/09/17 12:31) AMNESIA sumatriptan succinate [From Imitrex] Allergy (Verified 02/09/17 12:31) Home Medications: Medication Instructions Recorded Tacrolimus Anhydrous [Prograf 0.5 0.5 mg PO BID@08,16 12/24/ MG (*)] Carvedilol [Coreg (*)] 12.5 mg PO BIDMEAL 08/14/16 FLUoxetine [Prozac 20 MG (*)] 40 mg PO DAILY 08/14/16 Cholecalciferol Vit D3 [Vitamin D3 2,000 units PO DAILY 12/25/16 2000 units tab (OTC)] Hydroxyzine Pamoate [Vistaril] 50 mg PO Q8HRS PRN 12/25/16 Levothyroxine [Synthroid 75 mcg 75 mcg PO DAILY06 12/25/16 (*)] Ondansetron Odt [Zofran Odt 4 mg 4 mg PO Q6HRS PRN 12/25/16 (*)] Sennosides/Docusate Sodium 1 each PO BID PRN 12/25/16 [Senna-S Tablet] Thiamine HCl 100 mg PO DAILY 12/25/16 Tiotropium Inhaler [Spiriva 18 mcg IH DAILY 12/25/16 Handihaler] Calcium Carbonate [Tums 500MG (*)] 1,000 mg PO BID PRN 02/06/17 Multivitamin with Minerals 1 each PO DAILY 02/06/17 [Multiple Vitamin] Topiramate [Topamax 25MG (*)] 25 mg PO BID 02/06/17 Ascorbic Acid [Vitamin C 500 mg 500 mg PO DAILY 08/03/17 (*)] Bisacodyl [Dulcolax] 10 mg RC DAILY PRN 08/03/17 Cyanocobalamin [Vitamin B12 (*)] 500 mcg PO DAILY 08/03/17 Ferrous Sulfate [Ferrous Sulf 325 325 mg PO TIDMEAL 08/03/17 MG (*)] Gabapentin [Neurontin 300 MG (*)] 300 mg PO HS 08/03/17 Omeprazole 20 mg PO BID #60 capsule. 08/04/17 clonIDINE [Catapres (*)] 0.1 mg PO BID 11/05/17 Aspirin EC [Aspirin EC 81 mg (*)] 81 mg PO DAILY 12/08/17 Folic Acid 0.8 mg PO DAILY 12/08/17 Promethazine HCl [Phenergan 25mg 25 mg PO Q6H PRN 12/08/17 (*)] Simethicone [Gas Relief] 80 mg PO Q8H PRN 12/08/17 amLODIPine BESYLATE [Norvasc 2.5 2.5 mg PO DAILY 12/08/17 mg (*)] traZODone [traZODone 150MG (*)] 75 mg PO HS 12/08/17 Acetaminophen [Tylenol 325mg (*)] 650 mg PO Q4HRS PRN tab 12/14/17 Lidocaine 4%/Menthol 1% [Icy Hot 1 patch TD DAILY patch 12/14/17 Lidocaine/Menthol 4%/1% Patch (*)] Medical Decision Making - Diagnostics EKG Interpretation: EKG interpreted by me shows paced rhythm normal axis. QRS is normal there is no significant ST elevation or depression. There is no arrhythmia. The rate is 68 Imaging Results: Imaging Impressions Chest X-Ray 05/01/18 21:29 Impression: Negative frontal chest radiograph. 3 Views Left Shoulder. Clinical Indications: Pain following trauma. Findings: There is a comminuted, displaced and mildly impacted fracture of the proximal shaft of the left humerus. The left humeral head articulates normally with the glenoid. Impression: Left humeral fracture. Shoulder X-Ray 05/01/18 21:30 Impression: Negative frontal chest radiograph. 3 Views Left Shoulder. Clinical Indications: Pain following trauma. Findings: There is a comminuted, displaced and mildly impacted fracture of the proximal shaft of the left humerus. The left humeral head articulates normally with the glenoid. Impression: Left humeral fracture. X-ray left shoulder shows a comminuted mildly displaced fracture of the proximal shaft left humerus. Chest x-ray interpreted by me is normal Procedures: IV normal saline, morphine for pain Subsequently Dilaudid for pain ED Course/Re-evaluation: Patient is placed in a sling after discussion and consultation with Dr. Agudelo for Orthopedics Consult and discussed the case with Dr. Roldan hospitalist, who agrees to the admission Differential Diagnosis: Patient had near syncope. I considered a arrhythmia, electrolyte abnormality. She has a fracture of the proximal humerus with intact nerve function - Data Points Laboratory Results: Laboratory Results 05/01/18 21:22 05/01/18 21:22 05/01/18 05/01/18 05/01/18 21:37 21:22 21:22 WBC RBC Hgb Hct MCV MCH MCHC RDW Plt Count MPV Neut % (Auto) Lymph % (Auto) [place] % (Auto) Eos % (Auto) Baso % (Auto) Nucleat RBC Rel Count Absolute Neuts (auto) Absolute Lymphs (auto) Absolute Monos (auto) Absolute Eos (auto) Absolute Basos (auto) Absolute Nucleated RBC Immature Gran % Immature Gran # Platelet Estimate PT 13.3 SEC SEC (12.0-15.0) INR 0.99 (0.83-1.16) APTT 27.1 SEC SEC (23.0-38.0) Sodium 131 mEq/L L mEq/L (135-145) Potassium 5.4 mEq/L H mEq/L (3.3-5.0) Chloride 101 mEq/L mEq/L (97-110) Carbon Dioxide 17 mEq/l L mEq/l (22-31) Anion Gap 13 mEq/L mEq/L (6-14) BUN 36 mg/dL H mg/dL (7-23) Creatinine 1.8 mg/dL H mg/dL (0.6-1.0) Estimated GFR 28 Glucose 106 mg/dL H mg/dL (70-100) Calcium 8.9 mg/dL mg/dL (8.5-10.4) POC Troponin I 0.01 ng/mL ng/mL (0.00-0.08) Specimen Hemolysis 102 05/01/18 21:22 WBC 1.66 10^3/uL L 10^3/uL (3.80-9.50) RBC 3.32 10^6/uL L 10^6/uL (4.18-5.33) Hgb 11.3 g/dL L g/dL (12.6-16.3) Hct 33.8 % L % (38.0-47.0) MCV 101.8 fL H fL (81.5-99.8) MCH 34.0 pg pg (27.9-34.1) MCHC 33.4 g/dL g/dL (32.4-36.7) RDW 13.6 % % (11.5-15.2) Plt Count 66 10^3/uL L 10^3/uL (150-400) MPV 10.6 fL fL (8.7-11.7) Neut % (Auto) Pending Lymph % (Auto) Pending [place] % (Auto) Pending Eos % (Auto) Pending Baso % (Auto) Pending Nucleat RBC Rel Count Pending Absolute Neuts (auto) Pending Absolute Lymphs (auto) Pending Absolute Monos (auto) Pending Absolute Eos (auto) Pending Absolute Basos (auto) Pending Absolute Nucleated RBC Pending Immature Gran % Pending Immature Gran # Pending Platelet Estimate Pending PT INR APTT Sodium Potassium Chloride Carbon Dioxide Anion Gap BUN Creatinine Estimated GFR Glucose Calcium POC Troponin I Specimen Hemolysis Medications Given: Discontinued Medications Hydromorphone HCl (Dilaudid) 1 mg IVP EDNOW ONE Stop: 05/01/18 22:36 Last Admin: 05/01/18 22:36 Dose: 1 mg Sodium Chloride (Ns) 500 mls @ 0 mls/hr IV EDNOW ONE; Wide Open PRN Reason: Protocol Stop: 05/01/18 21:30 Last Admin: 05/01/18 21:37 Dose: 500 mls Morphine Sulfate (Morphine) 6 mg IVP EDNOW ONE Stop: 05/01/18 21:31 Last Admin: 05/01/18 21:37 Dose: 6 mg Point of Care Test Results: Chemistry 05/01/18 21:37 POC Troponin I 0.01 ng/mL ng/mL (0.00-0.08) Departure - Departure Disposition: [facility] Inpatient Acute Clinical Impression: Near syncope Closed left humeral fracture Qualifiers: Encounter type: initial encounter Humerus Location: proximal Fracture alignment : displaced Condition: Fair Referrals: Patient,NotPresent [Unknown] - As per Instructions
[2018-05-01 21:46] LABS: PLATELET COUNT 66 10^3/uL (150-400)
[2018-05-01 21:52] LABS: INR 0.99 (0.83-1.16); PROTIME(PATIENT) 13.3 SEC (12.0-15.0)
[2018-05-01] MEDS ORDERED: HYDROmorphONE/DILAUDID 1 MG/ML INJ ONE (22:33)
[2018-05-01] MEDS ORDERED: HYDROmorphONE/DILAUDID 2 MG/ML INJ IVP ONE (22:35)
[2018-05-01] MEDS ORDERED: ACETAMINOPHEN 325 MG TAB PO PRN (23:12)
[2018-05-01] MEDS ORDERED: ONDANSETRON DISINTEGRATING 4 MG TAB PO PRN (23:12)
[2018-05-01] MEDS ORDERED: ALBUTEROL 3 ML DEYVIAL IH PRN (23:12)
--- NOTE | 2018-05-01 23:43 | CPEKG ---
Test Reason : OPEN Blood Pressure : / mmHG Vent. Rate : 068 BPM Atrial Rate : 068 BPM P-R Int : 202 ms QRS Dur : 084 ms QT Int : 459 ms P-R-T Axes : 042 035 078 degrees QTc Int : 489 ms Atrial-paced rhythm Borderline prolonged QT interval Confirmed by Toni Dunbar ([id number]) on 05/01/2018 11:42:55 PM Referred By: Confirmed By:Toni Dunbar
[2018-05-02] MEDS: ONDANSETRON 4 MG/2 ML VIAL IVP PRN ×2 (00:26→13:17)
[2018-05-02] MEDS: HYDROmorphONE/DILAUDID 1 MG/ML INJ IVP PRN ×5 (00:27→20:47)
[2018-05-02] MEDS: NS 1,000 ML IV SCH ×2 (00:31→17:23)
[2018-05-02] MEDS ORDERED: HYDROCODONE/APAP 5/325 TAB ONE (01:44)
[2018-05-02] MEDS: HYDROCODONE/APAP 5/325 TAB PO PRN ×3 (01:46→23:38)
[2018-05-02] MEDS ORDERED: CYCLOBENZAPRINE 10 MG TAB ONE (03:31)
[2018-05-02] MEDS: CYCLOBENZAPRINE 10 MG TAB PO PRN ×2 (03:34→10:32)
[2018-05-02 05:54] LABS: PLATELET COUNT 54 10^3/uL (150-400)
[2018-05-02] MEDS ORDERED: HYDROmorphONE/DILAUDID 1 MG/ML INJ IVP PRN ×2 (07:42→17:00)
--- NOTE | 2018-05-02 08:29 | PDGENHP ---
History and Physical - Chief Complaint Lightheadedness and fall left shoulder pain - History of Present Illness Source-patient able to provide history appears reliable. EMR was reviewed and case discussed with ED provider. HPI - pleasant 72-year-old female with past medical history significant for HCV status post liver transplant, CHF, CKD, HTN, schizoaffective disorder, hypothyroidism, pacer, migraine headaches, COPD who presents emergency department today following a near syncopal episode at her foot living facility [facility]. Patient landed on her left arm she denies any head injury or loss of consciousness. She denies any chest pain or palpitations. She was experiencing lightheadedness at the time. She states she was helping her roommate by lifting a jug of water to food server when she turned and developed lightheadedness without any vertiginous type symptoms. Patient states she developed some nausea and dizziness and fell. Patient reports today she has had decreased appetite and oral intake. She is concerned that Abilify has resulted in some side effects however she has only taken 1 dose. Patient denies any fevers or chills. Again decreased appetite today. No lower extremity edema cough shortness of breath. Patient denies any dysuria hematuria. Nausea has since resolved since arrival to the ED. History Information - Allergies/Home Medication List Allergies/Adverse Reactions: sumatriptan [From Imitrex] Allergy (Intermediate, Verified 02/09/17 12:31) palpitations dextroamphetamine [Dextroamphetamine] Allergy (Unknown, Verified 02/09/17 12:31) JITTERY gabapentin [Gabapentin] Allergy (Unknown, Verified 02/09/17 12:31) JITTERY temazepam [Temazepam] Allergy (Unknown, Verified 02/09/17 12:31) AMNESIA sumatriptan succinate [From Imitrex] Allergy (Verified 02/09/17 12:31) Home Medications: Tacrolimus Anhydrous [Prograf 0.5 MG (*)] 0.5 mg PO BID@08,16 12/25/15 [Last Taken 02/12/17 08:00] Carvedilol [Coreg (*)] 12.5 mg PO BIDMEAL 08/14/16 [Last Taken 12/24/16 16:00] FLUoxetine [Prozac 20 MG (*)] 40 mg PO DAILY 08/14/16 [Last Taken 12/24/16] Cholecalciferol Vit D3 [Vitamin D3 2000 units tab (OTC)] 2,000 units PO DAILY [Last Taken 02/12/17] Hydroxyzine Pamoate [Vistaril] 50 mg PO Q8HRS PRN 12/25/16 [Last Taken 02/12/17] Levothyroxine [Synthroid 75 mcg (*)] 75 mcg PO DAILY06 12/25/16 [Last Taken ] Ondansetron Odt [Zofran Odt 4 mg (*)] 4 mg PO Q6HRS PRN 12/25/16 [Last Taken 07/25] Sennosides/Docusate Sodium [Senna-S Tablet] 1 each PO BID PRN 12/25/16 [Last Taken 02/08/17] Thiamine HCl 100 mg PO DAILY 12/25/16 [Last Taken 02/12/17] Tiotropium Inhaler [Spiriva Handihaler] 18 mcg IH DAILY 12/25/16 [Last Taken 01/22] Calcium Carbonate [Tums 500MG (*)] 1,000 mg PO BID PRN 02/06/17 [Last Taken ] Multivitamin with Minerals [Multiple Vitamin] 1 each PO DAILY 02/06/17 [Last Taken 02/12/17 09:00] Topiramate [Topamax 25MG (*)] 25 mg PO BID 02/06/17 [Last Taken 02/12/17 21:00] Ascorbic Acid [Vitamin C 500 mg (*)] 500 mg PO DAILY 08/03/17 [Last Taken Unknown] Bisacodyl [Dulcolax] 10 mg RC DAILY PRN 08/03/17 [Last Taken Unknown] Cyanocobalamin [Vitamin B12 (*)] 500 mcg PO DAILY 08/03/17 [Last Taken Unknown] Ferrous Sulfate [Ferrous Sulf 325 MG (*)] 325 mg PO TIDMEAL 08/03/17 [Last Taken Unknown] Gabapentin [Neurontin 300 MG (*)] 300 mg PO HS 08/03/17 [Last Taken Unknown] clonIDINE [Catapres (*)] 0.1 mg PO BID 11/05/17 [Last Taken Unknown] Aspirin EC [Aspirin EC 81 mg (*)] 81 mg PO DAILY 12/08/17 [Last Taken Unknown] Folic Acid 0.8 mg PO DAILY 12/08/17 [Last Taken Unknown] Promethazine HCl [Phenergan 25mg (*)] 25 mg PO Q6H PRN 12/08/17 [Last Taken Unknown] Simethicone [Gas Relief] 80 mg PO Q8H PRN 12/08/17 [Last Taken Unknown] amLODIPine BESYLATE [Norvasc 2.5 mg (*)] 2.5 mg PO DAILY 12/08/17 [Last Taken Unknown] traZODone [traZODone 150MG (*)] 75 mg PO HS 12/08/17 [Last Taken Unknown] I have personally reviewed and updated: family history, medical history, social history, surgical history - Past Medical History CHF (diastolic heart failure), COPD, GERD, hypertension, liver disease (hep c s/ p liver tx), migraines, psychiatric history Additional medical history: CKD, h/o HCV and liver transplant 1996, h/o heart block with pacemaker, chronic immunosuppression, depression/anxiety, schizoaffective disorder (per EMR), 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 Thoracentesis. Cholecystectomy prior to her liver transplant. Right total knee arthroplasty. Right total ankle - Family History Additional family history: Negative for CAD. Negative for osteoporosis - Social History Smoking Status: Former smoker Tobacco Use: Cigarettes Alcohol Use: None Drug Use: None Additional social history: Patient currently resides at [facility]. Cor status-full. Review of Systems Review of Systems: ROS: 10pt was reviewed & negative except for what was stated in HPI & below Constitutional: Reports: no symptoms. Denies: chills, fever, recent illness EENMT: Denies: nose congestion, sore throat, throat swelling Cardiac: Reports: lightheadedness, syncope (Presyncope see HPI). Denies: chest pain, palpitations Respiratory: Reports: no symptoms. Denies: cough, shortness of breath Gastrointestinal: Reports: nausea. Denies: vomitting, black stools, rectal bleeding, abdominal pain, diarrhea Genitourinary: Reports: no symptoms Muscolosketal: Reports: other (Severe left arm pain that is patient is in a sling) Skin: Reports: no symptoms Neurological: Reports: numbness (Patient reports low bit numbness tingling in the anterior upper arm. Worse with movement of her left arm.). Denies: emotional problems, weakness Physical Exam Physical Exam: Selected Entries 05/01/18 21:10 Blood Pressure Automatic Method Heart Rate 76 Respiratory 16 Rate O2 Sat (%) 96 Temperature (C) 36.5 C Blood Pressure 148/84 H Mean Arterial 105 H Pressure (MAP) O2 Delivery Room Air Mode Temperature Oral Source Temp Pulse Resp BP Pulse Ox 36.6 C 64 16 133/52 H 99 05/02/18 02:00 05/02/18 04:00 05/02/18 04:00 05/02/18 04:00 05/02/18 04:00 O2 (L/minute) 2 Constitutional: no apparent distress, chronically ill appearing, uncomfortable, other (Pleasant frail elderly female is lying quietly in bed. She is intermittently grimaces with pain complaining of left upper arm pain.) Eyes: PERRL (Slightly decreased reactivity light bilaterally but symmetric.), anicteric sclera, EOMI, scleral injection Ears, Nose, Mouth, Throat: moist mucous membranes, No hearing normal, No poor dentition Cardiovascular: regular rate and rhythym, systolic murmur, pulses symmetric bilaterally, No edema Peripheral Pulses: 1+: dorsalis-pedis (R), dorsalis-pedis (L) Respiratory: no respiratory distress, no rales or rhonchi, clear to auscultation , reduced air movement (Decreased inspiratory effort.), No expiratory wheeze, No inspiratory crackles, No respiratory distress Gastrointestinal: normoactive bowel sounds, soft, non-tender abdomen, No distension Genitourinary: no bladder tenderness, No buchanan in urethra Skin: warm, normal color, no rashes or abrasions Musculoskeletal: full muscle strength, no muscle tenderness, pain with ROM ( Left upper arm), generalized weakness Psychiatric: interacting appropriately, not encephalopathic, anxious, other ( Patient and thought process content and questions appropriate. Pleasant and cooperative.), No poor insight, No poor judgement, No poor memory Lab Data & Imaging Review 05/02/18 05:45 05/02/18 05:45 WBC 3.07 10^3/uL (3.80-9.50) L 05/02/18 05:45 RBC 2.88 10^6/uL (4.18-5.33) L 05/02/18 05:45 Hgb 9.9 g/dL (12.6-16.3) L 05/02/18 05:45 Hct 29.8 % (38.0-47.0) L 05/02/18 05:45 MCV 103.5 fL (81.5-99.8) H 05/02/18 05:45 MCH 34.4 pg (27.9-34.1) H 05/02/18 05:45 MCHC 33.2 g/dL (32.4-36.7) 05/02/18 05:45 RDW 13.5 % (11.5-15.2) 05/02/18 05:45 Plt Count 54 10^3/uL (150-400) L 05/02/18 05:45 MPV 10.9 fL (8.7-11.7) 05/02/18 05:45 Neut % (Auto) 65.5 % (39.3-74.2) 05/02/18 05:45 Lymph % (Auto) 27.7 % (15.0-45.0) 05/02/18 05:45 [place] % (Auto) 3.9 % (4.5-13.0) L 05/02/18 05:45 Eos % (Auto) 2.3 % (0.6-7.6) 05/02/18 05:45 Baso % (Auto) 0.3 % (0.3-1.7) 05/02/18 05:45 Nucleat RBC Rel Count 0.0 % (0.0-0.2) 05/02/18 05:45 Absolute Neuts (auto) 2.01 10^3/uL (1.70-6.50) 05/02/18 05:45 Absolute Lymphs (auto) 0.85 10^3/uL (1.00-3.00) L 05/02/18 05:45 Absolute Monos (auto) 0.12 10^3/uL (0.30-0.80) L 05/02/18 05:45 Absolute Eos (auto) 0.07 10^3/uL (0.03-0.40) 05/02/18 05:45 Absolute Basos (auto) 0.01 10^3/uL (0.02-0.10) L 05/02/18 05:45 Absolute Nucleated RBC 0.00 10^3/uL (0-0.01) 05/02/18 05:45 Immature Gran % 0.3 % (0.0-1.1) 05/02/18 05:45 Immature Gran # 0.01 10^3/uL (0.00-0.10) 05/02/18 05:45 RBC/WBC/PLT Morphology TNP 05/01/18 21:22 Platelet Estimate TNP 05/01/18 21:22 PT 13.3 SEC (12.0-15.0) 05/01/18 21:22 INR 0.99 (0.83-1.16) 05/01/18 21:22 APTT 27.1 SEC (23.0-38.0) 05/01/18 21:22 Sodium 133 mEq/L (135-145) L 05/02/18 05:45 Potassium 5.7 mEq/L (3.3-5.0) H 05/02/18 05:45 Chloride 105 mEq/L (97-110) 05/02/18 05:45 Carbon Dioxide 20 mEq/l (22-31) L 05/02/18 05:45 Anion Gap 8 mEq/L (6-14) 05/02/18 05:45 BUN 34 mg/dL (7-23) H 05/02/18 05:45 Creatinine 1.8 mg/dL (0.6-1.0) H 05/02/18 05:45 Estimated GFR 28 05/02/18 05:45 Glucose 108 mg/dL (70-100) H 05/02/18 05:45 Calcium 8.4 mg/dL (8.5-10.4) L 05/02/18 05:45 Magnesium 1.6 mg/dL (1.6-2.3) 05/02/18 05:45 POC Troponin I 0.01 ng/mL (0.00-0.08) 05/01/18 21:37 Specimen Hemolysis 102 05/01/18 21:22 Imaging Review: Portable Chest May 01, 2018 at 2110 hours Clinical Indications: Chest pain; history of recent fall. [place] to previous PA and lateral chest January 04, 2018. Findings: Frontal view (only) shows clear lungs and no masses. Heart size and pulmonary vessels appear normal. A bipolar cardiac pacemaker is in stable position. No evidence of pleural effusion. Impression: Negative frontal chest radiograph. 3 Views Left Shoulder. Clinical Indications: Pain following trauma. Findings: There is a comminuted, displaced and mildly impacted fracture of the proximal shaft of the left humerus. The left humeral head articulates normally with the glenoid. Impression: Left humeral fracture. Dictated By: Yovani Lombardi MD Visualized and Interpreted Chest x-ray results: Yes Chest X-Ray results: infiltrate Visualized and Interpreted imaging results: Yes Visualized and Interpreted EKG results: Yes EKG additional interpertation: A paced rhythm 60s 70s. T-wave inversion aVL septal leads. QTC 470. Assessment & Plan Assessment: 72-year-old female with history of bradycardia status post permanent pacemaker, CHF, CKD, historu HCV status post liver transplant on immunosuppressive therapy , HTN, the hypothyroidism, schizoaffective disorder presents emergency department today following a near syncopal episode and fall onto the left arm with subsequent pain. #Closed left humeral fracture (Acute) - orthopedics service has been consulted from the emergency department will plan to see the patient this morning. They requested the patient be placed in a sling. Patient is struggling with the sling as movement in her arm causes her moderate distress with pain. Patient will be made NPO after midnight pending evaluation with Orthopedic surgery. #Near syncope (Acute) - the patient with the near syncopal episode and she is concerned that her 1 dose of Abilify potentially could be contributing to this however I suspect that she has some hypovolemia ongoing with her history of declining oral intake all day today. Additionally patient states she has not had her pacer evaluated or followed up with Cardiology in the last 3 years. Will order a interrogation for this morning. #Pancytopenia - for likely chronic in nature in setting of history of liver transplant and chronic kidney disease. Will monitor CBC and BMP. #Acute on chronic CKD 3- patient's baseline appears to be 1.5-1.7. IV fluids for some gentle hydration of noted above. #Hyponatremia - possibly secondary to hypovolemia patient does not appear overloaded. IV fluids for some gentle IV fluid hydration monitoring status closely. #Hyperkalemia - mildly elevated. IV fluids as noted above. Repeat potassium. Treatment if it escalated Chronic medical issues-resume home medications when med rec is available. #Liver transplant on immunosuppression - continue home medications #History CHF compensated - monitor closely with fluids #Chronic kidney disease stage 3 baseline creatinine 1.5-1.7 #Hypothyroidism - continue replacement #Schizoaffective disorder versus anxiety/depression - continue Prozac and trazodone #Benign essential hypertension-carvedilol #Bradycardia with pacer placement - interrogation as noted above. #Migraine headache-stable Topamax #COPD - continue patient's inhalers. No evidence of exacerbation. #GERD - PPI per formulary #Osteoarthritis - supportive care. FEN - patient be NPO after midnight. On gentle supplemental IV fluid hydration overnight. Electrolyte monitoring replacement if needed. PPX-SCDs. Holding anticoagulation pending ortho eval. Cor status-full Disposition patient admitted to observation status at this time pending Orthopedic recommendations and further evaluation of patient's presyncopal episode.
--- NOTE | 2018-05-02 13:12 | GCON ---
I was asked to see the patient by the emergency room physician for a diagnosis of left humerus fracture. I have seen and evaluated the patient personally. PHYSICAL EXAMINATION: EXTREMITIES: Patient has pain and tenderness to palpation along the humeral shaft. She is grossly neurologically intact distally. She is able to move, flexion and extend the wrist. She has no gross motor deficits visualized. IMAGING: I reviewed the images, which demonstrate humeral shaft fracture of the proximal third of the humerus and fracture. IMPRESSION: Left humerus fracture. PLAN: From my perspective, this is fairly nondisplaced and will probably benefit from conservative treatment. I am recommending the patient be left in sling, follow up in my office in 1 to 2 weeks. We will give her information from my office and will communicate with her as an outpatient. She is admitted to the hospitalist service and does not require any further additional urgent orthopedic intervention. /[id number]/MODL MTDD
[2018-05-02] MEDS ORDERED: [UNRECOGNIZED DRUG - OTHER] TP PRN (15:29)
[2018-05-02] MEDS ORDERED: SIMETHICONE 80 MG TAB CHEW PO PRN (15:29)
[2018-05-02] MEDS ORDERED: SENNOSIDES/DOCUSATE SODIUM TAB PO PRN (15:29)
[2018-05-02] MEDS ORDERED: MENTHOL TP PRN (15:29)
[2018-05-02] MEDS ORDERED: BISACODYL 10 MG SUPP PR PRN (15:29)
[2018-05-02] MEDS ORDERED: CALCIUM CARBONATE 500 MG CHEWABLE TAB PO PRN (15:29)
[2018-05-02] MEDS ORDERED: CARVEDILOL 6.25 MG TAB PO SCH (18:00)
[2018-05-02] MEDS: FERROUS SULFATE 325 MG TAB PO SCH (18:01)
--- NOTE | 2018-05-02 18:35 | HOSPPROG ---
Hospitalist Progress Note Assessment/Plan: 72-year-old female with history of bradycardia status post permanent pacemaker, CHF, CKD, historu HCV status post liver transplant on immunosuppressive therapy , HTN, the hypothyroidism, schizoaffective disorder admitted with near syncopal episode and fall onto the left arm with subsequent fracture: #Closed left humeral fracture (Acute) -Orthopedics reccs conservative mgmt with sling. This was confirmed this evening as the pt requested a second opinion. Due to the location and proximity to the shoulder, there are no good surgical options and therefore conservative mgmt with sling is recommended. -pain mgmt: will increase frequency of Dilaudid #Near syncope (Acute) - -Likely due to dehydration/hypovolemia secondary to diarrhea and low oral intake -will hold BP meds -cont IVF -PPM: will be evaluated -check TTE #HTN: per above #Diarrhea: appears resolving #SSS, s/p pacemaker: per above #Pancytopenia - likely chronic in nature in setting of history of liver transplant and chronic kidney disease. Will monitor CBC and BMP. #Acute on chronic CKD 3- patient's baseline appears to be 1.5-1.7. IV fluids for some gentle hydration of noted above. #Hyponatremia - possibly secondary to hypovolemia patient does not appear overloaded. IV fluids for some gentle IV fluid hydration monitoring status closely. #Hyperkalemia - persists. Will recheck K now and consider Kayexalate vs other #Schizoaffective disorder: hold Abilify tonight although can restart tomorrow. There is an association with orthostatic hypotension but given such a small dose and only x 1, it did not likely cause the syncope. FEN - cardiac diet PPX-SCDs. Cor status-full Subjective: lots of pain. wants a second ortho opinion Objective: Vital Signs Temp Pulse Resp BP Pulse Ox 36.7 C 80 14 137/101 H 92 05/02/18 17:06 05/02/18 17:06 05/02/18 17:06 05/02/18 17:06 05/02/18 17:06 Laboratory Results 05/02/18 05:45 PT 13.3 SEC (12.0-15.0) 05/01/18 21:22 INR 0.99 (0.83-1.16) 05/01/18 21:22 - Physical Exam Constitutional: no apparent distress Eyes: PERRL Ears, Nose, Mouth, Throat: moist mucous membranes, hearing normal Cardiovascular: regular rate and rhythym, No edema Respiratory: no respiratory distress, no rales or rhonchi, clear to auscultation Gastrointestinal: normoactive bowel sounds Skin: warm Neurologic: AAOx3 Psychiatric: interacting appropriately, not anxious, not encephalopathic Lymph, Heme, Immunologic: No petechiae ICD10 Worksheet Patient Problems: Problems Problem Status Onset Closed left humeral fracture Acute Near syncope Acute Adjustment disorder with depressed mood Active Acute bronchitis with chronic obstructive pulmonary disease (COPD) Acute Acute on chronic renal insufficiency Acute Bronchitis Acute Chest pain Acute Chest pain Acute Chest pain in adult Acute Chronic Disease Mgmt/Transitional Care Acute Chronic obstructive pulmonary disease with acute exacerbation Acute Chronic renal insufficiency Acute Colitis Acute Cough Acute Dehydration Acute Elevated d-dimer Acute Hyponatremia Acute Knee effusion Acute Leg cramping Acute Leukopenia Acute Migraine Acute Multiple falls Acute Nausea & vomiting Acute Osteoarthritis of right knee Acute Pleural effusion, right Acute Pneumonia Acute Renal failure (ARF), acute on chronic Acute Right knee pain Acute Sedated Acute Shortness of breath Acute Urinary tract infection Acute Vomiting Acute Weakness Acute
[2018-05-02] MEDS: ACET/CAFFEINE/BUTA FIORICET 1 EACH TAB PO PRN (19:15)
[2018-05-02] MEDS: HYDROCORTISONE 0.5% CREAM TP SCH (20:17)
[2018-05-02] MEDS: GABAPENTIN 300 MG CAP PO SCH (20:17)
[2018-05-02] MEDS: traZODone 100 MG TAB PO SCH (20:17)
[2018-05-02] MEDS: TOPIRAMATE 25 MG TAB PO SCH (20:17)
[2018-05-02] MEDS: TACROLIMUS ANHYDROUS 0.5 MG CAP PO SCH (20:46)
[2018-05-03] MEDS: HYDROmorphONE/DILAUDID 1 MG/ML INJ IVP PRN ×3 (02:56→10:36)
[2018-05-03] MEDS: HYDROCORTISONE 0.5% CREAM TP SCH ×2 (03:01→16:50)
[2018-05-03] MEDS: HYDROCODONE/APAP 5/325 TAB PO PRN (05:30)
[2018-05-03] MEDS: LEVOTHYROXINE 75 MCG TAB PO SCH (05:31)
[2018-05-03] MEDS: ACET/CAFFEINE/BUTA FIORICET 1 EACH TAB PO PRN ×3 (05:33→20:26)
[2018-05-03 07:53] LABS: PLATELET COUNT 39 10^3/uL (150-400)
[2018-05-03] MEDS: TIOTROPIUM INHALER 18 MCG/DOSE 5 DOSE/MDI IH SCH (09:10)
[2018-05-03] MEDS: CYCLOBENZAPRINE 10 MG TAB PO PRN (09:23)
[2018-05-03] MEDS: CETIRIZINE 10 MG TAB PO SCH (09:23)
[2018-05-03] MEDS: THIAMINE HCL 100 MG TAB PO SCH (09:23)
[2018-05-03] MEDS: PANTOPRAZOLE SODIUM 40 MG TAB PO SCH (09:23)
[2018-05-03] MEDS: TOPIRAMATE 25 MG TAB PO SCH ×2 (09:23→20:00)
[2018-05-03] MEDS: TACROLIMUS ANHYDROUS 0.5 MG CAP PO SCH ×2 (09:23→19:59)
[2018-05-03] MEDS: FLUoxetine 20 MG CAP PO SCH (09:24)
[2018-05-03] MEDS: FERROUS SULFATE 325 MG TAB PO SCH ×3 (09:24→17:49)
[2018-05-03] MEDS: CYANO/VITAMIN B12 1000 MCG TAB PO SCH (09:24)
[2018-05-03] MEDS ORDERED: hydrALAZINE 20 MG/ML VIAL IVP PRN (12:07)
--- NOTE | 2018-05-03 12:14 | HOSPPROG ---
Hospitalist Progress Note Assessment/Plan: 72-year-old female with history of bradycardia status post permanent pacemaker, CHF, CKD, historu HCV status post liver transplant on immunosuppressive therapy , HTN, the hypothyroidism, schizoaffective disorder admitted with near syncopal episode and fall onto the left arm with subsequent fracture: #Closed left humeral fracture (Acute) -Orthopedics reccs conservative mgmt with sling. This was confirmed with a second orthopedic physician on 05/02 as the pt requested a second opinion. -Due to the location and proximity to the shoulder, there are no good surgical options and therefore conservative mgmt with sling is recommended. -per her request today, the nursing team will ask Ortho to speak to the pt in person as our attempts to explain why conservative mgmt is being followed have not been satisfactory -Will stop Dilaudid and transition to PO pain meds #Near syncope (Acute) - -Likely due to dehydration/hypovolemia secondary to diarrhea and low oral intake -will hold BP meds -stop IVF -PPM was interrogated and no events -TTE is pending and will be ordered #HTN: -BP increased today. BB and CCB will be restarted. Hydralazine PRN #Diarrhea: resolved. none here #SSS, s/p pacemaker: per above #Pancytopenia - likely chronic in nature in setting of history of liver transplant and chronic kidney disease. Will monitor CBC and BMP. #Acute on chronic CKD 3- patient's baseline appears to be 1.5-1.8. She is at baseline. There is no e/o dehydration at this time. IVF will be stopped #Hyponatremia - possibly secondary to hypovolemia. Resolved #Hyperkalemia - resolved #Schizoaffective disorder: There is an association with orthostatic hypotension but given such a small dose and only x 1, it did not likely cause the syncope. Restarting today #Weakness and Deconditioning: PT to eval. Mobility may be difficult with her current pain. FEN - cardiac diet PPX-SCDs. Cor status-full Dispo: change to inpatient for pain mgmt, PT/OT, and fracture mgmt. Subjective: c/o lots of pain. very frustrated that surgical management or casting is not being done. reports lots of pain. several requests for orthopedic reevaluation Objective: Vital Signs Temp Pulse Resp BP Pulse Ox 36.7 C 65 12 170/75 H 97 05/03/18 07:45 05/03/18 09:14 05/03/18 09:14 05/03/18 07:45 05/03/18 09:14 Laboratory Results 05/03/18 03:07 05/03/18 03:07 05/02/18 05/03/18 05/04/18 05:59 05:59 05:59 Intake Total 950 Output Total 525 Balance 425 PT 13.3 SEC (12.0-15.0) 05/01/18 21:22 INR 0.99 (0.83-1.16) 05/01/18 21:22 - Physical Exam Constitutional: no apparent distress Eyes: PERRL, EOMI Ears, Nose, Mouth, Throat: moist mucous membranes, hearing normal Cardiovascular: regular rate and rhythym, No edema Respiratory: no respiratory distress, no rales or rhonchi, clear to auscultation , reduced air movement Gastrointestinal: normoactive bowel sounds, soft, non-tender abdomen Skin: warm Neurologic: AAOx3 Psychiatric: interacting appropriately, not anxious, not encephalopathic ICD10 Worksheet Patient Problems: Problems Problem Status Onset Closed left humeral fracture Acute Near syncope Acute Adjustment disorder with depressed mood Active Acute bronchitis with chronic obstructive pulmonary disease (COPD) Acute Acute on chronic renal insufficiency Acute Bronchitis Acute Chest pain Acute Chest pain Acute Chest pain in adult Acute Chronic Disease Mgmt/Transitional Care Acute Chronic obstructive pulmonary disease with acute exacerbation Acute Chronic renal insufficiency Acute Colitis Acute Cough Acute Dehydration Acute Elevated d-dimer Acute Hyponatremia Acute Knee effusion Acute Leg cramping Acute Leukopenia Acute Migraine Acute Multiple falls Acute Nausea & vomiting Acute Osteoarthritis of right knee Acute Pleural effusion, right Acute Pneumonia Acute Renal failure (ARF), acute on chronic Acute Right knee pain Acute Sedated Acute Shortness of breath Acute Urinary tract infection Acute Vomiting Acute Weakness Acute
--- NOTE | 2018-05-03 13:29 | GPROG ---
I have discussed the plan of care with the patient's nurse at this point. I have also reviewed the latesha merchant with Dr. Josh Enriquez. She has a proximal humeral shaft fracture without substantial extens ion into the joint. ASSESSMENT AND PLAN: I will discuss with the patient personally later in the hospital, either tonigh t when I am done with the clinical or tomorrow morning during rounds. In short, this is a nonoperati ve fracture pattern that should heal well with the patient in a sling. Final plans will be the patie nt can stay in a sling until 1-2 weeks, in which she can see me in the office, at which point we will get some more images and start passive range of motion. At this point, the patient should be offere d reassurance that this will heal uneventfully and without an operation, which is overall good news. Thank you again for the pleasure of consulting with this patient. If you have any questions in [facility], please do not hesitate to contact my cell phone at [phone]. /[id number]/MODL
[2018-05-03] MEDS: oxyCODONE IR 5 MG TAB PO PRN ×2 (14:12→19:59)
--- NOTE | 2018-05-03 14:39 | PDMN ---
Medical Necessity Medical necessity: Pt changed to inpt staus as of 05/03/18 @ 12:09. Pt meets inpt criteria per MD order and Pain Management GRG. Pt initially admitted w/L humerus fracture, near syncope, acute on chronic CKD, and hyponatremia. Upgraded to inpt today for ongoing pain management, IV Dilaudid and oral pain meds, hypertensive w/SBP 170's, PT/OT, fracture management (no surgery at this time). Pt w/comorbidities of s/p liver transplant on immunosuppressive therapy, adv age, and schizoaffective disorder. Est LOS>2MN for management of above.
--- NOTE | 2018-05-03 15:17 | ASMTCMCOM ---
CM Note CM Note Notes: 05/03/2018 Case Management Note Met w/pt during rounds this morning. Pt admitted for humerus fracture. Pt lives at [facility]. Faxed updates to [facility]. Scheduled appointment with Dr. Jones office on May 17 (Sunday) at 9:40 am [address] [facility] [address] Case Management d/c poc: return to [facility] Case Management to follow. Date Signed: 05/03/2018 03:16 PM Electronically Signed By:Patrizia Saldana RN
[2018-05-03] MEDS: CARVEDILOL 25 MG TAB PO SCH (17:49)
[2018-05-03] MEDS ORDERED: BISACODYL 10 MG SUPP PR PRN (19:43)
[2018-05-03] MEDS ORDERED: POLYETHYLENE GLYCOL 3350 17 GM PKT PO PRN (19:43)
[2018-05-03] MEDS ORDERED: LACTULOSE 20 GM/30 ML UDCUP PO PRN (19:43)
[2018-05-03] MEDS ORDERED: MAGNESIUM HYDROXIDE 30 ML UDCUP PO PRN (19:43)
[2018-05-03] MEDS: GABAPENTIN 300 MG CAP PO SCH (19:59)
[2018-05-03] MEDS: SENNOSIDES/DOCUSATE SODIUM TAB PO SCH (20:00)
[2018-05-03] MEDS: traZODone 100 MG TAB PO SCH (20:00)
--- NOTE | 2018-05-03 22:01 | SOAPPROG ---
LUC Progress Note Assessment/Plan: Assessment: Pt seen and evaluated again today. I reinforced that this is nonsurgical and that she may f/u with me as an outpatient. Plan: 05/03/18 22:00 Objective: Vital Signs Temp Pulse Resp BP Pulse Ox 36.8 C 74 16 190/71 H 95 05/03/18 20:00 05/03/18 20:00 05/03/18 20:00 05/03/18 20:00 05/03/18 20:00 Laboratory Results 05/03/18 14:25 05/02/18 05/03/18 05/04/18 05:59 05:59 05:59 Output Total 600 Balance -600 PT 13.3 SEC (12.0-15.0) 05/01/18 21:22 INR 0.99 (0.83-1.16) 05/01/18 21:22 ICD10 Worksheet Patient Problems: Problems Problem Status Onset Closed left humeral fracture Acute Near syncope Acute Adjustment disorder with depressed mood Active Acute bronchitis with chronic obstructive pulmonary disease (COPD) Acute Acute on chronic renal insufficiency Acute Bronchitis Acute Chest pain Acute Chest pain Acute Chest pain in adult Acute Chronic Disease Mgmt/Transitional Care Acute Chronic obstructive pulmonary disease with acute exacerbation Acute Chronic renal insufficiency Acute Colitis Acute Cough Acute Dehydration Acute Elevated d-dimer Acute Hyponatremia Acute Knee effusion Acute Leg cramping Acute Leukopenia Acute Migraine Acute Multiple falls Acute Nausea & vomiting Acute Osteoarthritis of right knee Acute Pleural effusion, right Acute Pneumonia Acute Renal failure (ARF), acute on chronic Acute Right knee pain Acute Sedated Acute Shortness of breath Acute Urinary tract infection Acute Vomiting Acute Weakness Acute
[2018-05-04] MEDS: oxyCODONE IR 5 MG TAB PO PRN ×5 (00:38→18:42)
[2018-05-04 04:36] LABS: PLATELET COUNT 48 10^3/uL (150-400)
[2018-05-04] MEDS: LEVOTHYROXINE 75 MCG TAB PO SCH (05:55)
[2018-05-04] MEDS: HYDROCORTISONE 0.5% CREAM TP SCH ×2 (05:57→16:02)
[2018-05-04] MEDS: ACET/CAFFEINE/BUTA FIORICET 1 EACH TAB PO PRN ×3 (06:35→19:48)
--- NOTE | 2018-05-04 08:46 | HOSPPROG ---
Hospitalist Progress Note Assessment/Plan: #Left humeral fracture: evaluated by Ortho, non-surgical. Pain control is issue. No NSAIDs with CKD. Oxycodone, ice and elevate #Near syncope: likely from dehydration. PPM interrogated, no events. Cr improved #SHELBI on CKD 3: Cr down to 1.6 #HTN: pain contributing. Can uptitrate Norvasc #Hyponatremia: stable #Chronic pancytopenia: h/o liver transplant #Disp: DC to SNF tomorrow if pain and BP controlled Subjective: pain in left shoulder Objective: Vital Signs Temp Pulse Resp BP Pulse Ox 36.9 C 81 15 173/90 H 94 05/04/18 07:56 05/04/18 07:56 05/04/18 07:56 05/04/18 07:56 05/04/18 07:56 Laboratory Results 05/04/18 03:06 05/03/18 14:25 05/03/18 05/04/18 05/05/18 05:59 05:59 05:59 Intake Total 200 Output Total 1350 300 Balance -1150 -300 PT 13.3 SEC (12.0-15.0) 05/01/18 21:22 INR 0.99 (0.83-1.16) 05/01/18 21:22 - Time Spent With Patient Time Spent with Patient: greater than 35 minutes Time Spent with Patient: Greater than 35 minutes spent on this patients care, greater than 50% of time spent counseling, educating, and coordinating care regarding the above mentioned plan. - Physical Exam Constitutional: no apparent distress Eyes: PERRL Ears, Nose, Mouth, Throat: moist mucous membranes Cardiovascular: regular rate and rhythym Respiratory: no respiratory distress Gastrointestinal: normoactive bowel sounds Genitourinary: no bladder fullness Musculoskeletal: other (left shoulder, upper arm bruised, swollen. Protrusion.) ICD10 Worksheet Patient Problems: Problems Problem Status Onset Closed left humeral fracture Acute Near syncope Acute Adjustment disorder with depressed mood Active Acute bronchitis with chronic obstructive pulmonary disease (COPD) Acute Acute on chronic renal insufficiency Acute Bronchitis Acute Chest pain Acute Chest pain Acute Chest pain in adult Acute Chronic Disease Mgmt/Transitional Care Acute Chronic obstructive pulmonary disease with acute exacerbation Acute Chronic renal insufficiency Acute Colitis Acute Cough Acute Dehydration Acute Elevated d-dimer Acute Hyponatremia Acute Knee effusion Acute Leg cramping Acute Leukopenia Acute Migraine Acute Multiple falls Acute Nausea & vomiting Acute Osteoarthritis of right knee Acute Pleural effusion, right Acute Pneumonia Acute Renal failure (ARF), acute on chronic Acute Right knee pain Acute Sedated Acute Shortness of breath Acute Urinary tract infection Acute Vomiting Acute Weakness Acute
[2018-05-04] MEDS: PANTOPRAZOLE SODIUM 40 MG TAB PO SCH (08:56)
[2018-05-04] MEDS: TOPIRAMATE 25 MG TAB PO SCH ×2 (08:56→19:49)
[2018-05-04] MEDS: CYCLOBENZAPRINE 10 MG TAB PO PRN (08:56)
[2018-05-04] MEDS: CYANO/VITAMIN B12 1000 MCG TAB PO SCH (08:56)
[2018-05-04] MEDS: THIAMINE HCL 100 MG TAB PO SCH (08:57)
[2018-05-04] MEDS: CARVEDILOL 25 MG TAB PO SCH ×2 (08:57→17:57)
[2018-05-04] MEDS: SENNOSIDES/DOCUSATE SODIUM TAB PO SCH ×2 (08:57→19:49)
[2018-05-04] MEDS: FLUoxetine 20 MG CAP PO SCH (08:57)
[2018-05-04] MEDS: FERROUS SULFATE 325 MG TAB PO SCH ×3 (08:57→17:57)
[2018-05-04] MEDS: TACROLIMUS ANHYDROUS 0.5 MG CAP PO SCH ×2 (08:57→19:49)
[2018-05-04] MEDS: CETIRIZINE 10 MG TAB PO SCH (08:58)
[2018-05-04] MEDS: TIOTROPIUM INHALER 18 MCG/DOSE 5 DOSE/MDI IH SCH (08:59)
[2018-05-04] MEDS: PROMETHAZINE HCL 25 MG TAB PO PRN ×2 (12:33→18:42)
[2018-05-04] MEDS: GABAPENTIN 300 MG CAP PO SCH (19:49)
[2018-05-04] MEDS: traZODone 100 MG TAB PO SCH (22:12)
[2018-05-05] MEDS: oxyCODONE IR 5 MG TAB PO PRN ×4 (01:51→15:07)
[2018-05-05] MEDS: LEVOTHYROXINE 75 MCG TAB PO SCH (01:53)
[2018-05-05] MEDS: PROMETHAZINE HCL 25 MG TAB PO PRN ×2 (05:09→13:07)
[2018-05-05] MEDS: ACET/CAFFEINE/BUTA FIORICET 1 EACH TAB PO PRN ×2 (05:10→13:08)
[2018-05-05] MEDS: HYDROCORTISONE 0.5% CREAM TP SCH (05:40)
[2018-05-05] MEDS: CARVEDILOL 25 MG TAB PO SCH (06:06)
[2018-05-05] MEDS ORDERED: CHOLECALCIFEROL VIT D3 50,000 UNIT CAP PO SCH (09:00)
[2018-05-05] MEDS: TOPIRAMATE 25 MG TAB PO SCH (09:30)
[2018-05-05] MEDS: TACROLIMUS ANHYDROUS 0.5 MG CAP PO SCH (09:30)
[2018-05-05] MEDS: SENNOSIDES/DOCUSATE SODIUM TAB PO SCH (09:30)
[2018-05-05] MEDS: THIAMINE HCL 100 MG TAB PO SCH (09:30)
[2018-05-05] MEDS: CYCLOBENZAPRINE 10 MG TAB PO PRN (09:30)
[2018-05-05] MEDS: CYANO/VITAMIN B12 1000 MCG TAB PO SCH (09:31)
[2018-05-05] MEDS: FERROUS SULFATE 325 MG TAB PO SCH ×2 (09:31→13:07)
[2018-05-05] MEDS: FLUoxetine 20 MG CAP PO SCH (09:31)
[2018-05-05] MEDS: PANTOPRAZOLE SODIUM 40 MG TAB PO SCH (09:31)
[2018-05-05] MEDS: CETIRIZINE 10 MG TAB PO SCH (09:31)
[2018-05-05] MEDS: TIOTROPIUM INHALER 18 MCG/DOSE 5 DOSE/MDI IH SCH (10:35)
--- NOTE | 2018-05-05 12:56 | PDIAF ---
- Diagnosis Diagnosis: humeral fracture left arm, hypertension. Code Status: Full Code - Medication Management Discharge Medications: Medications to Continue on Transfer ARIPiprazole [Abilify 5 mg (*)] 2.5 mg PO DAILY 05/02/18 [Last Taken Unknown] Acet/Caffeine/Buta Fioricet [Fioricet (*)] 1 each PO Q6 PRN 05/02/18 [Last Taken Unknown] Acetaminophen [Tylenol ES 500 mg (*)] 500 mg PO Q6 PRN 05/02/18 [Last Taken Unknown] Ascorbic Acid [Vitamin C 500 mg (*)] 500 mg PO DAILY 05/02/18 [Last Taken Unknown] Aspirin [Aspirin 81mg (*)] 81 mg PO DAILY 05/02/18 [Last Taken Unknown] Biofreeze Gel 4% (Menthol) 1 genesis TP QID PRN 05/02/18 [Last Taken Unknown] Calcium Carbonate [Tums 500MG (*)] 1,000 mg PO Q12H PRN 05/02/18 [Last Taken Unknown] Cetirizine [ZyrTEC 10 mg (*)] 5 mg PO DAILY 05/02/18 [Last Taken Unknown] Cholecalciferol Vit D3 [Vitamin D3 (*)] 50,000 unit PO Q30D 05/02/18 [Last Taken Unknown] Cyanocobalamin [Vitamin B12 (*)] 500 mcg PO DAILY 05/02/18 [Last Taken Unknown] FLUoxetine [Prozac 20 MG (*)] 40 mg PO DAILY 05/02/18 [Last Taken Unknown] Ferrous Sulfate [Ferrous Sulf 325 MG (*)] 325 mg PO TIDMEAL 05/02/18 [Last Taken Unknown] Gabapentin [Neurontin 300 MG (*)] 300 mg PO HS 05/02/18 [Last Taken Unknown] Herbals/Supplements -Info Only 1 ea PO DAILY 05/02/18 [Last Taken Unknown] Hydrocortisone 0.5% [Hydrocortisone 0.5% cream (*)] 1 genesis TP Q12H 05/02/18 [ Last Taken Unknown] Levothyroxine [Synthroid 75 mcg (*)] 75 mcg PO DAILY06 05/02/18 [Last Taken Unknown] Mineral Oil/Pet Hy-Phl [Aquaphor Ointment (*)] 1 genesis TP TID 05/02/18 [Last Taken Unknown] Multivitamins [Multivitamin (*)] 1 each PO DAILY 05/02/18 [Last Taken Unknown] Omeprazole 20 mg PO BID 05/02/18 [Last Taken Unknown] Sennosides/Docusate Sodium [Senokot-S] 1 each PO BID PRN 05/02/18 [Last Taken Unknown] Simethicone [Gas Relief] 80 mg PO Q8H PRN 05/02/18 [Last Taken Unknown] Tacrolimus 0.5 mg PO BID 05/02/18 [Last Taken Unknown] Thiamine HCl [Vitamin B-1] 100 mg PO DAILY 05/02/18 [Last Taken Unknown] Tiotropium Inhaler [Spiriva Handihaler] 18 mcg IH DAILY 05/02/18 [Last Taken Unknown] Topiramate [Topamax 25MG (*)] 25 mg PO BID 05/02/18 [Last Taken Unknown] amLODIPine BESYLATE [Norvasc 2.5 mg (*)] 2.5 mg PO DAILY 05/02/18 [Last Taken Unknown] traZODone [traZODONE 100MG (*)] 100 mg PO HS 05/02/18 [Last Taken Unknown] Carvedilol [Coreg (*)] 12.5 mg PO BIDMEAL tab 05/05/18 [Last Taken Unknown] Cyclobenzaprine [Flexeril 10 MG (*)] 5 - 10 mg PO TID PRN tab 05/05/18 [Last Taken Unknown] Promethazine HCl [Phenergan 25mg (*)] 12.5 mg PO Q6HRS PRN tab 05/05/18 [Last Taken Unknown] Sennosides/Docusate Sodium [Senokot-S] 1 - 2 tab PO BID tab 05/05/18 [Last Taken Unknown] oxyCODONE IR [Oxycodone Ir (*)] 5 - 10 mg PO Q4HRS PRN tab 05/05/18 [Last Taken Unknown] Discharge Medications: Refer to the Discharge Home Medication list for PRN reason. - Orders Services needed: Registered Nurse, Certified Bowling Ball Engraver, Master Urban Sociologist , Physical Therapy, Occupational Therapy Isolation Type: None Diet Recommendation: no restrictions on diet, sodium restricted Diet Texture: Regular Texture Diet Activity/Weight Bearing Restrictions: Pt needs to keep left arm in sling and minimize movement. Ice to arm. - Follow Up Care Current Providers and Referrals: Eliazar Agudelo MD [Medical Doctor] - 05/17/18 9:40 am Patient,NotPresent [Unknown] - As per Instructions
[2018-05-05 13:02] VITALS: BP 132/84
--- NOTE | 2018-05-05 13:37 | ASMTLACE ---
LACE Length of stay for Answers: 2 days current admission Acuity / Level of Answers: Yes Care: Did the patient have an inpatient admission? Comorbidities - select Answers: Moderate or severe liver all that apply or renal disease Other Notes: HTN, pacemaker, hypothy gaudencio d # of Emergency department Answers: 1-2 visits in the last 6 months Social determinants Answers: Mental health diagnosis (anxiety, depression, pers onality disorders, etc.) Score: 14 Date Signed: 05/05/2018 01:36 PM Electronically Signed By:Patrizia Saldana RN
--- NOTE | 2018-05-05 14:04 | GDS ---
DIAGNOSES: 1. Left humeral fracture, nonoperable. 2. Uncontrolled hypertension. 3. History of liver transplant secondary to hepatitis C. 4. Congestive heart failure. 5. Chronic kidney disease. 6. Schizoaffective disorder. 7. Hypothyroidism. 8. Status post pacemaker. 9. History of migraines. 10. History of chronic obstructive pulmonary disease. CONSULTATIONS: Orthopedics, Dr. Agudelo. PROCEDURES DONE: Telemetry monitoring. HOSPITAL COURSE: The patient was admitted with a near syncopal event, sustaining an injury to her le ft arm. This is thought to be vasovagal, and she was monitored on telemetry throughout her stay. Th is was not a syncopal event, but more of a lightheadedness she experienced as she got up to lift some water to help serve her roommate. She was admitted to the hospital. Orthopedics saw her for consul tation and reviewed the x-ray, and it was felt to be nonoperable. She was admitted for pain control as well as control of elevated blood pressure. Her medications were adjusted. The pain was controll ed with oxycodone and Tylenol. She will likely need this in the short term for ongoing pain, since s he does have a significant angulated humerus fracture. Her Coreg was increased from 12.5 to 25 mg tw ice daily for blood pressure control. CONDITION ON DISCHARGE: Good. DISCHARGE MEDICATIONS: Please see discharge medication form. FOLLOWUP: She has a followup scheduled with Dr. Eliazar Agudelo and will return to [facility] for her long-term care and will follow up with the physician there. Main issue at discharge is pain con trol and likely some anxiety from the patient, which increases her blood pressure. Total time spent on the patient on day of discharge in coordination of care is 35 minutes. /[id number]/MODL
--- NOTE | 2018-05-05 14:54 | ASDISCHSUM ---
Discharge Information Plan Status:SNF Medically Cleared to Leave:05/05/2018 Discharge Date:05/05/2018 CM D/C Disposition:Group Home Facility ADT D/C Disposition:Group Home Facility Projected Discharge Date:05/04/2018 11:00 AM Transportation at D/C:Wheelchair Van Discharge Delay Reason: Follow-Up Date:05/04/2018 11:00 AM Discharge Slot: Final Diagnosis: Placement Information Referral Type:*Snf/SNF Referral ID:[id number] Provider Name:Ruth Fung/BEBETO Cantrell Address 1:[address] Address 2: Fax Number: [facility]:Ruth Selection Factors: State:[place] Patient Contact Information Contact Name:GUTIERREZ Relationship:Daughter Address: Work Phone: City: [facility] Phone: [facility] Code: Email: Financial Information Financial Class:Medicare Advantage Plans Primary Plan Desc:[facility] Adzuna Primary Plan Number:[id number] Secondary Plan Desc:[employer] [place] Secondary Plan Number:[id number] Assessment Information LACE LACE Length of stay for Answers: 2 days current admission Acuity / Level of Answers: Yes Care: Did the patient have an inpatient admission? Comorbidities - select Answers: Moderate or severe liver all that apply or renal disease Other Notes: HTN, pacemaker, hypothy gaudencio d # of Emergency department Answers: 1-2 visits in the last 6 months Social determinants Answers: Mental health diagnosis (anxiety, depression, pers onality disorders, etc.) Score: 14 Date Signed: 05/05/2018 01:36 PM Electronically Signed By:Patrizia Saldana RN [facility] CM Progress Note CM Note CM Note Notes: 05/03/2018 Case Management Note Met w/pt during rounds this morning. Pt admitted for humerus fracture. Pt lives at [facility]. Faxed updates to [facility]. Scheduled appointment with Dr. Jones office on May 17 (Sunday) at 9:40 am [address] [facility] [address] Case Management d/c poc: return to [facility] Case Management to follow. Date Signed: 05/03/2018 03:16 PM Electronically Signed By:Patrizia Saldana RN Case Management Discharge Plan Note Case Management Discharge Discharge Order Complete? Answers: Yes Patient to Obtain Answers: Other Notes: [facility] Medications Transportation Arranged Answers: Other Notes: [facility] w/c transport arranged by Zachery from [facility] Transport will Pick (Date 05/05/2018 03:30 PM & Time) Faxed Final Orders Answers: Yes Notes: to [facility] Agency/Facility Transfer Answers: Yes Notes: to [facility] Report Printed & Faxed to Receiving Agency Discharge Comments Notes: 05/05/2018 Case Management Note Contacted Zachery from [facility]. Zachery arranged w/c transport with Yovani from [facility]. Faxed final orders. Confirmed receipt with [facility].. RN called report. Pt has follow up appt wit Dr. Agudelo on 05/17 at 9:40 am Date Signed: 05/05/2018 02:52 PM Electronically Signed By:Patrizia Saldana RN Intervention Information Intervention Type:*Incorrect Registration Date of Service:05/02/2018 01:55 PM Patient Type:Inpatient Staff Member:[place] Abebe Patricia Hours: Discipline: Severity: Comment: Intervention Type:*IM-Signed Date of Service:05/03/2018 03:44 PM Patient Type:Inpatient Staff Member:Aura Black Hours: Discipline: Severity: Comment:
== END 2018-05-05 15:51 | DRG 563 ==
LOC: EDUNIT# → INTOOBSV 23:02 → F2W 05-02 13:35 → OBSVTOIN 05-03 12:09
PROVIDERS: ADMIT Family Medicine; ATTEND Family Medicine
DX: S42.202A Unspecified fracture of upper end of left humerus, initial encounter for closed fracture (principal); W01.0XXA Fall on same level from slipping, tripping and stumbling without subsequent striking against object, initial encounter; R42 Dizziness and giddiness; E87.1 Hypo-osmolality and hyponatremia; E87.5 Hyperkalemia; N17.9 Acute kidney failure, unspecified; D61.818 Other pancytopenia; R19.7 Diarrhea, unspecified; I13.0 Hypertensive heart and chronic kidney disease with heart failure and stage 1 through stage 4 chronic kidney disease, or unspecified chronic kidney disease; I50.30 Unspecified diastolic (congestive) heart failure; N18.3 Chronic kidney disease, stage 3 (moderate); E03.9 Hypothyroidism, unspecified; K21.9 Gastro-esophageal reflux disease without esophagitis; J44.9 Chronic obstructive pulmonary disease, unspecified; R00.1 Bradycardia, unspecified; F25.9 Schizoaffective disorder, unspecified; G43.909 Migraine, unspecified, not intractable, without status migrainosus; Z87.891 Personal history of nicotine dependence; Z95.810 Presence of automatic (implantable) cardiac defibrillator; Z96.651 Presence of right artificial knee joint; Z96.661 Presence of right artificial ankle joint; Z86.19 Personal history of other infectious and parasitic diseases; Z94.4 Liver transplant status; Z23 Encounter for immunization
CPT/HCPCS: 84484-PO; 96374; 97116-GP; 97162-GP; 97166-GO; 97530-GO; 97535-GO; A4565; G0008; G0378; G8978-GP-CK; G8979-GP-CI; G8987-GO-CK; G8988-GO-CI; J0360; J1170; J2270; J2405

== ENCOUNTER 2018-05-16 15:12 | Inpatient (IN) | payer OTHER, MEDICAID ==
[2018-05-16] MEDS ORDERED: NS 1,000 ML IV ONE (15:26)
--- NOTE | 2018-05-16 15:26 | EDPHY ---
H & P Time Seen by Provider: 05/16/18 15:22 HPI/ROS: CHIEF COMPLAINT: Dehydration, metabolic abnormality HISTORY OF PRESENT ILLNESS: The patient presents to the ED from a alf with dehydration and a newly diagnosed hyponatremia and acute renal failure. The patient was recently in the hospital following a fall which resulted in a nonsurgical left humerus fracture. The patient had been recovering receiving morphine. Over the past day she has seemed more dehydrated and had decreased appetite prompting laboratory testing to be performed. She was noted to have a creatinine of 3.5 up from her baseline of 1.6. She was also noted to be hyponatremia with a sodium of 125. The patient denies any recent fall or trauma. She complains of mild generalized abdominal pain. She denies any neck pain, acute numbness, weakness, fever, cough or dysuria. REVIEW OF SYSTEMS: A comprehensive 10 point review of systems is otherwise negative aside from elements mentioned in the history of present illness. Source: Patient Exam Limitations: No limitations - Personal History Current Tetanus Diphtheria and Acellular Pertussis (TDAP): No Tetanus Vaccine Date: 2006 - Medical/Surgical History Hx Asthma: No Hx Chronic Respiratory Disease: Yes Hx Diabetes: No Hx Cardiac Disease: Yes Hx Renal Disease: Yes Hx Cirrhosis: No Hx Alcoholism: No Hx HIV/AIDS: No Hx Splenectomy or Spleen Trauma: No Other PMH: Hep C, Liver transplant 20 years ago, CHF, acute kidney failure, HTN , schizoaffctive bipolar, hypothyroid, L kidney biopsy/infarction , PACEMAKER, R THORACENTESIS - Social History Smoking Status: Former smoker - Physical Exam Exam: General Appearance: Alert, no distress Head: Atraumatic Eyes: Pupils equal, round, reactive ENT, Mouth: No hemotympanum, no oral trauma Neck: Nontender, trachea midline Respiratory: No chest wall tender,no subcutaneous air, lungs clear bilaterally Cardiovascular: Regular rate and rhythm Abdomen: Old surgical incision Skin: No lacerations, No abrasion Back: No midline T/L/S pain Extremities: Bruising, ecchymosis and tenderness noted to left humerus Neurological: A&Ox3, normal motor function, normal sensory exam Constitutional: Initial Vital Signs Temperature (C) 37.0 C 05/16/18 15:12 Heart Rate 86 05/16/18 15:12 Respiratory Rate 14 05/16/18 15:12 Blood Pressure 100/58 L 05/16/18 15:12 O2 Sat (%) 95 05/16/18 15:12 O2 Delivery Mode Nasal Cannula O2 (L/minute) 2 Allergies/Adverse Reactions: sumatriptan [From Imitrex] Allergy (Intermediate, Verified 02/09/17 12:31) palpitations dextroamphetamine [Dextroamphetamine] Allergy (Unknown, Verified 02/09/17 12:31) JITTERY gabapentin [Gabapentin] Allergy (Unknown, Verified 02/09/17 12:31) JITTERY temazepam [Temazepam] Allergy (Unknown, Verified 02/09/17 12:31) AMNESIA sumatriptan succinate [From Imitrex] Allergy (Verified 02/09/17 12:31) Home Medications: Medication Instructions Recorded ARIPiprazole [Abilify 5 mg (*)] 5 mg PO DAILY 05/02/18 Acetaminophen [Tylenol ES 500 mg 500 mg PO Q6 PRN 05/02/18 (*)] Ascorbic Acid [Vitamin C 500 mg 500 mg PO DAILY 05/02/18 (*)] Aspirin [Aspirin 81mg (*)] 81 mg PO DAILY 05/02/18 Biofreeze Gel 4% (Menthol) 1 genesis TP QID PRN 05/02/18 Calcium Carbonate [Tums 500MG (*)] 1,000 mg PO Q12H PRN 05/02/18 Cetirizine [ZyrTEC 10 mg (*)] 5 mg PO DAILY 05/02/18 Cholecalciferol Vit D3 [Vitamin D3 50,000 unit PO Q30D 05/02/18 (*)] Cyanocobalamin [Vitamin B12 (*)] 500 mcg PO DAILY 05/02/18 FLUoxetine [Prozac 20 MG (*)] 40 mg PO DAILY 05/02/18 Ferrous Sulfate [Ferrous Sulf 325 325 mg PO TIDMEAL 05/02/18 MG (*)] Gabapentin [Neurontin 300 MG (*)] 300 mg PO HS 05/02/18 Herbals/Supplements -Info Only 1 ea PO DAILY 05/02/18 Hydrocortisone 0.5% 1 genesis TP Q12H 05/02/18 [Hydrocortisone 0.5% cream (*)] Levothyroxine [Synthroid 75 mcg 75 mcg PO DAILY06 05/02/18 (*)] Mineral Oil/Pet Hy-Phl [Aquaphor 1 genesis TP TID 05/02/18 Ointment (*)] Multivitamins [Multivitamin (*)] 1 each PO DAILY 05/02/18 Omeprazole 20 mg PO BID 05/02/18 Sennosides/Docusate Sodium 1 each PO BID PRN 05/02/18 [Senokot-S] Simethicone [Gas Relief] 80 mg PO Q8H PRN 05/02/18 Tacrolimus 0.5 mg PO BID 05/02/18 Thiamine HCl [Vitamin B-1] 100 mg PO DAILY 05/02/18 Tiotropium Inhaler [Spiriva 18 mcg IH DAILY 05/02/18 Handihaler] Topiramate [Topamax 25MG (*)] 25 mg PO BID 05/02/18 amLODIPine BESYLATE [Norvasc 2.5 2.5 mg PO DAILY 05/02/18 mg (*)] traZODone [traZODONE 100MG (*)] 100 mg PO HS 05/02/18 Carvedilol [Coreg (*)] 12.5 mg PO BIDMEAL tab 05/05/18 Promethazine HCl [Phenergan 25mg 12.5 mg PO Q6HRS PRN tab 05/05/18 (*)] Bisacodyl [Magic Bullet 10 mg] 10 mg OR DAILY PRN 05/16/18 Ondansetron Odt [Zofran Odt 4 mg 8 mg PO Q6H PRN 05/16/18 (*)] morphINE SR [Ms Contin/Oramorph 15 15 mg PO BID 05/16/18 mg (*)] oxyCODONE IR [Oxycodone Ir (*)] 5 mg PO Q6H PRN 05/16/18 Medical Decision Making ED Course/Re-evaluation: I reviewed the patient's outpatient laboratory tests which demonstrate acute renal failure without hyperkalemia. The patient did have an IV established. She has hyponatremia secondary to hypovolemia. Patient did receive 1 L of normal saline. Consultation is made with the hospitalist service. The patient will be admitted to the hospital by Dr. Armenta. The patient was taken for a PICC line as she has tenuous peripheral IV access. The patient had several examinations in the ED and remains neurologically intact. Differential Diagnosis: Differential diagnosis considered includes dehydration, renal failure, metabolic abnormality, hyperkalemia, medication side effect - Data Points Laboratory Results: Laboratory Results 05/16/18 15:40 05/16/18 15:40 05/16/18 05/16/18 05/16/18 15:40 15:40 15:40 WBC REJ RBC REJ Hgb REJ Hct REJ MCV REJ MCH REJ MCHC REJ RDW REJ Plt Count REJ MPV REJ Neut % (Auto) REJ Lymph % (Auto) REJ Stanton % (Auto) REJ Eos % (Auto) REJ Baso % (Auto) REJ Nucleat RBC Rel Count REJ Absolute Neuts (auto) REJ Absolute Lymphs (auto) REJ Absolute Monos (auto) REJ Absolute Eos (auto) REJ Absolute Basos (auto) REJ Absolute Nucleated RBC REJ Immature Gran % REJ Immature Gran # REJ Platelet Estimate Not Reported Turbidity Cancelled Sodium Cancelled 120 mEq/L L mEq/L (135-145) Potassium Cancelled 5.0 mEq/L mEq/L (3.3-5.0) Chloride Cancelled 92 mEq/L L mEq/L (97-110) Carbon Dioxide Cancelled 17 mEq/l L mEq/l (22-31) Anion Gap Cancelled 11 mEq/L mEq/L (6-14) BUN Cancelled 63 mg/dL H mg/dL (7-23) Creatinine Cancelled 3.7 mg/dL H mg/dL (0.6-1.0) Estimated GFR Cancelled 12 Glucose Cancelled 107 mg/dL H mg/dL (70-100) Calcium Cancelled 7.8 mg/dL L mg/dL (8.5-10.4) Total Bilirubin 0.9 mg/dL mg/dL (0.1-1.4) Conjugated Bilirubin 0.8 mg/dL H mg/dL (0.0-0.5) Unconjugated Bilirubin 0.1 mg/dL mg/dL (0.0-1.1) AST 38 IU/L IU/L (14-46) ALT 30 IU/L IU/L (9-52) Alkaline Phosphatase 281 IU/L H IU/L (38-126) Total Protein 5.3 g/dL L g/dL (6.3-8.2) Albumin 2.6 g/dL L g/dL (3.5-5.0) Medications Given: Discontinued Medications Sodium Chloride (Ns) 1,000 mls @ 0 mls/hr IV EDNOW ONE; Wide Open PRN Reason: Protocol Stop: 05/16/18 15:27 Last Admin: 05/16/18 15:46 Dose: 1,000 mls Departure - Departure Disposition: [facility] Inpatient Acute Clinical Impression: Dehydration, Renal failure (ARF), acute on chronic, Fracture, humerus Condition: Good
[2018-05-16] MEDS ORDERED: ALTEPLASE 2 MG VIAL IVP PRN (15:49)
[2018-05-16 17:03] LABS: PLATELET COUNT 57 10^3/uL (150-400)
[2018-05-16] MEDS ORDERED: ONDANSETRON DISINTEGRATING 4 MG TAB PO PRN (17:10)
[2018-05-16] MEDS: NS 1,000 ML IV SCH (18:11)
[2018-05-16] MEDS: ACETAMINOPHEN 500 MG TAB PO SCH (18:16)
--- NOTE | 2018-05-16 18:29 | GHP ---
DATE OF ADMISSION: 05/16/2018 CHIEF COMPLAINT: Weakness and possible fall. HISTORY OF PRESENT ILLNESS: The patient is a 72-year-old female with complex medical history including liver transplant on chronic immunosuppressive therapy , heart failure, hypertension, and chronic kidney disease, who was recently admitted to the hospital with a left humerus fracture and was discharged to [facility] on May 05, returns to the emergency department with poorly controlled pain and a possible fall. The history is unclear. There was mention of a fall from the ED physician, though the patient herself is not able to verify this. She is only able to tell me that she has severe pain in her left humerus and feels they have not been adequately controlling her pain at [facility]. Her notes she has had decreased oral intake over the past 2 days and he thinks that she is losing weight. She is a bit confused and is a poor historian. However, she denies fevers, chills, or urinary symptoms such as dysuria, frequency or urgency. She also denies chest pain or shortness of breath. She denies abdominal pain, nausea or vomiting. In the emergency department, her labs reveal a sodium of 120, a creatinine of 3.7. She does have known chronic kidney disease with baseline creatinine of 1.6. Given her lab abnormalities and suspected volume depletion, she received a L of normal saline. She is admitted to the hospital for further management. PAST MEDICAL HISTORY: 1. Status post liver transplant secondary to hepatitis C. 2. Hypertension. 3. History of heart failure. 4. Schizoaffective disorder. 5. Hypothyroidism. 6. History of kidney infarct. 7. History of COPD. 8. Chronic kidney disease with a baseline creatinine of 1.6. 9. GERD. 10. Chronic migraine headaches. 11. Chronic immunosuppression. 12. Depression/anxiety. 13. 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 14. Anemia. 15. History of ischemic colitis. 16. History of upper GI bleed. PAST SURGICAL HISTORY: 1. Pacemaker/AICD secondary to heart block. 2. Liver transplant surgery, 1996. 3. Cholecystectomy. 4. History of thoracentesis. 5. Right total knee arthroplasty. FAMILY HISTORY: Reviewed and noncontributory. MEDICATIONS: Please see [employer] completed outpatient medication list. ALLERGIES: Sumatriptan, dextroamphetamine, gabapentin, temazepam. SOCIAL HISTORY: The patient currently resides at [facility]. She denies alcohol or drug use. Her notes a history of severe opioid dependence which "destroyed her life." He is concerned about her acute pain needs given her history. REVIEW OF SYSTEMS: A 10-point review of systems was performed and negative except as per HPI. OBJECTIVE: VITAL SIGNS: Temperature is 36.5. Blood pressure 112/68 after 1 L of normal saline bolus. Upon arrival, blood pressure was 100/58. Heart rate 81. Respiratory rate 16. She is 97% on 2 L. GENERAL: The patient is awake, alert, and oriented to person and place. HEENT: Head is atraumatic, normocephalic. Pupils are equal, round, react to light. Extraocular muscles are intact. Conjunctivae are pale. Oropharynx is clear. Mucous membranes are dry. NECK: Supple. There is no JVD. HEART: Has regular rate and rhythm. LUNGS: Reveal diminished breath sounds. No wheezes, rales, or rhonchi. ABDOMEN: Soft, mildly distended, nontender with normoactive bowel tones. EXTREMITIES: Her left upper extremity has significant extensive ecchymosis. She is neurovascularly intact. NEUROLOGIC: Patient is confused. Otherwise, neuro exam is nonfocal. LABORATORY DATA: CBC reveals a white blood cell count of 11.8, hemoglobin 7.9, platelet count is 57. Metabolic panel reveals sodium of 120, potassium of 5, chloride 92, CO2 of 17, BUN 63, creatinine 3.7, glucose 107, calcium 7.8. LFTs show total bilirubin 0.9, total protein 5.3, alkaline phosphatase 281. Note, this is chronically elevated. ASSESSMENT AND PLAN: The patient is a 72-year-old female with history of multiple medical problems as described above, who returns to the hospital from [facility] after recent hospitalization for humerus fracture with evidence of volume depletion, acute kidney injury, and hyponatremia. 1. Acute kidney injury in the setting of chronic kidney disease. Her baseline creatinine is 1.6. Her creatinine on arrival is 3.7. I suspect a prerenal etiology with BUN of 63, and clinical evidence of volume depletion. She has received 1 L of normal saline in the emergency department. We will plan to continue maintenance fluids overnight. A renal ultrasound is ordered. In addition, urinalysis, urine sodium, and urine creatinine are also ordered. As per below, check q4h basic metabolic panels. 2. Hyponatremia. Suspect hypovolemic hyponatremia in the setting of acute pain and humerus fracture, status post 1 L of normal saline in the ED. Repeat sodium is pending. Discussed the case with Nephrology. Will follow q.4 hour basic metabolic panel with normal saline at 100 an hour. This can be adjusted with addition of D5W or transition to hypotonic fluids as indicated. 3. Left humerus fracture. It is unclear if she has had another fall. Her exam is concerning. I will repeat an x-ray to ensure she has not suffered worsening displacement of her fracture and communicate with Orthopedic in am if indicated. 4. History of liver transplant. On chronic immunosuppressive therapy with tacrolimus. Will send a tacrolimus level with her acute kidney injury. I do not think that she has nephrotoxicity from tacrolimus as her history and exam is more consistent with prerenal etiology. Therefore, will continue her tacrolimus possibly at a lower dose once her medication reconciliation is completed. 5. Hypothyroidism. Continue her home levothyroxine dose. 6. Hypertension. She is a bit hypotensive on arrival in the setting of volume depletion. We will hold her antihypertensives for now and resume as clinically indicated. 7. Schizoaffective disorder. Continue Abilify once her medication reconciliation is completed. 8. Depression/anxiety. Continue Prozac when medication reconciliation is completed. 9. History of chronic obstructive pulmonary disease. There is no evidence of acute exacerbation. We will continue her home inhalers. 10. Leukocytosis. Her white count is slightly elevated. She is afebrile. A urinalysis is pending, though she does not endorse urinary symptoms. Lactate is normal. At this point, I have no obvious source of infection and we will observe this off antibiotics with repeat labs in the morning after hydration. However, we will obtain a chest x-ray given her mild hypoxemia. 11. Hypoxemia. She is requiring 2 L of oxygen. We will check a chest x-ray for further evaluation. 12. Deep vein thrombosis prophylaxis. We will place sequential compression devices. Defer pharmacologic agents with her thrombocytopenia and anemia. 13. Anemia. This is chronic. There is no indication for transfusion and no evidence of active bleeding. We will continue to follow. 14. Thrombocytopenia. Also, chronic. Her platelet function is near baseline. CODE STATUS: Patient is Full Code. DISPOSITION: Patient is admitted to inpatient status. I anticipate greater than 48 hours of hospitalization for ongoing management of her acute renal failure, hyponatremia, and other comorbid medical conditions. /[id number]/MODL MTDD
--- NOTE | 2018-05-16 18:40 | ASMTLACE ---
NICOLASA Acuity / Level of Answers: Yes Care: Did the patient have an inpatient admission? Comorbidities - select Answers: Chronic pulmonary disease all that apply Congestive heart failure Moderate or severe liver or renal disease Opioid dependence / Chronic pain Previous myocardial infarction Other Notes: Hep C; HTN # of Emergency department Answers: 1-2 visits in the last 6 months Social determinants Answers: Mental health diagnosis (anxiety, depression, pers onality disorders, etc.) Score: 21 Date Signed: 05/16/2018 06:40 PM Electronically Signed By:Caterina Uribe
[2018-05-16] MEDS: oxyCODONE IR 5 MG TAB PO PRN (19:25)
[2018-05-16] MEDS: HYDROCORTISONE 0.5% CREAM TP SCH (23:45)
[2018-05-16] MEDS ORDERED: PROMETHAZINE HCL 25 MG TAB PO PRN (23:48)
[2018-05-16] MEDS ORDERED: BIOFREEZE 4% TP PRN (23:48)
[2018-05-16] MEDS ORDERED: SENNOSIDES/DOCUSATE SODIUM TAB PO PRN (23:48)
[2018-05-16] MEDS ORDERED: SIMETHICONE 80 MG TAB CHEW PO PRN (23:48)
[2018-05-16] MEDS: ONDANSETRON 4 MG/2 ML VIAL IVP PRN (23:53)
[2018-05-17] MEDS: ACETAMINOPHEN 500 MG TAB PO SCH ×3 (01:15→16:40)
[2018-05-17] MEDS: LEVOTHYROXINE 75 MCG TAB PO SCH (05:46)
[2018-05-17] MEDS: oxyCODONE IR 5 MG TAB PO PRN ×3 (05:46→16:40)
[2018-05-17 06:18] LABS: PLATELET COUNT 62 10^3/uL (150-400)
[2018-05-17] MEDS: morphINE SR 15 MG TAB PO SCH ×2 (09:18→21:44)
[2018-05-17] MEDS: TIOTROPIUM INHALER 18 MCG/DOSE 5 DOSE/MDI IH SCH (09:21)
[2018-05-17] MEDS: PANTOPRAZOLE SODIUM 40 MG TAB PO SCH (09:59)
[2018-05-17] MEDS: TACROLIMUS ANHYDROUS 0.5 MG CAP PO SCH ×2 (09:59→21:45)
[2018-05-17] MEDS: ARIPiprazole 5 MG TAB PO SCH (10:00)
[2018-05-17] MEDS: TOPIRAMATE 25 MG TAB PO SCH ×2 (10:00→21:45)
[2018-05-17] MEDS: CETIRIZINE 10 MG TAB PO SCH (10:00)
[2018-05-17] MEDS: FERROUS SULFATE 325 MG TAB PO SCH ×3 (10:01→21:50)
[2018-05-17] MEDS: ASPIRIN 81 MG CHEWABLE TAB PO SCH (10:01)
[2018-05-17] MEDS: FLUoxetine 20 MG CAP PO SCH (10:01)
[2018-05-17] MEDS: THIAMINE HCL 100 MG TAB PO SCH (10:02)
--- NOTE | 2018-05-17 10:12 | PDMN ---
Medical Necessity Medical necessity: Pt meets inpt criteria per MD order and [facility] [place] M-[id number], Renal Failure, Acute, 3 days. 72 y/o w/complex medical hx including liver transplant on chronic immunosuppressive therapy admitted w/acute kidney injury w/ creatinine of 3.7 (her baseline is 1.6), hypoxemia requiring suppl O2, hyponatremia w/sodium of 120, and L arm pain (recent fx). Other comorbidities include heart failure, hypertension, chronic kidney disease, recent humerus fx hospitalization, COPD, schizoaffective do, depression/anxiety. Anticiapte>2MN for ongoing eval/management of above.
[2018-05-17] MEDS: ONDANSETRON 4 MG/2 ML VIAL IVP PRN (11:43)
[2018-05-17] MEDS: HYDROCORTISONE 0.5% CREAM TP SCH (11:51)
[2018-05-17 12:29] LABS: CREATINE KINASE 46 IU/L (0-156)
--- NOTE | 2018-05-17 12:40 | HOSPPROG ---
Hospitalist Progress Note Assessment/Plan: 72-year-old female with history of bradycardia status post permanent pacemaker, CHF, CKD, history HCV status post liver transplant on immunosuppressive therapy , HTN, hypothyroidism, schizoaffective disorder admitted because of possible fall and increasing pain from [place] [facility] #hx syncopal episode, new possible fall -significant hyponatremia -appreciate nephrology assistance, discussed care plan with Dr Pickard -also discussed with hematology, Dr Marie -multiple labs and serologies ordered #Closed left humeral fracture (Acute) - increased angulation, was non operative per ortho at last hospitalization. Discussed care with Dr Agudelo again, asked him to re-eval. Has significant pain and bruising. #thrombocytopenia and anemia, chronic (history of liver transplant and chronic kidney disease) -monitor closely, transfuse as needed -WBC a little elevated, no obvious source infection, no abx indicated at this time #Acute on chronic CKD 3- patient's baseline appears to be 1.5-1.7, now 3.7 -gentle hydration with NS per renal #HTN -hypotensive at admission, holding meds, follow closely Chronic medical issues #Liver transplant on immunosuppression #History CHF compensated #Chronic kidney disease stage 3 baseline creatinine 1.5-1.7 #Hypothyroidism #Schizoaffective disorder versus anxiety/depression #Bradycardia with pacer placement - interrogated at recent hospitalization #Migraine headache #COPD #Osteoarthritis PPX-SCDs. Holding anticoagulation bc of thrombocytopenia Cor status-full Disposition > 2 mdnts because of electrolyte abnormalities, possible surgical intervention of fracture Subjective: Having a lot of pain in L arm. OTW feels OK, no N/V/CP/SOB. Brother in room visiting. Objective: Vital Signs Temp Pulse Resp BP Pulse Ox 97.7 F 84 18 135/64 H 98 05/17/18 06:53 05/17/18 09:30 05/17/18 09:30 05/17/18 06:53 05/17/18 09:30 Laboratory Results 05/17/18 05:55 05/17/18 11:50 05/16/18 05/17/18 05/18/18 11:59 11:59 11:59 Intake Total 150 Output Total 700 Balance -550 - Time Spent With Patient Time Spent with Patient: greater than 35 minutes Time Spent with Patient: Greater than 35 minutes spent on this patients care, greater than 50% of time spent counseling, educating, and coordinating care regarding the above mentioned plan. - Physical Exam Constitutional: no apparent distress, uncomfortable Eyes: PERRL, anicteric sclera Ears, Nose, Mouth, Throat: moist mucous membranes, hearing normal Cardiovascular: regular rate and rhythym Respiratory: no respiratory distress, no rales or rhonchi, clear to auscultation Gastrointestinal: normoactive bowel sounds, soft, non-tender abdomen, no palpable masses Skin: warm, other (significant bruising over R shoulder/arm) Psychiatric: interacting appropriately, not anxious, not encephalopathic ICD10 Worksheet Patient Problems: Problems Problem Status Onset Dehydration Acute Fracture, humerus Acute Renal failure (ARF), acute on chronic Acute Adjustment disorder with depressed mood Active Acute bronchitis with chronic obstructive pulmonary disease (COPD) Acute Acute on chronic renal insufficiency Acute Bronchitis Acute Chest pain Acute Chest pain Acute Chest pain in adult Acute Chronic Disease Mgmt/Transitional Care Acute Chronic obstructive pulmonary disease with acute exacerbation Acute Chronic renal insufficiency Acute Closed left humeral fracture Acute Colitis Acute Cough Acute Elevated d-dimer Acute Hyponatremia Acute Knee effusion Acute Leg cramping Acute Leukopenia Acute Migraine Acute Multiple falls Acute Nausea & vomiting Acute Near syncope Acute Osteoarthritis of right knee Acute Pleural effusion, right Acute Pneumonia Acute Renal failure (ARF), acute on chronic Acute Right knee pain Acute Sedated Acute Shortness of breath Acute Urinary tract infection Acute Vomiting Acute Weakness Acute
[2018-05-17 13:36] LABS: HEPATITIS C ANTIBODY TOTAL REACTIVE (NEGATIVE)
[2018-05-17] MEDS: MINERAL OIL TP SCH ×3 (14:59→21:48)
[2018-05-17] MEDS: PET HY PHL TP SCH ×3 (14:59→21:48)
--- NOTE | 2018-05-17 15:05 | ASMTCMCOM ---
CM Note CM Note Notes: Pt lives at [facility] after discharge from here last Sunday when she was admitted after fall and had surgery for humerous fracture. Pt readmitted yesterday after being found down at [facility], for SHELBI on CKD with electrolyte imbalance. Pt also has COPD, hs of liver transplant, depression/anxiety and schizoaffective disorder. Pt's brother in room during rounds. Pt likely here for a few more days, nephrology and oncology consults to be placed as well as orthopedics to eval left shoulder. Pt will return to [facility]. Referral sent and Zachery aware. D/C Plan: [facility] Date Signed: 05/17/2018 02:53 PM Electronically Signed By:Kacie Pires
[2018-05-17] MEDS: NS 1,000 ML IV SCH (15:18)
[2018-05-17] MEDS: LIDOCAINE 4%/MENTHOL 1% PATCH TD SCH (16:32)
[2018-05-17] MEDS: HYDROmorphONE/DILAUDID 1 MG/ML INJ IVP PRN (17:25)
--- NOTE | 2018-05-17 18:51 | GCON ---
HEMATOLOGY CONSULTATION REFERRING PHYSICIAN: Cl Woody MD REASON FOR CONSULTATION: Anemia, thrombocytopenia. HPI: Ms. Saldana is a 72-year-old woman with a past history including liver transplant secondary to hepatitis C, on chronic immunosuppressive therapy ( tacrolimus), who was admitted with continued pain following a left humerus fracture. She was discharged 05/05/2018 after sustaining a left humerus fracture after a fall. She was discharged to a SNF. She had an orthopedics consultation and felt to have a nonoperable fracture. Upon readmission, she was found to have a white blood count 11.8, hemoglobin 7.9, platelets 57,000. She has chronic renal insufficiency, with a baseline creatinine in the high 1s- 2.0. Creatinine on admission 3.7. She has had chronic thrombocytopenia with a similar platelet count (40s-70s) for the last couple of years. Her hemoglobin on admission with her recent fracture was 10.3, and dropped to 8.7, 05/03/2018. She is primarily complaining of left arm pain and bruising. PAST MEDICAL HISTORY: 1. Liver transplant, as above. 2. Chronic kidney disease. 3. History of heart failure. 4. Schizoaffective disorder. 5. Hypertension. 6. Hypothyroidism. 7. COPD. 8. GERD. 9. Chronic migraines. 10. History of upper GI bleed. 11. History of ischemic colitis. PAST SURGICAL HISTORY: 1. Pacemaker. 2. Liver transplant, 1996. 3. Cholecystectomy. 4. Right knee arthroplasty. SOCIAL HISTORY: She is currently at [facility]. She is . FAMILY HISTORY: Noncontributory. MEDICATIONS: Outpatient list reviewed. ALLERGIES: Sumatriptan, dextroamphetamine, gabapentin, temazepam. REVIEW OF SYSTEMS: CONSTITUTIONAL: No fever, chills. MUSCULOSKELETAL: Per HPI. HEMATOLOGIC: Bruising, as above. No bleeding. Ten-point review of systems otherwise negative. PHYSICAL EXAM: VITAL SIGNS: Blood pressure 135/64, pulse 83, respirations 14, and 94% on 2 L. Afebrile. GENERAL: Alert and oriented, no acute distress. She is fixated on trimming the left sleeve of her T-shirt. HEENT: No scleral icterus. CARDIOVASCULAR: Regular rate and rhythm. LUNGS: Reduced breath sounds bilaterally on anterior exam. ABDOMEN: Soft, nontender. EXTREMITIES: Tenderness along the humeral shaft. SKIN: Extensive ecchymoses over the left upper extremity. No petechiae. NEUROLOGIC: She is alert and oriented, but somewhat confused about details and perseverative. LABORATORY DATA: Per HPI. I reviewed her peripheral blood smear, which demonstrated some tatiana cells and a very occasional schistocyte. No platelet clumping. Neutrophils with toxic granulations present. Yesterday, total bilirubin 0.9, direct 0.8, indirect 0.1. Today, LDH 413. Tacrolimus level 1.5. IMPRESSION: 1. Chronic thrombocytopenia, likely secondary to chronic liver disease, hepatitis C, immunosuppression. 2. Chronic anemia, likely multifactorial. I suspect her recent drop is related to both worsening renal function and soft tissue bleeding from her fracture and fall. 3. Acute on chronic renal dysfunction. My suspicion for thrombotic thrombocytopenic purpura is very low given her essentially unchanged chronic thrombocytopenia and alternative explanations for her anemia. She has no evidence of hemolysis (normal indirect bilirubin, LDH, no significant schistocytes on peripheral smear). Dr. Woody has consulted regarding her renal failure. I will order some additional laboratory studies with her next lab draw, but overall, do not think there is a new issue and her chronic hematologic findings are fairly stable. /[id number]/MODL MTDD
--- NOTE | 2018-05-17 19:01 | GCON ---
DATE OF CONSULTATION: 05/17/2018 REASON FOR CONSULTATION: Opinion regarding acute kidney injury in a patient with known chronic kidney disease. HISTORY OF PRESENT ILLNESS: The patient is a 72-year-old female with known stage 3 chronic kidney disease, baseline serum creatinine dating back to about 2016 has been in the 1.6 to 1.8 range. She is a very poor historian, she does try to answer my questions but I am not certain that the answers are reliable. She had a fall injuring her left humerus about a week ago, has had significant pain with that injury and has not been eating or drinking very well per her report. She has not been using nonsteroidal anti-inflammatory drugs. The patient has a history of orthotopic liver transplant done 21 years ago at [facility] for hepatitis C and cirrhosis, she says she has had stable liver function subsequently. She denies having had fevers, chills. Does have some nausea, some vomiting, some diarrhea. No melena, hematochezia, blurry vision, double vision, headache , orthopnea, paroxysmal nocturnal dyspnea, palpitations, syncope. She did have a fall about a week ago fracturing her right femur, she says she has been a little unsteady on her feet. Again, her review of systems and interview in general I think is unreliable. PAST MEDICAL HISTORY: Significant for: 1. Stage 3 chronic kidney disease with serum creatinine between 1.6 and 1.8 for the past 3 or so years, it was 1.2 to 1.4 prior to that. 2. Status post orthotopic liver transplant from hepatitis C about 21 years ago. 3. Chronic immunosuppression on tacrolimus. 4. Recent left humerus fracture after a fall. 5. Status post pacemaker, she cannot tell me why. 6. Hypertension. 7. Hypothyroidism. 8. Congestive heart failure. 9. Schizoaffective disorder. 10. History of focal segmental glomerulosclerosis. 11. Anemia. ALLERGIES: To sumatriptan, gabapentin, temazepam, and dextroamphetamine. FAMILY HISTORY: Reviewed. It is not contributory. MEDICATIONS: Include Tylenol, Cathflo, Abilify 5 mg a day, aspirin 81 mg a day , Tums 1 g twice daily, Rocephin 1 g a day, Zyrtec 5 mg daily, iron sulfate 325 mg 3 times daily, Prozac 40 mg a day, Synthroid 75 mcg a day, normal saline running at 100 cc/hour, tacrolimus 0.5 mg daily, Protonix 40 mg daily, Topamax 25 mg daily, trazodone 100 mg at bedtime, Spiriva, vitamin B1 at 100 mg daily, Senna, and Phenergan. SOCIAL HISTORY: She is . She lives at [facility]. She has long history of opioid dependence. REVIEW OF SYSTEMS: Obtained from the patient. I do not think it is reliable but it is as per the previous sections. PHYSICAL EXAMINATION: VITAL SIGNS: Blood pressure is 135/64 with a low of 90/ 60 overnight, pulse 83, respirations 14, temperature 36.5. Urine output 250 cc. GENERAL: She is awake, alert, but is confused. HEENT: Pupils are reactive to light. Extraocular movements are intact. Mucous membranes are somewhat dry. NECK: No lymphadenopathy or thyromegaly. HEART: Regular. Grade 1/6 systolic murmur. No rub. No S3. She has a pacemaker in place. LUNGS: No rales, rhonchi, or wheezes. ABDOMEN: Bowel sounds are positive. Soft, nontender, nondistended. EXTREMITIES: No edema, cyanosis, or clubbing. NEUROLOGIC: No asterixis. She is confused. SKIN: Has large bruise over her left arm and shoulder from her fall and humerus fracture. LYMPH: No palpable lymphadenopathy. MUSCULOSKELETAL: Tenderness over that left arm. LABORATORY: Serum sodium on admission was 120. With normal saline infusion at 100 cc/hour over the course of the past 12 or 13 hours, she has increased up to 124, which is an appropriate rate. Potassium 4.7, chloride 97, CO2 of 17, BUN 68, creatinine 3.4, glucose 107, calcium 7.6, phosphorus 4.9, albumin 2.3. WBC is 11.1, hemoglobin 8.5, hematocrit 25, platelet count 62,000. She does have schistocytes on her peripheral smear, with her acute kidney injury I think we need to investigate that further. Her lactic acid is 1.0. Urinalysis: Specific gravity 1.011, pH 5, +2 protein, +1 blood, +3 bacteria, she is getting Rocephin for a probable urinary tract infection. Her spot urine sodium was 48, urine creatinine 81, urine osmolality of 287. Tacrolimus level is pending. Echocardiogram done in December of 2017 showed an ejection fraction of 69%. No wall motion abnormalities. Moderate aortic insufficiency. In April 2018 her serum creatinine was in the 1.6 to 1.8 range. IMPRESSION: 1. Acute kidney injury looks to be due to volume depletion from poor oral intake, serum creatinine has not improved much overnight but hopefully with IV fluids it will start to improve. 2. Hyponatremia looks to be hypovolemic, her serum sodium is increasing appropriately on her current IV fluids. 3. Anemia with schistocytes on her peripheral smear, I think that needs to be investigated. 4. Urinary tract infection. Cultures are pending. She is on Rocephin. 5. Orthotopic liver transplant due to hepatitis C and cirrhosis. 6. Chronic immunosuppression with tacrolimus. 7. Anemia. 8. Thrombocytopenia. RECOMMENDATIONS: 1. Continue her IV fluids as is. 2. I think we need to workup her anemia, thrombocytopenia, and schistocytes on peripheral smear. 3. Continue her current therapies otherwise. Thank you for allowing me to participate in the care of your patient. If there are any questions, please do not hesitate to contact us. We will be following along with you. /[id number]/MODL MTDD
[2018-05-17] MEDS: traZODone 100 MG TAB PO SCH (21:45)
[2018-05-17] MEDS: GABAPENTIN 300 MG CAP PO SCH (21:45)
[2018-05-18] MEDS: NS 1,000 ML IV SCH ×3 (01:00→22:57)
[2018-05-18] MEDS: HYDROCORTISONE 0.5% CREAM TP SCH ×3 (01:01→22:54)
[2018-05-18] MEDS: ACETAMINOPHEN 500 MG TAB PO SCH ×3 (01:11→17:37)
[2018-05-18] MEDS: oxyCODONE IR 5 MG TAB PO PRN ×3 (01:11→07:27)
[2018-05-18 04:11] LABS: PLATELET COUNT 52 10^3/uL (150-400)
[2018-05-18 04:12] LABS: PLATELET COUNT 55 10^3/uL (150-400)
[2018-05-18 04:18] LABS: INR 1.21 (0.83-1.16); PROTIME(PATIENT) 15.5 SEC (12.0-15.0)
[2018-05-18] MEDS: LEVOTHYROXINE 75 MCG TAB PO SCH (07:27)
[2018-05-18] MEDS: TOPIRAMATE 25 MG TAB PO SCH ×2 (08:25→22:56)
[2018-05-18] MEDS: THIAMINE HCL 100 MG TAB PO SCH (08:25)
[2018-05-18] MEDS: TACROLIMUS ANHYDROUS 0.5 MG CAP PO SCH ×2 (08:25→22:53)
[2018-05-18] MEDS: PANTOPRAZOLE SODIUM 40 MG TAB PO SCH (08:25)
[2018-05-18] MEDS: ASPIRIN 81 MG CHEWABLE TAB PO SCH (08:25)
[2018-05-18] MEDS: FLUoxetine 20 MG CAP PO SCH (08:26)
[2018-05-18] MEDS: ARIPiprazole 5 MG TAB PO SCH (08:26)
[2018-05-18] MEDS: CETIRIZINE 10 MG TAB PO SCH (08:26)
[2018-05-18] MEDS: FERROUS SULFATE 325 MG TAB PO SCH ×3 (08:27→18:46)
[2018-05-18] MEDS: morphINE SR 15 MG TAB PO SCH ×2 (08:27→22:53)
--- NOTE | 2018-05-18 08:38 | SOAPPROG ---
SOMATILDE Progress Note Assessment/Plan: Assessment: This is a 72-year-old female with history of hepatitis-C status post liver transplantation currently on tacrolimus who was admitted for a left humeral fracture. 1. Chronic thrombocytopenia: I reviewed her previous platelet counts and they have fluctuated in of chronically been low. She has no schistocytes on peripheral smear. She has no evidence of hemolysis. She has no evidence of DIC given normal fibrinogen and coagulation studies although her D-dimer is slightly elevated. She is on tacrolimus and her trough was 1.5. At this point , I would recommend transfusion if needed for her orthopedic procedure. 2. Normocytic anemia: Her ferritin is normal all that could be elevated and acute phase. Will send a vitamin B12 and folate. Certainly could be secondary to her underlying kidney disease. 3. Hyponatremia: Slightly improving. 4. Acute on chronic renal failure: He is slowly improving. 5. Status post liver transplant: I will recommend sending a trough for tacrolimus. All questions were answered. She voiced understanding of the plan. 05/18/18 08:39 Subjective: No acute events overnight. No issues this morning. No chest pain shortness of breath. Objective: Vital Signs Temp Pulse Resp BP Pulse Ox 36.0 C 94 18 180/72 H 93 05/18/18 08:06 05/18/18 08:06 05/18/18 08:06 05/18/18 08:06 05/18/18 08:06 Laboratory Results 05/18/18 04:00 05/18/18 04:00 05/17/18 05/18/18 05/19/18 05:59 05:59 05:59 Intake Total 150 4382 Output Total 450 1075 Balance -300 3307 PT 15.5 SEC (12.0-15.0) H 05/18/18 04:00 INR 1.21 (0.83-1.16) H 05/18/18 04:00 General: Conversant in no acute distress HEENT: Oropharynx is clear extraocular movements are intact no scleral icterus Cardiovascular: Regular rate and rhythm Pulmonary: Clear on anterior auscultation Abdomen: Slightly distended tympanic nontender Extremities: Left arm in a splint, ecchymosis noted. Neuro: Alert active answers questions ICD10 Worksheet Patient Problems: Problems Problem Status Onset Dehydration Acute Fracture, humerus Acute Renal failure (ARF), acute on chronic Acute Adjustment disorder with depressed mood Active Acute bronchitis with chronic obstructive pulmonary disease (COPD) Acute Acute on chronic renal insufficiency Acute Bronchitis Acute Chest pain Acute Chest pain Acute Chest pain in adult Acute Chronic Disease Mgmt/Transitional Care Acute Chronic obstructive pulmonary disease with acute exacerbation Acute Chronic renal insufficiency Acute Closed left humeral fracture Acute Colitis Acute Cough Acute Elevated d-dimer Acute Hyponatremia Acute Knee effusion Acute Leg cramping Acute Leukopenia Acute Migraine Acute Multiple falls Acute Nausea & vomiting Acute Near syncope Acute Osteoarthritis of right knee Acute Pleural effusion, right Acute Pneumonia Acute Renal failure (ARF), acute on chronic Acute Right knee pain Acute Sedated Acute Shortness of breath Acute Urinary tract infection Acute Vomiting Acute Weakness Acute
[2018-05-18] MEDS: TIOTROPIUM INHALER 18 MCG/DOSE 5 DOSE/MDI IH SCH (09:16)
[2018-05-18] MEDS: LIDOCAINE 4%/MENTHOL 1% PATCH TD SCH (09:49)
[2018-05-18] MEDS: MINERAL OIL TP SCH ×3 (10:05→22:54)
[2018-05-18] MEDS: PET HY PHL TP SCH ×3 (10:05→22:54)
--- NOTE | 2018-05-18 11:19 | GCON ---
SUBJECTIVE: The patient is well known to me. I was asked to see her by Sonia Nelson, the margaritais bradford. She has a well known left proximal humerus fracture. She sustained a fall a couple of days ago. I saw her yesterday in consultation as well as this morning. PHYSICAL EXAM: The patient does have a little bit of skin tenting. It is unclear if it is from the fracture, but she is otherwise grossly intact. She does have a substantial amount of pain at this ti me. IMAGING: I reviewed the images again. They demonstrate about a 90-degree angulation of the proximal fracture fragment. This is markedly displaced when compared to before. IMPRESSION: Left proximal humerus fracture. ASSESSMENT AND PLAN: I think based on the amount of displacement and progressive displacement as wel l as the patient's discomfort this is potentially an operative fracture, but it depends largely on th e patient's ability to be cleared for surgery. I have discussed with Sonia Nelson regarding clearanc e. Sodium yesterday was 122 and today is 125. She is still pending medical clearance. We will jose ntdonna get her on the schedule either Sunday or next week for operative fixation. This obviously de pends on the patient's ability to clear medically as well as her interest in the operation. I will b e in touch further. Please make the patient n.p.o. after midnight for possible surgery on Sunday. Bradford bey you very much. /[id number]/MODL
--- NOTE | 2018-05-18 11:24 | SOAPPROG ---
SOAP Progress Note Assessment/Plan: Assessment/Plan: SHELBI on CKD 3: baseline Cr 1.6-1.8, 3.7 on presentation and now down to 2.9 with IVFs. - No need for HD. - Will continue IVFs. - Serological workup pending. - Will continue to monitor. - Avoid hypotension and nephrotoxins. Hyponatremia: low urine sodium, slowly improving with NS, now up to 125. - Will continue NS. - Will continue to monitor BID for now. - Starting sodium bicarb tabs as below. Metabolic acidosis: in setting of SHELBI, will start on sodium bicarb tabs and continue to monitor. Subjective: No acute events overnight. Pt denies any pain or dyspnea, is resting comfortably this am. Objective: Vital Signs Temp Pulse Resp BP Pulse Ox 36.0 C 92 20 180/72 H 92 05/18/18 08:06 05/18/18 09:17 05/18/18 09:17 05/18/18 08:06 05/18/18 09:17 Laboratory Results 05/18/18 04:00 05/18/18 04:00 05/17/18 05/18/18 05/19/18 05:59 05:59 05:59 Intake Total 150 4382 Output Total 450 1075 Balance -300 3307 PT 15.5 SEC (12.0-15.0) H 05/18/18 04:00 INR 1.21 (0.83-1.16) H 05/18/18 04:00 General: alert and oriented, no acute distress Eyes: EOMI, PERRL OP: Clear CV: RRR Resp: nonlabored respirations Abd: Soft, nt/ND Ext: no edema BLE Psych: cooperative, confused ICD10 Worksheet Patient Problems: Problems Problem Status Onset Dehydration Acute Fracture, humerus Acute Renal failure (ARF), acute on chronic Acute Adjustment disorder with depressed mood Active Acute bronchitis with chronic obstructive pulmonary disease (COPD) Acute Acute on chronic renal insufficiency Acute Bronchitis Acute Chest pain Acute Chest pain Acute Chest pain in adult Acute Chronic Disease Mgmt/Transitional Care Acute Chronic obstructive pulmonary disease with acute exacerbation Acute Chronic renal insufficiency Acute Closed left humeral fracture Acute Colitis Acute Cough Acute Elevated d-dimer Acute Hyponatremia Acute Knee effusion Acute Leg cramping Acute Leukopenia Acute Migraine Acute Multiple falls Acute Nausea & vomiting Acute Near syncope Acute Osteoarthritis of right knee Acute Pleural effusion, right Acute Pneumonia Acute Renal failure (ARF), acute on chronic Acute Right knee pain Acute Sedated Acute Shortness of breath Acute Urinary tract infection Acute Vomiting Acute Weakness Acute
[2018-05-18] MEDS: HYDROmorphONE/DILAUDID 1 MG/ML INJ IVP PRN (13:03)
[2018-05-18] MEDS ORDERED: MAGNESIUM SULF 1 GM/DEXTROSE 100 ML IV ONE (13:22)
[2018-05-18] MEDS: LORazepam 2 MG/ML INJ IVP PRN ×2 (13:23→13:31)
[2018-05-18] MEDS: SODIUM BICARBONATE 650 MG TAB PO SCH ×3 (13:29→22:53)
[2018-05-18] MEDS: CARVEDILOL 25 MG TAB PO SCH ×2 (13:30→18:48)
[2018-05-18] MEDS: traZODone 100 MG TAB PO SCH (22:53)
[2018-05-18] MEDS: GABAPENTIN 300 MG CAP PO SCH (22:53)
[2018-05-19] MEDS: LORazepam 2 MG/ML INJ IVP PRN ×3 (01:21→15:58)
[2018-05-19] MEDS: HYDROmorphONE/DILAUDID 1 MG/ML INJ IVP PRN ×2 (01:24→09:51)
[2018-05-19] MEDS: ACETAMINOPHEN 500 MG TAB PO SCH ×4 (01:26→15:59)
[2018-05-19] MEDS: LEVOTHYROXINE 75 MCG TAB PO SCH (05:19)
[2018-05-19 06:23] LABS: PLATELET COUNT 48 10^3/uL (150-400)
[2018-05-19] MEDS: TIOTROPIUM INHALER 18 MCG/DOSE 5 DOSE/MDI IH SCH (08:42)
--- NOTE | 2018-05-19 08:43 | CPEKG ---
Test Reason : OPEN Blood Pressure : / mmHG Vent. Rate : 092 BPM Atrial Rate : 091 BPM P-R Int : 182 ms QRS Dur : 086 ms QT Int : 380 ms P-R-T Axes : 087 056 -02 degrees QTc Int : 471 ms Sinus rhythm P wave in V1 is suggestive of left atrial enlargement Confirmed by Sebastian Khan ([id number]) on 05/19/2018 8:42:22 AM Referred By: Confirmed By:Sebastian Khan
--- NOTE | 2018-05-19 08:48 | CPEKG ---
Test Reason : OPEN Blood Pressure : / mmHG Vent. Rate : 087 BPM Atrial Rate : 087 BPM P-R Int : 179 ms QRS Dur : 075 ms QT Int : 400 ms P-R-T Axes : 064 046 033 degrees QTc Int : 482 ms Sinus rhythm Low voltage, precordial leads Minimal ST elevation, anterior leads Artifact precludes accurate interpretation Confirmed by Sebastian Khan ([id number]) on 05/19/2018 8:47:45 AM Referred By: Confirmed By:Sebastian Khan
[2018-05-19] MEDS: morphINE SR 15 MG TAB PO SCH ×3 (08:50→22:37)
[2018-05-19] MEDS: ASPIRIN 81 MG CHEWABLE TAB PO SCH (08:51)
[2018-05-19] MEDS: CARVEDILOL 25 MG TAB PO SCH ×3 (08:51→15:59)
[2018-05-19] MEDS: FERROUS SULFATE 325 MG TAB PO SCH ×4 (08:51→18:43)
[2018-05-19] MEDS: ARIPiprazole 5 MG TAB PO SCH ×2 (08:51→09:11)
[2018-05-19] MEDS: FLUoxetine 20 MG CAP PO SCH ×2 (08:52→09:10)
[2018-05-19] MEDS: CETIRIZINE 10 MG TAB PO SCH (09:00)
[2018-05-19] MEDS: LIDOCAINE 4%/MENTHOL 1% PATCH TD SCH (09:00)
[2018-05-19] MEDS: MINERAL OIL TP SCH ×3 (09:01→21:52)
[2018-05-19] MEDS: PET HY PHL TP SCH ×3 (09:01→21:52)
[2018-05-19] MEDS: PANTOPRAZOLE SODIUM 40 MG TAB PO SCH (09:02)
[2018-05-19] MEDS: SODIUM BICARBONATE 650 MG TAB PO SCH ×4 (09:05→21:52)
[2018-05-19] MEDS: TOPIRAMATE 25 MG TAB PO SCH ×3 (09:05→21:52)
[2018-05-19] MEDS: THIAMINE HCL 100 MG TAB PO SCH (09:08)
[2018-05-19] MEDS: TACROLIMUS ANHYDROUS 0.5 MG CAP PO SCH ×2 (09:09→21:52)
--- NOTE | 2018-05-19 09:10 | HOSPPROG ---
Hospitalist Progress Note Assessment/Plan: 72-year-old female with history of bradycardia status post permanent pacemaker, CHF, CKD, history HCV status post liver transplant on immunosuppressive therapy still +viral load, HTN, hypothyroidism, schizoaffective disorder admitted because of possible fall and increasing pain from [place] #hx syncopal episode, new possible fall -significant hyponatremia -appreciate nephrology assistance, updated Dr Malik -also discussed with hematology, Dr Rocha -multiple labs and serologies still pending per renal request #Closed left humeral fracture (Acute) - increased angulation, was non operative per ortho at last hospitalization. Discussed care with Dr Agudelo, plan to surgically repair when medically stable #thrombocytopenia and anemia, chronic (history of liver transplant and chronic kidney disease) -monitor closely, transfuse as needed -WBC a little elevated, no obvious source infection, no abx indicated at this time -stat head CT, no bleed #Acute on chronic CKD 3- patient's baseline appears to be 1.5-1.7, now 3.7 -gentle hydration with NS per renal #HTN -hypotensive at admission, holding meds -now hypertensive, meds restarted #chest pain, + trop -cardiology consulted -appreciate Dr Michele's assistance #seizure like activity/change in LOC -head CT no acute changes -will ask neurology to see her -will need MRI Chronic medical issues #Liver transplant on immunosuppression with ongoing active hep C viremia #History CHF compensated #Chronic kidney disease stage 3 baseline creatinine 1.5-1.7 #Hypothyroidism #Schizoaffective disorder versus anxiety/depression #Bradycardia with pacer placement - interrogated at recent hospitalization #Migraine headache #COPD #Osteoarthritis PPX-SCDs. Holding anticoagulation bc of thrombocytopenia Cor status-full Disposition > 2 mdnts because of electrolyte abnormalities, surgical intervention of fracture needed, new seizure like activity Subjective: Seemed confused during rounds- was also sleeping when we entered. Shortly after rounds when RNs returned, she started to say she hasd CP and a STAT was called. More alert, described pain in chest/R arm. Elev BP noted. BS was nl. Stat labs and EKG ordered. Had a few brief episodes that appeared to be seizures, eyes rolled up, didn't respond, was moving/shaking in all extremities (not tonic/clonic), did not lose bowel or bladder control. Stat head CT done- no bleed, no sequelae from hypoNa. Trop elev- discussed with Dr Michele/cardio ( needs cardiac clearance for huerus repair also), he will evaluate. Given morphine/ativan IV. BP improved, pain improved, no further motor activity reported. Objective: Vital Signs Temp Pulse Resp BP Pulse Ox 99.2 F 86 20 108/65 97 05/19/18 07:38 05/19/18 07:38 05/19/18 07:38 05/19/18 07:38 05/19/18 07:38 Laboratory Results 05/19/18 06:00 05/19/18 06:00 05/17/18 05/18/18 05/19/18 11:59 11:59 11:59 Intake Total 150 4382 2501 Output Total 656 688 7070 Balance -550 3557 751 PT 15.5 SEC (12.0-15.0) H 05/18/18 04:00 INR 1.21 (0.83-1.16) H 05/18/18 04:00 - Time Spent With Patient Time Spent with Patient: greater than 35 minutes (also >30 mins critical care time) Time Spent with Patient: Greater than 35 minutes spent on this patients care, greater than 50% of time spent counseling, educating, and coordinating care regarding the above mentioned plan. - Physical Exam Constitutional: uncomfortable Eyes: PERRL, anicteric sclera Ears, Nose, Mouth, Throat: moist mucous membranes, hearing normal Cardiovascular: regular rate and rhythym Respiratory: no respiratory distress, no rales or rhonchi, clear to auscultation Gastrointestinal: normoactive bowel sounds, soft, non-tender abdomen, no palpable masses Skin: warm, other (significant bruising L upper arm/shoulder) Neurologic: other (see description above) ICD10 Worksheet Patient Problems: Problems Problem Status Onset Dehydration Acute Fracture, humerus Acute Renal failure (ARF), acute on chronic Acute Adjustment disorder with depressed mood Active Acute bronchitis with chronic obstructive pulmonary disease (COPD) Acute Acute on chronic renal insufficiency Acute Bronchitis Acute Chest pain Acute Chest pain Acute Chest pain in adult Acute Chronic Disease Mgmt/Transitional Care Acute Chronic obstructive pulmonary disease with acute exacerbation Acute Chronic renal insufficiency Acute Closed left humeral fracture Acute Colitis Acute Cough Acute Elevated d-dimer Acute Hyponatremia Acute Knee effusion Acute Leg cramping Acute Leukopenia Acute Migraine Acute Multiple falls Acute Nausea & vomiting Acute Near syncope Acute Osteoarthritis of right knee Acute Pleural effusion, right Acute Pneumonia Acute Renal failure (ARF), acute on chronic Acute Right knee pain Acute Sedated Acute Shortness of breath Acute Urinary tract infection Acute Vomiting Acute Weakness Acute
--- NOTE | 2018-05-19 09:23 | HOSPPROG ---
Hospitalist Progress Note Assessment/Plan: 72-year-old female with history of bradycardia status post permanent pacemaker, CHF, CKD, history HCV status post liver transplant on immunosuppressive therapy still +viral load, HTN, hypothyroidism, schizoaffective disorder admitted because of possible fall and increasing pain from [place] #hx syncopal episode, new possible fall -significant hyponatremia gradually improving -appreciate nephrology assistance -multiple labs and serologies still pending per renal request #Closed left humeral fracture (Acute) - increased angulation, was non operative per ortho at last hospitalization. Discussed care with Dr Agudelo, plan to surgically repair with Dr Elijah Miller if medically stable #thrombocytopenia and anemia, chronic (history of liver transplant and chronic kidney disease) -transfuse 1-2 U PRBC today -will likely need platelets prior to surgery also -WBC low today (no fever) -stat head CT yesterday, no bleed -discussed care plan with Dr Rocha, appreciate his assistance with this complicated patient #Acute on chronic CKD 3- patient's baseline appears to be 1.5-1.7 -gentle hydration with NS per renal #HTN -hypotensive at admission, routine meds had been on hold -yesterday quite hypertensive, meds restarted yesterday #episode of chest pain yesterday, + trop -appreciate Dr Michele's assistance -trops trending down -cardiac clearance/eval/recommendations prior to ortho surgery appreciated #seizure like activity/change in LOC -head CT no acute changes yesterday -spoke with Dr Beaver/neuro today re sxs yesterday and overall medical situation -he did NOT recommend MRI at this time -suggested oupt EEG/OV -notify him if any ongoing concerns and he will evaluate in the hospital -ammonia normal -speech/swallow eval pending #abnl UA, on rocephin for possible UTI -bd and ucx neg to date, afebrile, stop rocephin Chronic medical issues #Liver transplant on immunosuppression with ongoing active hep C viremia- viral load pending, HIV testing added #History CHF compensated #Chronic kidney disease stage 3 baseline creatinine 1.5-1.7 #Hypothyroidism #Schizoaffective disorder versus anxiety/depression #Bradycardia with pacer placement - interrogated at recent hospitalization #Migraine headache #COPD #Osteoarthritis PPX-SCDs. Holding anticoagulation bc of thrombocytopenia Cor status-full Disposition > 2 mdnts because of electrolyte abnormalities, surgical intervention of fracture needed, new seizure like activity Subjective: Daughter in room. Intermittently confused, not speaking clearly/ mumbling, then clearer/answers questions appropriately. Was unable to swallow pills this AM, speech/swallow eval pending. Was able to drink water from a cup while I was at bedside without choking/coughing. Pain in L arm continues. No CP /SOB today. Has had seizures prev per her report, which daughter confirms. Objective: Vital Signs Temp Pulse Resp BP Pulse Ox 99.2 F 86 20 108/65 97 05/19/18 07:38 05/19/18 07:38 05/19/18 07:38 05/19/18 07:38 05/19/18 07:38 Laboratory Results 05/19/18 06:00 05/19/18 06:00 05/17/18 05/18/18 05/19/18 11:59 11:59 11:59 Intake Total 150 4382 2501 Output Total 565 505 5998 Balance -550 3557 751 PT 15.5 SEC (12.0-15.0) H 05/18/18 04:00 INR 1.21 (0.83-1.16) H 05/18/18 04:00 - Time Spent With Patient Time Spent with Patient: greater than 35 minutes (spoke with daughter at length re issues, concerns) Time Spent with Patient: Greater than 35 minutes spent on this patients care, greater than 50% of time spent counseling, educating, and coordinating care regarding the above mentioned plan. - Physical Exam Constitutional: chronically ill appearing, uncomfortable, other (intermittently distressed/confused/nonverbal) Eyes: PERRL, anicteric sclera Ears, Nose, Mouth, Throat: hearing normal Cardiovascular: regular rate and rhythym Respiratory: no respiratory distress, reduced air movement (no obvious rhonchi/ wheeze/crackles) Gastrointestinal: normoactive bowel sounds, soft, non-tender abdomen Genitourinary: buchanan in urethra (placed yesterday after noted urinary retention) Psychiatric: encephalopathic (intermittently), anxious, agitated (intermittently ), poor memory ICD10 Worksheet Patient Problems: Problems Problem Status Onset Dehydration Acute Fracture, humerus Acute Renal failure (ARF), acute on chronic Acute Adjustment disorder with depressed mood Active Acute bronchitis with chronic obstructive pulmonary disease (COPD) Acute Acute on chronic renal insufficiency Acute Bronchitis Acute Chest pain Acute Chest pain Acute Chest pain in adult Acute Chronic Disease Mgmt/Transitional Care Acute Chronic obstructive pulmonary disease with acute exacerbation Acute Chronic renal insufficiency Acute Closed left humeral fracture Acute Colitis Acute Cough Acute Elevated d-dimer Acute Hyponatremia Acute Knee effusion Acute Leg cramping Acute Leukopenia Acute Migraine Acute Multiple falls Acute Nausea & vomiting Acute Near syncope Acute Osteoarthritis of right knee Acute Pleural effusion, right Acute Pneumonia Acute Renal failure (ARF), acute on chronic Acute Right knee pain Acute Sedated Acute Shortness of breath Acute Urinary tract infection Acute Vomiting Acute Weakness Acute
--- NOTE | 2018-05-19 10:17 | SOAPPROG ---
[facility] Progress Note Assessment/Plan: Assessment: This is a 72-year-old female with history of hepatitis-C status post liver transplantation currently on tacrolimus who was admitted for a left humeral fracture. 1. Chronic thrombocytopenia: I reviewed her previous platelet counts and they have fluctuated and have been chronically low. She has no schistocytes on peripheral smear. She has no evidence of hemolysis. She has no evidence of DIC given normal fibrinogen and coagulation studies although her D-dimer is slightly elevated. She is on tacrolimus and her trough was 1.5. At this point , I would recommend transfusion if needed for her orthopedic procedure. 2. Normocytic anemia: Her ferritin is normal all that could be elevated and acute phase. B12 and folate are normal. Certainly could be secondary to her underlying kidney disease. 3. Hyponatremia: Slightly improving. 4. Acute on chronic renal failure: He is slowly improving. 5. Status post liver transplant: [place] level from yesterday is pending. Would consider sending an ammonia. 6. Leukopenia: She came with WBC at 11. Previous WBC were in the 2's, which I think is her baseline. All questions were answered. She voiced understanding of the plan. 05/19/18 10:18 Subjective: Remained confused this morning. States that she is thirsty this morning would like to drink water. Yesterday had jerking movements but no obvious seizures. Objective: Vital Signs Temp Pulse Resp BP Pulse Ox 37.3 C 86 20 108/65 97 05/19/18 07:38 05/19/18 07:38 05/19/18 07:38 05/19/18 07:38 05/19/18 07:38 Laboratory Results 05/19/18 06:00 05/19/18 06:00 05/18/18 05/19/18 05/20/18 05:59 05:59 05:59 Intake Total 4382 1250 1251 Output Total 1075 1750 Balance 3307 -500 1251 PT 15.5 SEC (12.0-15.0) H 05/18/18 04:00 INR 1.21 (0.83-1.16) H 05/18/18 04:00 General: Conversant, Neuro: Moving right upper extremity and bilateral lower extremities. Left upper extremity cannot be assessed with regards to strength due to fracture. Continues to remain confused. Is conversant. Cardiovascular: Regular rhythm Pulmonary: Clear to auscultation bilaterally Skin: Ecchymosis noted on the shoulder and left arm Abdomen: Bowel sounds are present soft nontender no rebound or guarding Psych: Does not answer questions appropriately. Is confused. Extremities: No cyanosis clubbing, left upper extremity cannot be assessed due to pain. Sling noted. ICD10 Worksheet Patient Problems: Problems Problem Status Onset Dehydration Acute Fracture, humerus Acute Renal failure (ARF), acute on chronic Acute Adjustment disorder with depressed mood Active Acute bronchitis with chronic obstructive pulmonary disease (COPD) Acute Acute on chronic renal insufficiency Acute Bronchitis Acute Chest pain Acute Chest pain Acute Chest pain in adult Acute Chronic Disease Mgmt/Transitional Care Acute Chronic obstructive pulmonary disease with acute exacerbation Acute Chronic renal insufficiency Acute Closed left humeral fracture Acute Colitis Acute Cough Acute Elevated d-dimer Acute Hyponatremia Acute Knee effusion Acute Leg cramping Acute Leukopenia Acute Migraine Acute Multiple falls Acute Nausea & vomiting Acute Near syncope Acute Osteoarthritis of right knee Acute Pleural effusion, right Acute Pneumonia Acute Renal failure (ARF), acute on chronic Acute Right knee pain Acute Sedated Acute Shortness of breath Acute Urinary tract infection Acute Vomiting Acute Weakness Acute
--- NOTE | 2018-05-19 13:00 | PDCARCONS ---
Cardiology Consult Reason for Consult: Chest pain, elevated cardiac enzymes. Chief Complaint: Currently she is non communicative. Requesting Physician: Dr. Sonia Nelson. History of Present Illness: 72-year-old female who has presumed coronary artery disease and has been seen in our outpatient clinic in the past most recently in September of [address] Carlos Milner. Her coronary artery disease is presumed based on an abnormal stress myocardial perfusion imaging study which was performed in October of 2015. At that time, she had evidence of moderate infero posterior ischemia. The decision was made to manage her medically given her multiple comorbidities including chronic renal insufficiency with a baseline creatinine above 2. Additionally, she has a history of sick sinus syndrome with a permanent dual- chamber pacemaker which was implanted in August of 2015. She has no history of congestive heart failure or arrhythmia. Additionally, she has a history of chronic hepatitis C. She underwent liver transplantation in 1996 which was done at the [facility]. She has been treated with immunosuppressive therapy since then. She was admitted to the hospital on May 16. She is a resident of [facility]. Apparently, she has had several falls ultimately resulting in a fracture of her left humerus. There are plans for have surgical treatment on Sunday. At the time of admission she was also noted to be confused. She had had an antecedent history of poor p.o. Intake and was hypotensive on arrival. Her creatinine was elevated up into the 3.7 range. She was also noted to be hyponatremic with serum sodium of 122. While I was not able to obtain a history, it is annotated in the chart that she had an episode of chest discomfort yesterday. Sequential cardiac enzymes were drawn indicating a slow trend downward. Currently she is not able to provide a history. She was also noted to be anemic. She is currently receiving a blood transfusion. Apparently there was also concern regarding the possibility of seizure activity which was witnessed yesterday. History Information - Allergies/Home Medication List Allergies/Adverse Reactions: sumatriptan [From Imitrex] Allergy (Intermediate, Verified 02/09/17 12:31) palpitations dextroamphetamine [Dextroamphetamine] Allergy (Unknown, Verified 02/09/17 12:31) JITTERY gabapentin [Gabapentin] Allergy (Unknown, Verified 02/09/17 12:31) JITTERY temazepam [Temazepam] Allergy (Unknown, Verified 02/09/17 12:31) AMNESIA sumatriptan succinate [From Imitrex] Allergy (Verified 02/09/17 12:31) Home Medications: ARIPiprazole [Abilify 5 mg (*)] 5 mg PO DAILY 05/02/18 [Last Taken Unknown] Acetaminophen [Tylenol ES 500 mg (*)] 500 mg PO Q6 PRN 05/02/18 [Last Taken Unknown] Ascorbic Acid [Vitamin C 500 mg (*)] 500 mg PO DAILY 05/02/18 [Last Taken Unknown] Aspirin [Aspirin 81mg (*)] 81 mg PO DAILY 05/02/18 [Last Taken Unknown] Biofreeze Gel 4% (Menthol) 1 genesis TP QID PRN 05/02/18 [Last Taken Unknown] Calcium Carbonate [Tums 500MG (*)] 1,000 mg PO Q12H PRN 05/02/18 [Last Taken Unknown] Cetirizine [ZyrTEC 10 mg (*)] 5 mg PO DAILY 05/02/18 [Last Taken Unknown] Cholecalciferol Vit D3 [Vitamin D3 (*)] 50,000 unit PO Q30D 05/02/18 [Last Taken Unknown] Cyanocobalamin [Vitamin B12 (*)] 500 mcg PO DAILY 05/02/18 [Last Taken Unknown] FLUoxetine [Prozac 20 MG (*)] 40 mg PO DAILY 05/02/18 [Last Taken Unknown] Ferrous Sulfate [Ferrous Sulf 325 MG (*)] 325 mg PO TIDMEAL 05/02/18 [Last Taken Unknown] Gabapentin [Neurontin 300 MG (*)] 300 mg PO HS 05/02/18 [Last Taken Unknown] Herbals/Supplements -Info Only 1 ea PO DAILY 05/02/18 [Last Taken Unknown] Hydrocortisone 0.5% [Hydrocortisone 0.5% cream (*)] 1 genesis TP Q12H 05/02/18 [ Last Taken Unknown] Levothyroxine [Synthroid 75 mcg (*)] 75 mcg PO DAILY06 05/02/18 [Last Taken Unknown] Mineral Oil/Pet Hy-Phl [Aquaphor Ointment (*)] 1 genesis TP TID 05/02/18 [Last Taken Unknown] Multivitamins [Multivitamin (*)] 1 each PO DAILY 05/02/18 [Last Taken Unknown] Omeprazole 20 mg PO BID 05/02/18 [Last Taken Unknown] Sennosides/Docusate Sodium [Senokot-S] 1 each PO BID PRN 05/02/18 [Last Taken Unknown] Simethicone [Gas Relief] 80 mg PO Q8H PRN 05/02/18 [Last Taken Unknown] Tacrolimus 0.5 mg PO BID 05/02/18 [Last Taken Unknown] Thiamine HCl [Vitamin B-1] 100 mg PO DAILY 05/02/18 [Last Taken Unknown] Tiotropium Inhaler [Spiriva Handihaler] 18 mcg IH DAILY 05/02/18 [Last Taken Unknown] Topiramate [Topamax 25MG (*)] 25 mg PO BID 05/02/18 [Last Taken Unknown] amLODIPine BESYLATE [Norvasc 2.5 mg (*)] 2.5 mg PO DAILY 05/02/18 [Last Taken Unknown] traZODone [traZODONE 100MG (*)] 100 mg PO HS 05/02/18 [Last Taken Unknown] Bisacodyl [Magic Bullet 10 mg] 10 mg NV DAILY PRN 05/16/18 [Last Taken Unknown] Ondansetron Odt [Zofran Odt 4 mg (*)] 8 mg PO Q6H PRN 05/16/18 [Last Taken Unknown] morphINE SR [Ms Contin/Oramorph 15 mg (*)] 15 mg PO BID 05/16/18 [Last Taken Unknown] oxyCODONE IR [Oxycodone Ir (*)] 5 mg PO Q6H PRN 05/16/18 [Last Taken Unknown] I have personally reviewed and updated: family history, medical history, social history, surgical history Past Medical History: Presumed coronary artery disease based on abnormal stress myocardial perfusion imaging study. History of liver failure related to hepatitis C status post liver transplant in the late managed with immunosuppressive therapy. Hypertension. History of sick sinus syndrome with previous pacemaker implantation. Schizoaffective disorder. Hypothyroidism. History of kidney infarct with chronic renal insufficiency and creatinine is above 2.0. History of COPD. History of GERD. Chronic migraine headaches. Depression/anxiety. History of focal segmental glomerulosclerosis. History of anemia thought to be related to her liver disease as well as chronic renal insufficiency. Prior episode of ischemic colitis. Prior upper GI bleed. - Family History Positive for: non-pertinent - Social History Smoking Status: Former smoker Alcohol Use: Other (Former alcohol abuse) Drug Use: Other (Former drug abuse) Physical Exam Physical Exam: Temp Pulse Resp BP Pulse Ox 36.9 C 94 14 112/64 97 05/19/18 11:37 05/19/18 11:37 05/19/18 11:37 05/19/18 11:37 05/19/18 11:37 O2 (L/minute) 1 Constitutional: no apparent distress, appears nourished, not in pain, other ( She is not interactive) Eyes: PERRL, anicteric sclera, EOMI Ears, Nose, Mouth, Throat: moist mucous membranes, hearing normal, ears appear normal, no oral mucosal ulcers Cardiovascular: regular rate and rhythym, systolic murmur (1/6 systolic ejection murmur left sternal border), No edema Peripheral Pulses: 2+: carotid (R), carotid (L) Respiratory: no respiratory distress, no rales or rhonchi, clear to auscultation Gastrointestinal: normoactive bowel sounds, soft, non-tender abdomen, no palpable masses Genitourinary: no bladder fullness, no bladder tenderness Skin: warm, normal color, no rashes or abrasions, no fluctuance, no induration, No mottled Musculoskeletal: full muscle strength, no muscle tenderness, normal joint ROM, no joint effusions Psychiatric: encephalopathic Lymph, Heme, Immunologic: no cervical LAD, no supraclavicular LAD Lab and Imaging 05/19/18 06:00 05/19/18 06:00 WBC 2.83 10^3/uL (3.80-9.50) L 05/19/18 06:00 RBC 2.07 10^6/uL (4.18-5.33) L 05/19/18 06:00 Hgb 7.0 g/dL (12.6-16.3) L 05/19/18 06:00 Hct 20.8 % (38.0-47.0) L 05/19/18 06:00 MCV 100.5 fL (81.5-99.8) H 05/19/18 06:00 MCH 33.8 pg (27.9-34.1) 05/19/18 06:00 MCHC 33.7 g/dL (32.4-36.7) 05/19/18 06:00 RDW 14.1 % (11.5-15.2) 05/19/18 06:00 Plt Count 48 10^3/uL (150-400) L 05/19/18 06:00 MPV 9.8 fL (8.7-11.7) 05/19/18 06:00 Neut % (Auto) Not Reported 05/19/18 06:00 Lymph % (Auto) Not Reported 05/19/18 06:00 [place] % (Auto) Not Reported 05/19/18 06:00 Eos % (Auto) Not Reported 05/19/18 06:00 Baso % (Auto) Not Reported 05/19/18 06:00 Nucleat RBC Rel Count Not Reported 05/19/18 06:00 Absolute Neuts (auto) Not Reported 05/19/18 06:00 Absolute Lymphs (auto) Not Reported 05/19/18 06:00 Absolute Monos (auto) Not Reported 05/19/18 06:00 Absolute Eos (auto) Not Reported 05/19/18 06:00 Absolute Basos (auto) Not Reported 05/19/18 06:00 Absolute Nucleated RBC Not Reported 05/19/18 06:00 Immature Gran % Not Reported 05/19/18 06:00 Seg Neutrophils % 73.2 % 05/19/18 06:00 Band Neutrophils % 12.9 % 05/19/18 06:00 Lymphocytes % 9.9 % 05/19/18 06:00 Monocytes % 3.0 % 05/19/18 06:00 Eosinophils % 1.0 % 05/19/18 06:00 Basophils % 0.0 % 05/19/18 06:00 Metamyelocytes % 0.0 % 05/19/18 06:00 Myelocytes % 0.0 % 05/19/18 06:00 Promyelocytes % 0.0 % 05/19/18 06:00 Blast Cells % 0.0 % 05/19/18 06:00 Immature Gran # Not Reported 05/19/18 06:00 Absolute Seg Neuts 2.07 10^3/uL (1.70-6.50) 05/19/18 06:00 Absolute Band Neuts 0.37 10^3/uL (0.00-0.70) 05/19/18 06:00 Absolute Lymphocytes 0.28 10^3/uL (1.00-3.00) L 05/19/18 06:00 Absolute Monocytes 0.08 10^3/uL (0.30-0.80) L 05/19/18 06:00 Absolute Eosinophils 0.03 10^3/uL (0.03-0.40) 05/19/18 06:00 Absolute Basophils 0.00 10^3/uL (0.02-0.10) L 05/19/18 06:00 Absolute Metamyelocyte 0.00 10^3/mL (0.00-0.00) 05/19/18 06:00 Absolute Myelocytes 0.00 10^3/mL (0.00-0.00) 05/19/18 06:00 Absolute Promyelocytes 0.00 10^3/uL (0.00-0.00) 05/19/18 06:00 Absolute Plasma Cells 0.00 10^3/uL (0.00-0.00) 05/19/18 06:00 Nucleated RBCs 1.0 /100 WBC (0-0) H 05/19/18 06:00 Absolute Blast Cells 0.00 10^3/uL (0.00-0.00) 05/19/18 06:00 Plasma Cells % 0.0 % 05/19/18 06:00 Toxic Granulation PRESENT H 05/19/18 06:00 Toxic Vacuolation PRESENT H 05/19/18 06:00 Platelet Estimate DECREASED (ADEQ) L 05/19/18 06:00 Normal RBC Morphology (NORMAL) 05/18/18 04:00 Polychromasia 1+ H 05/18/18 04:00 Hypochromasia 1+ H 05/17/18 05:55 Basophilic Stippling 2+ H 05/16/18 16:50 Tear Drop Cells 1+ H 05/19/18 06:00 Oval Macrocytes 1+ H 05/19/18 06:00 Echinocytes 1+ H 05/19/18 06:00 Acanthocytes (Spur) 1+ H 05/19/18 06:00 Schistocytes 1+ H 05/17/18 05:55 Smear Review By Jyoti POE MD 05/16/18 16:50 PT 15.5 SEC (12.0-15.0) H 05/18/18 04:00 INR 1.21 (0.83-1.16) H 05/18/18 04:00 APTT 26.9 SEC (23.0-38.0) 05/18/18 04:00 Fibrinogen 601 mg/dL (214-456) H 05/18/18 04:00 D-Dimer 5.18 ug/mLFEU (0.00-0.50) H 05/18/18 04:00 Coag Pathologist Antonio POE MD 05/18/18 04:00 VBG Lactic Acid 1.0 mmol/L (0.7-2.1) 05/16/18 16:50 Turbidity Cancelled 05/16/18 15:40 Sodium 127 mEq/L (135-145) L 05/19/18 06:00 Potassium 4.5 mEq/L (3.3-5.0) 05/19/18 06:00 Chloride 104 mEq/L (97-110) 05/19/18 06:00 Carbon Dioxide 13 mEq/l (22-31) L 05/19/18 06:00 Anion Gap 10 mEq/L (6-14) 05/19/18 06:00 BUN 71 mg/dL (7-23) H 05/19/18 06:00 Creatinine 2.6 mg/dL (0.6-1.0) H 05/19/18 06:00 Estimated GFR 18 05/19/18 06:00 Glucose 87 mg/dL (70-100) 05/19/18 06:00 POC Glucose 79 mg/dL (70-100) 05/18/18 12:39 Calcium 7.6 mg/dL (8.5-10.4) L 05/19/18 06:00 Phosphorus 4.9 mg/dL (2.5-4.5) H 05/19/18 06:00 Magnesium 1.8 mg/dL (1.6-2.3) 05/19/18 08:00 Iron 22.0 mcg/dL (37.0-170.0) L 05/19/18 06:00 TIBC 176 ug/dL (260-490) L 05/19/18 06:00 Iron Saturation 13 % (20-55) L 05/19/18 06:00 Ferritin 132.0 ng/mL (6.2-264.0) 05/17/18 11:50 Total Bilirubin 0.5 mg/dL (0.1-1.4) 05/18/18 04:00 Conjugated Bilirubin 0.5 mg/dL (0.0-0.5) 05/18/18 04:00 Unconjugated Bilirubin 0.0 mg/dL (0.0-1.1) 05/18/18 04:00 AST 24 IU/L (14-46) 05/18/18 04:00 ALT 28 IU/L (9-52) 05/18/18 04:00 Alkaline Phosphatase 201 IU/L (38-126) H 05/18/18 04:00 Lactate Dehydrogenase 413 IU/L (313-618) 05/17/18 11:50 Creatine Kinase 46 IU/L (0-156) 05/17/18 11:50 CK-MB (CK-2) Fraction 0.52 ng/mL (0.00-4.55) 05/19/18 08:00 Troponin I 0.048 ng/mL (0.000-0.034) H 05/19/18 08:00 Total Protein 4.6 g/dL (6.3-8.2) L 05/18/18 04:00 Total Protein (PEP) 4.5 g/dL (6.3-8.2) L 05/17/18 11:50 Albumin 1.9 g/dL (3.5-5.0) L 05/19/18 06:00 Vitamin B12 > 1000 pg/mL (239-931) H 05/19/18 06:00 Folate > 20.00 ng/mL (2.80 - >20.00) 05/19/18 06:00 TSH 1.620 uIU/mL (0.465-4.680) 05/17/18 11:50 Urine Color AYAH 05/16/18 18:45 Urine Appearance TURBID 05/16/18 18:45 Urine pH 5.0 (5.0-7.5) 05/16/18 18:45 Ur Specific [place] 1.011 (1.002-1.030) 05/16/18 18:45 Urine Protein 2+ (NEGATIVE) H 05/16/18 18:45 Urine Ketones NEGATIVE (NEGATIVE) 05/16/18 18:45 Urine Blood 1+ (NEGATIVE) H 05/16/18 18:45 Urine Nitrate NEGATIVE (NEGATIVE) 05/16/18 18:45 Urine Bilirubin NEGATIVE (NEGATIVE) 05/16/18 18:45 Urine Urobilinogen 2.0 EU (0.2-1.0) H 05/16/18 18:45 Ur Leukocyte Esterase 2+ (NEGATIVE) H 05/16/18 18:45 Urine RBC NONE SEEN /hpf (0-3) 11 18:45 Urine WBC 50-182 /hpf (0-3) H 05/16/18 18:45 Ur Epithelial Cells NONE SEEN /lpf (NONE-1+) 05/16/18 18:45 Urine Bacteria 3+ /hpf (NONE SEEN) H 11 18:45 Ur Culture Indicated? INDICATED (NI) H 05/16/18 18:45 Urine Osmolality 287 mosmo/kg (300-900) L 05/16/18 18:45 Ur Random Creatinine 50.9 mg/dL 05/17/18 18:25 U Random Total Protein 46 mg/dL (0-11) H 05/17/18 18:25 Ur Random Sodium 14 mEq/L (30-90) L 05/17/18 18:25 Ur Random Urea Nitrogn 436.0 mg/dL 05/17/18 18:25 Urine Glucose NEGATIVE (NEGATIVE) 05/16/18 18:45 Tacrolimus 1.5 ng/mL L 05/16/18 17:29 Hepatitis C Antibody REACTIVE (NEGATIVE) H 05/17/18 11:50 Miscellaneous Test Cancelled 05/18/18 04:20 Patient ABO/Rh A NEGATIVE 05/19/18 09:45 Antibody Screen POSITIVE 05/19/18 09:45 Antibody Identification Anti-C Anti-D 05/19/18 09:45 Antibody Identification Anti-C Anti-D 05/19/18 09:45 Crossmatch IS Only See Detail 05/19/18 09:45 Visualized and Interpreted EKG results: Yes EKG additional interpertation: Normal sinus rhythm. No ST or T changes. Low voltages. A/P Assessment: 1. History of an episode of chest discomfort. She has known CAD based on abnormal stress test demonstrating an inferolateral defect. Apparently, yesterday she complained of chest discomfort. I am unable to obtain a history regarding the character of that chest pain. Her ECG's have been benign. Measurement of her cardiac enzymes demonstrates a gradual trend downward. This certainly does suggest a recent event however really is not consistent with the event yesterday. Currently, I cannot obtain a history. She really is not a good candidate for advanced diagnostic cardiovascular tests and therapies in light of her chronic renal insufficiency and other comorbidities as well as her current encephalopathy. 2. History of sick sinus syndrome with dual-chamber pacemaker implantation. She has not had a pacemaker interrogation since August of 2016. She has a dual -chamber Biotronik device and currently is not device dependent. 3. Recent falls with subsequent left humerus fracture. She may require surgical therapy. 4. Acute on chronic renal insufficiency. Likely related to hypotension. Currently being hydrated. 5. Anemia/thrombocytopenia. Apparently these are chronic problems however there worse than the been in the past. These are thought related to her liver disease as well as her renal insufficiency. Currently receiving transfusion therapy. 6. History of hypertension. Hypotensive on admission. Medications being held. 7. Possible seizure. Neurology consult pending. Plan: 1. She is currently treated with low-dose aspirin as well as an intermediate dose of Coreg and appears to be tolerating these medications well. 2. I have ordered an echocardiogram. Historically she has had a normal ejection fraction without wall motion abnormalities. This will help us risk stratify her in the setting of possible upcoming surgery. 3. As noted previously she really is not a candidate for more advanced cardiovascular testing/therapy such as angiography especially in light of her chronic renal disease and acute encephalopathy. We will continue aggressive medical therapy. 4. We will follow along with you. Review of Systems Review of Systems: Not obtainable due to encephalopathy.
--- NOTE | 2018-05-19 13:01 | GCON ---
CARDIOLOGY CONSULTATION DATE OF CONSULTATION: 05/18/2018 REFERRING PHYSICIAN: Abena Malik MD INDICATION FOR CONSULTATION: Chest pain. HISTORY OF PRESENT ILLNESS: The patient is a 72-year-old female with multiple medical comorbidities, who was admitted to the [facility] on May 16, 2018, after a recent fall at [facility]. Of note, the patient had recently been discharged from [facility] on er , to [facility] after a hospitalization related to a fall resulting in a left humerus fract ure. On admission, she was noted to be mildly confused. She was also found to have acute on chronic renal insufficiency and marked hyponatremia. The patient has an extensive past medical history including a history of liver transplant in 1996, se condary to underlying hepatitis C, history of schizoaffective disorder, hypothyroidism, history of ch ronic renal insufficiency with baseline creatinine of 1 6, history of symptomatic bradycardia status post pacemaker implantation, history of ischemic colitis, history of GI bleeding, chronic anemia and pancytopenia, depression, chronic immunosuppression, and GERD. She was in her usual state of health this afternoon when she complained of some substernal chest disc omfort. This was followed by seizure activity where she was unresponsive. There were no events note d on telemetry. She had a 2nd seizure-like activity. team was called. She underwent CT scan of the head, which was unremarkable. She did receive some morphine. At the time of my evaluati on, she is sedated and sleeping and unresponsive due to morphine. She has no known history of coronary disease. However, she did undergo a pharmacologic nuclear stres s test in October 2015, with preserved left ventricular function with evidence of moderate inferior pos terior wall ischemia. She did not undergo left heart catheterization at that time secondary to kristyn rns regarding her underlying chronic renal insufficiency. Her most recent echocardiogram was from December 2017, demonstrating LVEF of 69% and moderate aortic insu fficiency. ECG done this afternoon at the time of complaints of chest discomfort demonstrate normal sinus rhythm with poor R-wave progression. The only previous ECG I can find is from June 22, 2016, demonstra ting a ventricular paced rhythm. MEDICATIONS: The patient has an extensive medication list, please see inpatient records. ALLERGIES: To medications include Imitrex, dextroamphetamine, gabapentin, temazepam, and Imitrex I t hink, as stated above. PHYSICAL EXAMINATION: VITAL SIGNS: Blood pressure is 168/68, heart rate of 92 in sinus rhythm on te lemetry, respiratory rate of 18, oxygen saturation 97% on 2 L, temperature 36.5. GENERAL: Patient i s somnolent and sleeping. Recent morphine. Unable to obtain history. CARDIAC: Exam is S1, S2. Re gular rate and rhythm. No murmurs, rubs, or gallops. LUNGS: Clear to auscultation bilaterally. No evidence of lower extremity edema. Left angulated humerus fracture. DATA REVIEWED: Sodium 125, potassium 4.7, chloride 100, bicarb 14, BUN 70, creatinine 2.8, calcium 7 .7, magnesium 1.5. White blood cell count 7.6, hemoglobin 8.1, hematocrit 23.7, platelet count 52. INR 1.2. D-dimer 5.18. Troponin 0.124. Dated today CT of the head, no acute intracranial abnormality. ECG sinus rhythm with poor R-wave progression. No acute changes consistent with acute infarction or ischemia. Remote nuclear stress test October 2015, demonstrating a moderate inferior posterior wall ischemia, wit h preserved left ventricular function. Most recent echocardiogram December 2017, with normal left ventricular function with LVEF of 69%, and mod erate aortic insufficiency. IMPRESSIONS: 1. Complaints of chest pain. 2. New onset of seizure-like activity. 3. Hyponatremia. 4. Acute on chronic renal insufficiency. 5. Pancytopenia. 6. Mildly elevated troponin. 7. Status post liver transplant secondary to hep C, on chronic immunosuppression. 8. History of gastrointestinal bleeding. Unable to obtain a history of the patient at this time. She was given morphine. I do not think her current episode represents acute coronary syndrome. In the setting of acute on chronic renal insuffi ciency and giving her underlying electrolyte abnormalities including marked hyponatremia with a sodiu m 125 troponin may be elevated secondary to underlying renal insufficiency. Would recommend serial t roponins. Certainly given her multiple medical comorbidities including acute on chronic renal insuff iciency and chronic pancytopenia, I do not think she is a candidate for the cardiac catheterization l ab at this time. PLANS: 1. Recommend conservative approach to cardiac evaluation given multiple medical comorbidities as out lined above. 2. Check serial troponins x3. 3. Repeat ECG tomorrow morning. 4. Please call if patient continues to have further symptoms. /[id number]/MODL
[2018-05-19] MEDS: HYDROCORTISONE 0.5% CREAM TP SCH (13:40)
--- NOTE | 2018-05-19 16:59 | SOAPPROG ---
SOAP Progress Note Assessment/Plan: Assessment/Plan: SHELBI on CKD 3: baseline Cr 1.6-1.8, 3.7 on presentation and now down to 2.6 with IVFs. - No need for HD. - Will continue IVFs. - Serological workup pending. - Will continue to monitor. - Avoid hypotension and nephrotoxins. Hyponatremia: low urine sodium, slowly improving with NS, now up to 127. - Will continue NS. - Will continue to monitor BID for now. - Giving sodium bicarb tabs as below. Metabolic acidosis: in setting of SHELBI, worsened since yesterday possibly in setting of seizure. - Have increased sodium bicarb tabs. - Will check lactate and VBG. Subjective: Pt had a seizure yesterday, daughter says that has happened before. Today she is more confused than yesterday, has been having episodes of delirium as well. Objective: Vital Signs Temp Pulse Resp BP Pulse Ox 36.7 C 96 20 176/76 H 97 05/19/18 15:20 05/19/18 15:59 05/19/18 15:20 05/19/18 15:59 05/19/18 15:20 Laboratory Results 05/19/18 06:00 05/19/18 06:00 05/18/18 05/19/18 05/20/18 05:59 05:59 05:59 Intake Total 4382 1250 1251 Output Total 1075 1750 Balance 3307 -500 1251 PT 15.5 SEC (12.0-15.0) H 05/18/18 04:00 INR 1.21 (0.83-1.16) H 05/18/18 04:00 General: awake, disoriented, no acute distress OP: clear CV: RRR Resp: nonlabored respirations Abd: Soft, NT/ND Ext: no edema ICD10 Worksheet Patient Problems: Problems Problem Status Onset Dehydration Acute Fracture, humerus Acute Renal failure (ARF), acute on chronic Acute Adjustment disorder with depressed mood Active Acute bronchitis with chronic obstructive pulmonary disease (COPD) Acute Acute on chronic renal insufficiency Acute Bronchitis Acute Chest pain Acute Chest pain Acute Chest pain in adult Acute Chronic Disease Mgmt/Transitional Care Acute Chronic obstructive pulmonary disease with acute exacerbation Acute Chronic renal insufficiency Acute Closed left humeral fracture Acute Colitis Acute Cough Acute Elevated d-dimer Acute Hyponatremia Acute Knee effusion Acute Leg cramping Acute Leukopenia Acute Migraine Acute Multiple falls Acute Nausea & vomiting Acute Near syncope Acute Osteoarthritis of right knee Acute Pleural effusion, right Acute Pneumonia Acute Renal failure (ARF), acute on chronic Acute Right knee pain Acute Sedated Acute Shortness of breath Acute Urinary tract infection Acute Vomiting Acute Weakness Acute
[2018-05-19] MEDS: GABAPENTIN 300 MG CAP PO SCH (21:51)
[2018-05-19] MEDS: traZODone 100 MG TAB PO SCH (21:52)
[2018-05-20] MEDS: HYDROCORTISONE 0.5% CREAM TP SCH ×2 (00:47→13:05)
[2018-05-20] MEDS: ACETAMINOPHEN 500 MG TAB PO SCH ×3 (03:10→18:11)
[2018-05-20] MEDS: LEVOTHYROXINE 75 MCG TAB PO SCH (05:24)
[2018-05-20 06:03] LABS: PLATELET COUNT 66 10^3/uL (150-400)
[2018-05-20] MEDS: HYDROmorphONE/DILAUDID 1 MG/ML INJ IVP PRN (07:49)
--- NOTE | 2018-05-20 08:16 | SOAPPROG ---
SOAP Progress Note Assessment/Plan: Assessment: SHELBI on CKD 3: baseline Cr 1.6-1.8, 3.7 on presentation - slowly improving, down to 2.5 today, has <1g proteinuria - Will continue IVFs. Received PRBCs. - Serological workup pending-- labs not back yet. -chronic thrombocytopenia-- no schistos on smear -TAC level pending-- this appears cancelled and will reorder for am draw -continue IVF for now Hyponatremia: low urine sodium, slowly improving with NS, now up to 130 appropriate rate of correction. - Will continue NS. - Will continue to monitor BID for now. Metabolic acidosis: in setting of SHELBI, worsened since yesterday possibly in setting of seizure. - Have increased sodium bicarb tabs. - lactate ok -blood gas with mixed resp and met acidosis S/p liver transplant (hep C) Seizure L humerus fracture- plans for ORIF soon I discussed with pt's brother and RN Betsey Campos MD [facility] pager [phone] 05/20/18 10:11 Subjective: Slept well last night, still some confusion but better. Cr improved, good UOP. Objective: Vital Signs Temp Pulse Resp BP Pulse Ox 37.1 C 88 20 160/86 H 96 05/20/18 04:00 05/20/18 04:00 05/20/18 04:00 05/20/18 04:00 05/20/18 04:00 Laboratory Results 05/20/18 04:58 05/20/18 04:58 05/19/18 05/20/18 05/21/18 05:59 05:59 05:59 Intake Total 1250 2261 Output Total 1750 800 Balance -500 1461 PT 15.5 SEC (12.0-15.0) H 05/18/18 04:00 INR 1.21 (0.83-1.16) H 05/18/18 04:00 Physical Exam - Physical Exam General Appearance: no apparent distress, other (sleepy but arousable, mumbling) EENT: other (mmm) Neck: supple Respiratory: lungs clear Cardiac/Chest: regular rate, rhythm Abdomen: normal bowel sounds, non-tender, soft Skin: warm/dry Extremities: other (no edema) Neuro/Psych: other (confused) ICD10 Worksheet Patient Problems: Problems Problem Status Onset Dehydration Acute Fracture, humerus Acute Renal failure (ARF), acute on chronic Acute Adjustment disorder with depressed mood Active Acute bronchitis with chronic obstructive pulmonary disease (COPD) Acute Acute on chronic renal insufficiency Acute Bronchitis Acute Chest pain Acute Chest pain Acute Chest pain in adult Acute Chronic Disease Mgmt/Transitional Care Acute Chronic obstructive pulmonary disease with acute exacerbation Acute Chronic renal insufficiency Acute Closed left humeral fracture Acute Colitis Acute Cough Acute Elevated d-dimer Acute Hyponatremia Acute Knee effusion Acute Leg cramping Acute Leukopenia Acute Migraine Acute Multiple falls Acute Nausea & vomiting Acute Near syncope Acute Osteoarthritis of right knee Acute Pleural effusion, right Acute Pneumonia Acute Renal failure (ARF), acute on chronic Acute Right knee pain Acute Sedated Acute Shortness of breath Acute Urinary tract infection Acute Vomiting Acute Weakness Acute
--- NOTE | 2018-05-20 08:23 | PDCONSULT ---
Pack Operator Note: I have reviewed the patient's chart and discussed events with the patient's care team. At this point, she is undergoing medical workup for active issues. I have discussed these with Dr. Nelson. The plan at this point for left proximal humerus ORIF with Dr. Nava on Sunday of this week, pending medical clearance. Please don't hesitate to cnotact me directly with additional questions regarding the patient's care. I have asked the primary team to make the patient NPO for Sunday. The patient has spoken with Dr. Nava.
[2018-05-20 08:39] LABS: HIV TYPE 1 AND 2 NEGATIVE (NEGATIVE)
--- NOTE | 2018-05-20 09:07 | HOSPPROG ---
Hospitalist Progress Note Assessment/Plan: #SHELBI on CKD: cont IVFs. Tac level pending #Acute toxic/metabolic encephalopathy: dosed IV morphine, dilaudid, Ativan this AM. Sodium improved. -NO morphine with renal disease. Can add Fentanyl patch 12mcg when MS improves ( cannot take oral MS Contin and CKD) -cont lioderm patch, APAP and decreased dilaudidn dose #Hyponatremia: improved with IVFs #Metabolic acidosis: due to SHELBI #CAD: Dr Santiago evaluated. Elevated trops suggestive of ACS, no dynamic EKG changes. Not candidate for cath. At high-risk for surgery given disease. Cont BB , ASA. Daily EKG after surgery #Syncope: hypovolemic #SSS: dual-chamber pacemaker #Anemia/thrombocytopenia; s/p 2 units 05/19 #Acute left humeral fracture: [place] to perform ORIF tomorrow. Cards evaluated; high risk for surgery #h/o liver transplant: Prograf when taking PO #Dysphagia: speech re-consulted #Compensated diastolic HF: cont BP #Hypothyroidism: LT4 #Goals: given multiple co-morbidities, Palliative Care reasonable #Diet: regular, NPO midnight Inpatient admission for pain control, surgery in AM Subjective: somnolent and confused this morning after opioids, Ativan Objective: Vital Signs Temp Pulse Resp BP Pulse Ox 37.1 C 88 20 160/86 H 96 05/20/18 04:00 05/20/18 04:00 05/20/18 04:00 05/20/18 04:00 05/20/18 04:00 Laboratory Results 05/20/18 04:58 05/20/18 04:58 05/19/18 05/20/18 05/21/18 05:59 05:59 05:59 Intake Total 1250 2261 Output Total 1750 800 Balance -500 1461 PT 15.5 SEC (12.0-15.0) H 05/18/18 04:00 INR 1.21 (0.83-1.16) H 05/18/18 04:00 - Time Spent With Patient Time Spent with Patient: greater than 35 minutes Time Spent with Patient: Greater than 35 minutes spent on this patients care, greater than 50% of time spent counseling, educating, and coordinating care regarding the above mentioned plan. - Physical Exam Constitutional: chronically ill appearing Eyes: PERRL Ears, Nose, Mouth, Throat: moist mucous membranes Cardiovascular: regular rate and rhythym Respiratory: no respiratory distress Gastrointestinal: normoactive bowel sounds Genitourinary: no bladder fullness Musculoskeletal: other (left arm in sling) Neurologic: other (somnolent. Opens eyes to voice) Psychiatric: encephalopathic, other (tells me in hospital, falls asleep with other questions. Can squeeze my hands) ICD10 Worksheet Patient Problems: Problems Problem Status Onset Dehydration Acute Fracture, humerus Acute Renal failure (ARF), acute on chronic Acute Adjustment disorder with depressed mood Active Acute bronchitis with chronic obstructive pulmonary disease (COPD) Acute Acute on chronic renal insufficiency Acute Bronchitis Acute Chest pain Acute Chest pain Acute Chest pain in adult Acute Chronic Disease Mgmt/Transitional Care Acute Chronic obstructive pulmonary disease with acute exacerbation Acute Chronic renal insufficiency Acute Closed left humeral fracture Acute Colitis Acute Cough Acute Elevated d-dimer Acute Hyponatremia Acute Knee effusion Acute Leg cramping Acute Leukopenia Acute Migraine Acute Multiple falls Acute Nausea & vomiting Acute Near syncope Acute Osteoarthritis of right knee Acute Pleural effusion, right Acute Pneumonia Acute Renal failure (ARF), acute on chronic Acute Right knee pain Acute Sedated Acute Shortness of breath Acute Urinary tract infection Acute Vomiting Acute Weakness Acute
[2018-05-20] MEDS: TIOTROPIUM INHALER 18 MCG/DOSE 5 DOSE/MDI IH SCH (09:16)
[2018-05-20] MEDS: CARVEDILOL 25 MG TAB PO SCH ×2 (09:59→18:11)
[2018-05-20] MEDS: LORazepam 2 MG/ML INJ IVP PRN (10:04)
[2018-05-20] MEDS: LIDOCAINE 4%/MENTHOL 1% PATCH TD SCH (10:06)
[2018-05-20] MEDS: ASPIRIN 81 MG CHEWABLE TAB PO SCH (10:29)
[2018-05-20] MEDS: ARIPiprazole 5 MG TAB PO SCH (10:29)
[2018-05-20] MEDS: FERROUS SULFATE 325 MG TAB PO SCH ×3 (10:30→17:47)
[2018-05-20] MEDS: CETIRIZINE 10 MG TAB PO SCH (10:30)
[2018-05-20] MEDS: PET HY PHL TP SCH ×3 (10:30→22:56)
[2018-05-20] MEDS: FLUoxetine 20 MG CAP PO SCH (10:30)
[2018-05-20] MEDS: MINERAL OIL TP SCH ×3 (10:30→22:56)
[2018-05-20] MEDS: morphINE SR 15 MG TAB PO SCH ×2 (10:31→22:14)
[2018-05-20] MEDS: THIAMINE HCL 100 MG TAB PO SCH (10:31)
[2018-05-20] MEDS: PANTOPRAZOLE SODIUM 40 MG TAB PO SCH (10:31)
[2018-05-20] MEDS: TOPIRAMATE 25 MG TAB PO SCH ×2 (10:32→22:29)
--- NOTE | 2018-05-20 10:50 | ECHO ---
[email or web address] [address] [address] Main: [phone] Fax: Transthoracic Echocardiogram Name: LIYA ENGEL MR#: [id number] Study Date: 05/20/2018 Study Time: 08:07 AM Date of : 1945 Age: 72 year(s) Height: 167.6 cm (66 in.) Weight: 58.51 kg (129 lb.) BSA: 1.66 m2 Gender: Female Examination: Echo Indication: ACS-Eval WMA Image Quality: Contrast: Requested by: Asa Santiago BP: 160 mmHg/86 mmHg Heart Rate: Rhythm: Pacemaker rhythm Indication: ACS-Eval WMA Procedure Staff Panel Machine Operator: Fernando Garber RDCS Reading Physician: Asa Santiago MD Requesting Provider: Conclusions: Normal size left ventricle. Normal global systolic LV function. EF is 78 %. No regional wall motion abnormality. Grade 1 diastolic dysfunction (abnormal relaxation). There is a pacemaker lead noted in the right ventricle. The left atrium is mildly dilated. Mild aortic cusp calcification is noted. Mild to moderate aortic valve regurgitation. Measurements: Chambers Valvular Assessment AV/MV Valvular Assessment TV/PV Normal Normal Normal Name Value Range Name Value Range Name Value Range Ao Rosi (MM): 3.5 cm (2.2 cm-3.7 AV Vmax: 1.76 m/s (1 m/s-1.7 TR Vmax: 3.19 mm/s ( - ) cm) m/s) TR PGmax: 41 mmHg ( - ) IVSd (2D): 0.9 cm (0.6 cm-1.1 AV maxP mmHg ( - ) syst. PAP: 46 mmHg ( - ) cm) AV meanP mmHg ( - ) PV Vmax: 1.47 m/s (0.6 m/s-0.9 LVDd (2D): 4.0 cm (3.9 cm-5.3 ASHLIE (VTI): 1.8 cm ( - ) m/s) cm) AR (PHT): 545 ms ( - ) PV PGmax: 9 mmHg ( - ) LVDs (2D): 2.2 cm (2.1 cm-4 MV E Vmax: 0.94 m/s ( - ) cm) MV A Vmax: 1.29 m/s ( - ) LVPWd (2D): 0.9 cm ( - ) MV E/A: 0.73 ( - ) LVOTd 2.0 cm 2.0 cm mm MV meanP mmHg ( - ) LVEF (2D): 78 (>=54 %) MVA (Vmax): 2.5 m/s ( - ) Continued Measurements: Chambers Valvular Assessment AV/MV Valvular Assessment TV/PV Patient: LIYA ENGEL Study Date: 05/20/2018 Page 1 of 2 08:07 AM Name Value Name Value Name Value LADs Lon.0 cm MV E' Septal: 0.08 m/s CVP (est.): 5 mmHg LA Area: 15.3 cm2 MV E/E' Septal: 12.20 MV E/E' Lateral: 14.70 MV VTI: 28.50 cm AR Vmax: 3.06 cm/s AR ERO: 0.310 cm2 AR PISA radius: 0.7 cm AR Reg. Volume: 38.0 ml AR Reg. Fraction: 54 % AR VTI: 122.0 cm Findings: Left Ventricle: Normal size left ventricle. No LV hypertrophy. Normal global systolic LV function. EF is 78 %. No regional wall motion abnormality. Grade 1 diastolic dysfunction (abnormal relaxation). Right Ventricle: Normal size right ventricle. Normal RV function. There is a pacemaker lead noted in the right ventricle. Left Atrium: The left atrium is mildly dilated. Right Atrium: The right atrium is normal in size. Mitral Valve: The mitral valve is normal in appearance and function. There is no significant mitral valve regurgitation. No mitral stenosis is present. Aortic Valve: Mild aortic cusp calcification is noted. Mild to moderate aortic valve regurgitation. Tricuspid Valve: The tricuspid valve is normal in appearance and function. Pulmonic Valve: The pulmonic valve is normal in appearance and function. Aorta: The aorta is normal. Pericardium: No pericardial effusion. Exam Comments: Apicals were difficult due to broken Left arm.. (No Signature Object) Patient: LIYA ENGEL Study Date: 05/20/2018 Page 2 of 2 08:07 AM [id number]
[2018-05-20] MEDS: TACROLIMUS ANHYDROUS 0.5 MG CAP PO SCH ×2 (12:50→20:30)
[2018-05-20] MEDS: SODIUM BICARBONATE 650 MG TAB PO SCH ×3 (12:50→20:30)
--- NOTE | 2018-05-20 14:45 | SOAPPROG ---
SOAP Progress Note Assessment/Plan: Assessment: 1. Probable CAD. Diagnosis based on prior abnormal stress test. Historically, has been managed conservatively due to multiple comorbidities including chronic renal insufficiency. Apparently, earlier this hospitalization, she experienced an episode of chest discomfort. This was not associated with dynamic ECG changes or segmental wall motion abnormalities. She did, however, have elevated cardiac biomarkers. Interestingly, the pattern of decline in these bio markers suggests an episode of ischemia that occurred prior to her complaints of chest discomfort. She has been largely somnolent since that time without further complaints. 2. Recent acute coronary syndrome. This is as described above. She has not had any recurrent symptoms. 3. History of sick sinus syndrome with previous dual-chamber pacemaker implantation. She is not device dependent. 4. Recent fall with subsequent left humerus fracture and plans for surgery. Apparently, this is being scheduled for tomorrow. Her recent cardiac event raises the risk of perioperative ischemia/infarction. Realistically, she has no options to further mitigate her perioperative risk. Specifically, she is really not a candidate for cardiac catheterization or revascularization. She is already being treated with beta-blockers and aspirin. 5. History of hypertension. Her blood pressures have been extraordinarily labile during this hospitalization. 6. Possible seizure. 7. History of liver transplant which was performed in the late in the setting of chronic hepatitis C. 8. Encephalopathy. Etiology unknown. Plan: As stated above, her recent presentation and the trend of her cardiac enzymes suggest an acute coronary syndrome. This, obviously, increases her risk for perioperative events he in the setting of the planned left humerus operation. She really has no options available to her currently to help offset this risk. She is currently taking beta-blockers an aspirin which should be continued. I would like her monitored on telemetry following her surgery with daily electrocardiograms. As she is not device dependent she really does not require any differential programming of her device during the operation. If electrocautery is used she should have her device interrogated postoperatively to reassure that there have not been any inadvertent programming changes. At this point, we will sign off. Please re-consult us if needed. 05/20/18 14:40 Subjective: She continues to be somnolent with little interaction. Apparently, there are plans for her to have left arm surgery for repair of her fractured humerus tomorrow. She had an echocardiogram done. There is a detailed report on the chart. That study was essentially normal. Objective: Vital Signs Temp Pulse Resp BP Pulse Ox 37 C 75 14 102/50 L 97 05/20/18 11:58 05/20/18 11:58 05/20/18 11:58 05/20/18 11:58 05/20/18 11:58 Laboratory Results 05/20/18 04:58 05/20/18 04:58 05/19/18 05/20/18 05/21/18 05:59 05:59 05:59 Intake Total 1250 2261 Output Total 1750 800 Balance -500 1461 PT 15.5 SEC (12.0-15.0) H 05/18/18 04:00 INR 1.21 (0.83-1.16) H 05/18/18 04:00 Physical Exam - Physical Exam General Appearance: other (Chronically ill, somnolent) Neck: non-tender, full range of motion Respiratory: lungs clear (Anterior exam) Cardiac/Chest: regular rate, rhythm, No edema, No gallop, No JVD Peripheral Pulses: 2+: carotid (R), carotid (L) ICD10 Worksheet Patient Problems: Problems Problem Status Onset Dehydration Acute Fracture, humerus Acute Renal failure (ARF), acute on chronic Acute Adjustment disorder with depressed mood Active Acute bronchitis with chronic obstructive pulmonary disease (COPD) Acute Acute on chronic renal insufficiency Acute Bronchitis Acute Chest pain Acute Chest pain Acute Chest pain in adult Acute Chronic Disease Mgmt/Transitional Care Acute Chronic obstructive pulmonary disease with acute exacerbation Acute Chronic renal insufficiency Acute Closed left humeral fracture Acute Colitis Acute Cough Acute Elevated d-dimer Acute Hyponatremia Acute Knee effusion Acute Leg cramping Acute Leukopenia Acute Migraine Acute Multiple falls Acute Nausea & vomiting Acute Near syncope Acute Osteoarthritis of right knee Acute Pleural effusion, right Acute Pneumonia Acute Renal failure (ARF), acute on chronic Acute Right knee pain Acute Sedated Acute Shortness of breath Acute Urinary tract infection Acute Vomiting Acute Weakness Acute
--- NOTE | 2018-05-20 15:23 | ASMTCMCOM ---
CM Note CM Note Notes: Pt to have L shoulder ORIF tomorrow. She also is having some difficulty swallowing - SLT to follow up. Ruth Fung updated. D/C plan: Ruth Fung [facility] Date Signed: 05/20/2018 03:22 PM Electronically Signed By:DAISY Deleon
[2018-05-20] MEDS ORDERED: HYDROmorphONE/DILAUDID 1 MG/ML INJ IVP PRN (16:22)
--- NOTE | 2018-05-20 20:18 | SOAPPROG ---
SOAP Progress Note Assessment/Plan: Assessment: This is a 72-year-old female with history of hepatitis-C status post liver transplantation currently on tacrolimus who was admitted for a left humeral fracture. 1. Chronic thrombocytopenia: Chronically low platelet count. Peripheral smear indicative of changes seen in CKD. No platelet clumping. Her thrombocytopenia likely related to liver failure although does not have splenomegaly on exam to consider secondary to pHTN, although may benefit from abdominal U/S at somepoint to eval for splenomegaly/cirrhosis. 2. Normocytic anemia: Her ferritin is normal all that could be elevated and acute phase. B12 and folate are normal. Likely related to underlying CKD/ anemia of inflammation with high ferritin/low transferrin saturation 3. Leukopenia: Baseline leukopenia, likely related to sequestration. Peripheral blood smear has toxic granulation consistent with current insult and evidence of dysplasia however may be related to tacrolimus. 4. Hyponatremia: Secondary to liver disease and hypoaldosteronism. Perhaps secondary to CKD with hypervolemia 5. Acute on chronic renal failure: BUN 70 currently, she is sarcopenic, difficult to know severity of renal dysfunction in acute setting where creatinine may not be as helpful. 6. Status post liver transplant: [place] level from yesterday is low, unknown who is managing her transplant or the status of her transplanted liver as it appears she has underlying liver disease. Her enchelopathy this AM seemed drug related. Would consider sending an ammonia. 05/20/18 20:37 Subjective: Patient arousable for brief periods. Cannot take part in discussion - was given opiates and benzos this AM. Told by hospitalist later that was more responsive later in day. Objective: Vital Signs Temp Pulse Resp BP Pulse Ox 37 C 84 16 120/60 96 05/20/18 16:15 05/20/18 16:15 05/20/18 16:15 05/20/18 16:15 05/20/18 16:15 Microbiology 05/18/18 18:30 Urine Culture - Final Urine,Clean Catch Laboratory Results 05/20/18 04:58 05/20/18 04:58 05/19/18 05/20/18 05/21/18 05:59 05:59 05:59 Intake Total 1250 2261 Output Total 1750 800 550 Balance -500 1461 -550 PT 15.5 SEC (12.0-15.0) H 05/18/18 04:00 INR 1.21 (0.83-1.16) H 05/18/18 04:00 General: somnolent, arousable briefly Neuro: unable to assess due to somnolence, will grimace with pain. Cardiovascular: Regular rhythm, III/ systolic murmur best heard at RUSB Pulmonary: Clear to auscultation bilaterally - anterior lung watkins Skin: Ecchymosis noted on the shoulder and left arm Abdomen: Bowel sounds are present soft nontender no rebound or guarding Extremities: No cyanosis clubbing, left upper extremity cannot be assessed due to pain. Sling noted. ICD10 Worksheet Patient Problems: Problems Problem Status Onset Dehydration Acute Fracture, humerus Acute Renal failure (ARF), acute on chronic Acute Adjustment disorder with depressed mood Active Acute bronchitis with chronic obstructive pulmonary disease (COPD) Acute Acute on chronic renal insufficiency Acute Bronchitis Acute Chest pain Acute Chest pain Acute Chest pain in adult Acute Chronic Disease Mgmt/Transitional Care Acute Chronic obstructive pulmonary disease with acute exacerbation Acute Chronic renal insufficiency Acute Closed left humeral fracture Acute Colitis Acute Cough Acute Elevated d-dimer Acute Hyponatremia Acute Knee effusion Acute Leg cramping Acute Leukopenia Acute Migraine Acute Multiple falls Acute Nausea & vomiting Acute Near syncope Acute Osteoarthritis of right knee Acute Pleural effusion, right Acute Pneumonia Acute Renal failure (ARF), acute on chronic Acute Right knee pain Acute Sedated Acute Shortness of breath Acute Urinary tract infection Acute Vomiting Acute Weakness Acute
[2018-05-20] MEDS: traZODone 100 MG TAB PO SCH (20:29)
[2018-05-20] MEDS: GABAPENTIN 300 MG CAP PO SCH (20:29)
[2018-05-20] MEDS: NS 1,000 ML IV SCH (22:12)
[2018-05-20] MEDS: oxyCODONE IR 5 MG TAB PO PRN (22:18)
[2018-05-21] MEDS: HYDROCORTISONE 0.5% CREAM TP SCH ×2 (01:10→18:35)
[2018-05-21] MEDS: ACETAMINOPHEN 500 MG TAB PO SCH ×3 (02:30→18:37)
[2018-05-21] MEDS: BISACODYL 10 MG SUPP PR PRN (03:01)
[2018-05-21] MEDS: HYDROmorphONE/DILAUDID 1 MG/ML INJ IVP PRN ×5 (05:01→19:50)
[2018-05-21 06:03] LABS: PLATELET COUNT 67 10^3/uL (150-400)
[2018-05-21] MEDS: LEVOTHYROXINE 75 MCG TAB PO SCH (06:13)
[2018-05-21] MEDS: NS 1,000 ML IV SCH (08:33)
[2018-05-21] MEDS: CARVEDILOL 25 MG TAB PO SCH ×2 (09:37→18:36)
[2018-05-21] MEDS: TACROLIMUS ANHYDROUS 0.5 MG CAP PO SCH ×2 (09:41→22:39)
[2018-05-21] MEDS: TOPIRAMATE 25 MG TAB PO SCH ×2 (09:42→21:11)
[2018-05-21] MEDS: TIOTROPIUM INHALER 18 MCG/DOSE 5 DOSE/MDI IH SCH (10:16)
[2018-05-21] MEDS: LIDOCAINE 4%/MENTHOL 1% PATCH TD SCH (10:18)
--- NOTE | 2018-05-21 10:40 | HOSPPROG ---
Hospitalist Progress Note Assessment/Plan: #SHELBI on CKD: improve. cont IVFs. Tac level low #Acute toxic/metabolic encephalopathy: much improved. From opidoids/BZ. #Acute left humeral fracture: [place] to perform ORIF today. Avoid morphine with CKD #Hyponatremia: improved with IVFs, salt tabs when taking PO #Metabolic acidosis: due to SHELBI #CAD: Dr Santiago evaluated. Elevated trops suggestive of ACS, no dynamic EKG changes. Not candidate for cath. At high-risk for surgery given disease. Cont BB , ASA. Daily EKG after surgery -spoke with Abelardo (daughter) who helps with decisions. She understands and acknowledges risk of surgery #Syncope: hypovolemia #SSS: dual-chamber pacemaker #Anemia/thrombocytopenia; s/p 2 units 05/19. Irradiated platelets before surgery #h/o liver transplant: Prograf when taking PO #Dysphagia: speech re-consulted #Compensated diastolic HF: cont BP #Hypothyroidism: LT4 #Goals: given multiple co-morbidities, Palliative care on board. CM to help complete med-proxy form #Diet: regular, NPO midnight Inpatient admission for pain control, surgery in AM Subjective: had large BM this morning Objective: Vital Signs Temp Pulse Resp BP Pulse Ox 36.8 C 82 18 122/70 H 97 05/21/18 08:00 05/21/18 08:00 05/21/18 08:00 05/21/18 08:00 05/21/18 08:00 Microbiology 05/18/18 18:30 Urine Culture - Final Urine,Clean Catch Laboratory Results 05/21/18 05:50 05/21/18 05:50 05/20/18 05/21/18 05/22/18 05:59 05:59 05:59 Intake Total 2261 1668 Output Total 800 1000 Balance 1461 668 PT 15.5 SEC (12.0-15.0) H 05/18/18 04:00 INR 1.21 (0.83-1.16) H 05/18/18 04:00 - Time Spent With Patient Time Spent with Patient: greater than 35 minutes Time Spent with Patient: Greater than 35 minutes spent on this patients care, greater than 50% of time spent counseling, educating, and coordinating care regarding the above mentioned plan. - Physical Exam Constitutional: no apparent distress Eyes: PERRL Ears, Nose, Mouth, Throat: moist mucous membranes, other (dentures out) Cardiovascular: regular rate and rhythym Respiratory: no respiratory distress Gastrointestinal: normoactive bowel sounds Genitourinary: no bladder fullness, buchanan in urethra Skin: warm Musculoskeletal: other (left arm in sling with extensive bruising upper arm) Neurologic: AAOx3, CN II-XII Intact, No facial droop Psychiatric: interacting appropriately (able to answers most questions, but slowly ) ICD10 Worksheet Patient Problems: Problems Problem Status Onset Dehydration Acute Fracture, humerus Acute Renal failure (ARF), acute on chronic Acute Adjustment disorder with depressed mood Active Acute bronchitis with chronic obstructive pulmonary disease (COPD) Acute Acute on chronic renal insufficiency Acute Bronchitis Acute Chest pain Acute Chest pain Acute Chest pain in adult Acute Chronic Disease Mgmt/Transitional Care Acute Chronic obstructive pulmonary disease with acute exacerbation Acute Chronic renal insufficiency Acute Closed left humeral fracture Acute Colitis Acute Cough Acute Elevated d-dimer Acute Hyponatremia Acute Knee effusion Acute Leg cramping Acute Leukopenia Acute Migraine Acute Multiple falls Acute Nausea & vomiting Acute Near syncope Acute Osteoarthritis of right knee Acute Pleural effusion, right Acute Pneumonia Acute Renal failure (ARF), acute on chronic Acute Right knee pain Acute Sedated Acute Shortness of breath Acute Urinary tract infection Acute Vomiting Acute Weakness Acute
[2018-05-21] MEDS ORDERED: BUPIVACAINE 0.5% 30 ML SDV ONE (13:55)
--- NOTE | 2018-05-21 15:16 | SOAPPROG ---
SOAP Progress Note Assessment/Plan: Assessment/Plan: 72 y/o s/p liver txp with SHELBI and hyponatremia. SHELBI on CKD 3: - baseline Cr 1.6-1.8, 3.7 on presentation - slowly improving, cr down to 2.0 today - has <1g proteinuria - Serological workup shows normal K/L ratio, negative hep C, HIV, and some serologies still pending - chronic thrombocytopenia-- no schistos on smear - TAC level low at 1.5mg/dL, unlikely tac induced SHELBI and may need to increase dose once resolved - avoid contrast and nephrotoxins - continue to monitor UO - keep MAP>65 Hyponatremia: - Low Jessica consistent with hypovolemia - stable at 130 today - Will continue NS - resent urine studies for tomorrow - may monitor with daily labs Metabolic acidosis: - in setting of SHELBI, down to 14 - bicarb tabs increased yesterday - now NAG and may be 2/2 to fluid resuscitation (high Cl) as well as seizure - will switch to LR - abg prn Seizure - L humerus fracture- plans for ORIF Will continue to follow, please contact if ?'s. 05/21/18 15:21 05/21/18 15:21 Objective: Vital Signs Temp Pulse Resp BP Pulse Ox 36.5 C 80 17 132/82 H 98 05/21/18 14:50 05/21/18 14:50 05/21/18 14:50 05/21/18 14:50 05/21/18 14:50 Microbiology 05/18/18 18:30 Urine Culture - Final Urine,Clean Catch Laboratory Results 05/21/18 05:50 05/21/18 05:50 05/20/18 05/21/18 05/22/18 05:59 05:59 05:59 Intake Total 2261 1668 Output Total 800 1000 450 Balance 1461 668 -450 PT 15.5 SEC (12.0-15.0) H 05/18/18 04:00 INR 1.21 (0.83-1.16) H 05/18/18 04:00 ICD10 Worksheet Patient Problems: Problems Problem Status Onset Dehydration Acute Fracture, humerus Acute Renal failure (ARF), acute on chronic Acute Adjustment disorder with depressed mood Active Acute bronchitis with chronic obstructive pulmonary disease (COPD) Acute Acute on chronic renal insufficiency Acute Bronchitis Acute Chest pain Acute Chest pain Acute Chest pain in adult Acute Chronic Disease Mgmt/Transitional Care Acute Chronic obstructive pulmonary disease with acute exacerbation Acute Chronic renal insufficiency Acute Closed left humeral fracture Acute Colitis Acute Cough Acute Elevated d-dimer Acute Hyponatremia Acute Knee effusion Acute Leg cramping Acute Leukopenia Acute Migraine Acute Multiple falls Acute Nausea & vomiting Acute Near syncope Acute Osteoarthritis of right knee Acute Pleural effusion, right Acute Pneumonia Acute Renal failure (ARF), acute on chronic Acute Right knee pain Acute Sedated Acute Shortness of breath Acute Urinary tract infection Acute Vomiting Acute Weakness Acute
[2018-05-21] MEDS: LR 1,000 ML IV SCH (15:35)
[2018-05-21] MEDS ORDERED: NS 1,000 ML IV ONE (16:47)
--- NOTE | 2018-05-21 16:54 | POSTANESTH ---
Post Anesthetic Evaluation Cardiovascular Status: Normal, Stable Respiratory Status: Normal, Stable Level of Consciousness/Mental Status: Can Participate in Eval, Moderately Sleepy Pain Control: Adequate, Prn Tx Ordered Nausea/Vomiting Control: Adequate, Prn Tx Ordered Complications Possibly Related to Anesthesia: None Noted
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
[2018-05-21] MEDS ORDERED: fentaNYL 100 MCG/2 ML INJ ONE ×3 (17:09→17:15)
[2018-05-21] MEDS ORDERED: DEXAMETHASONE 4 MG/ML VIAL ONE (17:15)
[2018-05-21] MEDS ORDERED: LIDOCAINE 2% 2 ML INJ ONE (17:15)
[2018-05-21] MEDS ORDERED: ROCURONIUM 50 MG/5 ML VIAL ONE (17:15)
[2018-05-21] MEDS ORDERED: PROPOFOL/EMULSION 500 MG/50 ML BOTTLE IV ONE (17:16)
[2018-05-21] MEDS ORDERED: ceFAZolin 1 GM VIAL ONE (17:42)
[2018-05-21] MEDS ORDERED: oxyCODONE IR 5 MG TAB PO PRN (18:29)
[2018-05-21] MEDS ORDERED: fentaNYL 100 MCG/2 ML INJ IVP PRN (18:29)
[2018-05-21] MEDS ORDERED: ALBUTEROL 3 ML DEYVIAL IH PRN (18:29)
[2018-05-21] MEDS ORDERED: NALOXONE HCL 0.4 MG/ML INJ IVP PRN (18:29)
[2018-05-21] MEDS ORDERED: ONDANSETRON 4 MG/2 ML VIAL IVP PRN (18:29)
[2018-05-21] MEDS: CETIRIZINE 10 MG TAB PO SCH (18:32)
[2018-05-21] MEDS: MINERAL OIL TP SCH ×3 (18:32→21:11)
[2018-05-21] MEDS: FLUoxetine 20 MG CAP PO SCH (18:32)
[2018-05-21] MEDS: PANTOPRAZOLE SODIUM 40 MG TAB PO SCH (18:32)
[2018-05-21] MEDS: ASPIRIN 81 MG CHEWABLE TAB PO SCH (18:32)
[2018-05-21] MEDS: PET HY PHL TP SCH ×3 (18:32→21:11)
[2018-05-21] MEDS: FERROUS SULFATE 325 MG TAB PO SCH ×3 (18:32→18:51)
[2018-05-21] MEDS: ARIPiprazole 5 MG TAB PO SCH (18:32)
[2018-05-21] MEDS: SODIUM BICARBONATE 650 MG TAB PO SCH ×3 (18:35→21:11)
[2018-05-21] MEDS: THIAMINE HCL 100 MG TAB PO SCH (18:35)
[2018-05-21] MEDS: morphINE SR 15 MG TAB PO SCH (18:37)
[2018-05-21] MEDS ORDERED: NEOSTIGMINE METHYLSULFATE 5 MG/5 ML SYR ONE (18:37)
--- NOTE | 2018-05-21 18:41 | POSTOPPROG ---
Post Op Note Date of Operation: 05/21/18 Surgeon: Rocael Nava Anesthesia: GET(General Endotracheal) Pre-op Diagnosis: L proximal humerus fx Post-op Diagnosis: same Procedure: CRPP L prox humerus fx Inf/Abcess present in the surg proc area at time of surgery?: No EBL: Minimal
[2018-05-21] MEDS ORDERED: HYDROmorphONE/DILAUDID 1 MG/ML INJ IVP ONE (20:54)
[2018-05-21] MEDS: GABAPENTIN 300 MG CAP PO SCH (21:10)
[2018-05-21] MEDS: traZODone 100 MG TAB PO SCH (21:12)
[2018-05-22] MEDS: HYDROCORTISONE 0.5% CREAM TP SCH ×3 (00:13→21:25)
[2018-05-22] MEDS: HYDROmorphONE/DILAUDID 1 MG/ML INJ IVP PRN ×3 (00:47→19:57)
[2018-05-22] MEDS: ACETAMINOPHEN 500 MG TAB PO SCH ×4 (00:54→19:59)
[2018-05-22] MEDS: LEVOTHYROXINE 75 MCG TAB PO SCH (05:06)
[2018-05-22 05:43] LABS: PLATELET COUNT 94 10^3/uL (150-400)
[2018-05-22] MEDS: PANTOPRAZOLE SODIUM 40 MG TAB PO SCH (06:11)
--- NOTE | 2018-05-22 07:25 | SOAPPROG ---
SOAP Progress Note Assessment/Plan: Assessment: S/P CRPP L Prox humerus fx Resting. Difficult to assess pain level Dressing intact - mild sang D/C Arm well aligned No signif pain with gentle ROM Plan: Con't sling, limited use Reinforce dressing prn OK for D/C from ortho standpoint when medically cleared F/U Dr. Nava 2 wks [id number] 05/22/18 07:22 Objective: Vital Signs Temp Pulse Resp BP Pulse Ox 36.4 C 83 18 176/105 H 99 05/22/18 04:34 05/22/18 04:34 05/22/18 04:34 05/22/18 04:34 05/22/18 04:34 Laboratory Results 05/22/18 05:30 05/22/18 05:30 05/21/18 05/22/18 05/23/18 05:59 05:59 05:59 Intake Total 1668 750 Output Total 1000 1070 Balance 668 -320 PT 15.5 SEC (12.0-15.0) H 05/18/18 04:00 INR 1.21 (0.83-1.16) H 05/18/18 04:00 ICD10 Worksheet Patient Problems: Problems Problem Status Onset Dehydration Acute Fracture, humerus Acute Renal failure (ARF), acute on chronic Acute Adjustment disorder with depressed mood Active Acute bronchitis with chronic obstructive pulmonary disease (COPD) Acute Acute on chronic renal insufficiency Acute Bronchitis Acute Chest pain Acute Chest pain Acute Chest pain in adult Acute Chronic Disease Mgmt/Transitional Care Acute Chronic obstructive pulmonary disease with acute exacerbation Acute Chronic renal insufficiency Acute Closed left humeral fracture Acute Colitis Acute Cough Acute Elevated d-dimer Acute Hyponatremia Acute Knee effusion Acute Leg cramping Acute Leukopenia Acute Migraine Acute Multiple falls Acute Nausea & vomiting Acute Near syncope Acute Osteoarthritis of right knee Acute Pleural effusion, right Acute Pneumonia Acute Renal failure (ARF), acute on chronic Acute Right knee pain Acute Sedated Acute Shortness of breath Acute Urinary tract infection Acute Vomiting Acute Weakness Acute
[2018-05-22] MEDS: LIDOCAINE 4%/MENTHOL 1% PATCH TD SCH (07:30)
[2018-05-22] MEDS: oxyCODONE IR 5 MG TAB PO PRN (07:33)
[2018-05-22] MEDS: TACROLIMUS ANHYDROUS 0.5 MG CAP PO SCH ×2 (07:52→20:00)
[2018-05-22] MEDS: FLUoxetine 20 MG CAP PO SCH (07:52)
[2018-05-22] MEDS: SODIUM BICARBONATE 650 MG TAB PO SCH ×3 (07:53→21:23)
[2018-05-22] MEDS: CARVEDILOL 25 MG TAB PO SCH ×2 (07:54→18:40)
[2018-05-22] MEDS: ASPIRIN 81 MG CHEWABLE TAB PO SCH (07:56)
[2018-05-22] MEDS: TOPIRAMATE 25 MG TAB PO SCH ×2 (07:56→20:00)
[2018-05-22] MEDS: THIAMINE HCL 100 MG TAB PO SCH (07:57)
[2018-05-22] MEDS: CETIRIZINE 10 MG TAB PO SCH (07:57)
[2018-05-22] MEDS: ARIPiprazole 5 MG TAB PO SCH (07:57)
[2018-05-22] MEDS: FERROUS SULFATE 325 MG TAB PO SCH ×3 (07:57→18:37)
[2018-05-22] MEDS: MINERAL OIL TP SCH ×3 (07:58→21:25)
[2018-05-22] MEDS: PET HY PHL TP SCH ×3 (07:58→21:25)
--- NOTE | 2018-05-22 08:59 | SOAPPROG ---
SOAP Progress Note Assessment/Plan: Assessment: SHELBI resolving, creat leveling off about 2 CKD 3, baseline creat 1.6-1.8 complains of heartburn, recent troponins noted, on PPI Plan: continue therapies looks like renal recovery Renal will sign off 05/22/18 08:56 Subjective: complains of heartburn, evaluation noted no cp sob nausea or vomiting confused Objective: Vital Signs Temp Pulse Resp BP Pulse Ox 36.5 C 87 18 197/119 H 95 05/22/18 07:33 05/22/18 07:54 05/22/18 07:33 05/22/18 07:54 05/22/18 07:33 Microbiology 05/17/18 00:55 Blood Culture - Final Blood Laboratory Results 05/22/18 05:30 05/22/18 05:30 05/21/18 05/22/18 05/23/18 05:59 05:59 05:59 Intake Total 1668 750 Output Total 1000 1070 Balance 668 -320 PT 15.5 SEC (12.0-15.0) H 05/18/18 04:00 INR 1.21 (0.83-1.16) H 05/18/18 04:00 Physical Exam - Physical Exam General Appearance: alert Respiratory: No rhonchi, No wheezing Cardiac/Chest: regular rate, rhythm, No friction rub Abdomen: non-tender, soft Extremities: pedal edema (trace) Neuro/Psych: alert ICD10 Worksheet Patient Problems: Problems Problem Status Onset Dehydration Acute Fracture, humerus Acute Renal failure (ARF), acute on chronic Acute Adjustment disorder with depressed mood Active Acute bronchitis with chronic obstructive pulmonary disease (COPD) Acute Acute on chronic renal insufficiency Acute Bronchitis Acute Chest pain Acute Chest pain Acute Chest pain in adult Acute Chronic Disease Mgmt/Transitional Care Acute Chronic obstructive pulmonary disease with acute exacerbation Acute Chronic renal insufficiency Acute Closed left humeral fracture Acute Colitis Acute Cough Acute Elevated d-dimer Acute Hyponatremia Acute Knee effusion Acute Leg cramping Acute Leukopenia Acute Migraine Acute Multiple falls Acute Nausea & vomiting Acute Near syncope Acute Osteoarthritis of right knee Acute Pleural effusion, right Acute Pneumonia Acute Renal failure (ARF), acute on chronic Acute Right knee pain Acute Sedated Acute Shortness of breath Acute Urinary tract infection Acute Vomiting Acute Weakness Acute
--- NOTE | 2018-05-22 09:12 | GOP ---
DATE OF OPERATION: 05/21/2018 SURGEON: Rocael Nava MD ANESTHESIA: General. PREOPERATIVE DIAGNOSIS: Left proximal humerus fracture. POSTOPERATIVE DIAGNOSIS: Left proximal humerus fracture. PROCEDURE PERFORMED: FINDINGS: ESTIMATED BLOOD LOSS: Minimal. INDICATIONS: The patient is a very medically unstable woman with a history of liver failure, status post transplant and renal failure, who sustained a fall resulting in a left proximal humerus fracture . An initial non-operative treatment course was pursued as the fracture was well aligned. The fract ure subsequently went on to significant angulation. This was causing pain and skin tenting, which wa s putting her at risk for development of an open wound. Based on these factors, it is recommended th at operative treatment be pursued. While definitive optimal management for a fracture of this nature would include stable open reduction, internal fixation after thorough discussion with the anesthesio logist and the patient's family it was felt that this would put her at significant risk for intraoper ative and initial postoperative morbidity. She had marked diminished platelet levels, which required transfusion and concern over her ability to adequately heal a formal operative approach. Toward thi s end, after thorough discussion with the patient's family, who served as her legal guardians, a clos ed reduction, percutaneous pinning of the fracture was recommended. This was felt to be able to prov mitzi adequate stability for the fracture to heal, minimizing the risk of a formal operative approach. The patient's family acknowledged they understood the potential risks including but not limited to b leeding, infection, neurovascular damage, loss of limb function, malunion, nonunion, pin loosening re quiring additional operative procedures, need for additional operative procedure for pin removal, and anesthetic risks. They acknowledged they understood the potential risks, planned procedure, and pos toperative plan well, and had all questions answered prior to surgery. Her daughter gave consent for the operative procedure as the patient was incapable of providing this. DESCRIPTION OF PROCEDURE: The patient was brought to the operating room after IV antibiotics were ad ministered. She was placed in a supine position after general endotracheal anesthetic was administer ed by the anesthesiologist. The patient was placed in a beach chair position with beach chair head h older. Left upper extremity and left shoulder girdle were prepped and draped in standard sterile fas hion. A closed reduction maneuver was performed and position confirmed to be favorable fluoroscopica lly. Confirming proper entry site for K-wire a very small incision was made for K-wire placement. D ue to the obliquity needed for K-wire placement, utilizing a drill sleeve, a 3.2 mm cortical window w as made in the bone at an oblique angle. Through this hole, a 2.5 mm Schanz pin was placed from the lateral aspect of the humerus distal to the fracture site in the intramedullary canal crossing the fr acture site gaining purchase in the humeral head. An additional Schanz pin was placed utilizing the same technique through a separate stab incision. In order to expand the purchase gaining additional Schanz pin placement in the lateral aspect of the head another 2.5 mm Shantz pin was curved with plie rs and inserted on hand malleting it into position in the posterolateral aspect of the humeral head f rom a lateral humeral starting point distal to the fracture. Fluoroscopic views confirmed favorable K-wire placement. Gentle manipulation of the fracture site with K-wires in place revealed the fractu re to be stable without any evidence of displacement. The pins were cut as close to the bone as poss ible. may make removal of pins, slightly more difficult. Based on the patient's medical condition, it was hopeful that Schanz pin removal would not be necessary. Despite the very limited s tab incision made based on the fragility of the skin there was some expansion of these holes during p in placement. Based on this, it required skin suturing. The skin incision was closed with 4-0 nylon interrupted sutures. The wounds were dressed with sterile Adaptic, 4 x 4, and Kerlix. The patient tolerated the procedure well, was taken to the recovery room, extubated in similar condition to her p reop status postoperatively. DRAINS: None. COMPLICATIONS: None. PLAN: She will be returned to the floor for additional medical management. She was placed in a slin g. /[id number]/MODL
[2018-05-22] MEDS: hydrALAZINE 20 MG/ML VIAL IVP PRN (09:44)
[2018-05-22] MEDS: amLODIPine BESYLATE 5 MG TAB PO SCH ×2 (09:44→12:56)
[2018-05-22] MEDS: TIOTROPIUM INHALER 18 MCG/DOSE 5 DOSE/MDI IH SCH (09:52)
--- NOTE | 2018-05-22 10:58 | CPEKG ---
Test Reason : OPEN Blood Pressure : / mmHG Vent. Rate : 077 BPM Atrial Rate : 077 BPM P-R Int : 158 ms QRS Dur : 085 ms QT Int : 425 ms P-R-T Axes : 047 016 028 degrees QTc Int : 482 ms Sinus rhythm Confirmed by Pako Farr ([id number]) on 05/22/2018 10:58:12 AM Referred By: Confirmed By:Pako Farr
[2018-05-22] MEDS ORDERED: SODIUM CL NASAL GEL 14.1 GM TUBE TP PRN (11:47)
[2018-05-22] MEDS ORDERED: BISACODYL 10 MG SUPP PR PRN (11:47)
[2018-05-22] MEDS ORDERED: LACTULOSE 20 GM/30 ML UDCUP PO PRN (11:47)
[2018-05-22] MEDS ORDERED: MAGNESIUM HYDROXIDE 30 ML UDCUP PO PRN (11:47)
[2018-05-22] MEDS ORDERED: MAG HYDROX/AL HYDROX/SIMETH 30 ML UDCUP PO ONE (11:49)
[2018-05-22] MEDS ORDERED: LIDOCAINE 2% VISCOUS 15 ML UDCUP PO ONE (11:49)
[2018-05-22] MEDS ORDERED: HYOSCYAMINE SULFATE 0.125 MG TAB PO ONE (11:49)
[2018-05-22] MEDS: BISACODYL 10 MG SUPP PR PRN (12:08)
[2018-05-22] MEDS: POLYETHYLENE GLYCOL 3350 17 GM PKT PO PRN (12:59)
--- NOTE | 2018-05-22 15:04 | ASMTCMCOM ---
CM Note CM Note Notes: Patient plan of care reviewed in am rounds. She is being followed by ortho and hospital medicine. Plan of care remains unchanged . To return to [facility] when medically stable. Date Signed: 05/22/2018 03:03 PM Electronically Signed By:Annelise Gu RN
--- NOTE | 2018-05-22 17:27 | HOSPPROG ---
Hospitalist Progress Note Assessment/Plan: #SHELBI on CKD: improved. Now at baseline (1.6-2) #Accelerated HTN: SBP >200 overnight. Restart amlodipine #Acute toxic/metabolic encephalopathy: decrease opioids. HTN may contributed this morning. No focal neuro deficits on exam #Acute left humeral fracture: ORIF POD #1. Avoid morphine with CKD #Hyponatremia: improved with IVFs, salt tabs #Metabolic acidosis: due to SHELBI #CAD: not candidate for cardiac cath, ASA, BB. EKG today reassuring. #Syncope: hypovolemia #SSS: dual-chamber pacemaker #Anemia/thrombocytopenia; s/p 2 units 05/19. Irradiated platelets before surgery #h/o liver transplant: Prograf when taking PO #Dysphagia: speech re-consulted #Compensated diastolic HF: cont BP #Hypothyroidism: LT4 #Goals: given multiple co-morbidities, Palliative care on board. CM to help complete med-proxy form #Diet: regular Inpatient admission for pain control, PT Subjective: BP >200 this morning. c/o heartburn Objective: Vital Signs Temp Pulse Resp BP Pulse Ox 36.4 C 82 14 145/77 H 98 05/22/18 15:21 05/22/18 15:21 05/22/18 15:21 05/22/18 15:21 05/22/18 15:21 Microbiology 05/17/18 00:55 Blood Culture - Final Blood Laboratory Results 05/22/18 05:30 05/22/18 05:30 05/21/18 05/22/18 05/23/18 05:59 05:59 05:59 Intake Total 1668 750 Output Total 1000 1070 Balance 668 -320 PT 15.5 SEC (12.0-15.0) H 05/18/18 04:00 INR 1.21 (0.83-1.16) H 05/18/18 04:00 - Time Spent With Patient Time Spent with Patient: greater than 35 minutes Time Spent with Patient: Greater than 35 minutes spent on this patients care, greater than 50% of time spent counseling, educating, and coordinating care regarding the above mentioned plan. - Physical Exam Constitutional: uncomfortable Eyes: PERRL Ears, Nose, Mouth, Throat: moist mucous membranes Cardiovascular: regular rate and rhythym Respiratory: no respiratory distress Gastrointestinal: normoactive bowel sounds Genitourinary: buchanan in urethra Skin: warm Musculoskeletal: full muscle strength (decreased on right due to pain), other ( left arm dressed, some sang drainage. Sling) Neurologic: CN II-XII Intact, other (no facial droop, normal sensation to touch. Follows commands) Psychiatric: encephalopathic (less confused than yesterday) ICD10 Worksheet Patient Problems: Problems Problem Status Onset Dehydration Acute Fracture, humerus Acute Renal failure (ARF), acute on chronic Acute Adjustment disorder with depressed mood Active Acute bronchitis with chronic obstructive pulmonary disease (COPD) Acute Acute on chronic renal insufficiency Acute Bronchitis Acute Chest pain Acute Chest pain Acute Chest pain in adult Acute Chronic Disease Mgmt/Transitional Care Acute Chronic obstructive pulmonary disease with acute exacerbation Acute Chronic renal insufficiency Acute Closed left humeral fracture Acute Colitis Acute Cough Acute Elevated d-dimer Acute Hyponatremia Acute Knee effusion Acute Leg cramping Acute Leukopenia Acute Migraine Acute Multiple falls Acute Nausea & vomiting Acute Near syncope Acute Osteoarthritis of right knee Acute Pleural effusion, right Acute Pneumonia Acute Renal failure (ARF), acute on chronic Acute Right knee pain Acute Sedated Acute Shortness of breath Acute Urinary tract infection Acute Vomiting Acute Weakness Acute
[2018-05-22] MEDS: GABAPENTIN 300 MG CAP PO SCH (20:00)
[2018-05-22] MEDS: SENNOSIDES/DOCUSATE SODIUM TAB PO SCH (20:00)
[2018-05-22] MEDS: ONDANSETRON 4 MG/2 ML VIAL IVP PRN (20:59)
[2018-05-22] MEDS: FAMOTIDINE 20 MG TAB PO SCH (21:23)
[2018-05-22] MEDS: traMADol 50 MG TAB PO PRN (23:18)
[2018-05-23] MEDS: ACETAMINOPHEN 500 MG TAB PO SCH ×3 (03:39→21:30)
[2018-05-23] MEDS: LEVOTHYROXINE 75 MCG TAB PO SCH (03:40)
[2018-05-23] MEDS: HYDROmorphONE/DILAUDID 1 MG/ML INJ IVP PRN ×4 (03:40→21:54)
[2018-05-23] MEDS: traMADol 50 MG TAB PO PRN ×3 (06:32→18:56)
[2018-05-23] MEDS: LIDOCAINE 4%/MENTHOL 1% PATCH TD SCH (08:40)
[2018-05-23] MEDS: PANTOPRAZOLE SODIUM 40 MG TAB PO SCH (08:41)
[2018-05-23] MEDS: THIAMINE HCL 100 MG TAB PO SCH (08:41)
[2018-05-23] MEDS: SODIUM BICARBONATE 650 MG TAB PO SCH ×3 (08:42→21:25)
[2018-05-23] MEDS: FAMOTIDINE 20 MG TAB PO SCH ×2 (08:42→21:19)
[2018-05-23] MEDS: TOPIRAMATE 25 MG TAB PO SCH ×2 (08:42→21:30)
[2018-05-23] MEDS: FERROUS SULFATE 325 MG TAB PO SCH ×3 (08:42→18:07)
[2018-05-23] MEDS: CARVEDILOL 25 MG TAB PO SCH ×2 (08:42→18:05)
[2018-05-23] MEDS: TACROLIMUS ANHYDROUS 0.5 MG CAP PO SCH ×2 (08:42→21:18)
[2018-05-23] MEDS: ARIPiprazole 5 MG TAB PO SCH (08:43)
[2018-05-23] MEDS: CETIRIZINE 10 MG TAB PO SCH (08:43)
[2018-05-23] MEDS: ASPIRIN 81 MG CHEWABLE TAB PO SCH (08:44)
[2018-05-23] MEDS: FLUoxetine 20 MG CAP PO SCH (08:44)
[2018-05-23] MEDS: SENNOSIDES/DOCUSATE SODIUM TAB PO SCH ×2 (09:07→21:18)
[2018-05-23] MEDS: TIOTROPIUM INHALER 18 MCG/DOSE 5 DOSE/MDI IH SCH (09:32)
[2018-05-23] MEDS: MINERAL OIL TP SCH ×3 (10:10→23:17)
[2018-05-23] MEDS: PET HY PHL TP SCH ×3 (10:10→23:17)
[2018-05-23 12:12] LABS: HCV QT RNA PCR 1490279 IU/mL (<10)
[2018-05-23] MEDS: LIDOCAINE 2% VISCOUS 15 ML UDCUP PO PRN (12:46)
--- NOTE | 2018-05-23 14:30 | ASMTCMCOM ---
CM Note CM Note Notes: Patient plan of care reviewed in am rounds. Misty is much better today. Alert and oriented. She will continue with therapy. Likely dc back to [facility] soon. Zachery updated. CM to follow. Plan: Dc to [facility] when medically stable. Date Signed: 05/23/2018 02:29 PM Electronically Signed By:Annelise Gu RN
[2018-05-23] MEDS: HYDROCORTISONE 0.5% CREAM TP SCH (14:37)
[2018-05-23] MEDS: ONDANSETRON 4 MG/2 ML VIAL IVP PRN (14:48)
--- NOTE | 2018-05-23 16:29 | HOSPPROG ---
Hospitalist Progress Note Assessment/Plan: #SHELBI on CKD: improved. Now at baseline (1.6-2) #Accelerated HTN: increased Norvasc dose (she reports labile at home) #Acute toxic/metabolic encephalopathy: resolved. Negative CTH. From opioids, BZs. #Acute left humeral fracture: ORIF POD #2. Avoid morphine with CKD #Hyponatremia: improved with IVFs, salt tabs #Metabolic acidosis: due to SHELBI #Genital herpes: renally-dose Acyclovir #CAD: not candidate for cardiac cath, ASA, BB. Post-op EKG reassuring, no CP #Syncope: hypovolemia #SSS: dual-chamber pacemaker #Anemia/thrombocytopenia; s/p 2 units 05/19. Irradiated platelets before surgery #h/o liver transplant: Prograf when taking PO #Dysphagia: speech re-consulted #Compensated diastolic HF: cont BP #Hypothyroidism: LT4 #Goals: daughter MDPOA #Diet: regular Inpatient admission for pain control, PT. DC to SNF when medically stable Subjective: pain in arm improved Objective: Vital Signs Temp Pulse Resp BP Pulse Ox 36.8 C 78 20 159/73 H 95 05/23/18 15:48 05/23/18 15:48 05/23/18 15:48 05/23/18 15:48 05/23/18 15:48 Microbiology 05/22/18 18:20 Herpes Simplex Virus I (PCR) - Final Genital - Lesion Hsv-1 Dna Detected Herpes Simplex Virus II (PCR) - Final Hsv-2 Dna Detected HSV/VZV PCR Additional Information - Final Laboratory Results 05/22/18 05:30 05/23/18 03:50 05/22/18 05/23/18 05/24/18 05:59 05:59 05:59 Intake Total 750 3666 Output Total 1070 675 675 Balance -320 2991 -675 PT 15.5 SEC (12.0-15.0) H 05/18/18 04:00 INR 1.21 (0.83-1.16) H 05/18/18 04:00 - Time Spent With Patient Time Spent with Patient: greater than 35 minutes Time Spent with Patient: Greater than 35 minutes spent on this patients care, greater than 50% of time spent counseling, educating, and coordinating care regarding the above mentioned plan. - Physical Exam Constitutional: no apparent distress Eyes: PERRL Ears, Nose, Mouth, Throat: moist mucous membranes Cardiovascular: regular rate and rhythym Respiratory: no respiratory distress Gastrointestinal: normoactive bowel sounds Musculoskeletal: other (left arm dresssed, sling. Extensitve upper arm bruising. Hand swollen) Neurologic: AAOx3, CN II-XII Intact, No facial droop Psychiatric: interacting appropriately, not encephalopathic ICD10 Worksheet Patient Problems: Problems Problem Status Onset Dehydration Acute Fracture, humerus Acute Renal failure (ARF), acute on chronic Acute Adjustment disorder with depressed mood Active Acute bronchitis with chronic obstructive pulmonary disease (COPD) Acute Acute on chronic renal insufficiency Acute Bronchitis Acute Chest pain Acute Chest pain Acute Chest pain in adult Acute Chronic Disease Mgmt/Transitional Care Acute Chronic obstructive pulmonary disease with acute exacerbation Acute Chronic renal insufficiency Acute Closed left humeral fracture Acute Colitis Acute Cough Acute Elevated d-dimer Acute Hyponatremia Acute Knee effusion Acute Leg cramping Acute Leukopenia Acute Migraine Acute Multiple falls Acute Nausea & vomiting Acute Near syncope Acute Osteoarthritis of right knee Acute Pleural effusion, right Acute Pneumonia Acute Renal failure (ARF), acute on chronic Acute Right knee pain Acute Sedated Acute Shortness of breath Acute Urinary tract infection Acute Vomiting Acute Weakness Acute
[2018-05-23] MEDS: ACYCLOVIR 200 MG CAP PO SCH ×2 (18:07→21:18)
[2018-05-23] MEDS: GABAPENTIN 300 MG CAP PO SCH (21:18)
[2018-05-23] MEDS: PROMETHAZINE HCL 25 MG/ML INJ IVP PRN (23:47)
[2018-05-24] MEDS: HYDROCORTISONE 0.5% CREAM TP SCH ×3 (00:56→21:46)
[2018-05-24] MEDS: traMADol 50 MG TAB PO PRN ×3 (02:37→20:48)
[2018-05-24] MEDS: ACETAMINOPHEN 500 MG TAB PO SCH ×3 (02:45→16:26)
[2018-05-24] MEDS: LEVOTHYROXINE 75 MCG TAB PO SCH (06:01)
[2018-05-24] MEDS: ACYCLOVIR 200 MG CAP PO SCH ×5 (06:01→21:45)
[2018-05-24] MEDS: LR 1,000 ML IV SCH (06:20)
[2018-05-24] MEDS: HYDROmorphONE/DILAUDID 2 MG/ML INJ IVP PRN (06:24)
[2018-05-24] MEDS: CARVEDILOL 25 MG TAB PO SCH ×2 (08:58→17:17)
[2018-05-24] MEDS: SODIUM BICARBONATE 650 MG TAB PO SCH ×3 (08:59→21:45)
[2018-05-24] MEDS: TACROLIMUS ANHYDROUS 0.5 MG CAP PO SCH ×2 (08:59→20:48)
[2018-05-24] MEDS: FLUoxetine 20 MG CAP PO SCH (08:59)
[2018-05-24] MEDS: FERROUS SULFATE 325 MG TAB PO SCH ×3 (08:59→17:17)
[2018-05-24] MEDS: SENNOSIDES/DOCUSATE SODIUM TAB PO SCH ×2 (08:59→20:49)
[2018-05-24] MEDS: CETIRIZINE 10 MG TAB PO SCH (09:00)
[2018-05-24] MEDS: ASPIRIN 81 MG CHEWABLE TAB PO SCH (09:00)
[2018-05-24] MEDS: ARIPiprazole 5 MG TAB PO SCH (09:00)
[2018-05-24] MEDS: THIAMINE HCL 100 MG TAB PO SCH (09:00)
[2018-05-24] MEDS: FAMOTIDINE 20 MG TAB PO SCH ×2 (09:00→20:49)
[2018-05-24] MEDS: PANTOPRAZOLE SODIUM 40 MG TAB PO SCH (09:00)
[2018-05-24] MEDS: PROMETHAZINE HCL 25 MG/ML INJ IVP PRN ×2 (09:01→21:58)
[2018-05-24] MEDS: TOPIRAMATE 25 MG TAB PO SCH ×2 (09:01→21:45)
[2018-05-24] MEDS: LIDOCAINE 4%/MENTHOL 1% PATCH TD SCH (09:01)
[2018-05-24] MEDS: TIOTROPIUM INHALER 18 MCG/DOSE 5 DOSE/MDI IH SCH (09:14)
[2018-05-24] MEDS: PET HY PHL TP SCH ×3 (13:02→21:46)
[2018-05-24] MEDS: MINERAL OIL TP SCH ×3 (13:02→21:46)
--- NOTE | 2018-05-24 13:56 | ASMTCMCOM ---
CM Note CM Note Notes: Patient plan of care reviewed in rounds. She is up in a chair today. Brighter, and attempting to eat. Left arm and hand remain in a sling and are swollen. Working with therapy. Likely to dc to SNF tomorrow. Plan: [facility] when medically cleared for discharge. Date Signed: 05/24/2018 01:46 PM Electronically Signed By:Annelise Gu RN
[2018-05-24] MEDS: CALCIUM CARBONATE 500 MG CHEWABLE TAB PO PRN (16:26)
[2018-05-24] MEDS ORDERED: ENOXAPARIN 40 MG/0.4 ML SYR SC SCH (16:30)
--- NOTE | 2018-05-24 16:33 | HOSPPROG ---
Hospitalist Progress Note Assessment/Plan: # L humerus fracture s/p ORIF by Dr Nava - f/u 2 weeks # SHELBI on CKD: resolved, at baseline # htn - labile; somewhat labile # metabolic encephalopathy: likely from sedating meds; CTH negative # hypoNa - improved with IVFs, salt tabs # genital herpes: renally-dose Acyclovir # CAD: had episode of CP; not a candidate for cath with CKD; echo ok; seen by cards - cont asa/BB # syncope: hypovolemia # SSS: dual-chamber pacemaker # anemia/thrombocytopenia; s/p 2 units 05/19. plts better # h/o liver transplant: prograf # dysphagia: speech re-consulted # compensated diastolic HF: # hypothyroidism: LT4 # goals: daughter MDPOA # diet: regular # dvt ppx - SCDs, no lovenox with low plts Subjective: c/o constipation; Objective: Vital Signs Temp Pulse Resp BP Pulse Ox 36.5 C 7 L 22 H 168/77 H 96 05/24/18 15:18 05/24/18 15:18 05/24/18 15:18 05/24/18 15:18 05/24/18 15:18 Microbiology 05/22/18 18:20 Herpes Simplex Virus I (PCR) - Final Genital - Lesion Hsv-1 Dna Detected Herpes Simplex Virus II (PCR) - Final Hsv-2 Dna Detected HSV/VZV PCR Additional Information - Final Laboratory Results 05/24/18 06:05 05/24/18 06:05 05/23/18 05/24/18 05/25/18 05:59 05:59 05:59 Intake Total 3666 200 200 Output Total 675 1725 400 Balance 2991 -1525 -200 PT 15.5 SEC (12.0-15.0) H 05/18/18 04:00 INR 1.21 (0.83-1.16) H 05/18/18 04:00 chart reviewed op note reviewed CT head reviewed - Physical Exam Constitutional: uncomfortable, other (L arm sling) Cardiovascular: regular rate and rhythym, systolic murmur, No irregularly irregular, No diastolic murmur Respiratory: no respiratory distress, no rales or rhonchi, clear to auscultation Gastrointestinal: soft, non-tender abdomen, no palpable masses, No rebound, No distension ICD10 Worksheet Patient Problems: Problems Problem Status Onset Nausea & vomiting Acute Pleural effusion, right Acute Leukopenia Acute Near syncope Acute Closed left humeral fracture Acute Renal failure (ARF), acute on chronic Acute Fracture, humerus Acute Osteoarthritis of right knee Acute Adjustment disorder with depressed mood Active Chronic Disease Mgmt/Transitional Care Acute Pneumonia Acute Knee effusion Acute Acute on chronic renal insufficiency Acute Acute bronchitis with chronic obstructive pulmonary disease (COPD) Acute Chest pain Acute Dehydration Acute Bronchitis Acute Cough Acute Leg cramping Acute Weakness Acute Vomiting Acute Sedated Acute Multiple falls Acute Hyponatremia Acute Chronic renal insufficiency Acute Colitis Acute Urinary tract infection Acute Renal failure (ARF), acute on chronic Acute Shortness of breath Acute Chest pain in adult Acute Elevated d-dimer Acute Right knee pain Acute Migraine Acute Chronic obstructive pulmonary disease with acute exacerbation Acute Chest pain Acute
[2018-05-24] MEDS: BISACODYL 10 MG SUPP PR PRN (16:42)
[2018-05-24] MEDS: POLYETHYLENE GLYCOL 3350 17 GM PKT PO PRN (17:25)
[2018-05-24] MEDS: ONDANSETRON 4 MG/2 ML VIAL IVP PRN (17:25)
[2018-05-24] MEDS: GABAPENTIN 300 MG CAP PO SCH (20:48)
[2018-05-24] MEDS: hydrALAZINE 20 MG/ML VIAL IVP PRN (23:17)
[2018-05-25] MEDS: LR 1,000 ML IV SCH (00:49)
[2018-05-25] MEDS: ACETAMINOPHEN 500 MG TAB PO SCH ×4 (00:50→23:40)
[2018-05-25] MEDS: HYDROmorphONE/DILAUDID 2 MG/ML INJ IVP PRN ×4 (00:57→21:42)
[2018-05-25] MEDS: ONDANSETRON 4 MG/2 ML VIAL IVP PRN (01:50)
[2018-05-25] MEDS ORDERED: HYDROmorphONE/DILAUDID 2 MG/ML INJ IVP ONE (02:11)
[2018-05-25] MEDS: PROMETHAZINE HCL 25 MG/ML INJ IVP PRN ×2 (04:08→11:29)
[2018-05-25 04:09] LABS: PLATELET COUNT 109 10^3/uL (150-400)
[2018-05-25] MEDS: LORazepam 2 MG/ML INJ IVP PRN ×2 (04:22→19:52)
[2018-05-25] MEDS: LEVOTHYROXINE 75 MCG TAB PO SCH (04:59)
[2018-05-25] MEDS: ACYCLOVIR 200 MG CAP PO SCH ×5 (04:59→19:34)
--- NOTE | 2018-05-25 05:21 | HOSPPROG ---
Hospitalist Progress Note Assessment/Plan: Hospitalist night float note Notified previously by RN that patient had developed sudden onset abdominal pain and distension with absent bowel sounds. Patient noted to have a history of ileus postoperatively. History of previous abdominal surgeries. Patient has not had any narcotic therapy since yesterday afternoon. She reports 2 small soft bowel movements yesterday afternoon. KUB was obtained showing dilated loops of large bowel, possibly ileus versus early bowel obstruction. Patient is still struggling with abdominal pain. No nausea vomiting. She did receive 1 mg of Dilaudid with minimal improvement in her pain. Reviewed with patient new to be judicious with use of narcotic therapy given her current condition the patient acknowledges understanding. IV Ativan will be made available for the patient p.r.n. For her anxiety as well as her abdominal pain. Case was discussed with Dr. Benitez (general surgery) he will see the patient this morning. she has been made NPO. Objective: Vital Signs Temp Pulse Resp BP Pulse Ox 36.8 C 81 16 115/64 100 05/25/18 04:00 05/25/18 04:00 05/25/18 04:00 05/25/18 04:00 05/25/18 04:00 Laboratory Results 05/25/18 04:00 05/25/18 04:00 05/23/18 05/24/18 05/25/18 05:59 05:59 05:59 Intake Total 3666 200 1200 Output Total 675 1725 700 Balance 2991 -1525 500 PT 15.5 SEC (12.0-15.0) H 05/18/18 04:00 INR 1.21 (0.83-1.16) H 05/18/18 04:00 ICD10 Worksheet Patient Problems: Problems Problem Status Onset Dehydration Acute Fracture, humerus Acute Renal failure (ARF), acute on chronic Acute Adjustment disorder with depressed mood Active Acute bronchitis with chronic obstructive pulmonary disease (COPD) Acute Acute on chronic renal insufficiency Acute Bronchitis Acute Chest pain Acute Chest pain Acute Chest pain in adult Acute Chronic Disease Mgmt/Transitional Care Acute Chronic obstructive pulmonary disease with acute exacerbation Acute Chronic renal insufficiency Acute Closed left humeral fracture Acute Colitis Acute Cough Acute Elevated d-dimer Acute Hyponatremia Acute Knee effusion Acute Leg cramping Acute Leukopenia Acute Migraine Acute Multiple falls Acute Nausea & vomiting Acute Near syncope Acute Osteoarthritis of right knee Acute Pleural effusion, right Acute Pneumonia Acute Renal failure (ARF), acute on chronic Acute Right knee pain Acute Sedated Acute Shortness of breath Acute Urinary tract infection Acute Vomiting Acute Weakness Acute
[2018-05-25] MEDS: TIOTROPIUM INHALER 18 MCG/DOSE 5 DOSE/MDI IH SCH (08:07)
[2018-05-25] MEDS ORDERED: METHYLNALTREXONE BROMIDE 12 MG/0.6 ML INJ SC ONE (11:08)
[2018-05-25] MEDS ORDERED: HEPARIN 5,000 UNIT/0.5 ML INJ SC SCH (12:00)
[2018-05-25] MEDS: ASPIRIN 81 MG CHEWABLE TAB PO SCH (12:35)
[2018-05-25] MEDS: FERROUS SULFATE 325 MG TAB PO SCH ×2 (12:35→18:02)
[2018-05-25] MEDS: ARIPiprazole 5 MG TAB PO SCH (12:35)
[2018-05-25] MEDS: CARVEDILOL 25 MG TAB PO SCH ×2 (12:35→18:02)
[2018-05-25] MEDS: CETIRIZINE 10 MG TAB PO SCH (12:35)
[2018-05-25] MEDS: FAMOTIDINE 20 MG TAB PO SCH ×2 (12:35→19:34)
[2018-05-25] MEDS: PANTOPRAZOLE SODIUM 40 MG TAB PO SCH (12:36)
[2018-05-25] MEDS: FLUoxetine 20 MG CAP PO SCH (12:36)
[2018-05-25] MEDS: THIAMINE HCL 100 MG TAB PO SCH (12:37)
[2018-05-25] MEDS: TOPIRAMATE 25 MG TAB PO SCH ×2 (12:37→19:34)
[2018-05-25] MEDS: SENNOSIDES/DOCUSATE SODIUM TAB PO SCH ×2 (12:37→19:34)
[2018-05-25] MEDS: SODIUM BICARBONATE 650 MG TAB PO SCH ×3 (12:37→19:34)
[2018-05-25] MEDS: TACROLIMUS ANHYDROUS 0.5 MG CAP PO SCH ×2 (12:37→19:34)
--- NOTE | 2018-05-25 12:52 | HOSPPROG ---
Hospitalist Progress Note Assessment/Plan: # L humerus fracture s/p ORIF by Dr Nava - f/u 2 weeks # abdominal pain, colonic distension - she has a history of ischemic colitis - unable to place NG tube d/t multiple nasal surgeries - seen by Dr Benitez - will check CT given her history # SHELBI on CKD: resolved, at baseline # htn - labile; somewhat labile # metabolic encephalopathy: likely from sedating meds; CTH negative # hypoNa - improved with IVFs, salt tabs # genital herpes: renally-dose Acyclovir # CAD: had episode of CP; not a candidate for cath with CKD; echo ok; seen by cards - cont asa/BB # syncope: hypovolemia # SSS: dual-chamber pacemaker # anemia/thrombocytopenia; s/p 2 units 05/19. plts better # h/o liver transplant: prograf - will need to consider steroids if we need to continue to hold her prograf # dysphagia: speech re-consulted # compensated diastolic HF # hypothyroidism: LT4 # goals: daughter MDPOA # diet: regular # dvt ppx - SCDs, low dose heparin started, will hold pending CT Subjective: developed severe abd pain last night; AXR shows distended colon; unable to place NG tube Objective: Vital Signs Temp Pulse Resp BP Pulse Ox 35.8 C L 76 12 176/72 H 98 05/25/18 08:00 05/25/18 08:11 05/25/18 08:11 05/25/18 08:00 05/25/18 08:11 Laboratory Results 05/25/18 04:00 05/25/18 04:00 05/24/18 05/25/18 05/26/18 05:59 05:59 05:59 Intake Total 200 1200 Output Total 1725 700 20 Balance -1525 500 -20 PT 15.5 SEC (12.0-15.0) H 05/18/18 04:00 INR 1.21 (0.83-1.16) H 05/18/18 04:00 chart reviewed from last night AXR personally reviewed - Physical Exam Constitutional: uncomfortable Cardiovascular: regular rate and rhythym, no murmur, rub, or gallop Respiratory: no respiratory distress, no rales or rhonchi, clear to auscultation Gastrointestinal: other (soft, diffusely TTP; +bowel sounds; no rebound) ICD10 Worksheet Patient Problems: Problems Problem Status Onset Nausea & vomiting Acute Pleural effusion, right Acute Leukopenia Acute Near syncope Acute Closed left humeral fracture Acute Renal failure (ARF), acute on chronic Acute Fracture, humerus Acute Osteoarthritis of right knee Acute Adjustment disorder with depressed mood Active Chronic Disease Mgmt/Transitional Care Acute Pneumonia Acute Knee effusion Acute Acute on chronic renal insufficiency Acute Acute bronchitis with chronic obstructive pulmonary disease (COPD) Acute Chest pain Acute Dehydration Acute Bronchitis Acute Cough Acute Leg cramping Acute Weakness Acute Vomiting Acute Sedated Acute Multiple falls Acute Hyponatremia Acute Chronic renal insufficiency Acute Colitis Acute Urinary tract infection Acute Renal failure (ARF), acute on chronic Acute Shortness of breath Acute Chest pain in adult Acute Elevated d-dimer Acute Right knee pain Acute Migraine Acute Chronic obstructive pulmonary disease with acute exacerbation Acute Chest pain Acute
[2018-05-25] MEDS: LIDOCAINE 4%/MENTHOL 1% PATCH TD SCH (12:59)
[2018-05-25] MEDS: HYDROCORTISONE 0.5% CREAM TP SCH ×2 (13:00→19:34)
[2018-05-25] MEDS: PET HY PHL TP SCH ×3 (13:01→19:35)
[2018-05-25] MEDS: MINERAL OIL TP SCH ×3 (13:01→19:35)
--- NOTE | 2018-05-25 18:53 | SOAPPROG ---
SOAP Progress Note Assessment/Plan: Assessment: 72 FEMALE VERY UNCOMFORTABLE FROM SUDDEN DISTENTION TODAY/ PT HOSPITALIZED FOR 9 DAYS AND RECENT ORIF OF HUMERUS CO PRESSURE AND BLOATING HEENT NONICTERIC CHEST CLEAR COR RR ABD DISTENDED, DECREASED BS, NO MASSES, TYMPANITIC IMP; ileus vs constipation causing obstruction Plan:relistor/ ct scan/ enema/ gi consult for possible flex sig 05/25/18 18:49 Objective: Vital Signs Temp Pulse Resp BP Pulse Ox 36.4 C 88 20 148/74 H 95 05/25/18 16:00 05/25/18 16:00 05/25/18 16:00 05/25/18 16:00 05/25/18 16:00 Laboratory Results 05/25/18 04:00 05/25/18 04:00 05/24/18 05/25/18 05/26/18 05:59 05:59 05:59 Intake Total 200 1200 906 Output Total 1725 700 395 Balance -1525 500 511 PT 15.5 SEC (12.0-15.0) H 05/18/18 04:00 INR 1.21 (0.83-1.16) H 05/18/18 04:00 ICD10 Worksheet Patient Problems: Problems Problem Status Onset Dehydration Acute Fracture, humerus Acute Renal failure (ARF), acute on chronic Acute Adjustment disorder with depressed mood Active Acute bronchitis with chronic obstructive pulmonary disease (COPD) Acute Acute on chronic renal insufficiency Acute Bronchitis Acute Chest pain Acute Chest pain Acute Chest pain in adult Acute Chronic Disease Mgmt/Transitional Care Acute Chronic obstructive pulmonary disease with acute exacerbation Acute Chronic renal insufficiency Acute Closed left humeral fracture Acute Colitis Acute Cough Acute Elevated d-dimer Acute Hyponatremia Acute Knee effusion Acute Leg cramping Acute Leukopenia Acute Migraine Acute Multiple falls Acute Nausea & vomiting Acute Near syncope Acute Osteoarthritis of right knee Acute Pleural effusion, right Acute Pneumonia Acute Renal failure (ARF), acute on chronic Acute Right knee pain Acute Sedated Acute Shortness of breath Acute Urinary tract infection Acute Vomiting Acute Weakness Acute
[2018-05-25] MEDS: GABAPENTIN 300 MG CAP PO SCH (19:34)
[2018-05-25] MEDS: LIDOCAINE 2% VISCOUS 15 ML UDCUP PO PRN (21:42)
[2018-05-26] MEDS: ACYCLOVIR 200 MG CAP PO SCH ×3 (03:24→14:45)
[2018-05-26] MEDS: LEVOTHYROXINE 75 MCG TAB PO SCH (03:24)
[2018-05-26] MEDS: HYDROmorphONE/DILAUDID 2 MG/ML INJ IVP PRN ×4 (04:33→19:36)
[2018-05-26 04:49] LABS: PLATELET COUNT 69 10^3/uL (150-400)
[2018-05-26] MEDS: LORazepam 2 MG/ML INJ IVP PRN ×2 (06:08→22:59)
[2018-05-26] MEDS ORDERED: MAGNESIUM CITRATE 300 ML BOTTLE PO ONE (08:56)
--- NOTE | 2018-05-26 09:15 | HOSPPROG ---
Hospitalist Progress Note Assessment/Plan: 72F recently admitted with humerus fracture, discharged with non-op management. Had a repeat fall with worse displacement, now s/p ORIF by Dr Nava. Also presented with renal failure which has resolved to her baseline. We are now hiving significant problems with constipation. # L humerus fracture s/p ORIF by Dr Nava - f/u 2 weeks # abdominal pain, colonic distension likely d/t constipation - she has a history of ischemic colitis, but not clearly ischemic at this point - unable to place NG tube d/t multiple nasal surgeries - seen by Dr Benitez - received relistor - cont enemas, trial of mag-citrate today; consider flex-sig # SHELBI on CKD: resolved, at baseline # htn - labile; # metabolic encephalopathy: likely from sedating meds; CTH negative - resolved # hypoNa - improved with IVFs, salt tabs # genital herpes: renally-dose Acyclovir # CAD: had episode of CP; not a candidate for cath with CKD; echo ok; seen by cards - cont asa/BB # syncope: hypovolemia # SSS: dual-chamber pacemaker # anemia/thrombocytopenia; s/p 2 units 05/19. plts better # h/o liver transplant: prograf - will need to consider steroids if we need to continue to hold her prograf while NPO; check prograf level today - chronic thrombocytopenia - recheck LFTs tomorrow # compensated diastolic HF # hypothyroidism: LT4 # goals: daughter MDPOA # diet: regular # dvt ppx - SCDs for now with low plts Subjective: still very uncomfortable Objective: Vital Signs Temp Pulse Resp BP Pulse Ox 36.4 C 88 20 182/111 H 96 05/26/18 07:25 05/26/18 07:25 05/26/18 07:25 05/26/18 07:25 05/26/18 07:25 Laboratory Results 05/26/18 04:35 05/26/18 04:35 05/25/18 05/26/18 05/27/18 05:59 05:59 05:59 Intake Total 1200 906 Output Total 700 395 Balance 500 511 PT 15.5 SEC (12.0-15.0) H 05/18/18 04:00 INR 1.21 (0.83-1.16) H 11/10/18 04:00 CT reviewed high risk - Physical Exam Constitutional: chronically ill appearing, uncomfortable, other (L arm in sling) Cardiovascular: regular rate and rhythym, no murmur, rub, or gallop Respiratory: no respiratory distress, no rales or rhonchi, clear to auscultation Gastrointestinal: distension, other (diffusely TTP), No guarding, No rebound ICD10 Worksheet Patient Problems: Problems Problem Status Onset Dehydration Acute Fracture, humerus Acute Renal failure (ARF), acute on chronic Acute Adjustment disorder with depressed mood Active Acute bronchitis with chronic obstructive pulmonary disease (COPD) Acute Acute on chronic renal insufficiency Acute Bronchitis Acute Chest pain Acute Chest pain Acute Chest pain in adult Acute Chronic Disease Mgmt/Transitional Care Acute Chronic obstructive pulmonary disease with acute exacerbation Acute Chronic renal insufficiency Acute Closed left humeral fracture Acute Colitis Acute Cough Acute Elevated d-dimer Acute Hyponatremia Acute Knee effusion Acute Leg cramping Acute Leukopenia Acute Migraine Acute Multiple falls Acute Nausea & vomiting Acute Near syncope Acute Osteoarthritis of right knee Acute Pleural effusion, right Acute Pneumonia Acute Renal failure (ARF), acute on chronic Acute Right knee pain Acute Sedated Acute Shortness of breath Acute Urinary tract infection Acute Vomiting Acute Weakness Acute
[2018-05-26] MEDS: PROMETHAZINE HCL 25 MG/ML INJ IVP PRN ×3 (09:34→22:59)
[2018-05-26] MEDS: TIOTROPIUM INHALER 18 MCG/DOSE 5 DOSE/MDI IH SCH (10:25)
[2018-05-26] MEDS: ONDANSETRON 4 MG/2 ML VIAL IVP PRN (11:16)
[2018-05-26] MEDS: CALCIUM CARBONATE 500 MG CHEWABLE TAB PO PRN (11:21)
[2018-05-26] MEDS: hydrALAZINE 20 MG/ML VIAL IVP PRN ×2 (11:26→15:45)
--- NOTE | 2018-05-26 11:38 | SOAPPROG ---
SOAP Progress Note Assessment/Plan: Assessment: 72 y/o F s/p ORIF L humerus. Now with bloating and abdominal pain. CT shows constipation vs. SBO. Hx of sinus surgery, so RN could not get NG tube down. S: Still having abdominal pain and bloating. Passed 3 small BMs yesterday after suppository. Vomited this am. O: Alert Afebrile No increased WOB Abdomen: firm, distended, ttp, +BS Plan: Will try mineral enema again. Cannot have fleets enema due to renal failure. If unsuccessful, gastro grafin enema to evaluate for stricture. 05/26/18 11:33 Objective: Vital Signs Temp Pulse Resp BP Pulse Ox 36.4 C 88 20 182/111 H 96 05/26/18 07:25 05/26/18 07:25 05/26/18 07:25 05/26/18 07:25 05/26/18 07:25 Laboratory Results 05/26/18 04:35 05/26/18 04:35 05/25/18 05/26/18 05/27/18 05:59 05:59 05:59 Intake Total 1200 906 Output Total 700 395 Balance 500 511 PT 15.5 SEC (12.0-15.0) H 05/18/18 04:00 INR 1.21 (0.83-1.16) H 05/18/18 04:00 ICD10 Worksheet Patient Problems: Problems Problem Status Onset Dehydration Acute Fracture, humerus Acute Renal failure (ARF), acute on chronic Acute Adjustment disorder with depressed mood Active Acute bronchitis with chronic obstructive pulmonary disease (COPD) Acute Acute on chronic renal insufficiency Acute Bronchitis Acute Chest pain Acute Chest pain Acute Chest pain in adult Acute Chronic Disease Mgmt/Transitional Care Acute Chronic obstructive pulmonary disease with acute exacerbation Acute Chronic renal insufficiency Acute Closed left humeral fracture Acute Colitis Acute Cough Acute Elevated d-dimer Acute Hyponatremia Acute Knee effusion Acute Leg cramping Acute Leukopenia Acute Migraine Acute Multiple falls Acute Nausea & vomiting Acute Near syncope Acute Osteoarthritis of right knee Acute Pleural effusion, right Acute Pneumonia Acute Renal failure (ARF), acute on chronic Acute Right knee pain Acute Sedated Acute Shortness of breath Acute Urinary tract infection Acute Vomiting Acute Weakness Acute
[2018-05-26] MEDS: ACETAMINOPHEN 500 MG TAB PO SCH (14:45)
[2018-05-26] MEDS: FERROUS SULFATE 325 MG TAB PO SCH (14:46)
[2018-05-26] MEDS: ARIPiprazole 5 MG TAB PO SCH (14:46)
[2018-05-26] MEDS: ASPIRIN 81 MG CHEWABLE TAB PO SCH (14:46)
[2018-05-26] MEDS: FAMOTIDINE 20 MG TAB PO SCH (14:46)
[2018-05-26] MEDS: CETIRIZINE 10 MG TAB PO SCH (14:46)
[2018-05-26] MEDS: CARVEDILOL 25 MG TAB PO SCH (14:46)
[2018-05-26] MEDS: FLUoxetine 20 MG CAP PO SCH (14:47)
[2018-05-26] MEDS: SENNOSIDES/DOCUSATE SODIUM TAB PO SCH (14:48)
[2018-05-26] MEDS: PET HY PHL TP SCH ×2 (14:48→22:00)
[2018-05-26] MEDS: PANTOPRAZOLE SODIUM 40 MG TAB PO SCH (14:48)
[2018-05-26] MEDS: MINERAL OIL TP SCH ×2 (14:48→22:00)
[2018-05-26] MEDS: TACROLIMUS ANHYDROUS 0.5 MG CAP PO SCH ×2 (14:49→17:55)
[2018-05-26] MEDS: TOPIRAMATE 25 MG TAB PO SCH (14:49)
[2018-05-26] MEDS: THIAMINE HCL 100 MG TAB PO SCH (14:49)
[2018-05-26] MEDS: SODIUM BICARBONATE 650 MG TAB PO SCH (14:49)
[2018-05-26] MEDS: BISACODYL 10 MG SUPP PR PRN (15:51)
--- NOTE | 2018-05-26 17:24 | SOAPPROG ---
SOAP Progress Note Assessment/Plan: Assessment: 72 FEMALE VERY UNCOMFORTABLE FROM SUDDEN DISTENTION TODAY/ PT HOSPITALIZED FOR 9 DAYS AND RECENT ORIF OF HUMERUS CO PRESSURE AND BLOATING HEENT NONICTERIC CHEST CLEAR COR RR ABD DISTENDED, DECREASED BS, NO MASSES, TYMPANITIC IMP; ileus vs constipation causing obstruction Plan:relistor/ ct scan/ enema/ gi consult for possible flex sig 05/25/18 18:49 05/26/18 17:21 SEEN BY MY PA LILO CROW, PLEASE REFER TO HER NOTE STILL WITH COLONIC OBSTRUCTION AND MARKED DISTENSION/NG HAS HELPED SOMEWHAT ABDOMEN IS STILL DISTENDED WITH DECREASED BOWEL SOUNDS AND TYMPANITIC PLAN GASTROGRAFIN ENEMA TO RULE OUT A RECTAL TUMOR/RISKS AND OPTIONS FULLY DISCUSSED Objective: Vital Signs Temp Pulse Resp BP Pulse Ox 36.6 C 95 16 220/101 H 97 05/26/18 11:38 05/26/18 15:23 05/26/18 15:23 05/26/18 15:23 05/26/18 15:23 Laboratory Results 05/26/18 04:35 05/26/18 04:35 05/25/18 05/26/18 05/27/18 05:59 05:59 05:59 Intake Total 1200 906 Output Total 700 395 Balance 500 511 PT 15.5 SEC (12.0-15.0) H 05/18/18 04:00 INR 1.21 (0.83-1.16) H 05/18/18 04:00 ICD10 Worksheet Patient Problems: Problems Problem Status Onset Dehydration Acute Fracture, humerus Acute Renal failure (ARF), acute on chronic Acute Adjustment disorder with depressed mood Active Acute bronchitis with chronic obstructive pulmonary disease (COPD) Acute Acute on chronic renal insufficiency Acute Bronchitis Acute Chest pain Acute Chest pain Acute Chest pain in adult Acute Chronic Disease Mgmt/Transitional Care Acute Chronic obstructive pulmonary disease with acute exacerbation Acute Chronic renal insufficiency Acute Closed left humeral fracture Acute Colitis Acute Cough Acute Elevated d-dimer Acute Hyponatremia Acute Knee effusion Acute Leg cramping Acute Leukopenia Acute Migraine Acute Multiple falls Acute Nausea & vomiting Acute Near syncope Acute Osteoarthritis of right knee Acute Pleural effusion, right Acute Pneumonia Acute Renal failure (ARF), acute on chronic Acute Right knee pain Acute Sedated Acute Shortness of breath Acute Urinary tract infection Acute Vomiting Acute Weakness Acute
[2018-05-26] MEDS: PANTOPRAZOLE SODIUM 40 MG VIAL IVP SCH (18:42)
--- NOTE | 2018-05-26 18:53 | GCON ---
DATE OF CONSULTATION: 05/25/2018 The patient is a 72-year-old female I was consulted on because of abdominal distention and bloating. She is 3 days status post ORIF of her left humerus. She does have a history of a liver transplant s econdary to hepatitis C. She also has a history of thrombocytopenia. I was consulted about her abdo [place] distention, which appears to have developed in just the last 36 hours, but is progressively wor sening. X-ray reveals a dilated right and transverse colon and a large amount of stool in the left c olon. PAST MEDICAL HISTORY: Includes liver transplant, history of congestive heart failure, schizoaffectiv e disorder, history of ischemic colitis and upper GI bleed, hypertension, hypothyroidism, COPD, and G ERD. She has also had a pacemaker placed, liver transplant over 20 years ago, cholecystectomy, and r ight total knee. SOCIAL HISTORY: Reveals she does not smoke. REVIEW OF SYSTEMS: Noncontributory on a full 10-point review, except as related to the HPI. ALLERGIES: Include amphetamines, Neurontin, Restoril, sumatriptan. PHYSICAL EXAMINATION: GENERAL: Reveals an alert, cooperative, 72-year-old female who is in no acute distress, afebrile. HEAD/NECK: Reveals no icterus or adenopathy. She is PERRLA. Neck is supple a nd without thyromegaly. CHEST: Clear and symmetric. COR: Regular rhythm, without murmurs. ABDOME N: Soft, markedly distended, tympanitic, with some bowel sounds. There are no inguinal hernias. PE LVIC: Exam was not done. EXTREMITIES: Reveal full range of motion, full pulses. NEUROLOGIC: Exam appears to be physiologic and symmetric. PSYCH: Exam reveals her to be alert, oriented, and marlena ative. IMPRESSION: Abdominal distention secondary to pseudo-colonic obstruction, which may be related to co nstipation. It could be a simple postoperative ileus related to narcotics as well. RECOMMENDATIONS: NPO. NG tube. Consider Relistor. Consider CT scan of the abdomen. I will follow her with you. She may even need a Gastrografin enema to define the etiology of this obstruction. /[id number]/MODL
[2018-05-26] MEDS: HYDROCORTISONE 0.5% CREAM TP SCH (19:54)
[2018-05-27] MEDS: HYDROmorphONE/DILAUDID 2 MG/ML INJ IVP PRN ×3 (02:15→14:03)
[2018-05-27] MEDS: ONDANSETRON 4 MG/2 ML VIAL IVP PRN (02:18)
[2018-05-27] MEDS: HYDROCORTISONE 0.5% CREAM TP SCH ×2 (02:25→14:54)
[2018-05-27] MEDS: LORazepam 2 MG/ML INJ IVP PRN ×2 (04:03→17:26)
[2018-05-27] MEDS: LR 1,000 ML IV SCH (04:03)
[2018-05-27 04:07] LABS: PLATELET COUNT 64 10^3/uL (150-400)
[2018-05-27] MEDS: LIDOCAINE 2% VISCOUS 15 ML UDCUP PO PRN ×2 (04:12→11:48)
[2018-05-27] MEDS: PET HY PHL TP SCH ×4 (08:26→21:19)
[2018-05-27] MEDS: MINERAL OIL TP SCH ×4 (08:26→21:19)
[2018-05-27] MEDS: LIDOCAINE 4%/MENTHOL 1% PATCH TD SCH ×2 (08:26→08:42)
[2018-05-27] MEDS: FAMOTIDINE 20 MG/NACL 50 ML IV SCH (08:37)
[2018-05-27] MEDS: PANTOPRAZOLE SODIUM 40 MG VIAL IVP SCH (08:41)
[2018-05-27] MEDS: TACROLIMUS ANHYDROUS 0.5 MG CAP PO SCH (08:42)
[2018-05-27] MEDS: TIOTROPIUM INHALER 18 MCG/DOSE 5 DOSE/MDI IH SCH (09:33)
--- NOTE | 2018-05-27 09:53 | SOAPPROG ---
SOMATILDE Progress Note Assessment/Plan: Assessment: 72 y/o F s/p ORIF L humerus. Now with bloating and abdominal pain. CT shows constipation vs. SBO. S: Still having abdominal pain and bloating, but much better. Had more BMs yesterday. O: Alert Afebrile No increased WOB Abdomen: softer than yesterday, distended, +BS NG tube to suction with bilious output. Plan: Gastro grafin enema to evaluate for stricture. Hopefully will avoid surgery. 05/27/18 09:50 Objective: Vital Signs Temp Pulse Resp BP Pulse Ox 36.3 C 89 16 176/83 H 90 L 05/27/18 07:24 05/27/18 09:36 05/27/18 07:24 05/27/18 07:24 05/27/18 09:36 Laboratory Results 05/27/18 04:00 05/27/18 04:00 05/26/18 05/27/18 05/28/18 05:59 05:59 05:59 Intake Total 906 400 Output Total 395 200 1 Balance 511 200 -1 PT 15.5 SEC (12.0-15.0) H 05/18/18 04:00 INR 1.21 (0.83-1.16) H 05/18/18 04:00 ICD10 Worksheet Patient Problems: Problems Problem Status Onset Dehydration Acute Fracture, humerus Acute Renal failure (ARF), acute on chronic Acute Adjustment disorder with depressed mood Active Acute bronchitis with chronic obstructive pulmonary disease (COPD) Acute Acute on chronic renal insufficiency Acute Bronchitis Acute Chest pain Acute Chest pain Acute Chest pain in adult Acute Chronic Disease Mgmt/Transitional Care Acute Chronic obstructive pulmonary disease with acute exacerbation Acute Chronic renal insufficiency Acute Closed left humeral fracture Acute Colitis Acute Cough Acute Elevated d-dimer Acute Hyponatremia Acute Knee effusion Acute Leg cramping Acute Leukopenia Acute Migraine Acute Multiple falls Acute Nausea & vomiting Acute Near syncope Acute Osteoarthritis of right knee Acute Pleural effusion, right Acute Pneumonia Acute Renal failure (ARF), acute on chronic Acute Right knee pain Acute Sedated Acute Shortness of breath Acute Urinary tract infection Acute Vomiting Acute Weakness Acute
[2018-05-27] MEDS: PROMETHAZINE HCL 25 MG/ML INJ IVP PRN (10:00)
[2018-05-27] MEDS: hydrALAZINE 20 MG/ML VIAL IVP PRN ×2 (13:02→16:44)
--- NOTE | 2018-05-27 13:28 | ASMTCMCOM ---
CM Note CM Note Notes: Patient plan of care reviewed in rounds. She still has NG tube in place. Plan remains to return to [facility] once medically cleared for discharge, Resolving SBO. Plan: As above. Date Signed: 05/27/2018 01:27 PM Electronically Signed By:Annelise Gu RN
--- NOTE | 2018-05-27 15:48 | SOAPPROG ---
SOAP Progress Note Assessment/Plan: E&M for low risk MDS * Low Risk MDS: I just diagnosed Misty 1 month ago with a low risk myelodysplastic syndrome primarily with thrombocytopenia, mild anemia and mild leukopenia. This point she does not require therapy but we are monitoring her closely. There is no contraindication for receiving transfusions as clinically indicated. I spoke with Dr. Benitez and she should receive 1 unit of platelets prior to surgery if she is going forward. * Small bowel obstruction: She is not getting better with conservative therapies and Dr. Benitez concerned that he may need to do an exploratory. There is no absolute contraindication for procedure although her risk of complications is higher. As above I recommend a platelet transfusion prior to the procedure. * Status post liver transplant: Transplant was due to to liver failure from previous hepatitis. Transplant occurred 21 years ago. She is on chronic immunosuppression with tacrolimus. She still has chronic hepatitis C. 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 Subjective: Unfortunately, her bowels have not opened up and there is concerned she may need to go to surgery. She is also still sore from her left arm fracture. She has no other acute complaints today. Her abdomen is much more comfortable since she is undergone decompression. Objective: Vital Signs Temp Pulse Resp BP Pulse Ox 36.6 C 86 16 180/92 H 93 05/27/18 11:36 05/27/18 11:36 05/27/18 11:36 05/27/18 11:36 05/27/18 11:36 Laboratory Results 05/27/18 04:00 05/27/18 04:00 05/26/18 05/27/18 05/28/18 05:59 05:59 05:59 Intake Total 906 400 Output Total 395 200 1 Balance 511 200 -1 PT 15.5 SEC (12.0-15.0) H 05/18/18 04:00 INR 1.21 (0.83-1.16) H 05/18/18 04:00 Physical Exam - Physical Exam General Appearance: no apparent distress Respiratory: lungs clear Cardiac/Chest: regular rate, rhythm Abdomen: non-tender, soft, distended, No normal bowel sounds ICD10 Worksheet Patient Problems: Problems Problem Status Onset Dehydration Acute Fracture, humerus Acute Renal failure (ARF), acute on chronic Acute Adjustment disorder with depressed mood Active Acute bronchitis with chronic obstructive pulmonary disease (COPD) Acute Acute on chronic renal insufficiency Acute Bronchitis Acute Chest pain Acute Chest pain Acute Chest pain in adult Acute Chronic Disease Mgmt/Transitional Care Acute Chronic obstructive pulmonary disease with acute exacerbation Acute Chronic renal insufficiency Acute Closed left humeral fracture Acute Colitis Acute Cough Acute Elevated d-dimer Acute Hyponatremia Acute Knee effusion Acute Leg cramping Acute Leukopenia Acute Migraine Acute Multiple falls Acute Nausea & vomiting Acute Near syncope Acute Osteoarthritis of right knee Acute Pleural effusion, right Acute Pneumonia Acute Renal failure (ARF), acute on chronic Acute Right knee pain Acute Sedated Acute Shortness of breath Acute Urinary tract infection Acute Vomiting Acute Weakness Acute
[2018-05-27] MEDS ORDERED: HYDROmorphONE/DILAUDID 1 MG/ML INJ IVP PRN (16:02)
--- NOTE | 2018-05-27 16:18 | HOSPPROG ---
Hospitalist Progress Note Assessment/Plan: * Humerus fracture s/p ORIF * Colonic obstruction - d/w Dr. Benitez -to OR * Liver transplant -chronic immunosuppression * MDS -d/w Dr. Cao - he will consult * Toxic/metabolic encephalopathy - due to ARF and sedating meds -resolved * Acute renal failure - now back to baseline creatinine 1.5 * Hyponatremia - Na 120 on admission -hypovolemic - corrected with IVF * Hep C -elevated viral load * SSS s/p PCM * CAD with known + stress test - on medical management only -troponin bump on admission due to demand * Hypertension -holding PO meds while NPO -IV hydralazine prn Subjective: No new complaints. Objective: Vital Signs Temp Pulse Resp BP Pulse Ox 36.6 C 86 16 180/92 H 93 05/27/18 11:36 05/27/18 11:36 05/27/18 11:36 05/27/18 11:36 05/27/18 11:36 Laboratory Results 05/27/18 04:00 05/27/18 04:00 05/26/18 05/27/18 05/28/18 05:59 05:59 05:59 Intake Total 906 400 Output Total 395 200 1 Balance 511 200 -1 PT 15.5 SEC (12.0-15.0) H 05/18/18 04:00 INR 1.21 (0.83-1.16) H 05/18/18 04:00 using IV dilaudid for pain Gastrograffin enema - suggest colonic obstruction old chart reviewed at length - summary incorporated into A/P - Physical Exam Constitutional: no apparent distress, appears nourished, not in pain Cardiovascular: regular rate and rhythym, no murmur, rub, or gallop Respiratory: no respiratory distress, no rales or rhonchi, clear to auscultation Gastrointestinal: normoactive bowel sounds, soft, non-tender abdomen, no palpable masses Skin: no rashes or abrasions, no fluctuance, no induration Neurologic: AAOx3, sensation intact bilaterally Psychiatric: interacting appropriately, not anxious, not encephalopathic, thought process linear ICD10 Worksheet Patient Problems: Problems Problem Status Onset Dehydration Acute Fracture, humerus Acute Renal failure (ARF), acute on chronic Acute Adjustment disorder with depressed mood Active Acute bronchitis with chronic obstructive pulmonary disease (COPD) Acute Acute on chronic renal insufficiency Acute Bronchitis Acute Chest pain Acute Chest pain Acute Chest pain in adult Acute Chronic Disease Mgmt/Transitional Care Acute Chronic obstructive pulmonary disease with acute exacerbation Acute Chronic renal insufficiency Acute Closed left humeral fracture Acute Colitis Acute Cough Acute Elevated d-dimer Acute Hyponatremia Acute Knee effusion Acute Leg cramping Acute Leukopenia Acute Migraine Acute Multiple falls Acute Nausea & vomiting Acute Near syncope Acute Osteoarthritis of right knee Acute Pleural effusion, right Acute Pneumonia Acute Renal failure (ARF), acute on chronic Acute Right knee pain Acute Sedated Acute Shortness of breath Acute Urinary tract infection Acute Vomiting Acute Weakness Acute
[2018-05-28] MEDS: HYDROmorphONE/DILAUDID 2 MG/ML INJ IVP PRN ×4 (00:24→22:10)
[2018-05-28] MEDS: PROMETHAZINE HCL 25 MG/ML INJ IVP PRN ×4 (00:25→20:25)
[2018-05-28] MEDS: HYDROCORTISONE 0.5% CREAM TP SCH ×3 (00:31→22:31)
[2018-05-28 04:30] LABS: PLATELET COUNT 71 10^3/uL (150-400)
[2018-05-28] MEDS ORDERED: LR 1,000 ML IV ONE (07:56)
[2018-05-28] MEDS ORDERED: cefOXitin SODIUM 2 GM in NS 100 ML IV ONE (08:00)
[2018-05-28] MEDS ORDERED: ROCURONIUM 100 MG/10 ML VIAL ONE (08:11)
[2018-05-28] MEDS ORDERED: PROPOFOL 200 MG/20 ML VIAL ONE ×3 (08:11→17:48)
[2018-05-28] MEDS ORDERED: fentaNYL 250 MCG/5 ML INJ ONE (08:11)
[2018-05-28] MEDS ORDERED: LIDOCAINE 2% 5 ML SDV ONE (08:11)
[2018-05-28] MEDS ORDERED: GLYCOPYRROLATE 0.2 MG/1 ML VIAL ONE ×2 (08:12→18:51)
[2018-05-28] MEDS ORDERED: HEPARIN 1000 UNIT/1 ML MDV ONE ×3 (08:21→15:17)
[2018-05-28] MEDS ORDERED: BUPIVACAINE 0.5% 30 ML SDV ONE ×2 (08:21→15:16)
[2018-05-28] MEDS ORDERED: ceFAZolin 1 GM/5 ML SYR ONE ×2 (08:21→15:16)
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
--- NOTE | 2018-05-28 09:38 | SOAPPROG ---
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 Surgery on hold 2/2 antibodies on T&S. Plan for laparoscopic assisted, possible open, sigmoid colectomy, possible colostomy, when safe. S: no more questions regarding surgery. c/o bloating, abdominal pain O: alert, nad ng in pace no wob rrr abd softly bloated 05/28/18 09:34 Objective: Vital Signs Temp Pulse Resp BP Pulse Ox 36.4 C 90 18 175/78 H 92 05/28/18 08:00 05/28/18 09:14 05/28/18 09:14 05/28/18 09:14 05/28/18 09:14 Laboratory Results 05/28/18 04:20 05/28/18 04:20 05/27/18 05/28/18 05/29/18 05:59 05:59 05:59 Intake Total 400 0 Output Total 200 651 100 Balance 200 -651 -100 PT 15.5 SEC (12.0-15.0) H 05/18/18 04:00 INR 1.21 (0.83-1.16) H 05/18/18 04:00 ICD10 Worksheet Patient Problems: Problems Problem Status Onset Dehydration Acute Fracture, humerus Acute Renal failure (ARF), acute on chronic Acute Adjustment disorder with depressed mood Active Acute bronchitis with chronic obstructive pulmonary disease (COPD) Acute Acute on chronic renal insufficiency Acute Bronchitis Acute Chest pain Acute Chest pain Acute Chest pain in adult Acute Chronic Disease Mgmt/Transitional Care Acute Chronic obstructive pulmonary disease with acute exacerbation Acute Chronic renal insufficiency Acute Closed left humeral fracture Acute Colitis Acute Cough Acute Elevated d-dimer Acute Hyponatremia Acute Knee effusion Acute Leg cramping Acute Leukopenia Acute Migraine Acute Multiple falls Acute Nausea & vomiting Acute Near syncope Acute Osteoarthritis of right knee Acute Pleural effusion, right Acute Pneumonia Acute Renal failure (ARF), acute on chronic Acute Right knee pain Acute Sedated Acute Shortness of breath Acute Urinary tract infection Acute Vomiting Acute Weakness Acute
[2018-05-28] MEDS: TIOTROPIUM INHALER 18 MCG/DOSE 5 DOSE/MDI IH SCH (10:05)
--- NOTE | 2018-05-28 10:46 | SOAPPROG ---
SOAP Progress Note Assessment/Plan: E&M for low risk MDS * Low Risk MDS: Dx recently with a low risk myelodysplastic syndrome primarily with thrombocytopenia, mild anemia and mild leukopenia. This point she does not require therapy but we are monitoring her closely. There is no contraindication for receiving transfusions as clinically indicated. She will receive 1 unit of platelets prior to surgery. * Small bowel obstruction: She is not getting better with conservative therapies. There is no absolute contraindication for procedure although her risk of complications is higher. As above I recommend a platelet transfusion prior to the procedure. * Status post liver transplant: Transplant was due to to liver failure from previous hepatitis. Transplant occurred 21 years ago. She is on chronic immunosuppression with tacrolimus. She still has chronic hepatitis C. 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 Subjective: About the same. No flatus. Going to surgery today. Objective: Vital Signs Temp Pulse Resp BP Pulse Ox 36.4 C 88 18 175/81 H 98 05/28/18 10:00 05/28/18 10:00 05/28/18 10:00 05/28/18 10:00 05/28/18 10:00 Laboratory Results 05/28/18 04:20 05/28/18 04:20 05/27/18 05/28/18 05/29/18 05:59 05:59 05:59 Intake Total 400 0 Output Total 200 651 100 Balance 200 -651 -100 PT 15.5 SEC (12.0-15.0) H 05/18/18 04:00 INR 1.21 (0.83-1.16) H 05/18/18 04:00 Physical Exam - Physical Exam General Appearance: no apparent distress Abdomen: distended, No normal bowel sounds ICD10 Worksheet Patient Problems: Problems Problem Status Onset Dehydration Acute Fracture, humerus Acute Renal failure (ARF), acute on chronic Acute Adjustment disorder with depressed mood Active Acute bronchitis with chronic obstructive pulmonary disease (COPD) Acute Acute on chronic renal insufficiency Acute Bronchitis Acute Chest pain Acute Chest pain Acute Chest pain in adult Acute Chronic Disease Mgmt/Transitional Care Acute Chronic obstructive pulmonary disease with acute exacerbation Acute Chronic renal insufficiency Acute Closed left humeral fracture Acute Colitis Acute Cough Acute Elevated d-dimer Acute Hyponatremia Acute Knee effusion Acute Leg cramping Acute Leukopenia Acute Migraine Acute Multiple falls Acute Nausea & vomiting Acute Near syncope Acute Osteoarthritis of right knee Acute Pleural effusion, right Acute Pneumonia Acute Renal failure (ARF), acute on chronic Acute Right knee pain Acute Sedated Acute Shortness of breath Acute Urinary tract infection Acute Vomiting Acute Weakness Acute
[2018-05-28] MEDS: hydrALAZINE 20 MG/ML VIAL IVP PRN ×2 (11:46→21:36)
[2018-05-28] MEDS: LORazepam 2 MG/ML INJ IVP PRN (11:46)
[2018-05-28] MEDS: FAMOTIDINE 20 MG/NACL 50 ML IV SCH (11:47)
[2018-05-28] MEDS: LIDOCAINE 4%/MENTHOL 1% PATCH TD SCH (11:47)
[2018-05-28] MEDS: MINERAL OIL TP SCH ×3 (11:58→22:31)
[2018-05-28] MEDS: PET HY PHL TP SCH ×3 (11:58→22:31)
--- NOTE | 2018-05-28 12:32 | ASMTCMCOM ---
CM Note CM Note Notes: Plan of care reviewed in rounds. 72 year old s/p fall and humerus fracture developed abdominal distention, N/V post surgery for arm fracture.Patient has unresolving SBO and continues to have profound symptoms. She is scheduled for surgery this afternoon. CM to follow for needs. Current plan is to eventually return to [facility] where she resides. Plan: As above Date Signed: 05/28/2018 12:31 PM Electronically Signed By:Annelise Gu RN
[2018-05-28] MEDS: TACROLIMUS ANHYDROUS 0.5 MG CAP SL SCH (12:57)
[2018-05-28] MEDS: PANTOPRAZOLE SODIUM 40 MG VIAL IVP SCH (15:35)
--- NOTE | 2018-05-28 16:36 | HOSPPROG ---
Hospitalist Progress Note Assessment/Plan: * Humerus fracture s/p ORIF * Colonic obstruction -to OR today * Liver transplant -chronic immunosuppression * MDS -transfuse platelets prior to surgery * Toxic/metabolic encephalopathy - due to ARF and sedating meds -resolved * Acute renal failure - now back to baseline creatinine 1.5 * Hyponatremia - Na 120 on admission -hypovolemic - corrected with IVF * Hep C -elevated viral load * SSS s/p PCM * CAD with known + stress test - on medical management only -troponin bump on admission due to demand * Hypertension -holding PO meds while NPO -IV hydralazine prn Subjective: No new complaints. Objective: Vital Signs Temp Pulse Resp BP Pulse Ox 36.6 C 87 18 180/100 H 97 05/28/18 14:47 05/28/18 14:47 05/28/18 14:47 05/28/18 14:47 05/28/18 14:47 Laboratory Results 05/28/18 04:20 05/28/18 04:20 05/27/18 05/28/18 05/29/18 05:59 05:59 05:59 Intake Total 400 0 Output Total 200 651 100 Balance 200 -651 -100 PT 15.5 SEC (12.0-15.0) H 05/18/18 04:00 INR 1.21 (0.83-1.16) H 05/18/18 04:00 IV dilaudid for pain pending surgery d/w Kiley regarding platelet transfusion - Physical Exam Constitutional: no apparent distress, appears nourished, not in pain Cardiovascular: regular rate and rhythym, no murmur, rub, or gallop Respiratory: no respiratory distress, no rales or rhonchi, clear to auscultation Gastrointestinal: tenderness, distension, No guarding, No rebound Skin: no rashes or abrasions, no fluctuance, no induration Neurologic: AAOx3, sensation intact bilaterally Psychiatric: interacting appropriately, not anxious, not encephalopathic, thought process linear ICD10 Worksheet Patient Problems: Problems Problem Status Onset Nausea & vomiting Acute Pleural effusion, right Acute Leukopenia Acute Near syncope Acute Closed left humeral fracture Acute Renal failure (ARF), acute on chronic Acute Fracture, humerus Acute Osteoarthritis of right knee Acute Adjustment disorder with depressed mood Active Chronic Disease Mgmt/Transitional Care Acute Pneumonia Acute Knee effusion Acute Acute on chronic renal insufficiency Acute Acute bronchitis with chronic obstructive pulmonary disease (COPD) Acute Chest pain Acute Dehydration Acute Bronchitis Acute Cough Acute Leg cramping Acute Weakness Acute Vomiting Acute Sedated Acute Multiple falls Acute Hyponatremia Acute Chronic renal insufficiency Acute Colitis Acute Urinary tract infection Acute Renal failure (ARF), acute on chronic Acute Shortness of breath Acute Chest pain in adult Acute Elevated d-dimer Acute Right knee pain Acute Migraine Acute Chronic obstructive pulmonary disease with acute exacerbation Acute Chest pain Acute
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
[2018-05-28] MEDS ORDERED: ROCURONIUM 50 MG/5 ML VIAL ONE (17:20)
[2018-05-28] MEDS ORDERED: DEXAMETHASONE 4 MG/ML VIAL ONE (17:21)
[2018-05-28] MEDS ORDERED: METOPROLOL TARTRATE 5 MG/5 ML INJ ONE (18:38)
[2018-05-28] MEDS ORDERED: ONDANSETRON 4 MG/2 ML VIAL ONE ×2 (18:38→20:31)
[2018-05-28] MEDS ORDERED: THROMBIN (BOVINE) 5,000 UNIT VIAL TP ONE (18:47)
[2018-05-28] MEDS ORDERED: NEOSTIGMINE METHYLSULFATE 5 MG/5 ML SYR ONE (18:51)
[2018-05-28] MEDS ORDERED: HYDROmorphONE/DILAUDID 2 MG/ML INJ IVP PRN (19:14)
[2018-05-28] MEDS ORDERED: fentaNYL 100 MCG/2 ML INJ IVP PRN (19:14)
[2018-05-28] MEDS ORDERED: NALOXONE HCL 0.4 MG/ML INJ IVP PRN (19:14)
--- NOTE | 2018-05-28 19:14 | POSTOPPROG ---
Post Op Note Date of Operation: 05/28/18 Surgeon: Mark Anthony Benitez Com Writer: Bonny Lopez Anesthesiologist: Harvinder Juarez Anesthesia: GET(General Endotracheal) Pre-op Diagnosis: sigmoid stricture Post-op Diagnosis: sigmoid obstruction 2/2 extrinsic fallopian tube adhesion Procedure: ex laparoscopy, salpingoopherectomy, paracentesis Findings: fallopian tube causing colonic obstruction, ascites, 2500cc Inf/Abcess present in the surg proc area at time of surgery?: No EBL: Minimal Complications: none Specimen(s): fallopian tube and ovary to pathology
--- NOTE | 2018-05-28 19:18 | POSTANESTH ---
Post Anesthetic Evaluation Cardiovascular Status: Similar to Pre-Op Cond Respiratory Status: Similar to Pre-op Cond. Level of Consciousness/Mental Status: Can Participate in Eval Pain Control: Adequate, Prn Tx Ordered Nausea/Vomiting Control: Adequate, Prn Tx Ordered Complications Possibly Related to Anesthesia: None Noted
[2018-05-28] MEDS ORDERED: PROMETHAZINE HCL 25 MG/ML INJ ONE (19:48)
[2018-05-28] MEDS ORDERED: fentaNYL 100 MCG/2 ML INJ ONE (20:24)
[2018-05-28] MEDS: ONDANSETRON 4 MG/2 ML VIAL IVP PRN (21:36)
--- NOTE | 2018-05-29 00:25 | SOAPPROG ---
SOAP Progress Note Assessment/Plan: Assessment: 72 FEMALE VERY UNCOMFORTABLE FROM SUDDEN DISTENTION TODAY/ PT HOSPITALIZED FOR 9 DAYS AND RECENT ORIF OF HUMERUS CO PRESSURE AND BLOATING HEENT NONICTERIC CHEST CLEAR COR RR ABD DISTENDED, DECREASED BS, NO MASSES, TYMPANITIC IMP; ileus vs constipation causing obstruction Plan:relistor/ ct scan/ enema/ gi consult for possible flex sig 05/25/18 18:49 05/26/18 17:21 SEEN BY MY PA LILO CROW, PLEASE REFER TO HER NOTE STILL WITH COLONIC OBSTRUCTION AND MARKED DISTENSION/NG HAS HELPED SOMEWHAT ABDOMEN IS STILL DISTENDED WITH DECREASED BOWEL SOUNDS AND TYMPANITIC PLAN GASTROGRAFIN ENEMA TO RULE OUT A RECTAL TUMOR/RISKS AND OPTIONS FULLY DISCUSSED 05/29/18 00:22 STILL MINIMAL OUTPUT AND DISTENDED AND TYPAMNITIC/ NONTENDER ABD [address] CONSISTENT WITH COLONIC OBSTRUCTION BE SHOWS COMPLETE OBSTRUCTION OF SIGMOID RISKS AND OPTIONS FULLY DISCUSSED/ WISHES TO PROCEED WITH SURGERY Objective: Vital Signs Temp Pulse Resp BP Pulse Ox 36.4 C 91 16 143/70 H 96 05/28/18 23:33 05/28/18 23:33 05/28/18 23:33 05/28/18 23:33 05/28/18 23:33 Laboratory Results 05/28/18 04:20 05/28/18 04:20 05/27/18 05/28/18 05/29/18 05:59 05:59 05:59 Intake Total 400 0 700 Output Total 200 651 275 Balance 200 -651 425 PT 15.5 SEC (12.0-15.0) H 05/18/18 04:00 INR 1.21 (0.83-1.16) H 05/18/18 04:00 ICD10 Worksheet Patient Problems: Problems Problem Status Onset Dehydration Acute Fracture, humerus Acute Renal failure (ARF), acute on chronic Acute Adjustment disorder with depressed mood Active Acute bronchitis with chronic obstructive pulmonary disease (COPD) Acute Acute on chronic renal insufficiency Acute Bronchitis Acute Chest pain Acute Chest pain Acute Chest pain in adult Acute Chronic Disease Mgmt/Transitional Care Acute Chronic obstructive pulmonary disease with acute exacerbation Acute Chronic renal insufficiency Acute Closed left humeral fracture Acute Colitis Acute Cough Acute Elevated d-dimer Acute Hyponatremia Acute Knee effusion Acute Leg cramping Acute Leukopenia Acute Migraine Acute Multiple falls Acute Nausea & vomiting Acute Near syncope Acute Osteoarthritis of right knee Acute Pleural effusion, right Acute Pneumonia Acute Renal failure (ARF), acute on chronic Acute Right knee pain Acute Sedated Acute Shortness of breath Acute Urinary tract infection Acute Vomiting Acute Weakness Acute
[2018-05-29] MEDS: PROMETHAZINE HCL 25 MG/ML INJ IVP PRN ×3 (01:56→16:28)
[2018-05-29 05:03] LABS: PLATELET COUNT 76 10^3/uL (150-400)
[2018-05-29] MEDS: HYDROmorphONE/DILAUDID 2 MG/ML INJ IVP PRN ×3 (05:06→16:36)
[2018-05-29] MEDS: LR 1,000 ML IV SCH (05:11)
[2018-05-29] MEDS: hydrALAZINE 20 MG/ML VIAL IVP PRN ×2 (08:34→20:32)
[2018-05-29] MEDS: FAMOTIDINE 20 MG/NACL 50 ML IV SCH (08:43)
[2018-05-29] MEDS: LIDOCAINE 4%/MENTHOL 1% PATCH TD SCH (08:44)
[2018-05-29] MEDS: MINERAL OIL TP SCH ×3 (08:45→23:00)
[2018-05-29] MEDS: PET HY PHL TP SCH ×3 (08:45→23:00)
[2018-05-29] MEDS: PANTOPRAZOLE SODIUM 40 MG VIAL IVP SCH (08:46)
[2018-05-29] MEDS: TACROLIMUS ANHYDROUS 0.5 MG CAP SL SCH (08:47)
[2018-05-29] MEDS: TIOTROPIUM INHALER 18 MCG/DOSE 5 DOSE/MDI IH SCH (08:54)
--- NOTE | 2018-05-29 11:15 | SOAPPROG ---
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 s/p laparoscopy c salpingoopherectomy for adhesion likely causing intermittent obstruction. paracentesis. Also seen by Dr. Benitez. D/w medicine. Doing well. NG tube clamped. November d/c ng and start clears. Continue PT/OT. Ok to start VTE ppx. S: passing some gas. O: alert, nad ng in place no wob rrr abd softly bloated, +BS, inc's cdi 05/29/18 11:13 Objective: Vital Signs Temp Pulse Resp BP Pulse Ox 36.4 C 81 16 174/80 H 96 05/29/18 07:40 05/29/18 07:40 05/29/18 07:40 05/29/18 08:34 05/29/18 07:40 Laboratory Results 05/29/18 04:44 05/29/18 04:44 05/28/18 05/29/18 05/30/18 05:59 05:59 05:59 Intake Total 0 1028 Output Total 651 575 Balance -651 453 PT 15.5 SEC (12.0-15.0) H 05/18/18 04:00 INR 1.21 (0.83-1.16) H 05/18/18 04:00 ICD10 Worksheet Patient Problems: Problems Problem Status Onset Dehydration Acute Fracture, humerus Acute Renal failure (ARF), acute on chronic Acute Adjustment disorder with depressed mood Active Acute bronchitis with chronic obstructive pulmonary disease (COPD) Acute Acute on chronic renal insufficiency Acute Bronchitis Acute Chest pain Acute Chest pain Acute Chest pain in adult Acute Chronic Disease Mgmt/Transitional Care Acute Chronic obstructive pulmonary disease with acute exacerbation Acute Chronic renal insufficiency Acute Closed left humeral fracture Acute Colitis Acute Cough Acute Elevated d-dimer Acute Hyponatremia Acute Knee effusion Acute Leg cramping Acute Leukopenia Acute Migraine Acute Multiple falls Acute Nausea & vomiting Acute Near syncope Acute Osteoarthritis of right knee Acute Pleural effusion, right Acute Pneumonia Acute Renal failure (ARF), acute on chronic Acute Right knee pain Acute Sedated Acute Shortness of breath Acute Urinary tract infection Acute Vomiting Acute Weakness Acute
[2018-05-29] MEDS: ENOXAPARIN 40 MG/0.4 ML SYR SC SCH (12:07)
[2018-05-29] MEDS: LORazepam 2 MG/ML INJ IVP PRN (12:10)
--- NOTE | 2018-05-29 12:13 | SOAPPROG ---
SOAP Progress Note Assessment/Plan: E&M for low risk MDS * Low Risk MDS: Dx recently with a low risk myelodysplastic syndrome primarily with thrombocytopenia, mild anemia and mild leukopenia. This point she does not require therapy but we are monitoring her closely. There is no contraindication for receiving transfusions as clinically indicated. * Small bowel obstruction: S/P laparoscopy with salpingoopherectomy for adhesion likely causing intermittent obstruction. Post op care per surgery. * Status post liver transplant: Transplant was due to to liver failure from previous hepatitis. Transplant occurred 21 years ago. She is on chronic immunosuppression with tacrolimus. She still has chronic hepatitis C. 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 Subjective: A little sore but starting to pass a little flatus. Feels ok. Objective: Vital Signs Temp Pulse Resp BP Pulse Ox 36.6 C 94 16 194/91 H 96 05/29/18 11:35 05/29/18 11:35 05/29/18 11:35 05/29/18 12:07 05/29/18 07:40 Laboratory Results 05/29/18 04:44 05/29/18 04:44 05/28/18 05/29/18 05/30/18 05:59 05:59 05:59 Intake Total 0 1028 Output Total 651 575 Balance -651 453 PT 15.5 SEC (12.0-15.0) H 05/18/18 04:00 INR 1.21 (0.83-1.16) H 05/18/18 04:00 Physical Exam - Physical Exam General Appearance: no apparent distress Abdomen: normal bowel sounds, soft, distended ICD10 Worksheet Patient Problems: Problems Problem Status Onset Dehydration Acute Fracture, humerus Acute Renal failure (ARF), acute on chronic Acute Adjustment disorder with depressed mood Active Acute bronchitis with chronic obstructive pulmonary disease (COPD) Acute Acute on chronic renal insufficiency Acute Bronchitis Acute Chest pain Acute Chest pain Acute Chest pain in adult Acute Chronic Disease Mgmt/Transitional Care Acute Chronic obstructive pulmonary disease with acute exacerbation Acute Chronic renal insufficiency Acute Closed left humeral fracture Acute Colitis Acute Cough Acute Elevated d-dimer Acute Hyponatremia Acute Knee effusion Acute Leg cramping Acute Leukopenia Acute Migraine Acute Multiple falls Acute Nausea & vomiting Acute Near syncope Acute Osteoarthritis of right knee Acute Pleural effusion, right Acute Pneumonia Acute Renal failure (ARF), acute on chronic Acute Right knee pain Acute Sedated Acute Shortness of breath Acute Urinary tract infection Acute Vomiting Acute Weakness Acute
[2018-05-29] MEDS: HYDROCORTISONE 0.5% CREAM TP SCH ×2 (12:16→23:00)
--- NOTE | 2018-05-29 12:31 | ASMTCMCOM ---
CM Note CM Note Notes: Patient seen in interdisciplinary rounds. Making progress s/p surgery. Updates to [facility]. CM to follow. Plan: dc to [facility] when medically cleared for discharge. Date Signed: 05/29/2018 12:31 PM Electronically Signed By:Annelise Gu RN
[2018-05-29] MEDS ORDERED: ALBUMIN 25% 200 ML IV ONE (14:06)
--- NOTE | 2018-05-29 14:06 | HOSPPROG ---
Hospitalist Progress Note Assessment/Plan: * Humerus fracture s/p ORIF -continue sling, limited use -f/u Dr. 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 s/p salpingo oophorectomy -advance diet per surgery * Liver transplant -chronic immunosuppression * MDS -s/p transfuse platelets prior to surgery * Toxic/metabolic encephalopathy - due to ARF and sedating meds -resolved * Acute renal failure - now back to baseline creatinine 1.5 * Hyponatremia - Na 120 on admission -hypovolemic - corrected with IVF * Hep C -elevated viral load * Ascites -albumin 1.8 - IV albumin x 1 -consider diuretic if tolerated * SSS s/p PCM * CAD with known + stress test - on medical management only -troponin bump on admission due to demand * Hypertension -resume PO meds -IV hydralazine prn Subjective: Feeling great Objective: Vital Signs Temp Pulse Resp BP Pulse Ox 36.6 C 94 16 176/81 H 96 05/29/18 11:35 05/29/18 11:35 05/29/18 11:35 05/29/18 13:25 05/29/18 07:40 Laboratory Results 05/29/18 04:44 05/29/18 04:44 05/28/18 05/29/18 05/30/18 05:59 05:59 05:59 Intake Total 0 1028 Output Total 651 575 Balance -651 453 PT 15.5 SEC (12.0-15.0) H 05/18/18 04:00 INR 1.21 (0.83-1.16) H 05/18/18 04:00 d/w Dr. Benitez regarding operative findings BLE US - negative for DVT - Physical Exam Constitutional: no apparent distress, appears nourished, not in pain Cardiovascular: regular rate and rhythym, no murmur, rub, or gallop, edema Respiratory: no respiratory distress, no rales or rhonchi, clear to auscultation Gastrointestinal: normoactive bowel sounds, soft, non-tender abdomen, no palpable masses Skin: no rashes or abrasions, no fluctuance, no induration Neurologic: AAOx3, sensation intact bilaterally Psychiatric: interacting appropriately, not anxious, not encephalopathic, thought process linear ICD10 Worksheet Patient Problems: Problems Problem Status Onset Nausea & vomiting Acute Pleural effusion, right Acute Leukopenia Acute Near syncope Acute Closed left humeral fracture Acute Renal failure (ARF), acute on chronic Acute Fracture, humerus Acute Osteoarthritis of right knee Acute Adjustment disorder with depressed mood Active Chronic Disease Mgmt/Transitional Care Acute Pneumonia Acute Knee effusion Acute Acute on chronic renal insufficiency Acute Acute bronchitis with chronic obstructive pulmonary disease (COPD) Acute Chest pain Acute Dehydration Acute Bronchitis Acute Cough Acute Leg cramping Acute Weakness Acute Vomiting Acute Sedated Acute Multiple falls Acute Hyponatremia Acute Chronic renal insufficiency Acute Colitis Acute Urinary tract infection Acute Renal failure (ARF), acute on chronic Acute Shortness of breath Acute Chest pain in adult Acute Elevated d-dimer Acute Right knee pain Acute Migraine Acute Chronic obstructive pulmonary disease with acute exacerbation Acute Chest pain Acute
[2018-05-29] MEDS: LACTULOSE 20 GM/30 ML UDCUP PO SCH ×2 (16:29→20:08)
[2018-05-29] MEDS: ONDANSETRON 4 MG/2 ML VIAL IVP PRN (20:03)
[2018-05-29] MEDS: TOPIRAMATE 25 MG TAB PO SCH (20:05)
[2018-05-29] MEDS: TACROLIMUS ANHYDROUS 0.5 MG CAP PO SCH (20:06)
[2018-05-29] MEDS: GABAPENTIN 300 MG CAP PO SCH (20:06)
[2018-05-29] MEDS: morphINE SR 15 MG TAB PO SCH (20:07)
[2018-05-29] MEDS: PANTOPRAZOLE SODIUM 40 MG TAB PO SCH (20:07)
[2018-05-29] MEDS: CARVEDILOL 25 MG TAB PO SCH (20:08)
[2018-05-29] MEDS: traZODone 100 MG TAB PO SCH (20:08)
[2018-05-29] MEDS: oxyCODONE IR 5 MG TAB PO PRN (22:33)
[2018-05-30] MEDS: HYDROmorphONE/DILAUDID 2 MG/ML INJ IVP PRN ×4 (01:13→18:18)
[2018-05-30] MEDS: CEPACOL LOZENGE PO PRN (03:16)
[2018-05-30] MEDS: oxyCODONE IR 5 MG TAB PO PRN (05:19)
[2018-05-30] MEDS: LEVOTHYROXINE 75 MCG TAB PO SCH (05:19)
[2018-05-30] MEDS: BISACODYL 10 MG SUPP PR PRN (05:37)
[2018-05-30 05:39] LABS: PLATELET COUNT 71 10^3/uL (150-400)
[2018-05-30] MEDS: ONDANSETRON 4 MG/2 ML VIAL IVP PRN ×2 (07:27→21:50)
[2018-05-30] MEDS: hydrALAZINE 20 MG/ML VIAL IVP PRN ×2 (08:57→16:57)
[2018-05-30] MEDS: LIDOCAINE 4%/MENTHOL 1% PATCH TD SCH (09:00)
[2018-05-30] MEDS: morphINE SR 15 MG TAB PO SCH ×2 (09:05→20:43)
[2018-05-30] MEDS: CARVEDILOL 25 MG TAB PO SCH ×2 (09:05→18:36)
[2018-05-30] MEDS: TACROLIMUS ANHYDROUS 0.5 MG CAP PO SCH ×2 (09:06→20:44)
[2018-05-30] MEDS: TIOTROPIUM INHALER 18 MCG/DOSE 5 DOSE/MDI IH SCH (09:29)
--- NOTE | 2018-05-30 10:41 | SOAPPROG ---
SOAP Progress Note Assessment/Plan: Assessment: 72yo F c LBO, s/p PRATIMA - her abdomen is pretty distended this AM, per report this is worse than previous - KUB pending, will review when done. She may need NGT again but most distention has been large bowel with large stool burden and less so smal bowel. - Plan: 05/30/18 10:40 Objective: Vital Signs Temp Pulse Resp BP Pulse Ox 36.3 C 91 18 188/90 H 95 05/30/18 08:54 05/30/18 09:31 05/30/18 09:31 05/30/18 09:06 05/30/18 09:31 Laboratory Results 05/30/18 05:23 05/30/18 05:23 05/29/18 05/30/18 05/31/18 05:59 05:59 05:59 Intake Total 1028 974 Output Total 575 900 Balance 453 74 PT 15.5 SEC (12.0-15.0) H 05/18/18 04:00 INR 1.21 (0.83-1.16) H 05/18/18 04:00 ICD10 Worksheet Patient Problems: Problems Problem Status Onset Dehydration Acute Fracture, humerus Acute Renal failure (ARF), acute on chronic Acute Adjustment disorder with depressed mood Active Acute bronchitis with chronic obstructive pulmonary disease (COPD) Acute Acute on chronic renal insufficiency Acute Bronchitis Acute Chest pain Acute Chest pain Acute Chest pain in adult Acute Chronic Disease Mgmt/Transitional Care Acute Chronic obstructive pulmonary disease with acute exacerbation Acute Chronic renal insufficiency Acute Closed left humeral fracture Acute Colitis Acute Cough Acute Elevated d-dimer Acute Hyponatremia Acute Knee effusion Acute Leg cramping Acute Leukopenia Acute Migraine Acute Multiple falls Acute Nausea & vomiting Acute Near syncope Acute Osteoarthritis of right knee Acute Pleural effusion, right Acute Pneumonia Acute Renal failure (ARF), acute on chronic Acute Right knee pain Acute Sedated Acute Shortness of breath Acute Urinary tract infection Acute Vomiting Acute Weakness Acute
[2018-05-30] MEDS: CETIRIZINE 10 MG TAB PO SCH (11:43)
[2018-05-30] MEDS: CYANO/VITAMIN B12 1000 MCG TAB PO SCH (11:43)
[2018-05-30] MEDS: ARIPiprazole 5 MG TAB PO SCH (11:43)
[2018-05-30] MEDS: FLUoxetine 20 MG CAP PO SCH (11:44)
[2018-05-30] MEDS: ENOXAPARIN 40 MG/0.4 ML SYR SC SCH (11:44)
[2018-05-30] MEDS: PET HY PHL TP SCH ×3 (11:45→21:34)
[2018-05-30] MEDS: LACTULOSE 20 GM/30 ML UDCUP PO SCH ×3 (11:45→20:44)
[2018-05-30] MEDS: MINERAL OIL TP SCH ×3 (11:45→21:34)
[2018-05-30] MEDS: PANTOPRAZOLE SODIUM 40 MG TAB PO SCH ×2 (11:45→20:43)
[2018-05-30] MEDS: TOPIRAMATE 25 MG TAB PO SCH ×2 (11:46→20:43)
[2018-05-30] MEDS: HYDROCORTISONE 0.5% CREAM TP SCH ×2 (11:48→21:35)
--- NOTE | 2018-05-30 12:46 | HOSPPROG ---
Hospitalist Progress Note Assessment/Plan: * Humerus fracture s/p ORIF -continue sling, limited use -f/u Dr. 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 s/p salpingo oophorectomy -increased abd distention - NGT replaced with large output -check KUB for tube placement * Liver transplant -chronic immunosuppression * MDS -s/p transfuse platelets prior to surgery * Toxic/metabolic encephalopathy - due to ARF and sedating meds -resolved * Acute renal failure - now back to baseline creatinine 1.5 * Hyponatremia - Na 120 on admission -hypovolemic - corrected with IVF * Hep C -elevated viral load * Ascites -albumin 1.8 - IV albumin x 1 -consider diuretic if tolerated * SSS s/p PCM * CAD with known + stress test - on medical management only -troponin bump on admission due to demand * Hypertension -resume PO meds -IV hydralazine prn Subjective: big increased abdominal distention today Objective: Vital Signs Temp Pulse Resp BP Pulse Ox 36.6 C 86 16 150/72 H 91 L 05/30/18 12:00 05/30/18 12:00 05/30/18 12:00 05/30/18 12:00 05/30/18 12:00 Laboratory Results 05/30/18 05:23 05/30/18 05:23 05/29/18 05/30/18 05/31/18 05:59 05:59 05:59 Intake Total 1028 974 Output Total 575 900 Balance 453 74 PT 15.5 SEC (12.0-15.0) H 05/18/18 04:00 INR 1.21 (0.83-1.16) H 05/18/18 04:00 ABD XRAY VIEWED, my personal interpretation is - colonic dilation IV dilaudid for pain, unable to take PO - Physical Exam Constitutional: appears nourished, uncomfortable, other (uncomfortable, looks much worse than yesterday) Cardiovascular: regular rate and rhythym, no murmur, rub, or gallop Respiratory: no respiratory distress, no rales or rhonchi, clear to auscultation Gastrointestinal: ascites, distension, No tenderness, No guarding, No rebound Skin: no rashes or abrasions, no fluctuance, no induration Neurologic: AAOx3, sensation intact bilaterally Psychiatric: interacting appropriately, not anxious, not encephalopathic, thought process linear, flat affect ICD10 Worksheet Patient Problems: Problems Problem Status Onset Nausea & vomiting Acute Pleural effusion, right Acute Leukopenia Acute Near syncope Acute Closed left humeral fracture Acute Renal failure (ARF), acute on chronic Acute Fracture, humerus Acute Osteoarthritis of right knee Acute Adjustment disorder with depressed mood Active Chronic Disease Mgmt/Transitional Care Acute Pneumonia Acute Knee effusion Acute Acute on chronic renal insufficiency Acute Acute bronchitis with chronic obstructive pulmonary disease (COPD) Acute Chest pain Acute Dehydration Acute Bronchitis Acute Cough Acute Leg cramping Acute Weakness Acute Vomiting Acute Sedated Acute Multiple falls Acute Hyponatremia Acute Chronic renal insufficiency Acute Colitis Acute Urinary tract infection Acute Renal failure (ARF), acute on chronic Acute Shortness of breath Acute Chest pain in adult Acute Elevated d-dimer Acute Right knee pain Acute Migraine Acute Chronic obstructive pulmonary disease with acute exacerbation Acute Chest pain Acute
[2018-05-30] MEDS: D5W 1/2 NS W/ 20 KCl/L 1,000 ML IV SCH (13:59)
[2018-05-30] MEDS: PROMETHAZINE HCL 25 MG/ML INJ IVP PRN (20:13)
[2018-05-30] MEDS: GABAPENTIN 300 MG CAP PO SCH (20:43)
[2018-05-30] MEDS: traZODone 100 MG TAB PO SCH (20:43)
[2018-05-31] MEDS: HYDROmorphONE/DILAUDID 2 MG/ML INJ IVP PRN ×6 (00:16→17:09)
[2018-05-31] MEDS: LORazepam 2 MG/ML INJ IVP PRN ×2 (02:43→21:48)
[2018-05-31] MEDS: LEVOTHYROXINE 75 MCG TAB PO SCH (04:57)
[2018-05-31] MEDS: D5W 1/2 NS W/ 20 KCl/L 1,000 ML IV SCH ×2 (04:57→17:10)
[2018-05-31 05:23] LABS: PLATELET COUNT 58 10^3/uL (150-400)
[2018-05-31] MEDS: CETIRIZINE 10 MG TAB PO SCH (08:24)
[2018-05-31] MEDS: CYANO/VITAMIN B12 1000 MCG TAB PO SCH (08:26)
[2018-05-31] MEDS: CARVEDILOL 25 MG TAB PO SCH ×2 (08:27→17:08)
[2018-05-31] MEDS: TACROLIMUS ANHYDROUS 0.5 MG CAP PO SCH ×2 (08:28→21:24)
[2018-05-31] MEDS: FLUoxetine 20 MG CAP PO SCH (08:29)
[2018-05-31] MEDS: LACTULOSE 20 GM/30 ML UDCUP PO SCH (08:29)
[2018-05-31] MEDS: PANTOPRAZOLE SODIUM 40 MG TAB PO SCH ×2 (08:29→21:23)
[2018-05-31] MEDS: ARIPiprazole 5 MG TAB PO SCH (08:29)
[2018-05-31] MEDS: TOPIRAMATE 25 MG TAB PO SCH ×2 (08:29→21:24)
[2018-05-31] MEDS: LIDOCAINE 4%/MENTHOL 1% PATCH TD SCH (08:29)
[2018-05-31] MEDS: morphINE SR 15 MG TAB PO SCH (08:33)
[2018-05-31] MEDS: ENOXAPARIN 40 MG/0.4 ML SYR SC SCH (08:35)
[2018-05-31] MEDS: PET HY PHL TP SCH ×3 (08:36→23:14)
[2018-05-31] MEDS: MINERAL OIL TP SCH ×3 (08:36→23:14)
--- NOTE | 2018-05-31 09:47 | SOAPPROG ---
SOAP Progress Note Assessment/Plan: Assessment: 72yo F c LBO, s/p PRATIMA - abdominal distention is improved today. KUB shows persistently high stool burden in colon - having some success with bowel regimen, NGT with high bilious output. Would keep this in place today - she is making progress, this LBO is more likely functional than mechanical and would cont aggressive clean out as tolerated Plan: 05/30/18 10:40 05/31/18 09:46 Subjective: feels a little better, is having some bowel function. Is hungry and wants to eat Objective: Vital Signs Temp Pulse Resp BP Pulse Ox 36.3 C 82 16 136/74 H 97 05/31/18 08:15 05/31/18 08:27 05/31/18 08:15 05/31/18 08:27 05/31/18 08:15 Laboratory Results 05/31/18 05:19 05/31/18 05:19 05/30/18 05/31/18 06/01/18 05:59 05:59 05:59 Intake Total 974 959 Output Total 900 1610 Balance 74 -651 PT 15.5 SEC (12.0-15.0) H 05/18/18 04:00 INR 1.21 (0.83-1.16) H 05/18/18 04:00 ICD10 Worksheet Patient Problems: Problems Problem Status Onset Dehydration Acute Fracture, humerus Acute Renal failure (ARF), acute on chronic Acute Adjustment disorder with depressed mood Active Acute bronchitis with chronic obstructive pulmonary disease (COPD) Acute Acute on chronic renal insufficiency Acute Bronchitis Acute Chest pain Acute Chest pain Acute Chest pain in adult Acute Chronic Disease Mgmt/Transitional Care Acute Chronic obstructive pulmonary disease with acute exacerbation Acute Chronic renal insufficiency Acute Closed left humeral fracture Acute Colitis Acute Cough Acute Elevated d-dimer Acute Hyponatremia Acute Knee effusion Acute Leg cramping Acute Leukopenia Acute Migraine Acute Multiple falls Acute Nausea & vomiting Acute Near syncope Acute Osteoarthritis of right knee Acute Pleural effusion, right Acute Pneumonia Acute Renal failure (ARF), acute on chronic Acute Right knee pain Acute Sedated Acute Shortness of breath Acute Urinary tract infection Acute Vomiting Acute Weakness Acute
[2018-05-31] MEDS: TIOTROPIUM INHALER 18 MCG/DOSE 5 DOSE/MDI IH SCH (10:23)
[2018-05-31] MEDS ORDERED: FUROSEMIDE 40 MG/4 ML VIAL IVP ONE (10:26)
[2018-05-31] MEDS: HYDROCORTISONE 0.5% CREAM TP SCH ×2 (11:13→23:20)
--- NOTE | 2018-05-31 13:35 | ASMTCMCOM ---
CM Note CM Note Notes: Pt still with NGT and post op ileus but improving. D/C plan is still to return to [facility] when medically cleared. D/C plan: LTC Date Signed: 05/31/2018 01:34 PM Electronically Signed By:DAISY Deleon
[2018-05-31] MEDS ORDERED: LACTULOSE 20 GM/30 ML UDCUP PO PRN (14:19)
[2018-05-31] MEDS ORDERED: BISACODYL 10 MG SUPP PR PRN (14:19)
[2018-05-31] MEDS ORDERED: POLYETHYLENE GLYCOL 3350 17 GM PKT PO PRN (14:19)
[2018-05-31] MEDS ORDERED: MAGNESIUM HYDROXIDE 30 ML UDCUP PO PRN (14:19)
--- NOTE | 2018-05-31 14:26 | HOSPPROG ---
Hospitalist Progress Note Assessment/Plan: * Humerus fracture s/p ORIF -continue sling, limited use -f/u Dr. 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 s/p salpingo oophorectomy -increased abd distention - NGT replaced with large output -slow improvement post-surgery - sluggish colon with ongoing stool -continue bowel protocol -limit narcotics * Liver transplant -chronic immunosuppression * MDS -s/p transfuse platelets prior to surgery * Toxic/metabolic encephalopathy - due to ARF and sedating meds -resolved * Acute renal failure - now back to baseline creatinine 1.5 * Hyponatremia - Na 120 on admission -hypovolemic - corrected with IVF * Hep C -elevated viral load * Ascites -albumin 1.8 - IV albumin x 1 -consider diuretic if tolerated -IV lasix x 1 today * SSS s/p PCM * CAD with known + stress test - on medical management only -troponin bump on admission due to demand * Hypertension -resume PO meds -IV hydralazine prn * Acute respiratory failure -O2 needs increased to 5L today with SOB/resp difficulty -suspect due to abdominal distention -however ddimer 5.1 with prolonged immobility -check CTA rule out PE * Nutrition -if not able to tolerate PO soon, consider TPN - prolonged NPO Subjective: Lots of NGT output, requests IV dilaudid from nursing every 2 hours , concern pattern of narcotic usage, passing lots of flatus Objective: Vital Signs Temp Pulse Resp BP Pulse Ox 36.3 C 82 18 142/70 H 91 L 05/31/18 11:31 05/31/18 08:27 05/31/18 11:31 05/31/18 11:31 05/31/18 11:31 Laboratory Results 05/31/18 05:19 05/31/18 05:19 05/30/18 05/31/18 06/01/18 05:59 05:59 05:59 Intake Total 974 959 Output Total 900 1610 Balance 74 -651 PT 15.5 SEC (12.0-15.0) H 05/18/18 04:00 INR 1.21 (0.83-1.16) H 05/18/18 04:00 CXR viewed, my personal interpretation is - negative - Physical Exam Constitutional: no apparent distress, appears nourished, not in pain Cardiovascular: regular rate and rhythym, no murmur, rub, or gallop Respiratory: no respiratory distress, no rales or rhonchi, clear to auscultation Gastrointestinal: soft, non-tender abdomen, distension, No tenderness, No guarding, No rebound Skin: no rashes or abrasions, no fluctuance, no induration Neurologic: AAOx3, sensation intact bilaterally Psychiatric: interacting appropriately, not anxious, not encephalopathic, thought process linear ICD10 Worksheet Patient Problems: Problems Problem Status Onset Dehydration Acute Fracture, humerus Acute Renal failure (ARF), acute on chronic Acute Adjustment disorder with depressed mood Active Acute bronchitis with chronic obstructive pulmonary disease (COPD) Acute Acute on chronic renal insufficiency Acute Bronchitis Acute Chest pain Acute Chest pain Acute Chest pain in adult Acute Chronic Disease Mgmt/Transitional Care Acute Chronic obstructive pulmonary disease with acute exacerbation Acute Chronic renal insufficiency Acute Closed left humeral fracture Acute Colitis Acute Cough Acute Elevated d-dimer Acute Hyponatremia Acute Knee effusion Acute Leg cramping Acute Leukopenia Acute Migraine Acute Multiple falls Acute Nausea & vomiting Acute Near syncope Acute Osteoarthritis of right knee Acute Pleural effusion, right Acute Pneumonia Acute Renal failure (ARF), acute on chronic Acute Right knee pain Acute Sedated Acute Shortness of breath Acute Urinary tract infection Acute Vomiting Acute Weakness Acute
[2018-05-31] MEDS ORDERED: IOPAMIDOL (ISOVUE 370) 100 ML BTL IV ONE (14:45)
[2018-05-31] MEDS: PROMETHAZINE HCL 25 MG/ML INJ IVP PRN (18:12)
[2018-05-31] MEDS: SENNOSIDES/DOCUSATE SODIUM TAB PO SCH (21:23)
[2018-05-31] MEDS: traZODone 100 MG TAB PO SCH (21:24)
[2018-05-31] MEDS: oxyCODONE IR 5 MG TAB PO PRN (21:24)
[2018-05-31] MEDS: GABAPENTIN 300 MG CAP PO SCH (21:24)
[2018-06-01] MEDS: HYDROmorphONE/DILAUDID 2 MG/ML INJ IVP PRN ×3 (02:52→13:36)
[2018-06-01] MEDS: oxyCODONE IR 5 MG TAB PO PRN ×3 (03:59→20:43)
[2018-06-01] MEDS: PROMETHAZINE HCL 25 MG/ML INJ IVP PRN (04:10)
[2018-06-01] MEDS: LEVOTHYROXINE 75 MCG TAB PO SCH (05:24)
[2018-06-01 05:28] LABS: PLATELET COUNT 46 10^3/uL (150-400)
[2018-06-01] MEDS: TIOTROPIUM INHALER 18 MCG/DOSE 5 DOSE/MDI IH SCH (08:44)
[2018-06-01] MEDS: D5W 1/2 NS W/ 20 KCl/L 1,000 ML IV SCH (09:55)
[2018-06-01] MEDS: CARVEDILOL 25 MG TAB PO SCH ×2 (09:58→17:54)
[2018-06-01] MEDS: ARIPiprazole 5 MG TAB PO SCH (09:59)
[2018-06-01] MEDS: CETIRIZINE 10 MG TAB PO SCH (10:00)
[2018-06-01] MEDS: FLUoxetine 20 MG CAP PO SCH (10:00)
[2018-06-01] MEDS: TACROLIMUS ANHYDROUS 0.5 MG CAP PO SCH ×2 (10:00→20:44)
[2018-06-01] MEDS: PANTOPRAZOLE SODIUM 40 MG TAB PO SCH ×2 (10:01→20:43)
[2018-06-01] MEDS: TOPIRAMATE 25 MG TAB PO SCH ×2 (10:01→20:44)
[2018-06-01] MEDS: CYANO/VITAMIN B12 1000 MCG TAB PO SCH (10:01)
[2018-06-01] MEDS: LIDOCAINE 4%/MENTHOL 1% PATCH TD SCH (10:02)
[2018-06-01] MEDS: SENNOSIDES/DOCUSATE SODIUM TAB PO SCH ×2 (10:13→20:43)
[2018-06-01] MEDS: ONDANSETRON 4 MG/2 ML VIAL IVP PRN (10:20)
[2018-06-01] MEDS: MINERAL OIL TP SCH ×3 (10:36→20:47)
[2018-06-01] MEDS: PET HY PHL TP SCH ×3 (10:36→20:47)
--- NOTE | 2018-06-01 12:09 | SOAPPROG ---
SOAP Progress Note Assessment/Plan: Assessment: 72yo F c LBO, s/p PRATIMA - abdominal distention continues to improve but she is still not normal - having flatus and some BMs - NGT with minimal output - plan for NGT clamp, if tolerates will remove and go very slow with clears. Will also add aggressive bowel regimen once tolerating to help clear out stool burden from above Plan: 05/30/18 10:40 05/31/18 09:46 06/01/18 12:08 Subjective: feels better, passing flatus Objective: Vital Signs Temp Pulse Resp BP Pulse Ox 36.5 C 79 16 118/60 95 06/01/18 11:09 06/01/18 11:09 06/01/18 11:09 06/01/18 11:09 06/01/18 11:09 Laboratory Results 06/01/18 04:10 06/01/18 04:10 05/31/18 06/01/18 06/02/18 05:59 05:59 05:59 Intake Total 959 2562 Output Total 1610 1450 200 Balance -651 1112 -200 PT 15.5 SEC (12.0-15.0) H 05/18/18 04:00 INR 1.21 (0.83-1.16) H 05/18/18 04:00 ICD10 Worksheet Patient Problems: Problems Problem Status Onset Dehydration Acute Fracture, humerus Acute Renal failure (ARF), acute on chronic Acute Adjustment disorder with depressed mood Active Acute bronchitis with chronic obstructive pulmonary disease (COPD) Acute Acute on chronic renal insufficiency Acute Bronchitis Acute Chest pain Acute Chest pain Acute Chest pain in adult Acute Chronic Disease Mgmt/Transitional Care Acute Chronic obstructive pulmonary disease with acute exacerbation Acute Chronic renal insufficiency Acute Closed left humeral fracture Acute Colitis Acute Cough Acute Elevated d-dimer Acute Hyponatremia Acute Knee effusion Acute Leg cramping Acute Leukopenia Acute Migraine Acute Multiple falls Acute Nausea & vomiting Acute Near syncope Acute Osteoarthritis of right knee Acute Pleural effusion, right Acute Pneumonia Acute Renal failure (ARF), acute on chronic Acute Right knee pain Acute Sedated Acute Shortness of breath Acute Urinary tract infection Acute Vomiting Acute Weakness Acute
[2018-06-01] MEDS: HYDROCORTISONE 0.5% CREAM TP SCH ×2 (13:39→20:47)
[2018-06-01] MEDS ORDERED: oxyCODONE IR 5 MG TAB PO PRN (15:38)
--- NOTE | 2018-06-01 15:41 | HOSPPROG ---
Hospitalist Progress Note Assessment/Plan: 72 yo F w liver transplant, humerus fracture, prolonged hospital stay Humerus fracture s/p ORIF -continue sling, limited use -f/u Dr. Nava Colonic obstruction due to adhesive band s/p salpingo oophorectomy -increased abd distention - NGT replaced with large output -slow improvement post-surgery - sluggish colon with ongoing stool -continue bowel protocol -limit narcotics 06/01: improved, tolerating clears w NGT clamped leave NGT in [place] Liver transplant -chronic immunosuppression MDS -s/p transfuse platelets prior to surgery Toxic/metabolic encephalopathy - due to ARF and sedating meds -resolved Acute renal failure - now back to baseline creatinine 1.5 Hyponatremia - Na 120 on admission -hypovolemic - corrected with IVF Hep C -elevated viral load Ascites -albumin 1.8 - IV albumin x 1 -consider diuretic if tolerated -IV lasix x 1 today dc IVF SSS s/p PCM CAD with known + stress test - on medical management only -troponin bump on admission due to demand Hypertension -resume PO meds -IV hydralazine prn Acute respiratory failure -O2 needs increased to 5L today with SOB/resp difficulty -suspect due to abdominal distention -however ddimer 5.1 with prolonged immobility no PE Nutrition -if not able to tolerate PO soon, consider TPN - prolonged NPO Subjective: case d/w dr ndiaye. tolerating clear liquids thus far Objective: Vital Signs Temp Pulse Resp BP Pulse Ox 36.5 C 79 16 118/60 95 06/01/18 11:09 06/01/18 11:09 06/01/18 11:09 06/01/18 11:09 06/01/18 11:09 Laboratory Results 06/01/18 04:10 06/01/18 04:10 05/31/18 06/01/18 06/02/18 05:59 05:59 05:59 Intake Total 959 2562 Output Total 1610 1450 600 Balance -651 1112 -600 PT 15.5 SEC (12.0-15.0) H 05/18/18 04:00 INR 1.21 (0.83-1.16) H 05/18/18 04:00 - Physical Exam Constitutional: no apparent distress, appears nourished Eyes: PERRL, anicteric sclera Ears, Nose, Mouth, Throat: moist mucous membranes, hearing normal Cardiovascular: regular rate and rhythym, no murmur, rub, or gallop Respiratory: no respiratory distress, no rales or rhonchi Gastrointestinal: normoactive bowel sounds, soft, non-tender abdomen Genitourinary: no bladder fullness, No buchanan in urethra Skin: warm, no fluctuance Musculoskeletal: other (LUE NV intact), No full muscle strength Neurologic: AAOx3, sensation intact bilaterally Psychiatric: interacting appropriately ICD10 Worksheet Patient Problems: Problems Problem Status Onset Dehydration Acute Fracture, humerus Acute Renal failure (ARF), acute on chronic Acute Adjustment disorder with depressed mood Active Acute bronchitis with chronic obstructive pulmonary disease (COPD) Acute Acute on chronic renal insufficiency Acute Bronchitis Acute Chest pain Acute Chest pain Acute Chest pain in adult Acute Chronic Disease Mgmt/Transitional Care Acute Chronic obstructive pulmonary disease with acute exacerbation Acute Chronic renal insufficiency Acute Closed left humeral fracture Acute Colitis Acute Cough Acute Elevated d-dimer Acute Hyponatremia Acute Knee effusion Acute Leg cramping Acute Leukopenia Acute Migraine Acute Multiple falls Acute Nausea & vomiting Acute Near syncope Acute Osteoarthritis of right knee Acute Pleural effusion, right Acute Pneumonia Acute Renal failure (ARF), acute on chronic Acute Right knee pain Acute Sedated Acute Shortness of breath Acute Urinary tract infection Acute Vomiting Acute Weakness Acute
[2018-06-01] MEDS: LORazepam 2 MG/ML INJ IVP PRN (16:31)
[2018-06-01] MEDS: traZODone 100 MG TAB PO SCH (20:43)
[2018-06-01] MEDS: GABAPENTIN 300 MG CAP PO SCH (20:43)
[2018-06-01] MEDS: traMADol 50 MG TAB PO PRN (20:43)
[2018-06-02] MEDS: oxyCODONE IR 5 MG TAB PO PRN ×5 (00:10→20:31)
[2018-06-02] MEDS: LORazepam 2 MG/ML INJ IVP PRN (00:17)
[2018-06-02] MEDS: LEVOTHYROXINE 75 MCG TAB PO SCH (06:15)
[2018-06-02] MEDS: CETIRIZINE 10 MG TAB PO SCH (08:59)
[2018-06-02] MEDS: FLUoxetine 20 MG CAP PO SCH (08:59)
[2018-06-02] MEDS: CARVEDILOL 25 MG TAB PO SCH ×2 (09:00→18:47)
[2018-06-02] MEDS: ARIPiprazole 5 MG TAB PO SCH (09:01)
[2018-06-02] MEDS: TACROLIMUS ANHYDROUS 0.5 MG CAP PO SCH ×2 (09:01→20:31)
[2018-06-02] MEDS: CYANO/VITAMIN B12 1000 MCG TAB PO SCH (09:02)
[2018-06-02] MEDS: TOPIRAMATE 25 MG TAB PO SCH ×2 (09:02→20:31)
[2018-06-02] MEDS: PANTOPRAZOLE SODIUM 40 MG TAB PO SCH ×2 (09:02→20:30)
[2018-06-02] MEDS: SENNOSIDES/DOCUSATE SODIUM TAB PO SCH ×2 (09:03→20:30)
[2018-06-02] MEDS: MINERAL OIL TP SCH ×3 (09:04→20:08)
[2018-06-02] MEDS: PET HY PHL TP SCH ×3 (09:04→20:08)
[2018-06-02] MEDS: LIDOCAINE 4%/MENTHOL 1% PATCH TD SCH (09:05)
[2018-06-02] MEDS: TIOTROPIUM INHALER 18 MCG/DOSE 5 DOSE/MDI IH SCH (09:14)
[2018-06-02 10:25] LABS: PLATELET COUNT 37 10^3/uL (150-400)
--- NOTE | 2018-06-02 12:07 | HOSPPROG ---
Hospitalist Progress Note Assessment/Plan: 72 yo F w liver transplant, humerus fracture, prolonged hospital stay dark stool: hct down a bit, but low baseline given MDS asa on hold on ppi repeat hct and type and screen this PM NGT can cause bleeding in friable mucosa seting Humerus fracture s/p ORIF -continue sling, limited use -f/u Dr. Nava Colonic obstruction due to adhesive band s/p salpingo oophorectomy -increased abd distention - NGT replaced with large output -slow improvement post-surgery - sluggish colon with ongoing stool -continue bowel protocol -limit narcotics 06/01: improved, tolerating clears w NGT clamped leave NGT in [place] Liver transplant -chronic immunosuppression MDS -s/p transfuse platelets prior to surgery Toxic/metabolic encephalopathy - due to ARF and sedating meds -resolved Acute renal failure - now back to baseline creatinine 1.5 Hyponatremia - Na 120 on admission -hypovolemic - corrected with IVF Hep C -elevated viral load Ascites -albumin 1.8 - IV albumin x 1 -consider diuretic if tolerated -IV lasix x 1 today dc IVF SSS s/p PCM CAD with known + stress test - on medical management only -troponin bump on admission due to demand Hypertension -resume PO meds -IV hydralazine prn Acute respiratory failure -O2 needs increased to 5L today with SOB/resp difficulty -suspect due to abdominal distention -however ddimer 5.1 with prolonged immobility no PE Nutrition -if not able to tolerate PO soon, consider TPN - prolonged NPO Subjective: now eating. nurse notes two large "dark" bm's Objective: Vital Signs Temp Pulse Resp BP Pulse Ox 36.4 C 84 14 122/70 H 95 06/02/18 08:16 06/02/18 09:22 06/02/18 09:22 06/02/18 09:00 06/02/18 09:22 Laboratory Results 06/02/18 09:45 06/02/18 09:45 06/01/18 06/02/18 06/03/18 05:59 05:59 05:59 Intake Total 2562 1224 400 Output Total 1450 650 600 Balance 1112 574 -200 PT 15.5 SEC (12.0-15.0) H 05/18/18 04:00 INR 1.21 (0.83-1.16) H 05/18/18 04:00 - Physical Exam Constitutional: no apparent distress, chronically ill appearing Eyes: PERRL, anicteric sclera Ears, Nose, Mouth, Throat: moist mucous membranes, hearing normal Cardiovascular: regular rate and rhythym, no murmur, rub, or gallop Respiratory: no respiratory distress, no rales or rhonchi Gastrointestinal: normoactive bowel sounds, soft, non-tender abdomen, No guarding, No rebound Genitourinary: no bladder fullness, No buchanan in urethra Skin: warm, normal color Musculoskeletal: No full muscle strength Neurologic: AAOx3 ICD10 Worksheet Patient Problems: Problems Problem Status Onset Dehydration Acute Fracture, humerus Acute Renal failure (ARF), acute on chronic Acute Adjustment disorder with depressed mood Active Acute bronchitis with chronic obstructive pulmonary disease (COPD) Acute Acute on chronic renal insufficiency Acute Bronchitis Acute Chest pain Acute Chest pain Acute Chest pain in adult Acute Chronic Disease Mgmt/Transitional Care Acute Chronic obstructive pulmonary disease with acute exacerbation Acute Chronic renal insufficiency Acute Closed left humeral fracture Acute Colitis Acute Cough Acute Elevated d-dimer Acute Hyponatremia Acute Knee effusion Acute Leg cramping Acute Leukopenia Acute Migraine Acute Multiple falls Acute Nausea & vomiting Acute Near syncope Acute Osteoarthritis of right knee Acute Pleural effusion, right Acute Pneumonia Acute Renal failure (ARF), acute on chronic Acute Right knee pain Acute Sedated Acute Shortness of breath Acute Urinary tract infection Acute Vomiting Acute Weakness Acute
[2018-06-02] MEDS: HYDROCORTISONE 0.5% CREAM TP SCH ×2 (12:30→22:58)
[2018-06-02] MEDS: traZODone 100 MG TAB PO SCH (20:30)
[2018-06-02] MEDS: GABAPENTIN 300 MG CAP PO SCH (20:31)
[2018-06-03] MEDS: oxyCODONE IR 5 MG TAB PO PRN ×4 (04:51→22:23)
[2018-06-03] MEDS: LEVOTHYROXINE 75 MCG TAB PO SCH (04:52)
[2018-06-03 05:07] LABS: PLATELET COUNT 51 10^3/uL (150-400)
[2018-06-03] MEDS: TIOTROPIUM INHALER 18 MCG/DOSE 5 DOSE/MDI IH SCH (08:14)
--- NOTE | 2018-06-03 08:49 | GOP ---
DATE OF OPERATION: 05/28/2018 SURGEON: Mark Anthony Benitez MD EMBALMER/FUNERAL DIRECTOR: Natalie Newton PA-C PREOPERATIVE DIAGNOSIS: Colonic obstruction. POSTOPERATIVE DIAGNOSIS: Colonic obstruction secondary to an extrinsic fallopian tube adhesion and obstipation. PROCEDURE PERFORMED: LAPAROSCOPIC ADHESIOLYSIS WITH RIGHT SALPINGO- OOPHORECTOMY AND RECTAL DILATATION FINDINGS: The patient had no evidence of tumor or stricture. She did have marked constipation throughout. She had an unusual configuration of the right fallopian tube and ovary extending across the pelvis as a tightrope with which the redundant colon was flung over this adhesive band. DESCRIPTION OF PROCEDURE: The patient was taken to the operating room where she received a satisfactory general endotracheal anesthesia by Dr. Juarez, placed in a supine position in low stirrups, prepped and draped in the usual sterile fashion. A supraumbilical incision was made. A Veress needle inserted. Pneumoperitoneum was established. A trocar was introduced. Laparoscope introduced. Good visualization was obtained. Two other trocars were placed in the lower abdomen under direct vision. The colon was mobilized. It was quite dilated and heavy containing a large amount of stool. There was a large amount of ascites in the abdomen. This was suctioned clear for 2500 cc. In the pelvis, this band was discovered. It was freed up with the Harmonic scalpel dividing its attachment on the left and extending across the pelvis to the right ovary, which was then freed up with the Harmonic scalpel and removed. The specimen was removed and sent to Pathology. Hemostasis was assured. The wound was irrigated. At that point dilators were passed transanally up through the sigmoid colon with no evidence of obstruction or tumor with a large amount of fecal material above the point of obstruction, but there was no intrinsic stricture and that was removed. Trocars were removed under direct vision. Pneumoperitoneum was released. Trocar sites were closed with 0 Vicryl for the fascia, 4-0 Monocryl subcuticular stitch for the skin. All layers infiltrated with 0.5% Marcaine. Blood loss was negligible. She tolerated the procedure well, taken to the recovery room in good condition. There were no complications. /[id number]/MODL MTDD
--- NOTE | 2018-06-03 09:08 | SOAPPROG ---
SOAP Progress Note Assessment/Plan: Assessment: 72 y/o F with LBO, s/p PRATIMA S: Feeling better. Tolerating clears. Passing gas and having BMs. NG tube came out yesterday. Denies nausea. O: Alert Afebrile No increased WOB Abdomen: soft, nontender, nondistended, +BS Plan: Advance to light diet. 06/03/18 09:07 Objective: Vital Signs Temp Pulse Resp BP Pulse Ox 36.8 C 73 16 140/60 H 96 06/03/18 04:00 06/03/18 08:18 06/03/18 08:18 06/03/18 04:00 06/03/18 08:18 Laboratory Results 06/03/18 05:00 06/03/18 05:00 06/02/18 06/03/18 06/04/18 05:59 05:59 05:59 Intake Total 1224 1420 Output Total 650 600 Balance 574 820 PT 15.5 SEC (12.0-15.0) H 05/18/18 04:00 INR 1.21 (0.83-1.16) H 05/18/18 04:00 ICD10 Worksheet Patient Problems: Problems Problem Status Onset Dehydration Acute Fracture, humerus Acute Renal failure (ARF), acute on chronic Acute Adjustment disorder with depressed mood Active Acute bronchitis with chronic obstructive pulmonary disease (COPD) Acute Acute on chronic renal insufficiency Acute Bronchitis Acute Chest pain Acute Chest pain Acute Chest pain in adult Acute Chronic Disease Mgmt/Transitional Care Acute Chronic obstructive pulmonary disease with acute exacerbation Acute Chronic renal insufficiency Acute Closed left humeral fracture Acute Colitis Acute Cough Acute Elevated d-dimer Acute Hyponatremia Acute Knee effusion Acute Leg cramping Acute Leukopenia Acute Migraine Acute Multiple falls Acute Nausea & vomiting Acute Near syncope Acute Osteoarthritis of right knee Acute Pleural effusion, right Acute Pneumonia Acute Renal failure (ARF), acute on chronic Acute Right knee pain Acute Sedated Acute Shortness of breath Acute Urinary tract infection Acute Vomiting Acute Weakness Acute
[2018-06-03] MEDS: LIDOCAINE 4%/MENTHOL 1% PATCH TD SCH (09:47)
[2018-06-03] MEDS: ARIPiprazole 5 MG TAB PO SCH (09:48)
[2018-06-03] MEDS: PANTOPRAZOLE SODIUM 40 MG TAB PO SCH ×2 (09:48→22:14)
[2018-06-03] MEDS: FLUoxetine 20 MG CAP PO SCH (09:48)
[2018-06-03] MEDS: TOPIRAMATE 25 MG TAB PO SCH ×2 (09:48→22:22)
[2018-06-03] MEDS: CARVEDILOL 25 MG TAB PO SCH ×2 (09:48→19:36)
[2018-06-03] MEDS: TACROLIMUS ANHYDROUS 0.5 MG CAP PO SCH ×2 (09:48→22:14)
[2018-06-03] MEDS: CYANO/VITAMIN B12 1000 MCG TAB PO SCH (09:48)
[2018-06-03] MEDS: CETIRIZINE 10 MG TAB PO SCH (09:49)
[2018-06-03] MEDS: SENNOSIDES/DOCUSATE SODIUM TAB PO SCH ×2 (10:15→22:22)
[2018-06-03] MEDS: PET HY PHL TP SCH ×3 (10:15→23:10)
[2018-06-03] MEDS: MINERAL OIL TP SCH ×3 (10:15→23:10)
[2018-06-03] MEDS: HYDROCORTISONE 0.5% CREAM TP SCH (11:59)
[2018-06-03] MEDS: traMADol 50 MG TAB PO PRN (12:48)
[2018-06-03] MEDS: SUCRALFATE 1 GM/10 ML UDCUP PO SCH ×3 (12:49→22:36)
[2018-06-03] MEDS: PROMETHAZINE HCL 25 MG/ML INJ IVP PRN (13:01)
--- NOTE | 2018-06-03 13:39 | ASMTCMCOM ---
CM Note CM Note Notes: Plan of care reviewed in rounds. NG tube is out and patient tolerating cleared but per RN having loose black stool concerning for GI bleed. Per Hospital medicine, GI to be consulted. CM to follow. \Plan: Remain to be to dc to SNF at [facility]. Date Signed: 06/03/2018 01:38 PM Electronically Signed By:Annelise Gu RN
--- NOTE | 2018-06-03 14:01 | HOSPPROG ---
Hospitalist Progress Note Assessment/Plan: 72 yo F w liver transplant, humerus fracture, prolonged hospital stay dark stool: hct down a bit, but low baseline given MDS asa dc'd GI to perform upper endoscopy 06/04 on ppi, sucralfate repeat hct this PM diarrhea: check cdiff Humerus fracture s/p ORIF -continue sling, limited use -f/u Dr. Nava Colonic obstruction due to adhesive band s/p salpingo oophorectomy -increased abd distention - NGT replaced with large output -slow improvement post-surgery - sluggish colon with ongoing stool -continue bowel protocol -limit narcotics ppears to have resolved Liver transplant -chronic immunosuppression MDS -s/p transfuse platelets prior to surgery Toxic/metabolic encephalopathy - due to ARF and sedating meds -resolved Acute renal failure - now back to baseline creatinine 1.5 Hyponatremia - Na 120 on admission -hypovolemic - corrected with IVF Hep C -elevated viral load Ascites -albumin 1.8 - IV albumin x 1 -consider diuretic if tolerated -IV lasix x 1 today dc IVF SSS s/p PCM CAD with known + stress test - on medical management only -troponin bump on admission due to demand Hypertension -resume PO meds -IV hydralazine prn Acute respiratory failure -O2 needs increased to 5L today with SOB/resp difficulty -suspect due to abdominal distention -however ddimer 5.1 with prolonged immobility no PE Nutrition -if not able to tolerate PO soon, consider TPN - prolonged NPO plan of care: she has declined over last 5 years (kayy taken care of her many times) now living at [facility] care to see for goals of care discussion Subjective: case d/w dr beltran. black diarrhea w blood loss Objective: Vital Signs Temp Pulse Resp BP Pulse Ox 36.8 C 85 16 186/81 H 92 06/03/18 12:00 06/03/18 12:00 06/03/18 08:18 06/03/18 12:00 06/03/18 12:00 Laboratory Results 06/03/18 05:00 06/03/18 05:00 06/02/18 06/03/18 06/04/18 05:59 05:59 05:59 Intake Total 1224 1420 Output Total 650 600 550 Balance 574 820 -550 PT 15.5 SEC (12.0-15.0) H 05/18/18 04:00 INR 1.21 (0.83-1.16) H 05/18/18 04:00 - Physical Exam Constitutional: no apparent distress, appears nourished Eyes: PERRL, anicteric sclera Ears, Nose, Mouth, Throat: moist mucous membranes, hearing normal Cardiovascular: regular rate and rhythym, no murmur, rub, or gallop Respiratory: no respiratory distress, no rales or rhonchi Gastrointestinal: normoactive bowel sounds, No guarding, No rebound Genitourinary: no bladder fullness, No buhcanan in urethra Skin: warm, normal color Musculoskeletal: No full muscle strength Neurologic: AAOx3 Psychiatric: interacting appropriately ICD10 Worksheet Patient Problems: Problems Problem Status Onset Dehydration Acute Fracture, humerus Acute Renal failure (ARF), acute on chronic Acute Adjustment disorder with depressed mood Active Acute bronchitis with chronic obstructive pulmonary disease (COPD) Acute Acute on chronic renal insufficiency Acute Bronchitis Acute Chest pain Acute Chest pain Acute Chest pain in adult Acute Chronic Disease Mgmt/Transitional Care Acute Chronic obstructive pulmonary disease with acute exacerbation Acute Chronic renal insufficiency Acute Closed left humeral fracture Acute Colitis Acute Cough Acute Elevated d-dimer Acute Hyponatremia Acute Knee effusion Acute Leg cramping Acute Leukopenia Acute Migraine Acute Multiple falls Acute Nausea & vomiting Acute Near syncope Acute Osteoarthritis of right knee Acute Pleural effusion, right Acute Pneumonia Acute Renal failure (ARF), acute on chronic Acute Right knee pain Acute Sedated Acute Shortness of breath Acute Urinary tract infection Acute Vomiting Acute Weakness Acute
[2018-06-03] MEDS: LORazepam 2 MG/ML INJ IVP PRN (16:25)
[2018-06-03] MEDS: GABAPENTIN 300 MG CAP PO SCH (22:14)
[2018-06-03] MEDS: traZODone 100 MG TAB PO SCH (22:22)
[2018-06-03] MEDS: PATCH REMOVAL 1 EA PATCH TD SCH (22:26)
[2018-06-04] MEDS: HYDROCORTISONE 0.5% CREAM TP SCH ×3 (00:35→20:35)
[2018-06-04] MEDS: oxyCODONE IR 5 MG TAB PO PRN ×4 (04:04→21:13)
[2018-06-04] MEDS ORDERED: NS 500 ML IV ONE (07:08)
[2018-06-04] MEDS ORDERED: PROPOFOL/EMULSION 500 MG/50 ML BOTTLE IV ONE (07:41)
[2018-06-04] MEDS ORDERED: ROCURONIUM 50 MG/5 ML VIAL ONE (07:44)
[2018-06-04] MEDS ORDERED: SUCCINYLCHOLINE CHLORIDE 200 MG/10 ML SYR IVP ONE (07:48)
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
--- NOTE | 2018-06-04 08:24 | GIREPORT ---
[facility] Surgical Services - Endoscopy Department Patient Name: Misty Saldana Procedure Date: 06/04/2018 7:32 AM Patient Type: Inpatient Attending MD/ ER Physician: Chuck Reyna MD Procedure: Upper GI endoscopy Indications: Melena, Acute post hemorrhagic anemia Providers: Chuck Reyna MD Medicines: General Anesthesia Complications: No immediate complications. Description of Procedure: After obtaining informed consent, the endoscope was passed under direct vision. Throughout the procedure, the patient's blood pressure, pulse, and oxygen saturations were monitored continuously. The Endoscope was intro duced through the mouth, and advanced to the third part of duodenum. The uppe r GI endoscopy was accomplished without difficulty. The patient tolerated th e procedure well. Findings: The examined esophagus was normal. Diffuse moderate inflammation characterized by erythema, friability and granularity was found in the cardia, in the gastric fundus and in the gastric body. No biopsies obtained due to thrombocytopenia. The gastric antrum was normal. The examined duodenum was normal. Estimated Blood Loss: Estimated blood loss: none. Post Op Diagnosis: - Normal esophagus. - Gastritis. - Normal antrum. - Normal examined duodenum. - No specimens collected. Recommendation: - Return patient to hospital [facility] for ongoing care. - Advance diet as tolerated today. Attending Participation: I personally performed the entire procedure. Chuck Reyna MD Chuck Reyna MD 06/04/2018 8:23:34 AM This report has been signed electronicallyChuck Reyna MD Number of Addenda: 0 Note Initiated On: 06/04/2018 7:32 AM [email or web address]
[2018-06-04] MEDS ORDERED: fentaNYL 100 MCG/2 ML INJ IVP PRN (08:47)
[2018-06-04] MEDS ORDERED: NALOXONE HCL 0.4 MG/ML INJ IVP PRN (08:47)
[2018-06-04] MEDS ORDERED: ONDANSETRON 4 MG/2 ML VIAL IVP PRN (08:47)
[2018-06-04] MEDS ORDERED: HYDROmorphONE/DILAUDID 2 MG/ML INJ IVP PRN (08:47)
[2018-06-04] MEDS ORDERED: NS 500 ML IV PRN (08:47)
[2018-06-04] MEDS ORDERED: ALBUTEROL 3 ML DEYVIAL IH PRN (08:47)
[2018-06-04] MEDS ORDERED: LABETALOL HCL 20 MG/4 ML INJ IVP ONE ×2 (08:51→09:12)
[2018-06-04] MEDS ORDERED: fentaNYL 100 MCG/2 ML INJ ONE (08:51)
[2018-06-04] MEDS: LABETALOL HCL 20 MG/4 ML INJ IVP PRN ×4 (08:54→09:12)
[2018-06-04] MEDS: hydrALAZINE 20 MG/ML VIAL IVP PRN ×3 (09:25→09:46)
[2018-06-04] MEDS ORDERED: hydrALAZINE 20 MG/ML VIAL ONE (09:26)
[2018-06-04] MEDS: TIOTROPIUM INHALER 18 MCG/DOSE 5 DOSE/MDI IH SCH (10:03)
--- NOTE | 2018-06-04 11:13 | GCON ---
GI CONSULTATION DATE OF CONSULTATION: 05/25/2018 REFERRING PHYSICIAN: Randolph Olivas MD REASON FOR CONSULTATION: Melena. HISTORY OF PRESENT ILLNESS: The patient is a 72-year-old female with multiple medical problems including a remote history of liver transplantation for hepatitis C with cirrhosis, essential hypertension, congestive heart failure, schizoaffective disorder, hypothyroidism, COPD, chronic renal disease with baseline creatinine of 1.6, GERD, and chronic immunosuppression therapy, who was admitted to the hospital on 05/16/2018, with weakness and a fall. She does have an AICD pacemaker secondary to heart block. I was asked to see the patient today due to passage of black tarry stools with chronically low hemoglobin. She does have a history of peptic ulcer disease. She has denied any dyspepsia, heartburn, or indigestion. She has denied any maroon stools. She was noted to have a left femoral head fracture on admission. PRESENT MEDICATIONS: Include alteplase recombinant 2 mg IV push p.r.n., amlodipine 2.5 mg p.o. daily, Abilify 5 mg p.o. daily, Coreg 12.5 mg p.o. twice daily, Zyrtec 5 mg p.o. daily, Prozac 40 mg p.o. daily, Neurontin 300 mg p.o. q.h.s., lactulose 20 g p.o. t.i.d. p.r.n. constipation, Synthroid 75 mcg p.o. daily, Protonix 40 mg p.o. b.i.d., Senokot 1-2 tabs p.o. b.i.d. p.r.n. constipation, sucralfate 1 g suspension p.o. a.c. and q.h.s., Prograf 0.5 mg p.o. b.i.d., Spiriva HandiHaler 18 mcg IH 1 puff daily, Topamax 25 mg p.o. b.i.d., Ultram 25 mg p.o. q.6 hours p.r.n. pain, trazodone 100 mg p.o. q.h.s., vitamin B12 500 mcg p.o. daily, aspirin 81 mg p.o. daily. ALLERGIES: She has medical allergies including sumatriptan succinate, dextroamphetamine, temazepam. PAST MEDICAL HISTORY: Significant for a remote history of liver transplant secondary to hepatitis C with cirrhosis on chronic immunotherapy, essential hypertension, congestive heart failure, schizoaffective disorder, hypothyroidism , chronic renal failure, COPD, chronic migraines, nephrotic syndrome, chronic anemia, history of ischemic colitis, and history of upper GI bleed. PAST SURGICAL HISTORY: Significant for pacemaker/AICD secondary to heart block , liver transplant in 1996, cholecystectomy, and right knee arthroplasty. FAMILY HISTORY: Unremarkable for peptic ulcer disease or GI malignancies. SOCIAL HISTORY: She currently resides at [facility]. Denies any alcohol or tobacco use. REVIEW OF SYSTEMS: Significant for fatigue and left hip pain. Otherwise negative for a comprehensive review of systems on my examination. PHYSICAL EXAMINATION: VITAL SIGNS: Temperature 36.7 Celsius, pulse is 75 regular, blood pressure 192/75, respiratory rate 18, O2 saturation 96% on 2 L per nasal cannula. GENERAL: A slight built female in bed, looking fatigued. INTEGUMENT: Clear. HEENT: Head atraumatic, normocephalic. Pupils equal, round, reactive to light. EOMs intact. Sclerae nonicteric. Nares patent. Mucous membranes moist. Dentition fair. NECK: Supple. Trachea was midline. LYMPHATICS: No cervical or axillary adenopathy palpated. PULMONARY: Lungs were clear to percussion and auscultation. CARDIOVASCULAR: Regular rhythm and rate. Normal S1, S2 without murmur. Peripheral pulses decreased bilaterally. No pedal edema. GASTROINTESTINAL: Abdomen supple. Positive bowel sounds. No liver or spleen tip palpable. Well-healed abdominal surgical scars. EXTREMITIES: Without deformity. NEURO: Patient was alert, oriented x3. No focal neurologic deficits. LABORATORY DATA: Hemoglobin today 10.6, hematocrit 30.7, white count 3.6, platelets 51,000. Sodium 133, potassium 4.2, creatinine 1.6, BUN 24. Pro time 15.5, INR 1.21, PTT 26.9 (05/18/2018). IMPRESSION: 1. Melena and anemia in patient with chronic thrombocytopenia and history of liver transplant. Rule out active peptic ulcer disease. Doubt portal hypertension or variceal bleed. 2. Chronic immunosuppression for liver transplant with normal liver function tests on 05/30/2018, with exception of elevated alkaline phosphatase (probably bone origin). 3. Chronic obstructive pulmonary disease. 4. History of congestive heart failure. 5. Chronic pacer for heart block. 6. Schizoaffective disorder. RECOMMENDATION: Proceed with esophagogastroduodenoscopy today with general anesthesia due to the patient's GI bleed. The patient is at high risk for complication (ASA-4) due to her multiple medical problems as outlined above. /[id number]/MODL MTDD
[2018-06-04] MEDS: ARIPiprazole 5 MG TAB PO SCH (11:59)
[2018-06-04] MEDS: CETIRIZINE 10 MG TAB PO SCH (11:59)
[2018-06-04] MEDS: LEVOTHYROXINE 75 MCG TAB PO SCH (11:59)
[2018-06-04] MEDS: PANTOPRAZOLE SODIUM 40 MG TAB PO SCH ×2 (12:00→21:14)
[2018-06-04] MEDS: FLUoxetine 20 MG CAP PO SCH (12:01)
[2018-06-04] MEDS: TACROLIMUS ANHYDROUS 0.5 MG CAP PO SCH ×2 (12:03→21:14)
[2018-06-04] MEDS: TOPIRAMATE 25 MG TAB PO SCH ×2 (12:03→21:14)
[2018-06-04] MEDS: LIDOCAINE 4%/MENTHOL 1% PATCH TD SCH (12:03)
[2018-06-04] MEDS: CEPACOL LOZENGE PO PRN (12:11)
[2018-06-04 13:16] LABS: PLATELET COUNT 56 10^3/uL (150-400)
[2018-06-04] MEDS: SUCRALFATE 1 GM/10 ML UDCUP PO SCH ×4 (13:58→20:35)
[2018-06-04] MEDS: SENNOSIDES/DOCUSATE SODIUM TAB PO SCH ×2 (14:11→20:34)
[2018-06-04] MEDS: PET HY PHL TP SCH ×3 (14:13→20:35)
[2018-06-04] MEDS: MINERAL OIL TP SCH ×3 (14:13→20:35)
[2018-06-04] MEDS: CARVEDILOL 25 MG TAB PO SCH ×2 (14:14→17:55)
[2018-06-04] MEDS: CYANO/VITAMIN B12 1000 MCG TAB PO SCH (14:16)
--- NOTE | 2018-06-04 14:20 | ASMTCMCOM ---
CM Note CM Note Notes: Patient plan of care reviewed in rounds. Palliative care referral made to [facility]. Patient had non eventful endoscopy. She is groggy from anesthesia. Hopefully advance diet today. Continue therapies and updates give to Zachery from [facility]. Plan: Dc to [facility] with palliative care when medically cleared for discharge. Date Signed: 06/04/2018 02:19 PM Electronically Signed By:Annelise Gu RN
[2018-06-04] MEDS ORDERED: hydrALAZINE 20 MG/ML VIAL IVP PRN (17:03)
[2018-06-04] MEDS ORDERED: amLODIPine BESYLATE 5 MG TAB PO SCH (17:04)
--- NOTE | 2018-06-04 17:50 | HOSPPROG ---
Hospitalist Progress Note Assessment/Plan: * Humerus fracture s/p ORIF -continue sling, limited use -f/u Dr. 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 s/p salpingo oophorectomy -slow return of colon function post surgery -s/p diarrhea - clearing lactulose -advance diet * Liver transplant -chronic immunosuppression * MDS -s/p transfuse platelets prior to surgery * Toxic/metabolic encephalopathy - due to ARF and sedating meds -resolved * Acute renal failure - now back to baseline creatinine 1.5 * Hyponatremia - Na 120 on admission -hypovolemic - corrected with IVF * Hep C -elevated viral load * Ascites -albumin 1.8 - IV albumin x 1 -gentle IV lasix * SSS s/p PCM * CAD with known + stress test - on medical management only -troponin bump on admission due to demand * Hypertension -resume PO meds -IV hydralazine prn * Acute respiratory failure -O2 needs increased to 5L today with SOB/resp difficulty -suspect due to abdominal distention -CTA negative for PE -significant pleural effusions - diuresis as above * Nutrition -if not able to tolerate PO soon, consider TPN - prolonged NPO * UGIB -EGD done today - negative Subjective: Afraid to eat, thinks it will give her diarrhea Objective: Vital Signs Temp Pulse Resp BP Pulse Ox 36.7 C 87 18 199/89 H 91 L 06/04/18 16:00 06/04/18 16:00 06/04/18 16:00 06/04/18 16:00 06/04/18 16:00 Laboratory Results 06/04/18 13:00 06/04/18 13:00 06/03/18 06/04/18 06/05/18 05:59 05:59 05:59 Intake Total 1420 100 Output Total 600 600 275 Balance 820 -500 -275 PT 15.5 SEC (12.0-15.0) H 05/18/18 04:00 INR 1.21 (0.83-1.16) H 05/18/18 04:00 d/w Dr. Anthony regarding palliative care consult EGD report reviewed - no significant source of bleeding CTA chest - no PE, significant effusions - Physical Exam Constitutional: no apparent distress, appears nourished, not in pain Cardiovascular: regular rate and rhythym, no murmur, rub, or gallop Respiratory: no respiratory distress, no rales or rhonchi, clear to auscultation Gastrointestinal: normoactive bowel sounds, soft, non-tender abdomen, no palpable masses Skin: no rashes or abrasions, no fluctuance, no induration Neurologic: AAOx3, sensation intact bilaterally Psychiatric: interacting appropriately, not anxious, not encephalopathic, thought process linear ICD10 Worksheet Patient Problems: Problems Problem Status Onset Nausea & vomiting Acute Pleural effusion, right Acute Leukopenia Acute Near syncope Acute Closed left humeral fracture Acute Renal failure (ARF), acute on chronic Acute Fracture, humerus Acute Osteoarthritis of right knee Acute Adjustment disorder with depressed mood Active Chronic Disease Mgmt/Transitional Care Acute Pneumonia Acute Knee effusion Acute Acute on chronic renal insufficiency Acute Acute bronchitis with chronic obstructive pulmonary disease (COPD) Acute Chest pain Acute Dehydration Acute Bronchitis Acute Cough Acute Leg cramping Acute Weakness Acute Vomiting Acute Sedated Acute Multiple falls Acute Hyponatremia Acute Chronic renal insufficiency Acute Colitis Acute Urinary tract infection Acute Renal failure (ARF), acute on chronic Acute Shortness of breath Acute Chest pain in adult Acute Elevated d-dimer Acute Right knee pain Acute Migraine Acute Chronic obstructive pulmonary disease with acute exacerbation Acute Chest pain Acute
[2018-06-04] MEDS: LORazepam 2 MG/ML INJ IVP PRN (18:02)
[2018-06-04] MEDS: PATCH REMOVAL 1 EA PATCH TD SCH (20:34)
[2018-06-04] MEDS: traZODone 100 MG TAB PO SCH (21:13)
[2018-06-04] MEDS: GABAPENTIN 300 MG CAP PO SCH (21:13)
[2018-06-04] MEDS: LIDOCAINE 2% VISCOUS 15 ML UDCUP PO PRN (21:13)
[2018-06-05] MEDS: oxyCODONE IR 5 MG TAB PO PRN ×2 (02:47→06:48)
[2018-06-05] MEDS: LORazepam 2 MG/ML INJ IVP PRN ×2 (02:48→06:48)
[2018-06-05] MEDS: LEVOTHYROXINE 75 MCG TAB PO SCH (06:04)
[2018-06-05] MEDS ORDERED: FUROSEMIDE 40 MG/4 ML VIAL IVP SCH (09:00)
[2018-06-05] MEDS ORDERED: oxyCODONE IR 5 MG TAB PO PRN (10:00)
[2018-06-05] MEDS ORDERED: LACTULOSE 20 GM/30 ML UDCUP PO SCH (10:00)
[2018-06-05] MEDS: TACROLIMUS ANHYDROUS 0.5 MG CAP PO SCH (10:08)
[2018-06-05] MEDS: TOPIRAMATE 25 MG TAB PO SCH (10:11)
[2018-06-05] MEDS: TIOTROPIUM INHALER 18 MCG/DOSE 5 DOSE/MDI IH SCH (10:44)
[2018-06-05] MEDS: CARVEDILOL 25 MG TAB PO SCH (10:52)
[2018-06-05] MEDS: FLUoxetine 20 MG CAP PO SCH (10:54)
[2018-06-05] MEDS: SENNOSIDES/DOCUSATE SODIUM TAB PO SCH (10:55)
[2018-06-05] MEDS: PANTOPRAZOLE SODIUM 40 MG TAB PO SCH (10:57)
[2018-06-05] MEDS: ARIPiprazole 5 MG TAB PO SCH (10:59)
[2018-06-05] MEDS: CETIRIZINE 10 MG TAB PO SCH (11:00)
[2018-06-05] MEDS: CYANO/VITAMIN B12 1000 MCG TAB PO SCH (11:01)
[2018-06-05] MEDS: traMADol 50 MG TAB PO PRN (11:12)
--- NOTE | 2018-06-05 11:53 | SOAPPROG ---
SOAP Progress Note Assessment/Plan: Assessment: 1. Gastritis on EGD yesterday likely cause of GI Bledd. 2. Post hemorrhagic anemia; stable 3. Colonic obstruction clinically resolved Plan: Will sign off today. Chuck Reyna MD 06/05/18 11:51 Objective: Vital Signs Temp Pulse Resp BP Pulse Ox 37.0 C 79 18 160/80 H 95 06/05/18 08:00 06/05/18 10:46 06/05/18 10:46 06/05/18 08:00 06/05/18 10:46 Laboratory Results 06/04/18 13:00 06/04/18 13:00 06/04/18 06/05/18 06/06/18 05:59 05:59 05:59 Intake Total 100 300 250 Output Total 600 275 350 Balance -500 25 -100 PT 15.5 SEC (12.0-15.0) H 05/18/18 04:00 INR 1.21 (0.83-1.16) H 05/18/18 04:00 Physical Exam - Physical Exam General Appearance: alert, no apparent distress Respiratory: lungs clear Cardiac/Chest: regular rate, rhythm Abdomen: normal bowel sounds, non-tender, soft Skin: normal color, warm/dry Neuro/Psych: alert, normal mood/affect, oriented x 3 ICD10 Worksheet Patient Problems: Problems Problem Status Onset Dehydration Acute Fracture, humerus Acute Renal failure (ARF), acute on chronic Acute Adjustment disorder with depressed mood Active Acute bronchitis with chronic obstructive pulmonary disease (COPD) Acute Acute on chronic renal insufficiency Acute Bronchitis Acute Chest pain Acute Chest pain Acute Chest pain in adult Acute Chronic Disease Mgmt/Transitional Care Acute Chronic obstructive pulmonary disease with acute exacerbation Acute Chronic renal insufficiency Acute Closed left humeral fracture Acute Colitis Acute Cough Acute Elevated d-dimer Acute Hyponatremia Acute Knee effusion Acute Leg cramping Acute Leukopenia Acute Migraine Acute Multiple falls Acute Nausea & vomiting Acute Near syncope Acute Osteoarthritis of right knee Acute Pleural effusion, right Acute Pneumonia Acute Renal failure (ARF), acute on chronic Acute Right knee pain Acute Sedated Acute Shortness of breath Acute Urinary tract infection Acute Vomiting Acute Weakness Acute
[2018-06-05] MEDS: HYDROCORTISONE 0.5% CREAM TP SCH (13:13)
[2018-06-05] MEDS: LIDOCAINE 4%/MENTHOL 1% PATCH TD SCH (13:14)
[2018-06-05] MEDS: MINERAL OIL TP SCH (13:15)
[2018-06-05] MEDS: PET HY PHL TP SCH (13:15)
[2018-06-05] MEDS: LIDOCAINE 2% VISCOUS 15 ML UDCUP PO PRN (13:17)
--- NOTE | 2018-06-05 14:11 | PDIAF ---
- Diagnosis Diagnosis: humerus fracture, colonic obstruction due to adhesion Code Status: Full Code - Medication Management Discharge Medications: electronically signed and located in the Home Medication List. - Orders Services needed: Physical Therapy, Occupational Therapy, Speech Language Pathologist Isolation Type: None Diet Recommendation: no restrictions on diet Diet Texture: Dysphagia 1 - Pureed, Thin Liquids, Meds Whole w/Liquids, Meds Whole in Puree Additional Instructions: F/U Dr. Nava 1 wks [id number] - Follow Up Care Current Providers and Referrals: Rocael Nava MD [Medical Doctor] - follow up in 1 week Patient,NotPresent [Unknown] - As per Instructions
--- NOTE | 2018-06-05 15:14 | ASDISCHSUM ---
Discharge Information Plan Status:SNF Medically Cleared to Leave:06/04/2018 Discharge Date:06/04/2018 CM D/C Disposition:Care Home Facility ADT D/C Disposition:Care Home Facility Projected Discharge Date:06/05/2018 06:00 PM Transportation at D/C:ALS/BLS Discharge Delay Reason: Follow-Up Date:06/05/2018 06:00 PM Discharge Slot:2 - 12:01 pm - 18:00 pm Final Diagnosis:Humerous fracture, Colonic obsruction d/t adhesion Placement Information Referral Type:*Group Home/SNF Referral ID:[id number] Provider Name:[facility] Address 1:[address] [facility] Address 2: Fax Number: [facility]:[place] Selection Factors: State:[place] Referral Type:Palliative Care Referral ID:-[id number] Provider Name:[facility] Address 1:[address] Phone Number: Address 2: Fax Number: [facility]:[place] Selection Factors: State:[place] Patient Contact Information Contact Name:GUTIERREZ Relationship:Daughter Address: Work Phone: City: [facility] Phone: [facility] Code: Email: Financial Information Financial Class:Medicare Advantage Plans Primary Plan Desc:[employer] Primary Plan Number:[id number] Secondary Plan Desc:MEDICAID [facility] Secondary Plan Number:[id number] Assessment Information LACE LACE Acuity / Level of Answers: Yes Care: Did the patient have an inpatient admission? Comorbidities - select Answers: Chronic pulmonary disease all that apply Congestive heart failure Moderate or severe liver or renal disease Opioid dependence / Chronic pain Previous myocardial infarction Other Notes: Hep C; HTN # of Emergency department Answers: 1-2 visits in the last 6 months Social determinants Answers: Mental health diagnosis (anxiety, depression, pers onality disorders, etc.) Score: 21 Date Signed: 05/16/2018 06:40 PM Electronically Signed By:Caterina Uribe [facility] CM Progress Note CM Note CM Note Notes: Pt lives at [facility] after discharge from here last Sunday when she was admitted after fall and had surgery for humerous fracture. Pt readmitted yesterday after being found down at [facility], for SHELBI on CKD with electrolyte imbalance. Pt also has COPD, hs of liver transplant, depression/anxiety and schizoaffective disorder. Pt's brother in room during rounds. Pt likely here for a few more days, nephrology and oncology consults to be placed as well as orthopedics to eval left shoulder. Pt will return to [facility]. Referral sent and Zachrey aware. D/C Plan: [facility] Date Signed: 05/17/2018 02:53 PM Electronically Signed By:Kacie Pires [facility] CM Progress Note CM Note CM Note Notes: Pt to have L shoulder ORIF tomorrow. She also is having some difficulty swallowing - SLT to follow up. [facility] updated. D/C plan: [facility] Date Signed: 05/20/2018 03:22 PM Electronically Signed By:DAISY Deleon [facility] CM Progress Note CM Note CM Note Notes: Patient plan of care reviewed in am rounds. She is being followed by [facility] and [facility] medicine. Plan of care remains unchanged . To return to [facility] when medically stable. Date Signed: 05/22/2018 03:03 PM Electronically Signed By:Annelise Gu RN [facility] CM Progress Note CM Note CM Note Notes: Patient plan of care reviewed in am rounds. Misty is much better today. Alert and oriented. She will continue with therapy. Likely dc back to [facility] soon. Zachery dixon. CM to follow. Plan: Dc to [facility] when medically stable. Date Signed: 05/23/2018 02:29 PM Electronically Signed By:Annelise Gu RN [facility] CM Progress Note CM Note CM Note Notes: Patient plan of care reviewed in rounds. She is up in a chair today. Brighter, and attempting to eat. Left arm and hand remain in a sling and are swollen. Working with therapy. Likely to dc to [facility] tomorrow. Plan: [facility] when medically cleared for discharge. Date Signed: 05/24/2018 01:46 PM Electronically Signed By:Annelise Gu RN [facility] CM Progress Note CM Note CM Note Notes: Patient plan of care reviewed in rounds. She still has NG tube in place. Plan remains to return to [facility] once medically cleared for discharge, Resolving SBO. Plan: As above. Date Signed: 05/27/2018 01:27 PM Electronically Signed By:Annelise Gu RN [facility] Progress Note CM Note CM Note Notes: Plan of care reviewed in rounds. 72 year old s/p fall and humerus fracture developed abdominal distention, N/V post surgery for arm fracture.Patient has unresolving SBO and continues to have profound symptoms. She is scheduled for surgery this afternoon. CM to follow for needs. Current plan is to eventually return to [facility] where she resides. Plan: As above Date Signed: 05/28/2018 12:31 PM Electronically Signed By:Annelise Gu RN [facility] Progress Note CM Note CM Note Notes: Patient seen in interdisciplinary rounds. Making progress s/p surgery. Updates to [facility]. CM to follow. Plan: dc to [facility] when medically cleared for discharge. Date Signed: 05/29/2018 12:31 PM Electronically Signed By:Annelise Gu RN [facility] CM Progress Note CM Note CM Note Notes: Pt still with NGT and post op ileus but improving. D/C plan is still to return to [facility] when medically cleared. D/C plan: [facility] Date Signed: 05/31/2018 01:34 PM Electronically Signed By:DAISY Deleon [facility] CM Progress Note CM Note CM Note Notes: Plan of care reviewed in rounds. NG tube is out and patient tolerating cleared but per RN having loose black stool concerning for GI bleed. Per Hospital medicine, GI to be consulted. CM to follow. \Plan: Remain to be to dc to SNF at [facility]. Date Signed: 06/03/2018 01:38 PM Electronically Signed By:Annelise Gu RN [facility] CM Progress Note CM Note CM Note Notes: Patient plan of care reviewed in rounds. Palliative care referral made to [facility]. Patient had non eventful endoscopy. She is groggy from anesthesia. Hopefully advance diet today. Continue therapies and updates give to Zachery from [facility]. Plan: Dc to [facility] with palliative care when medically cleared for discharge. Date Signed: 06/04/2018 02:19 PM Electronically Signed By:Annelise Gu RN Intervention Information
--- NOTE | 2018-06-05 15:17 | ASMTCMCOM ---
CM Note CM Note Notes: Patient discussed in rounds. Pt being discharged back to [facility]. Zachery from [facility] made aware. CM scheduled transportation through [facility]. [facility] Palliative Care met with pt today, discussed treatment with CM. Pt agreeable with services. No other CM needs identified. Pt agreeable with D/C plan. Date Signed: 06/05/2018 03:16 PM Electronically Signed By:RADHA Contreras
--- NOTE | 2018-06-05 15:20 | ASMTDCNOTE ---
Case Management Discharge Discharge Order Complete? Answers: Yes Patient to Obtain Answers: Other Notes: [facility] Medications Transportation Arranged Answers: [facility] Stretcher Case Management Transport Answers: Yes Form Complete Faxed Final Orders Answers: Yes Agency/Facility Transfer Answers: Yes Report Printed & Faxed to Receiving Agency Discharge Comments Notes: Pt being discharged back to [facility] via [facility] for 1700. Date Signed: 06/05/2018 03:19 PM Electronically Signed By:RADHA Contreras
[2018-06-05 16:07] VITALS: BP 162/82
--- NOTE | 2018-06-05 18:41 | GDS ---
DISCHARGE DIAGNOSES: 1. Humerus fracture status post open reduction, internal fixation. 2. Colonic obstruction due to adhesive band status post salpingo-oophorectomy. 3. Liver transplant on chronic immunosuppression. 4. Myelodysplastic syndrome. 5. Toxic and metabolic encephalopathy due to acute renal failure. 6. Acute on chronic renal failure. Now back to baseline creatinine 1.5. 7. Hyponatremia secondary to hypovolemia. 8. Hepatitis C with persistent elevated viral load. 9. Ascites and hypervolemia. 10. Sick sinus syndrome, status post pacemaker. 11. Coronary artery disease, with known positive stress test on medical management only. 12. Hypertension. 13. Acute respiratory failure. 14. Upper gastrointestinal bleed. HISTORY: The patient is a 72-year-old female, who presents with a humerus fracture. She keeps falli [employer] at [facility] where she lives. She had a 2nd fall on a fracture that already existed, worsenin g it and she had to be admitted for an ORIF by Dr. Nava. She continues in a sling and is recommend ed for limited use of that extremity. Shortly after surgery she developed severe abdominal pain and was found to have a colonic obstruction . Initially, it was thought to be just severe constipation and multiple days of attempts with laxati ves to try to get her bowels to move were unsuccessful. Eventually Dr. Benitez was consulted. He did a Gastrografin enema and found what appeared to be a colonic obstruction. She went to surgery and wa s found to have an adhesive band causing intermittent colonic obstruction. The source of the adhesiv e band was her fallopian tube which was tacked down at the time of a previous hysterectomy. She unde rwent salpingo oophorectomy. Postsurgery she had very slow return of colonic function. She does genesis ear to have quite sluggish dilated colon chronically perhaps due to her longstanding poor mobility an d narcotic use. Eventually we cleared her out. She had extensive bowel movements and she is tolerat ing oral at the time of discharge. She did have some respiratory distress during this hospitalization and had some acute respiratory horacio lure at 1 time requiring [address] angiogram of the chest was negative for PE. I think that the respiratory failure was due to her massive abdominal distention. This was relieved with NG tube . She did have some pleural effusions due to her volume overload. She was diuresed. Respiratory st atus is stable at discharge. She also had a gastrointestinal bleed during this hospitalization which was consistent with melena. EGD was unremarkable. GI did not think she needed any further workup at this time. She will dischar ge on a proton pump inhibitor. DISCHARGE MEDICATIONS: Please see computer record for full detailed list. New medications: 1. Amlodipine increased to 5 mg p.o. daily. 2. Lasix 20 mg p.o. daily to be titrated for volume status. 3. Lactulose 20 mg p.o. twice daily as a chronic osmotic agent to ensure she continues to move her b owels. Discontinued medications include: 1. Aspirin 81 mg p.o. daily because her platelets are chronically around 50 and she does not have a strong indication for aspirin. 2. Morphine sulfate Contin 50 mg p.o. twice daily is discontinued as we really need to limit narcoti cs due to her sluggish colon. ADDITIONAL DISCHARGE INSTRUCTIONS: 1. Follow up with Dr. Nava in 1 week. 2. Follow up with Dr. Benitez in 2 weeks. Greater than 30 minutes' time was spent arranging this discharge. Patient seen and examined by me on the day of discharge. /[id number]/MODL
--- NOTE | 2018-06-06 08:12 | PDPCPN ---
Palliative Care Progress Note Assessment/Plan: Assessment: Palliative Visit Template 1. Updated 01/04/18- [facility] [address] [place] [address] [id number] (O) [phone](F) PALLIATIVE CARE NOTE Name: Age: Visit Type: Initial or Subsequent Location: Date: Level of Care: DIAGNOSES: 1. 2. CC: HPI: PMH: Allergies: Family Hx: Social Hx: Advance Directives: MDPOA: Patient Goals of Care: 1. ACTIVE SYMPTOMS/ASSESSMENTS/RECOMMENDATIONS 1. 2. Prognosis: Months to years less than 6 months 3. Hospice Eligibility: Yes: Goals Not Aligned No: Does not meet criteria 4. Recommended Hospice Admitting Diagnosis: MODIFIED [place] SYMPTOM ASSESSMENT SCALE~ 0-none; 1-3 mild; 4-6 moderate; 7-10 severe Unable to Respond: No~ Delirium: 0-none Depression: 0-none~ Anxiety: 0 Tiredness (fatigue): 0 Drowsiness (sleepiness): 0-none~ Pain: 0-none Nausea: 0-none~ Anorexia: 0-none~ Shortness of Breath: 0-none~ Secretions: 0-none~ Constipation: 0-none~ Symptom and side effect management: (acceptable to patient and family) RISK FACTORS FOR ADMISSION AND READMISSION TO THE HOSPITAL: o NEEDS ASSISTANCE WITH ADLS/FALL RISK o MEDICATION MANAGEMENT o SKILLED CARE NEEDED o LIVES ALONE o CAREGIVER ANXIETY o HISTORY OF NONCOMPLIANCE WITH MEDICATION o HOMELESSNESS o DIAGNOSIS OF COGNITIVE IMPAIRMENT o MENTAL HEALTH DISORDER (ie ANXIETY, DEPRESSION) o COMPROMISED FINANCIAL STATUS o NEEDS MEDICAL COVERAGE o NEEDS PRIMARY CARE PHYSICIAN o INADEQUATE SUPPORT SYSTEM o INADEQUATE TRANSPORTATION o >2 HOSPITALIZATIONS IN PAST 12 MONTHS o DISEASE EDUCATION DEFICIT OBJECTIVE FINDING Palliative Performance Score: FAST: NYHA: Wt: MAC: Neuro: A&O to person, place, time and event; HEENT: Normocephalic; atraumatic RESP: Regular, deep, symmetrical. No cough or wheezing. Breath sounds CTA. CV: HR regular, no LE edema, pitting edema GI: soft, round MSK: Well nourished. Ambulatory without assistive devices. Non-ambulatory. Unsteady ambulation SKIN: dry, intact LAB Data: Medications: Advance Care Planning MOST Form presented to pt and family/MDPOA per their request for their perusal and discussion. Pt was very clear about her wishes for the MOST form. * Each section was examined and explained to all parties and pt filled in her choices for response. * Goals of treatment include FULL COR with Full treatment * Tube Feeding is already in progress and would continue. DECISION-MAKING CAPACITY: The patient has the capacity based on the ability to: * Ability to understand: patient possesses ability to comprehend information about her medical condition, and understands the impact of her illness. * Ability to evaluate: patient possesses the ability to evaluate her presented options and weigh the risks, benefits and burdens of the options given. * Ability to make decisions: Based on her values and the patient has ability to communicate her decisions verbally. Family Support - MDPOAs are 1) Spouse was included in this discussion today and agrees with pt choices. PALLIATIVE SUMMARY: M I will continue to follow this patient for support, symptom management, and end- of-life discussions. PLAN: HEELER: Palliative Supportive Services: Thank you for the opportunity to participate in the care of this patient. TIME SPENT: >50% of the time spent counseling, educating and coordinating the above topics. Sarahy Rudolph, LINO-C Plan: 06/06/18 08:11 Objective: Vital Signs Temp Pulse Resp BP Pulse Ox 36.5 C 84 16 162/82 H 96 06/05/18 16:00 06/05/18 16:00 06/05/18 16:00 06/05/18 16:00 06/05/18 16:00 Laboratory Results 06/04/18 13:00 06/04/18 13:00 06/05/18 06/06/18 06/07/18 05:59 05:59 05:59 Intake Total 300 400 Output Total 275 600 Balance 25 -200 PT 15.5 SEC (12.0-15.0) H 05/18/18 04:00 INR 1.21 (0.83-1.16) H 05/18/18 04:00 ICD10 Worksheet Patient Problems: Problems Problem Status Onset Adjustment disorder with depressed mood Active Acute bronchitis with chronic obstructive pulmonary disease (COPD) Acute Acute on chronic renal insufficiency Acute Bronchitis Acute Chest pain Acute Chest pain Acute Chest pain in adult Acute Chronic Disease Mgmt/Transitional Care Acute Chronic obstructive pulmonary disease with acute exacerbation Acute Chronic renal insufficiency Acute Closed left humeral fracture Acute Colitis Acute Cough Acute Dehydration Acute Elevated d-dimer Acute Fracture, humerus Acute Hyponatremia Acute Knee effusion Acute Leg cramping Acute Leukopenia Acute Migraine Acute Multiple falls Acute Nausea & vomiting Acute Near syncope Acute Osteoarthritis of right knee Acute Pleural effusion, right Acute Pneumonia Acute Renal failure (ARF), acute on chronic Acute Renal failure (ARF), acute on chronic Acute Right knee pain Acute Sedated Acute Shortness of breath Acute Urinary tract infection Acute Vomiting Acute Weakness Acute
== END 2018-06-05 17:15 | DRG 673 ==
LOC: EDUNIT# → F1N 17:48
PROVIDERS: ADMIT Hospitalist; ATTEND Hospitalist
PROC: 02H633Z Insertion of Infusion Device into Right Atrium, Percutaneous Approach (ICD-10-PCS; 2018-05-16)
PROC: 0PSG34Z Reposition Left Humeral Shaft with Internal Fixation Device, Percutaneous Approach (ICD-10-PCS; 2018-05-21)
PROC: 30233R1 Transfusion of Nonautologous Platelets into Peripheral Vein, Percutaneous Approach (ICD-10-PCS; 2018-05-22)
PROC: 0UT54ZZ Resection of Right Fallopian Tube, Percutaneous Endoscopic Approach (ICD-10-PCS; principal; 2018-05-28 08:30)
PROC: 0UT04ZZ Resection of Right Ovary, Percutaneous Endoscopic Approach (ICD-10-PCS; principal; 2018-05-28 08:30)
PROC: 0DNE4ZZ Release Large Intestine, Percutaneous Endoscopic Approach (ICD-10-PCS; principal; 2018-05-28 08:30)
PROC: 0D9W4ZZ Drainage of Peritoneum, Percutaneous Endoscopic Approach (ICD-10-PCS; principal; 2018-05-28 08:30)
PROC: 30233N1 Transfusion of Nonautologous Red Blood Cells into Peripheral Vein, Percutaneous Approach (ICD-10-PCS; 2018-06-03)
PROC: 0DJ08ZZ Inspection of Upper Intestinal Tract, Via Natural or Artificial Opening Endoscopic (ICD-10-PCS; 2018-06-04)
DX: N17.9 Acute kidney failure, unspecified (principal); G92 Toxic encephalopathy; J96.00 Acute respiratory failure, unspecified whether with hypoxia or hypercapnia; E87.1 Hypo-osmolality and hyponatremia; S42.292A Other displaced fracture of upper end of left humerus, initial encounter for closed fracture; K56.50 Intestinal adhesions [bands], unspecified as to partial versus complete obstruction; Z94.4 Liver transplant status; R18.8 Other ascites; K92.2 Gastrointestinal hemorrhage, unspecified; I13.0 Hypertensive heart and chronic kidney disease with heart failure and stage 1 through stage 4 chronic kidney disease, or unspecified chronic kidney disease; T50.7X5A Adverse effect of analeptics and opioid receptor antagonists, initial encounter; W19.XXXA Unspecified fall, initial encounter; I50.9 Heart failure, unspecified; D46.9 Myelodysplastic syndrome, unspecified; N18.3 Chronic kidney disease, stage 3 (moderate); E86.0 Dehydration; B19.20 Unspecified viral hepatitis C without hepatic coma; E87.70 Fluid overload, unspecified; I25.10 Atherosclerotic heart disease of native coronary artery without angina pectoris; F25.9 Schizoaffective disorder, unspecified; F41.9 Anxiety disorder, unspecified; F32.9 Major depressive disorder, single episode, unspecified; E03.9 Hypothyroidism, unspecified; J44.9 Chronic obstructive pulmonary disease, unspecified; Z90.710 Acquired absence of both cervix and uterus; Z95.0 Presence of cardiac pacemaker
CPT/HCPCS: 80197-90; 82595-90; 82607-90; 83010-90; 86905-90; 87529-90; 92507-GN; 92523-GN; 92526-GN; 92610-GN; 97110-GP; 97116-GP; 97162-GP; 97164-GP; 97166-GO; 97168-GO; 97530-GO; 97530-GP; 97535-GO; 99001-90; C1751; C1769; G0472; G8978-GP-CK; G8978-GP-CL; G8978-GP-CM; G8979-GP-CJ; G8987-GO-CM; G8987-GO-CN; G8988-GO-CJ; G8988-GO-CK; G8996-GN-CK; G8997-GN-CI; J0330; J0360; J0690; J0694; J0696; J1100; J1170; J1650; J1940; J2060; J2212; J2270; J2405; J2550; J2704; J2710; J3010; J3475; P9016; P9040; P9047; P9073; Q9967